=== PATIENT | male | born 1950 | race African-American/Black ===

== ENCOUNTER 2016-05-18 09:30 | Emergency (ER) | payer MEDICARE, OTHER ==
[~2016-05-18] VITALS: Ht 170.2 cm; Wt 80.7 kg
[~2016-05-18 09:30] MED LIST: ALLO100T PO; ASPI-482 PO; ATOR40TA59 PO; CARV12.52 PO; CLON0.2T PO; CLOP75TA PO; GLIM4TAB2 PO; HYDR-2869 PO; NIFE20CA PO; PRAS10TA4 PO; RIVA10TA PO; SITA100T PO; SPIR100T2 PO
[2016-05-18 10:10] VITALS: BP 104/60
[2016-05-18] MEDS ORDERED: ORPHENADRINE CITRATE 60 MG/2 ML VIAL. IM ONE (10:30)
--- NOTE | 2016-05-18 10:51 | RAD ---
Indication neck pain. AP lateral and odontoid views of the cervical spine were obtained. C1-T1 are identified. There are degenerative changes. Osteophytes are seen at several levels. There is disc space narrowing predominantly at C5-6. An acute finding is not seen. The prevertebral soft tissues appear normal. IMPRESSION: Moderately severe degenerative changes in the cervical spine
[2016-05-18] MEDS ORDERED: CYCL10TA2 PO (11:46)
[2016-05-18] MEDS ORDERED: HYDR-79 PO (11:46)
--- NOTE | 2016-05-18 11:47 | PHYS DOC ---
Past Medical History Past Medical History: Diabetes-Type II, High Cholesterol, Hypertension Past Surgical History: No Surgical History Alcohol Use: None Drug Use: None Adult General Chief Complaint Chief Complaint: Neck Pain HPI HPI 65-year-old male presents with several day history of neck pain. He states he injured his neck while he was moving around in bed. States the right side of his neck feels tight and is unable to rotate his head secondary to the discomfort. He states is now been going on for a few days. States the pain is moderate now. He has tried some ibuprofen without relief. [] Review of Systems Review of Systems Constitutional: Denies fever or chills [] Eyes: Denies change in visual acuity, redness, or eye pain [] HENT: Denies nasal congestion or sore throat [] Respiratory: Denies cough or shortness of breath [] Cardiovascular: No additional information not addressed in HPI [] GI: Denies abdominal pain, nausea, vomiting, bloody stools or diarrhea [] : Denies dysuria or hematuria [] Musculoskeletal: Per history of present illness [] Integument: Denies rash or skin lesions [] Neurologic: Denies headache, focal weakness or sensory changes [] Endocrine: Denies polyuria or polydipsia [] Current Medications Current Medications Current Medications Medications (Trade) Dose Ordered Sig/[facility] Start Time Stop Time Status Last Admin Dose Admin Orphenadrine Citrate (Norflex) 60 mg 1X ONCE 05/18/16 10:30 05/18/16 10:31 DC 05/18/16 10:44 60 MG Allergies Allergies Allergies Coded Allergies Type Severity Reaction Last Updated Verified No Known Drug Allergies 12/18/15 No Physical Exam Physical Exam Constitutional: Well developed, well nourished, no acute distress, non-toxic appearance. [] HENT: Normocephalic, atraumatic, bilateral external ears normal, oropharynx moist, no oral exudates, nose normal. [] Eyes: PERRLA, EOMI, conjunctiva normal, no discharge. [] Neck: Normal range of motion, no tenderness, supple, no stridor. [] Cardiovascular:Heart rate regular rhythm, no murmur [] Lungs & Thorax: Bilateral breath sounds clear to auscultation [] Abdomen: Bowel sounds normal, soft, no tenderness, no masses, no pulsatile masses. [] Skin: Warm, dry, no erythema, no rash. [] Back: Right paraspinal spinal cervical tenderness no midline tenderness decreased range of motion secondary to pain. Rotation to the left is more restricted then rotation to the right. Side bending to the left causes pain. Side bending neck to the right is much easier.. [] Extremities: No tenderness, no cyanosis, no clubbing, ROM intact, no edema. [] Neurologic: Alert and oriented X 3, normal motor function, normal sensory function, no focal deficits noted. [] Psychologic: Affect normal, judgement normal, mood normal. [] Current Patient Data Vital Signs Vital Signs Date Time Temp Pulse Resp B/P Pulse Ox O2 Delivery O2 Flow Rate FiO2 05/18/16 10:10 97.9 81 18 104/60 99 Room Air 97.9 EKG EKG [] Radiology/Procedures Radiology/Procedures [] Impressions: PROCEDURE: CERVICAL SPINE 2-3V Indication neck pain. AP lateral and odontoid views of the cervical spine were obtained. C1-T1 are identified. There are degenerative changes. Osteophytes are seen at several levels. There is disc space narrowing predominantly at C5-6. An acute finding is not seen. The prevertebral soft tissues appear normal. IMPRESSION: Moderately severe degenerative changes in the cervical spine Course & Med Decision Making Course & Med Decision Making Pertinent Labs and Imaging studies reviewed. (See chart for details) [ED course: Evaluation reveals a 65-year-old male with an obvious cervical sprain. His x-ray shows moderately severe degenerative changes. He was given an IM shot of Norflex which did help alleviate his symptoms. I will start the patient on an anti-inflammatory as well as muscle relaxer.] Dragon Disclaimer Dragon Disclaimer This electronic medical record was generated, in whole or in part, using a voice recognition dictation system. Departure Departure Impression: Primary Impression: Cervical sprain Disposition: 01 HOME, SELF-CARE Condition: IMPROVED Referrals: THEA DELACRUZ PA-C (PCP) Patient Instructions: Cervical Sprain, Cervical Strain and Sprain with Rehab- [facility] Additional Instructions: Thank you for allowing us to participate in your care today. Followup with your primary care physician in 3 days if your symptoms do not improve. Return to the emergency department you have any new or concerning findings. This should be evaluated by the primary care physician and any necessary consulting services for continued management within a few days after discharge. Return to emergency room if you have any new or concerning symptoms including but not limited to fever, chills, nausea, vomiting, intractable pain, any new rashes, chest pain, shortness of air, uncontrolled bleeding, difficulty breathing, and/or vision loss. You may have been prescribed medication that can change in your level of thinking and ability to operate machinery. These medications include hydrocodone and Ativan. Also, Benadryl has been known to do this as well. Be sure to check with your pharmacist and ask if the medications you've prescribed can affect your level of consciousness. I recommend not operating heavy machinery or driving while on medication such as these. Scripts Cyclobenzaprine Hcl 10 Mg Tablet1 Tab PO TID PRN MUSCLE PAIN #30 TAB Prov:DEAN PARADA DO 05/18/16 Hydrocodone/Ibuprofen (Hydrocodone-Ibuprofen 7.5-200 )1 Each Tablet1 Tab PO PRN Q6HRS PRN PAIN #20 TAB Ref 0 Prov:DEAN PARADA DO 05/18/16 Problem Qualifiers Primary Impression: Cervical sprain Encounter type: initial encounter Qualified Code: S13.9XXA - Sprain of joints and ligaments of unspecified parts of neck, initial encounter DEAN PARADA DO May 18, 2016 11:47
== END 2016-05-18 11:55 | disposition home or self-care (01) ==
LOC: ER 09:34
DX: S13.4XXA Sprain of ligaments of cervical spine, initial encounter (principal); E11.9 Type 2 diabetes mellitus without complications; I10 Essential (primary) hypertension; E78.00 Pure hypercholesterolemia, unspecified; X58.XXXA Exposure to other specified factors, initial encounter; Y93.89 Activity, other specified; Y92.092 Bedroom in other non-institutional residence as the place of occurrence of the external cause; Y99.8 Other external cause status
CPT/HCPCS: 72040; 96372; 99284; J2360

== ENCOUNTER 2016-08-05 09:57 | Inpatient (IN) | payer OTHER ==
[2016-08-05] VITALS (10 sets, daily range): BP systolic 110–167; BP diastolic 56–87
[~2016-08-05] VITALS: Ht 170.2 cm; Wt 66.7 kg
[~2016-08-05 09:57] MED LIST changes: +CYCL10TA2 PO; +HYDR-79 PO; -PRAS10TA4 PO; +PRAS10TA9 PO
--- NOTE | 2016-08-05 10:27 | ED.ADGEN ---
Past Medical History Past Medical History: CAD, Diabetes-Type II, High Cholesterol, Hypertension Past Surgical History: No Surgical History Alcohol Use: None Drug Use: None Adult General Chief Complaint Chief Complaint: CHEST PAIN HPI HPI Patient is a 65 year old male who presents with chest pain. Patient has known coronary artery disease, states he's been having intermittent achy chest pain since chest today, nonradiating, no associated shortness of breath or diaphoresis but reports profound weakness when it occurs. He is unsure of how long it last, he is not actively having it at this time, his last episode was just prior to arrival when he was nauseous and vomited in his 's car. Pt's last cath was in January of last year, he states he subsequently had stents placed when they recommended a bypass surgery. Denies other illness, no cough or fevers, no history DVT or PE. PCP is Dr. Angelina Ewing, her knuckle strap sewer is Dr. Slater Review of Systems Review of Systems Constitutional: Denies fever or chills. [] Eyes: Denies change in visual acuity. [] HENT: Denies nasal congestion or sore throat. [] Respiratory: Denies cough or shortness of breath. [] Cardiovascular: per hpi GI: Denies abdominal pain, bloody stools or diarrhea. [] : Denies dysuria. [] Musculoskeletal: Denies back pain or joint pain. [] Integument: Denies rash. [] Neurologic: Denies headache, focal weakness or sensory changes. [] Current Medications Current Medications Current Medications Medications (Trade) Dose Ordered Sig/[facility] Start Time Stop Time Status Last Admin Dose Admin Alteplase, Recombinant 62 ml @ 62 mls/hr Q1H 08/05/16 12:30 08/05/16 13:29 DC 08/05/16 12:51 62 MLS/HR Aspirin 325 mg 325 mg 1X ONCE 08/05/16 11:00 08/05/16 11:01 DC 08/05/16 10:48 325 MG Sodium Bicarbonate 100 meq/Sodium Chloride 600 ml @ 500 mls/hr 1X ONCE 08/05/16 13:15 08/05/16 14:26 Cancel Sodium Bicarbonate/ Dextrose 600 ml @ 500 mls/hr 1X ONCE 08/05/16 13:15 08/05/16 14:26 DC 08/05/16 13:40 500 MLS/HR Allergies Allergies Allergies Coded Allergies Type Severity Reaction Last Updated Verified No Known Drug Allergies 12/18/15 No Physical Exam Physical Exam Constitutional: Well developed, well nourished, no acute distress, non-toxic appearance. [] HENT: Normocephalic, atraumatic, bilateral external ears normal, oropharynx moist, no oral exudates, nose normal. [] Eyes: PERRLA, EOMI, conjunctiva normal, no discharge. [] Neck: Normal range of motion, no tenderness, supple, no stridor. [] Cardiovascular:Heart rate regular with regular rhythm, no murmur [] Lungs & Thorax: Bilateral breath sounds clear to auscultation , no wheeze or crackles Abdomen: Bowel sounds normal, soft, no tenderness, no masses, no pulsatile masses. [] Skin: Warm, dry, no erythema, no rash. [] Back: No tenderness, no CVA tenderness. [] Extremities: No tenderness, no cyanosis, no clubbing, ROM intact, no edema, neg homen's Neurologic: Alert and oriented X 3, normal motor function, normal sensory function, no focal deficits noted. [] Psychologic: Affect normal, judgement normal, mood normal. [] Current Patient Data Vital Signs Vital Signs Date Time Temp Pulse Resp B/P Pulse Ox O2 Delivery O2 Flow Rate FiO2 08/05/16 12:05 55 32 101/63 96 08/05/16 10:22 97.4 Room Air 97.4 Lab Values Laboratory Tests Test 08/05/16 11:20 08/05/16 11:30 08/05/16 12:06 08/05/16 13:11 Prothrombin Time 14.2SEC (11.7-14.0) H Prothrombin Time INR 1.2 (0.8-1.1) H White Blood Count 9.9x10^3/uL (4.0-11.0) Red Blood Count 4.17x10^6/uL (4.30-5.70) L Hemoglobin 13.2g/dL (13.0-17.5) Hematocrit 40.9% (39.0-53.0) Mean Corpuscular Volume 98fL (79-100) Mean Corpuscular Hemoglobin 32pg (25-35) Mean Corpuscular Hemoglobin Concent 32g/dL (31-37) Red Cell Distribution Width 16.2% (11.5-14.5) H Platelet Count 243x10^3/uL (140-400) Neutrophils (%) (Auto) 82% (31-73) H Lymphocytes (%) (Auto) 12% (24-48) L Monocytes (%) (Auto) 5% (0-9) Eosinophils (%) (Auto) 0% (0-3) Basophils (%) (Auto) 1% (0-3) Neutrophils # (Auto) 8.1x10^3uL (1.8-7.7) H Lymphocytes # (Auto) 1.2x10^3/uL (1.0-4.8) Monocytes # (Auto) 0.5x10^3/uL (0.0-1.1) Eosinophils # (Auto) 0.0x10^3/uL (0.0-0.7) Basophils # (Auto) 0.0x10^3/uL (0.0-0.2) Sodium Level 133mmol/L (136-145) L Potassium Level 6.6mmol/L (3.5-5.1) *H Chloride Level 101mmol/L (98-107) Carbon Dioxide Level 18mmol/L (21-32) L Anion Gap 14 (6-14) 18mmol/L (6-14) H Blood Urea Nitrogen 38mg/dL (8-26) H Creatinine 2.9mg/dL (0.7-1.3) H Estimated GFR (Cockcroft-Gault) 26.7 BUN/Creatinine Ratio 13 (6-20) Glucose Level 303mg/dL (70-99) H 285mg/dL (70-99) H Uric Acid 8.5mg/dL (3.5-7.2) H Calcium Level 8.7mg/dL (8.5-10.1) Magnesium Level 1.9mg/dL (1.8-2.4) Total Bilirubin 2.0mg/dL (0.2-1.0) H Aspartate Amino Transferase (AST) 139U/L (15-37) H Alanine Aminotransferase (ALT) 148U/L (16-63) H Alkaline Phosphatase 103U/L (46-116) Creatine Kinase 257U/L (39-308) Troponin I Quantitative 6.997ng/mL (0.000-0.055) YZ-[id number]-R-Type Natriuretic Peptide 50078qw/mL (0-124) H Total Protein 7.1g/dL (6.4-8.2) Albumin 3.4g/dL (3.4-5.0) Albumin/Globulin Ratio 0.9 (1.0-1.7) L Triglycerides Level 61mg/dL (0-150) Cholesterol Level 123mg/dL (0-200) LDL Cholesterol, Calculated 79mg/dL (0-100) VLDL Cholesterol, Calculated 12mg/dL (0-40) Non-HDL Cholesterol Calculated 91mg/dL (0-129) HDL Cholesterol 32mg/dL (40-60) L Cholesterol/HDL Ratio 3.8 Glucose (Fingerstick) 292mg/dL (70-99) H POC Hemoglobin 14.3g/dL (14-18) POC Hematocrit 42% (37-52) POC Sodium 132mmol/L (135-145) L POC Potassium 6.6mmol/L (3.5-5.0) H POC Chloride 109mmol/L (98-110) POC Total CO2 13mmol/L (23-32) L POC Blood Urea Nitrogen 45mg/dL (8-26) H POC Creatinine 2.6mg/dL (0.5-1.4) H POC Ionized Calcium (Merly) 0.94mmol/L (1.13-1.32) L Laboratory Tests 08/05/16 11:30 Laboratory Tests 08/05/16 11:30 08/05/16 13:11 EKG EKG 60 bpm, difficult to appreciate P waves, believe it is sinus versus A. fib, deep T-wave inversions in leads V3 through V6 with ST depression. Previous EKG did not show the ST depression, or severe T-wave inversions, but previous to that EKGs did show similar findings. Biphasic T-wave in 3, T-wave inversion in 1 , 2 and aVF, interpreted by me Radiology/Procedures Radiology/Procedures CT Head: Impression: 1. No acute intracranial process. Please note that CT can be relatively insensitive to acute ischemic infarction for up to 24 hours after symptom onset. 2. Patchy, nonspecific white matter changes. Old left thalamic lacunar infarction. Findings are likely customer success representative of chronic microvascular ischemic disease. 3. Results discussed with emergency department staff, Dr. Gunderson, at 1219 hours. [] CXR: Exam: AP portable chest. History: Chest pain for one week. Comparison: 12/28/2015. Findings: The heart and mediastinal structures are within normal limits for size. Lungs are without infiltrate. No pneumothorax or pleural effusion is appreciated. Impression: 1. No acute cardiopulmonary process. Course & Med Decision Making Course & Med Decision Making Pertinent Labs and Imaging studies reviewed. (See chart for details) pt not actively having chest pain. Aspirin given. Labs/CXR/EKG given. compared EKG with previous EKG and he has had extreme ST depression in T waves in same leads in the past, patient is not actively having any chest pain, therefore waited for labs to return. Approximately 11 to 11:30, the patient started to have slurred speech and right sided facial droop. This was an acute change for him upon arrival. Concerned the patient was actively having a stroke , CT head was ordered emergently. It was negative for acute finding. TPA was ordered after we ruled out any exclusions were present. I explained the risks to the patient and his family member at bedside and they were agreeable to proceed with the TPA knowing the risk of bleeding. I contacted Dr. Varela prior to administering the TPA who agreed. I also consulted cardiology to inform them of the elevated troponin and the abnormal EKG. They came to the ER to evaluate the patient. Patient regarding received aspirin prior to his acute stroke. I spoke with Dr. Mittal of nephrology who recommended to have his bicarbonate and 500 mL normal saline with 40 mg IV Lasix push. This was placed. Patient could not have a French catheter due to the TPA. I spoke with Dr. Ayala accepted this patient to the ICU. Total critical care time: 78 minutes Dx: Acute ischemic CVA NSTEMI ARF Hyperkalemia Dragon Disclaimer Dragon Disclaimer This electronic medical record was generated, in whole or in part, using a voice recognition dictation system. PING GUNDERSON MD Aug 05, 2016 10:27
--- NOTE | 2016-08-05 10:37 | RAD ---
Exam: AP portable chest. History: Chest pain for one week. Comparison: 12/28/2015. Findings: The heart and mediastinal structures are within normal limits for size. Lungs are without infiltrate. No pneumothorax or pleural effusion is appreciated. Impression: 1. No acute cardiopulmonary process.
--- NOTE | 2016-08-05 10:54 | EKG ---
[facility] [address] [place] [address] Test Date: 2016-08-05 Test Time: 10:09:34 Pat Name: ERASTO HERNANDEZ Department: Room: Gender: [facility] Information Specialist: : 1950 Requested By: PING GUNDERSON Order Number: [id number] Reading MD: Rafael Slater Measurements Intervals [place] Rate: 60 P: ID: QRS: 27 QRSD: 102 T: -124 QT: 528 QTc: 533 Interpretive Statements ATRIAL FIBRILLATION VENTRICULAR PREMATURE COMPLEX(ES) CONSIDER LEFT VENTRICULAR HYPERTROPHY ST & T ABNORMALITY, CONSIDER ANTERIOR ISCHEMIA OR LEFT VENTRICULAR STRAIN INFERIOR ISCHEMIA OR LEFT VENTRICULAR STRAIN Electronically Signed On 08-05-2016 18:01:00 CDT by Rafael Slater
[2016-08-05] MEDS ORDERED: ASPIRIN 325 MG TABLET PO ONE (11:00)
[2016-08-05 11:52] LABS: BASO % 1 % (0-3); EOS % 0 % (0-3); HEMATOCRIT 40.9 % (39.0-53.0); HEMOGLOBIN 13.2 g/dL (13.0-17.5); LYMPH # 1.2 x10^3/uL (1.0-4.8); LYMPH % 12 % (24-48); MEAN CORPUSCULAR HEMOGLOBIN 32 pg (25-35); MEAN CORPUSCULAR HGB CONC 32 g/dL (31-37); MEAN CORPUSCULAR VOLUME 98 fL (79-100); MONO % 5 % (0-9); NEUT % 82 % (31-73); PLATELET COUNT 243 x10^3/uL (140-400); RED BLOOD COUNT 4.17 x10^6/uL (4.30-5.70); RED CELL DISTRIBUTION WIDTH 16.2 % (11.5-14.5); WHITE BLOOD COUNT 9.9 x10^3/uL (4.0-11.0)
[2016-08-05 12:05] LABS: INR 1.2 (0.8-1.1); PROTHROMBIN TIME PATIENT 14.2 SEC (11.7-14.0)
--- NOTE | 2016-08-05 12:21 | RAD ---
CT head without contrast History: Right-sided weakness, slurred speech, facial droop. Stroke protocol. Comparison: None. Procedure: Axial images are obtained of the head from the skull base through the vertex without IV contrast. One or more of the following individualized dose reduction techniques were utilized for the study: Automated exposure control Adjustment of mA and/or kV according to patient's size Use of iterative reconstruction technique. Findings: The ventricles and sulci are normal for the patient's age. No mass-effect, intracranial mass, midline shift, hemorrhage or obvious acute infarction is identified. Basilar cisterns are patent. Patchy, nonspecific white matter low attenuation is seen, especially involving the right periventricular white matter. There is also small old left thalamic lacunar infarction. Bone windows demonstrate no significant calvarial abnormality. The visualized paranasal sinuses appear clear. Impression: 1. No acute intracranial process. Please note that CT can be relatively insensitive to acute ischemic infarction for up to 24 hours after symptom onset. 2. Patchy, nonspecific white matter changes. Old left thalamic lacunar infarction. Findings are likely community health program representative of chronic microvascular ischemic disease. 3. Results discussed with emergency department staff, Dr. Bryant, at 1219 hours.
[2016-08-05 12:23] LABS: CALCIUM 8.7 mg/dL (8.5-10.1); CREATININE 2.9 mg/dL (0.7-1.3); GFR 26.7
[2016-08-05 12:25] LABS: POTASSIUM 6.6 mmol/L (3.5-5.1)
[2016-08-05 12:27] LABS: ALBUMIN 3.4 g/dL (3.4-5.0); ALBUMIN/GLOBULIN RATIO 0.9 (1.0-1.7); TOTAL PROTEIN 7.1 g/dL (6.4-8.2)
[2016-08-05] MEDS ORDERED: ALTEPLASE 62 MG IV SCH ×2 (12:30→12:40)
[2016-08-05] MEDS ORDERED: ALTEPLASE 7 MG IV ONE ×2 (12:30)
[2016-08-05 12:37] LABS: MAGNESIUM 1.9 mg/dL (1.8-2.4)
--- NOTE | 2016-08-05 12:49 | PDOC2 ---
SAAD CHUNG TOLL BRIDGE OPERATOR 08/05/16 1249: CARDIAC CONSULT DATE OF CONSULT Date of Consult DATE: 08/05/16 TIME: 12:43 REASON FOR CONSULT Reason for Consult: Chest pain REFERRING PHYSICIAN Referring Physician: Crispin SOURCE Source: Caregiver (partner), Chart review, Patient HISTORY OF PRESENT ILLNESS HISTORY OF PRESENT ILLNESS This is a 65 yo male admitted for complains of chest pain. His partner for 25 yrs told me that he keeps things to himself and does not complain as much. She said that in the last 2 weeks he has been having intermittent chest pain but he did not say or did not want to elaborate further. Last night he told her that he was having severe mid chest pain and was noted to be SOA. He did not want to go to the hospital due to lack of insurance. She has noticed him with CHING in the last several days. This morning he remains to have SOA, chest pain and agreed to come to ED and his partner took him to the car where he vomited. While in ED being evaluated he started to display stroke symptoms namely expressive aphasia, right facial droop and right ptosis as well as slurred speech. Presently he denies CP but SOA and is Ox3. It is unclear if he still has all of his medications or what he has been taking. He had a complex PCI/ stent placement 02/2016, followed up on 03/2016 but failed to follow up since then. He is supposed to have his lifevest but could not confirm if he still has this at home or not. PAST MEDICAL HISTORY Cardiovascular: AFIB, CAD, CHF (cardiomyopathy), HTN, Hyperlipidemia Pulmonary: COPD (?) CENTRAL NERVOUS SYSTEM: CVA (2006) Heme/Onc: Other (was on chronic anticoagulation) Psych: No pertinent hx Musculoskeletal: Osteoarthritis Rheumatologic: Gout Infectious disease: No pertinent hx Renal/: Chronic renal insuff (CKD3) Endocrine: Diabetes (2) Dermatology: No pertinent hx PAST SURGICAL HISTORY Past Surgical History: Other (02/2016 PCI/YINKA) FAMILY HISTORY Family History: Family History Unknown SOCIAL HISTORY Smoke: No ALCOHOL: none Drugs: None Lives: Alone CURRENT MEDICATIONS CURRENT MEDICATIONS Current Medications Medications (Trade) Dose Ordered Sig/Tom Route PRN Reason Start Time Stop Time Status Last Admin Dose Admin Aspirin (Ayad Aspirin) 325 mg 1X ONCE PO 08/05/16 11:00 08/05/16 11:01 DC 08/05/16 10:48 ALLERGIES ALLERGIES: Coded Allergies: No Known Drug Allergies (Unverified , 12/18/15) ROS Review of System drowsy, limited due to mentation PHYSICAL EXAM General: Oriented X3, Cooperative HEENT: Atraumatic, Mucous membr. moist/pink, Other (right facial droop; ptosis) Lungs: Other (diminished bases) Heart: Regular rate (SR), Other (S3; 2/6 systolic murmur to LLS border) Abdomen: Soft, No tenderness Extremities: No cyanosis, Other (trace LE) Skin: No breakdown, No significant lesion Neuro: Other (dysarthria) Psych/Mental Status: Other MUSCULOSKELETAL: Osteoarthritic changes both hands, Other (no unilateral weakness) VITALS VITALS Vital Signs Date Time Temp Pulse Resp B/P Pulse Ox O2 Delivery O2 Flow Rate FiO2 08/05/16 12:05 55 32 101/63 96 08/05/16 10:22 97.4 Room Air 97.4 LABS Lab: Laboratory Tests Test 08/05/16 11:20 08/05/16 11:30 08/05/16 12:06 Prothrombin Time 14.2SEC (11.7-14.0) Prothromb Time International Ratio 1.2 (0.8-1.1) White Blood Count 9.9x10^3/uL (4.0-11.0) Red Blood Count 4.17x10^6/uL (4.30-5.70) Hemoglobin 13.2g/dL (13.0-17.5) Hematocrit 40.9% (39.0-53.0) Mean Corpuscular Volume 98fL (79-100) Mean Corpuscular Hemoglobin 32pg (25-35) Mean Corpuscular Hemoglobin Concent 32g/dL (31-37) Red Cell Distribution Width 16.2% (11.5-14.5) Platelet Count 243x10^3/uL (140-400) Neutrophils (%) (Auto) 82% (31-73) Lymphocytes (%) (Auto) 12% (24-48) Monocytes (%) (Auto) 5% (0-9) Eosinophils (%) (Auto) 0% (0-3) Basophils (%) (Auto) 1% (0-3) Neutrophils # (Auto) 8.1x10^3uL (1.8-7.7) Lymphocytes # (Auto) 1.2x10^3/uL (1.0-4.8) Monocytes # (Auto) 0.5x10^3/uL (0.0-1.1) Eosinophils # (Auto) 0.0x10^3/uL (0.0-0.7) Basophils # (Auto) 0.0x10^3/uL (0.0-0.2) Sodium Level 133mmol/L (136-145) Potassium Level 6.6mmol/L (3.5-5.1) Chloride Level 101mmol/L (98-107) Carbon Dioxide Level 18mmol/L (21-32) Anion Gap 14 (6-14) Blood Urea Nitrogen 38mg/dL (8-26) Creatinine 2.9mg/dL (0.7-1.3) Estimated GFR (Cockcroft-Gault) 26.7 BUN/Creatinine Ratio 13 (6-20) Glucose Level 303mg/dL (70-99) Calcium Level 8.7mg/dL (8.5-10.1) Magnesium Level 1.9mg/dL (1.8-2.4) Total Bilirubin 2.0mg/dL (0.2-1.0) Aspartate Amino Transf (AST/SGOT) 139U/L (15-37) Alanine Aminotransferase (ALT/SGPT) 148U/L (16-63) Alkaline Phosphatase 103U/L (46-116) Troponin I Quantitative 6.997ng/mL (0.000-0.055) UB-Vys-J-Type Natriuretic Peptide 61038rc/mL (0-124) Total Protein 7.1g/dL (6.4-8.2) Albumin 3.4g/dL (3.4-5.0) Albumin/Globulin Ratio 0.9 (1.0-1.7) Glucose (Fingerstick) 292mg/dL (70-99) ECHOCARDIOGRAM ECHOCARDIOGRAM <Conclusion> Left ventricle systolic function is moderately impaired. The Ejection Fraction is estimated at 30-35%. The left atrium is moderately dilated. Trace mitral regurgitation. Trace tricuspid valve regurgitation. There is no evidence of significant pericardial effusion. DATE: 12/30/15 1051 HEART CATH HEART CATH Conclusion 1. Severe ischemic CMP. EF 25%. 2. Mildly elevated left sided filling pressures. 3. Severe LM disease with LAD/LCx involvement. 4. Successful bifurcation stenting of the left main with a T-stent technique. ( Xience 2.5/28 - LM into LCx), Xience 2.25/8 in the ostial/proximal LAD. Both stents post-dilated as noted above. 5. Successful insertion/removal of a percutaneous left ventricular assiss device (Impella), continuous for procedural support. 6. Successful IVUS of the LM and LCx. 7. Successful closure of the left common femoral artery with a Perclose device, successful closure of the RCFA with an Angioseal device. Recommendations Cardiac Rehabilitation Referral -ASA 81mg daily + Prasugrel 10mg daily for 30 days. Then transition to Xarelto + Plavix indefinitely. -PPI daily -High dose statin therapy. DATE: 03/07/16 1630 ASSESSMENT/PLAN ASSESSMENT/PLAN 1. Acute CVA: expressive aphasia and facial droop 2. NSTEMI: Troponin 6.9. EKG with diffuse asymmetrical T wave inversions 3. EMILY/hyperkalemia: K 6.6, Cr 2.9 4. Acute on chronic systolic CHF: SOA/tachypnea. No vascular congestion, nor obvious peripheral edema. 5. CAD: s/p PCI/YINKA to LM and ostial/proximal LAD; Impella assisted. 02/2016 6. Ischemic CMP: EF 25%. 7. Peripheral Vascular Disease 8. PAFIB: regular junctional. 9. Hypertension: controlled 10. QD3Vvwxempdnwvwhe: uncontrolled 11. Noncompliance: has not attended multiple cardiology follow ups. Could not confirm what medications he has been taking at home 12. Shock liver Recommendations 1. Stroke protocol triggered. tPA initiated by ED. 2. Consult neurology and nephrology 3. Lipid panel, further recommendation post TTE 4. Lasix, defer further to renal. 5. If ok with neurology, would recommend to start heparin >24 hours post tPA and if no further changes 6. ASA received prior to tPA 7. Will review secondary prevention measures in the next 24 hours 8. Will consider for LHC once other acute issues are better. Problems: ANGEL ROBLES MD 08/05/16 1833: CARDIAC CONSULT ALLERGIES ALLERGIES: Coded Allergies: No Known Drug Allergies (Unverified , 12/18/15) ASSESSMENT/PLAN ASSESSMENT/PLAN Patient seen and examined. Agree with above nurse practitioner noted. 65-year-old male well known to us with history of cardiac myopathy status post left main and circumflex stents. He was last seen in the clinic approximately 3 months ago. It appears that since then he is not been taking his medications. He presented with acute dyspnea and acute/subacute stroke like symptoms. On examination he is confused and lethargic. He has nausea. He is tachypneic. Decreased breath sounds at the lung bases. His EKG suggestive of lateral wall ischemia. Echocardiogram demonstrates significant LV systolic dysfunction worsened compared to prior. He has significant multiorgan failure including cardiac and renal dysfunction. It appears that he has not been taking his medications for the last 3 months has had progressive decline. At this time his ABG appears to reveal stable oxygenation. Symptomatically treatment for his nausea. Aggressive diuresis. Initiated on milrinone therapy. We will follow along closely. I discussed the grave prognosis with the family and the patient. Given his recent TPA administration it would be a contraindication to taken to the catheter lab for his elevated troponin. When able to do so after 24 hours we will initiate him on a heparin drip. Problems: SAAD CHUNG APRN Aug 05, 2016 12:49 ANGEL ROBLES MD Aug 05, 2016 18:33
--- NOTE | 2016-08-05 13:01 | ACF ---
Admission Forms Criteria MYOCARDIAL INFARCTION Clinical Indications for Admission to Inpatient Care (Place 'X' for any and all applicable criteria): Admission is indicated for 1 or more of the following (1)(2)(3)(4): [x]I. Acute WA [ ]II. Contraindications and/or Inappropriate clinical situations for Observational Care in patients with Myocardial Infarction, when ANY ONE of the following is required: [ ]a) Patient with High risk of cardiac embolism (e.g, patients with previous cardiac embolism, LVEF < 40%, age >75 and patients with prosthetic valve) 18 [ ]b) Patient with Moderate risk including DM patient, CAD and patient aged 65-75 18 [ ]c) Patient with any change in cardiac biomarker especially troponin should be managed as high risk in an inpatient setting 19 [ ]d) Physician judgement irrespective of ECG and other diagnostic findings 20 [ ]III.General contraindications and/or Inappropriate clinical situations for Observational Care in patients with Myocardial Infarction, when ANY ONE of the following is required: [ ]a) Prediction of prolongation of LOS based on ANY ONE of the following may be considered as a contraindication for observational care 2, 3, 4, 5, 6, 7, 8, 9, 10, 11 [ ]i) Age > 65 yrs. [ ]ii) Patient arriving by ambulance [ ]iii) Patient with high acuity [ ]iv) Patient requiring vital sign monitoring [ ]v) Patient on IV medication [ ]b) Systolic blood pressures greater than or equal to 180mmHg 3,12 [ ]c) Patient with altered mental status including delirium and other alteration of consciousness, (3) [ ]d) Patient whose discharge disposition will be to a residential home or rehabilitation home should not be managed in Emergency Department Observation Unit. CMS rule requires 3 days hospital stay before such placement. 3,13 [ ]e) Patient with failure to thrive due to broad array of etiologies 3 ,16,17 [ ]f) Inability to ambulate 3,14 Extended stay beyond goal length of stay may be needed for (1)(18)(20)(24)(25): [ ]a) Hemodynamic instability, persisting symptoms after intensive medical management, or recurring severe, prolonged symptoms [ ]b) Intravascular procedural complications such as acute vessel closure, stent thrombosis, stent malposition, or vessel dissection (26)(27)(28) [ ]c) Extravascular procedural complications such as retroperitoneal hematoma , pericardial effusion, or cardiac tamponade [ ]d) Entry site complications causing bleeding, hematoma or distal ischemia and requiring ongoing monitoring, surgical repair or surgical thrombectomy. Dangerous arrhythmia [ ]e) Complicated percutaneous coronary intervention (e.g., unsuccessful percutaneous coronary intervention or percutaneous coronary intervention of non- cahto vessel) [ ]f) Urgent or emergent surgery for complications of WA (e.g., ventricular rupture, valvular insufficiency) [ ]g) Surgical revascularization via coronary artery bypass graft [ ]h) Heart failure (e.g., pulmonary edema) [ ]i) Unstable pulmonary comorbidities, including COPD or pneumonia (31) [ ]j) Acute renal failure The original [email or web address] content created by [email or web address] has been revised. The portions of the content which have been revised are identified through the use of italic text or in bold, and [facility] [employer] has neither reviewed nor approved the modified material. All other unmodified content is copyright [facility] [employer] Please see references footnoted in the original [employer] [employer] edition 2016 Admission Criteria Met?: Yes OSBALDO SUAREZ Aug 05, 2016 13:01
[2016-08-05] MEDS ORDERED: SODIUM BICARBONATE IV ONE ×2 (13:15)
[2016-08-05] MEDS ORDERED: NORMAL SALINE IV ONE (13:15)
[2016-08-05] MEDS ORDERED: DEXTROSE 5% IV ONE (13:15)
[2016-08-05] MEDS ORDERED: FUROSEMIDE 40 MG/4 ML VIAL. IVP ONE (13:30)
--- NOTE | 2016-08-05 13:46 | CARD ---
APPROVED REPORT EXAM: Two-dimensional and M-mode echocardiogram with Doppler and color Doppler. Other Information Quality : GoodHR: 50bpm Rhythm : Bradycardia INDICATION Non STEMI Acute CVA LEFT VENTRICLE The Left Ventricle is mildly dilated. There is normal left ventricular wall thickness. Left ventricle systolic function is severely impaired. The Ejection Fraction is <20%. There is severe global hypoki nesis of the left ventricle. Tissue Doppler imaging reveals severe left ventricular diastolic dysfunc tion. No left ventricle thrombus noted on this study. RIGHT VENTRICLE The right ventricle is normal size. There is normal right ventricular wall thickness. Systolic functi on is moderately reduced. ATRIA The left atrium is severely dilated. The right atrium size is normal. The interatrial septum is intac t with no evidence for an atrial septal defect or patent foramen ovale as noted on 2-D or Doppler lydia ging. AORTIC VALVE The aortic valve is mildly thickened. The aortic valve is trileaflet. Doppler and Color Flow revealed mild aortic regurgitation. There is no significant aortic valvular stenosis. MITRAL VALVE Mitral annular calcification is mild. The mitral valve leaflets are thickened. There is no evidence o f mitral valve prolapse. There is no mitral valve stenosis. Doppler and Color Flow revealed trace abad ral regurgitation. TRICUSPID VALVE Doppler and Color Flow revealed mild tricuspid regurgitation. The pulmonary artery systolic pressure is estimated at 52 mmHg. There is moderate pulmonary hypertension. PULMONIC VALVE Doppler and Color Flow revealed no pulmonic valvular regurgitation. There is no pulmonic valvular atlon nosis. GREAT VESSELS The aortic root is normal in size. The ascending aorta is normal in size. The pulmonary artery is nor mal. The IVC is normal in size and collapses >50% with inspiration. PERICARDIAL EFFUSION There is no evidence of significant pericardial effusion. Critical Notification Date: 08/05/2016 Time: 13:41 Physician Name:Ashleemisha KaufmanGia Critical Value: Yes <Conclusion> Left ventricle systolic function is severely impaired. The Ejection Fraction is <20%. There is severe global hypokinesis of the left ventricle. Doppler and Color Flow revealed mild tricuspid regurgitation. The pulmonary artery systolic pressure is estimated at 52 mmHg. There is moderate pulmonary hypertension.
--- NOTE | 2016-08-05 14:06 | EKG ---
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
[2016-08-05 14:33] LABS: POTASSIUM ISTAT 6.6 mmol/L (3.5-5.0)
--- NOTE | 2016-08-05 14:37 | EKG ---
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
[2016-08-05] MEDS ORDERED: IV NORMAL SALINE 500ML BAG 500 ML IV PRN (14:45)
--- NOTE | 2016-08-05 14:56 | PDOC2 ---
CONSULT Date of Consult Date of Consult DATE: 08/05/16 TIME: 14:34 Reason for Consult Reason for Consult: EMILY/ CKD III and ^K Referring Physician Referring Physician: dr Nasra JUAREZ Identification/Chief Complaint Chief Complaint CP Problems: Source Source: Chart review, Patient History of Present Illness Reason for Visit: as dictated Past Medical History Cardiovascular: AFIB, CAD, CHF (cardiomyopathy), HTN, Hyperlipidemia Pulmonary: COPD (?) CENTRAL NERVOUS SYSTEM: CVA (2006) Heme/Onc: Other (was on chronic anticoagulation) Psych: No pertinent hx Musculoskeletal: Osteoarthritis Rheumatologic: Gout Infectious disease: No pertinent hx Renal/: Chronic renal insuff (CKD3) Endocrine: Diabetes (2) Dermatology: No pertinent hx Past Surgical History Past Surgical History: Other (02/2016 PCI/YINKA) Family History Family History: Family History Unknown Social History No ALCOHOL: none Drugs: None Lives: Alone Current Medications Current Medications Current Medications Aspirin 325 mg 325 mg 1X ONCE PO Last administered on 08/05/16 10:48; Start 08/05/16 at 11:00; Stop 08/05/16 at 11:01; Status DC Alteplase, Recombinant 0 ml @ 0 mls/hr 1X ONCE IV ; Start 08/05/16 at 12:30; Stop 08/05/16 at 12:31; Status Cancel Alteplase, Recombinant 0 ml @ 0 mls/hr Q1H IV ; Start 08/05/16 at 12:40; Stop at 12:41; Status Cancel Alteplase, Recombinant 7 ml @ 420 mls/hr 1X ONCE IV Last administered on 12:50; Start 08/05/16 at 12:30; Stop 08/05/16 at 12:31; Status DC Alteplase, Recombinant (Activase) 62 ml @ 62 mls/hr Q1H IV Last administered on 08/05/16 12:51; Start 08/05/16 at 12:30; Stop 08/05/16 at 13:29; Status DC Furosemide 40 mg 40 mg 1X ONCE IVP Last administered on 08/05/16 13:30; Start 08/05/16 at 13:30; Stop 08/05/16 at 13:31; Status DC Sodium Bicarbonate 100 meq/Sodium Chloride 600 ml @ 500 mls/hr 1X ONCE IV ; Start 08/05/16 at 13:15; Stop 08/05/16 at 14:26; Status Cancel Sodium Bicarbonate/ Dextrose 600 ml @ 500 mls/hr 1X ONCE IV Last administered on 08/05/16t 13:40; Start 08/05/16 at 13:15; Stop 08/05/16 at 14:26 Active Scripts Active Cyclobenzaprine Hcl 10 Mg Tablet 1 Tab PO TID PRN Hydrocodone-Ibuprofen 7.5-200 (Hydrocodone/Ibuprofen) 1 Each Tablet 1 Tab PO PRN Q6HRS PRN Effient (Prasugrel Hcl) 10 Mg Tablet 10 Mg PO DAILYWBKFT SIG: ONE PO DAILY Hydralazine Hcl 50 Mg Tablet 50 Mg PO TID SIG: ONE BY MOUTH EVERY 8 HOURS; REPLACES NIFEDIPINE Carvedilol 12.5 Mg Tablet 12.5 Mg PO BIDWMEALS SIG: ONE P.O. BID; REPLACES CLONIDINE Reported Glimepiride 4 Mg Tablet 1 Tab PO DAILY Januvia (Sitagliptin Phosphate) 100 Mg Tablet 1 Tab PO DAILY Spironolactone 100 Mg Tablet 1 Tab PO DAILY Allopurinol 100 Mg Tablet 1 Tab PO DAILY Atorvastatin Calcium 40 Mg Tablet 1 Tab PO DAILY Aspir 81 (Aspirin) 81 Mg Tablet. 81 Tab PO DAILY Allergies Allergies: Coded Allergies: No Known Drug Allergies (Unverified , 12/18/15) ROS Review of System unable to get from pt currently due to AMS Physical Exam Physical Exam General Appearance: barely arousable, cant stay Awake, drowsy, In no apparent Distress Eyes: sclera anicteric; Conjunctiva Normal EN: No EN Drainage Mucous Memb. dry Neck: no JVD min JVP Supple no Thyromegaly CVS: S1 S2 + Murmur No Gallop No Rub no Edema Resp: no Rales no Rhonchi no Acc. Muscle use GI: BS hypoactive NO Bruit Non Tender Non Distended : no CVA tenderness; no Suprapubic Tenderness SKIN: no Rashes Breast Exam deferred Mu.Sk: Adequate passive ROM no significant Muscle Atrophy Heme: Unable to palpate Obvious LAD no palp Splenomegaly NEURO: Unable to assess since he does not follow commands Psych: Unable to assess Vital Signs Vital Signs Date Time Temp Pulse Resp B/P Pulse Ox O2 Delivery O2 Flow Rate FiO2 08/05/16 12:05 55 32 101/63 96 08/05/16 10:22 97.4 Room Air 97.4 Assessment & Plan EMILY - suspect Voldepletion/ Cardiogenic Shock. Reval with IVF . unable to place corona due to t-PA admin. hypoThermia - cehck TSH, FSBS wnl - suspect due to Dec CO and Vol dpeletion; doubt sepsis per se. Met Acidosis (NAG) - IV Bicarb as ordered - unable to obtain h/o diarrhea per se ^K - IV Bicarb then IVF with lasix vol dpeltion - IVF as ordered, Will need to run at a gentle rate due to worsening of CMYopathy. May need Ionotropes. ^LFTs - check CK (anticipate some elevation due to AMI cannot be ruled out) Labs Labs Laboratory Tests Test 08/05/16 11:20 08/05/16 11:30 08/05/16 12:06 08/05/16 13:11 Prothrombin Time 14.2SEC (11.7-14.0) Prothromb Time International Ratio 1.2 (0.8-1.1) White Blood Count 9.9x10^3/uL (4.0-11.0) Red Blood Count 4.17x10^6/uL (4.30-5.70) Hemoglobin 13.2g/dL (13.0-17.5) Hematocrit 40.9% (39.0-53.0) Mean Corpuscular Volume 98fL (79-100) Mean Corpuscular Hemoglobin 32pg (25-35) Mean Corpuscular Hemoglobin Concent 32g/dL (31-37) Red Cell Distribution Width 16.2% (11.5-14.5) Platelet Count 243x10^3/uL (140-400) Neutrophils (%) (Auto) 82% (31-73) Lymphocytes (%) (Auto) 12% (24-48) Monocytes (%) (Auto) 5% (0-9) Eosinophils (%) (Auto) 0% (0-3) Basophils (%) (Auto) 1% (0-3) Neutrophils # (Auto) 8.1x10^3uL (1.8-7.7) Lymphocytes # (Auto) 1.2x10^3/uL (1.0-4.8) Monocytes # (Auto) 0.5x10^3/uL (0.0-1.1) Eosinophils # (Auto) 0.0x10^3/uL (0.0-0.7) Basophils # (Auto) 0.0x10^3/uL (0.0-0.2) Sodium Level 133mmol/L (136-145) Potassium Level 6.6mmol/L (3.5-5.1) Chloride Level 101mmol/L (98-107) Carbon Dioxide Level 18mmol/L (21-32) Anion Gap 14 (6-14) 18mmol/L (6-14) Blood Urea Nitrogen 38mg/dL (8-26) Creatinine 2.9mg/dL (0.7-1.3) Estimated GFR (Cockcroft-Gault) 26.7 BUN/Creatinine Ratio 13 (6-20) Glucose Level 303mg/dL (70-99) 285mg/dL (70-99) Calcium Level 8.7mg/dL (8.5-10.1) Magnesium Level 1.9mg/dL (1.8-2.4) Total Bilirubin 2.0mg/dL (0.2-1.0) Aspartate Amino Transf (AST/SGOT) 139U/L (15-37) Alanine Aminotransferase (ALT/SGPT) 148U/L (16-63) Alkaline Phosphatase 103U/L (46-116) Troponin I Quantitative 6.997ng/mL (0.000-0.055) ME-Wxo-G-Type Natriuretic Peptide 45299yf/mL (0-124) Total Protein 7.1g/dL (6.4-8.2) Albumin 3.4g/dL (3.4-5.0) Albumin/Globulin Ratio 0.9 (1.0-1.7) Glucose (Fingerstick) 292mg/dL (70-99) Bedside Hemoglobin 14.3g/dL (14-18) Bedside Hematocrit 42% (37-52) Bedside Sodium 132mmol/L (135-145) Bedside Potassium 6.6mmol/L (3.5-5.0) Bedside Chloride 109mmol/L (98-110) Bedside Total CO2 13mmol/L (23-32) Bedside Blood Urea Nitrogen 45mg/dL (8-26) Bedside Creatinine 2.6mg/dL (0.5-1.4) Bedside Ionized Calcium (Merly) 0.94mmol/L (1.13-1.32) Laboratory Tests Test 08/05/16 11:20 08/05/16 11:30 08/05/16 12:06 08/05/16 13:11 Prothrombin Time 14.2SEC (11.7-14.0) Prothromb Time International Ratio 1.2 (0.8-1.1) White Blood Count 9.9x10^3/uL (4.0-11.0) Red Blood Count 4.17x10^6/uL (4.30-5.70) Hemoglobin 13.2g/dL (13.0-17.5) Hematocrit 40.9% (39.0-53.0) Mean Corpuscular Volume 98fL (79-100) Mean Corpuscular Hemoglobin 32pg (25-35) Mean Corpuscular Hemoglobin Concent 32g/dL (31-37) Red Cell Distribution Width 16.2% (11.5-14.5) Platelet Count 243x10^3/uL (140-400) Neutrophils (%) (Auto) 82% (31-73) Lymphocytes (%) (Auto) 12% (24-48) Monocytes (%) (Auto) 5% (0-9) Eosinophils (%) (Auto) 0% (0-3) Basophils (%) (Auto) 1% (0-3) Neutrophils # (Auto) 8.1x10^3uL (1.8-7.7) Lymphocytes # (Auto) 1.2x10^3/uL (1.0-4.8) Monocytes # (Auto) 0.5x10^3/uL (0.0-1.1) Eosinophils # (Auto) 0.0x10^3/uL (0.0-0.7) Basophils # (Auto) 0.0x10^3/uL (0.0-0.2) Sodium Level 133mmol/L (136-145) Potassium Level 6.6mmol/L (3.5-5.1) Chloride Level 101mmol/L (98-107) Carbon Dioxide Level 18mmol/L (21-32) Anion Gap 14 (6-14) 18mmol/L (6-14) Blood Urea Nitrogen 38mg/dL (8-26) Creatinine 2.9mg/dL (0.7-1.3) Estimated GFR (Cockcroft-Gault) 26.7 BUN/Creatinine Ratio 13 (6-20) Glucose Level 303mg/dL (70-99) 285mg/dL (70-99) Calcium Level 8.7mg/dL (8.5-10.1) Magnesium Level 1.9mg/dL (1.8-2.4) Total Bilirubin 2.0mg/dL (0.2-1.0) Aspartate Amino Transf (AST/SGOT) 139U/L (15-37) Alanine Aminotransferase (ALT/SGPT) 148U/L (16-63) Alkaline Phosphatase 103U/L (46-116) Troponin I Quantitative 6.997ng/mL (0.000-0.055) HF-Lid-Y-Type Natriuretic Peptide 40870gu/mL (0-124) Total Protein 7.1g/dL (6.4-8.2) Albumin 3.4g/dL (3.4-5.0) Albumin/Globulin Ratio 0.9 (1.0-1.7) Glucose (Fingerstick) 292mg/dL (70-99) Bedside Hemoglobin 14.3g/dL (14-18) Bedside Hematocrit 42% (37-52) Bedside Sodium 132mmol/L (135-145) Bedside Potassium 6.6mmol/L (3.5-5.0) Bedside Chloride 109mmol/L (98-110) Bedside Total CO2 13mmol/L (23-32) Bedside Blood Urea Nitrogen 45mg/dL (8-26) Bedside Creatinine 2.6mg/dL (0.5-1.4) Bedside Ionized Calcium (Merly) 0.94mmol/L (1.13-1.32) JONI CRISOSTOMO MD Aug 05, 2016 14:56
[2016-08-05 14:57] LABS: URIC ACID 8.5 mg/dL (3.5-7.2)
[2016-08-05 15:00] LABS: CHOLESTEROL/HDL RATIO 3.8
--- NOTE | 2016-08-05 15:34 | PDOC1 ---
History and Physical Past Medical History Cardiovascular: AFIB, CAD, CHF (cardiomyopathy), HTN, Hyperlipidemia Pulmonary: COPD (?) CENTRAL NERVOUS SYSTEM: CVA (2006) Heme/Onc: Other (was on chronic anticoagulation) Psych: No pertinent hx Rheumatologic: Gout Infectious disease: No pertinent hx Renal/: Chronic renal insuff (CKD3) Endocrine: Diabetes (2) Dermatology: No pertinent hx Past Surgical History Past Surgical History: Other (02/2016 PCI/YINKA) Family History Family History: Family History Unknown Social History Smoke: No ALCOHOL: none Drugs: None Current Medications Current Medications Current Medications Medications (Trade) Dose Ordered Sig/Tom Start Time Stop Time Status Last Admin Dose Admin Alteplase, Recombinant (Activase) 62 ml @ 62 mls/hr Q1H 08/05/16 12:30 08/05/16 13:29 DC 08/05/16 12:51 62 MLS/HR Aspirin 325 mg 325 mg 1X ONCE 08/05/16 11:00 08/05/16 11:01 DC 08/05/16 10:48 325 MG Furosemide 40 mg 40 mg 1X ONCE 08/05/16 13:30 08/05/16 13:31 DC 08/05/16 13:30 40 MG Magnesium Sulfate/ Dextrose 50 ml @ 25 mls/hr PRN DAILY PRN 08/05/16 14:30 Sodium Bicarbonate 100 meq/Dextrose 600 ml @ 500 mls/hr 1X ONCE 08/05/16 13:15 08/05/16 14:26 DC 08/05/16 13:40 500 MLS/HR Sodium Bicarbonate 100 meq/Sodium Chloride 600 ml @ 500 mls/hr 1X ONCE 08/05/16 13:15 08/05/16 14:26 Cancel Sodium Chloride (Iv Sodium Chloride 0.9% 500ml Bag) 500 ml @ 0 mls/hr QID PRN 08/05/16 14:45 Allergies Allergies Allergies Coded Allergies Type Severity Reaction Last Updated Verified No Known Drug Allergies 12/18/15 No ROS Review of System as per HPI not able get full ROS form pt, no family is available. Physical Exam Physical Exam GEN.: No apparent distress. Alert and oriented, times 3, slow to respond to questins, HEENT: Head is normocephalic, atraumatic NECK: Supple. LUNGS: Clear to auscultation. normal airflow HEART: RRR, S1, S2 present. Peripheral pulses intact ABDOMEN: Soft, nontender. Positive bowel sounds. EXTREMITIES: Without any cyanosis. NEUROLOGIC: slurring of speech. PSYCHIATRIC: SKIN: dry, Vitals Vitals Vital Signs Date Time Temp Pulse Resp B/P Pulse Ox O2 Delivery O2 Flow Rate FiO2 08/05/16 12:05 55 32 101/63 96 08/05/16 10:22 97.4 Room Air 97.4 Labs Labs Laboratory Tests Test 08/05/16 11:20 08/05/16 11:30 08/05/16 12:06 08/05/16 13:11 Prothrombin Time 14.2SEC (11.7-14.0) Prothromb Time International Ratio 1.2 (0.8-1.1) White Blood Count 9.9x10^3/uL (4.0-11.0) Red Blood Count 4.17x10^6/uL (4.30-5.70) Hemoglobin 13.2g/dL (13.0-17.5) Hematocrit 40.9% (39.0-53.0) Mean Corpuscular Volume 98fL (79-100) Mean Corpuscular Hemoglobin 32pg (25-35) Mean Corpuscular Hemoglobin Concent 32g/dL (31-37) Red Cell Distribution Width 16.2% (11.5-14.5) Platelet Count 243x10^3/uL (140-400) Neutrophils (%) (Auto) 82% (31-73) Lymphocytes (%) (Auto) 12% (24-48) Monocytes (%) (Auto) 5% (0-9) Eosinophils (%) (Auto) 0% (0-3) Basophils (%) (Auto) 1% (0-3) Neutrophils # (Auto) 8.1x10^3uL (1.8-7.7) Lymphocytes # (Auto) 1.2x10^3/uL (1.0-4.8) Monocytes # (Auto) 0.5x10^3/uL (0.0-1.1) Eosinophils # (Auto) 0.0x10^3/uL (0.0-0.7) Basophils # (Auto) 0.0x10^3/uL (0.0-0.2) Sodium Level 133mmol/L (136-145) Potassium Level 6.6mmol/L (3.5-5.1) Chloride Level 101mmol/L (98-107) Carbon Dioxide Level 18mmol/L (21-32) Anion Gap 14 (6-14) 18mmol/L (6-14) Blood Urea Nitrogen 38mg/dL (8-26) Creatinine 2.9mg/dL (0.7-1.3) Estimated GFR (Cockcroft-Gault) 26.7 BUN/Creatinine Ratio 13 (6-20) Glucose Level 303mg/dL (70-99) 285mg/dL (70-99) Uric Acid 8.5mg/dL (3.5-7.2) Calcium Level 8.7mg/dL (8.5-10.1) Magnesium Level 1.9mg/dL (1.8-2.4) Total Bilirubin 2.0mg/dL (0.2-1.0) Aspartate Amino Transf (AST/SGOT) 139U/L (15-37) Alanine Aminotransferase (ALT/SGPT) 148U/L (16-63) Alkaline Phosphatase 103U/L (46-116) Creatine Kinase 257U/L (39-308) Troponin I Quantitative 6.997ng/mL (0.000-0.055) UF-Fcn-I-Type Natriuretic Peptide 66762zj/mL (0-124) Total Protein 7.1g/dL (6.4-8.2) Albumin 3.4g/dL (3.4-5.0) Albumin/Globulin Ratio 0.9 (1.0-1.7) Triglycerides Level 61mg/dL (0-150) Cholesterol Level 123mg/dL (0-200) LDL Cholesterol, Calculated 79mg/dL (0-100) VLDL Cholesterol, Calculated 12mg/dL (0-40) Non-HDL Cholesterol Calculated 91mg/dL (0-129) HDL Cholesterol 32mg/dL (40-60) Cholesterol/HDL Ratio 3.8 Glucose (Fingerstick) 292mg/dL (70-99) Bedside Hemoglobin 14.3g/dL (14-18) Bedside Hematocrit 42% (37-52) Bedside Sodium 132mmol/L (135-145) Bedside Potassium 6.6mmol/L (3.5-5.0) Bedside Chloride 109mmol/L (98-110) Bedside Total CO2 13mmol/L (23-32) Bedside Blood Urea Nitrogen 45mg/dL (8-26) Bedside Creatinine 2.6mg/dL (0.5-1.4) Bedside Ionized Calcium (Merly) 0.94mmol/L (1.13-1.32) Laboratory Tests Test 08/05/16 11:20 08/05/16 11:30 08/05/16 12:06 08/05/16 13:11 Prothrombin Time 14.2SEC (11.7-14.0) Prothromb Time International Ratio 1.2 (0.8-1.1) White Blood Count 9.9x10^3/uL (4.0-11.0) Red Blood Count 4.17x10^6/uL (4.30-5.70) Hemoglobin 13.2g/dL (13.0-17.5) Hematocrit 40.9% (39.0-53.0) Mean Corpuscular Volume 98fL (79-100) Mean Corpuscular Hemoglobin 32pg (25-35) Mean Corpuscular Hemoglobin Concent 32g/dL (31-37) Red Cell Distribution Width 16.2% (11.5-14.5) Platelet Count 243x10^3/uL (140-400) Neutrophils (%) (Auto) 82% (31-73) Lymphocytes (%) (Auto) 12% (24-48) Monocytes (%) (Auto) 5% (0-9) Eosinophils (%) (Auto) 0% (0-3) Basophils (%) (Auto) 1% (0-3) Neutrophils # (Auto) 8.1x10^3uL (1.8-7.7) Lymphocytes # (Auto) 1.2x10^3/uL (1.0-4.8) Monocytes # (Auto) 0.5x10^3/uL (0.0-1.1) Eosinophils # (Auto) 0.0x10^3/uL (0.0-0.7) Basophils # (Auto) 0.0x10^3/uL (0.0-0.2) Sodium Level 133mmol/L (136-145) Potassium Level 6.6mmol/L (3.5-5.1) Chloride Level 101mmol/L (98-107) Carbon Dioxide Level 18mmol/L (21-32) Anion Gap 14 (6-14) 18mmol/L (6-14) Blood Urea Nitrogen 38mg/dL (8-26) Creatinine 2.9mg/dL (0.7-1.3) Estimated GFR (Cockcroft-Gault) 26.7 BUN/Creatinine Ratio 13 (6-20) Glucose Level 303mg/dL (70-99) 285mg/dL (70-99) Uric Acid 8.5mg/dL (3.5-7.2) Calcium Level 8.7mg/dL (8.5-10.1) Magnesium Level 1.9mg/dL (1.8-2.4) Total Bilirubin 2.0mg/dL (0.2-1.0) Aspartate Amino Transf (AST/SGOT) 139U/L (15-37) Alanine Aminotransferase (ALT/SGPT) 148U/L (16-63) Alkaline Phosphatase 103U/L (46-116) Creatine Kinase 257U/L (39-308) Troponin I Quantitative 6.997ng/mL (0.000-0.055) BK-Weg-P-Type Natriuretic Peptide 75913xs/mL (0-124) Total Protein 7.1g/dL (6.4-8.2) Albumin 3.4g/dL (3.4-5.0) Albumin/Globulin Ratio 0.9 (1.0-1.7) Triglycerides Level 61mg/dL (0-150) Cholesterol Level 123mg/dL (0-200) LDL Cholesterol, Calculated 79mg/dL (0-100) VLDL Cholesterol, Calculated 12mg/dL (0-40) Non-HDL Cholesterol Calculated 91mg/dL (0-129) HDL Cholesterol 32mg/dL (40-60) Cholesterol/HDL Ratio 3.8 Glucose (Fingerstick) 292mg/dL (70-99) Bedside Hemoglobin 14.3g/dL (14-18) Bedside Hematocrit 42% (37-52) Bedside Sodium 132mmol/L (135-145) Bedside Potassium 6.6mmol/L (3.5-5.0) Bedside Chloride 109mmol/L (98-110) Bedside Total CO2 13mmol/L (23-32) Bedside Blood Urea Nitrogen 45mg/dL (8-26) Bedside Creatinine 2.6mg/dL (0.5-1.4) Bedside Ionized Calcium (Merly) 0.94mmol/L (1.13-1.32) VTE Prophylaxis Ordered VTE Prophylaxis Devices: Contraindicated VTE Pharmacological Prophylaxi: Contraindicated Assessment/Plan Assessment/Plan CVA NSTEMI PLAN S/P TPA CC TIME 32 MIN. IDALIA BOWMAN MD Aug 05, 2016 15:34
[2016-08-05] MEDS ORDERED: DEXTROSE 50% 25 GM / 50ML DISP.SYRIN. IV PRN (16:00)
[2016-08-05] MEDS ORDERED: CALCIUM GLUCONATE 1,000 MG/10 ML VIAL. IVP ONE (16:15)
[2016-08-05] MEDS ORDERED: INSULIN REGULAR 100 UNIT/ML 10ML VIAL. IV ONE (16:15)
[2016-08-05] MEDS ORDERED: DEXTROSE 50% 25 GM / 50ML DISP.SYRIN. IV ONE (16:15)
--- NOTE | 2016-08-05 16:23 | RAD ---
PROCEDURE Brain MRI without contrast. HISTORY Confusion. Slurred speech. Weakness. TECHNIQUE Multiplanar and multi sequence magnetic resonance imaging of the brain was performed without contrast. COMPARISON Head CT obtained on the same date. FINDINGS There is slight restricted diffusion within the left frontal lobe cortex and subcortical white matter likely due acute or subacute infarction. There is also a tiny focus of slight increased signal on diffusion weighted images within the left occipital lobe, possibly due to additional subacute infarction. There is a focus of susceptibility effect within the right parietal lobe likely due to chronic microhemorrhage. There are extensive scattered areas of T2/FLAIR hyperintensity throughout the cerebral white matter, likely due to chronic small vessel disease. There is cerebral volume loss. There are foci of encephalomalacia within the cerebellar hemispheres, likely due to chronic infarction. There are chronic infarct within the bilateral basal ganglia, right external capsule and left thalamus. The orbits and paranasal sinuses are unremarkable. There is a tiny amount of fluid within the right greater than left mastoid air cells. The basilar artery is slightly diminutive, likely due to anterior dominant circulation. IMPRESSION 1. Suspected acute to subacute infarction within the left frontal lobe cortex and subcortical white matter and possibly the left occipital lobe white matter. 2. Scattered foci of signal change throughout the cerebral white matter, likely due to chronic small vessel disease. 3. Focus of suspected chronic microhemorrhage within the right parietal lobe. 4. Cerebral volume loss. 5. Chronic infarcts within the bilateral basal ganglia, right external capsule, left thalamus and cerebellar hemispheres. Findings were discussed with Mary, the nurse caring for the patient in the ICU, at 1620 hours on 08/05/2016. Electronically signed by: Juanita Espinosa (Aug 05, 2016 16:21:36)
--- NOTE | 2016-08-05 17:16 | PDOC2 ---
NEUROLOGY CONSULT Date of Admission Date of Admission DATE: 08/05/16 TIME: 16:45 Reason for Consult Reason for Consult: IMPRESSION: Acute (subacute also possible on MRI) left frontal cortex infarct, left occipital infarct possible, cerebral ischemia from cardiogenic etiology, s/p TPA in ER. SOB Chest pain. Hypoxia. CAD, s/p stents placement. CHF, EF < 20%. Pulmonary A hypertension DM Hyperglycemia, glucose level 303 Renal failure CKD Hyperkalemia, K+ 6.6 HTN HLD AFib? Elevated troponin. 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 Old right parietal microhemorrhage. RECOMMENDATIONS/PLAN: TPA protocol. Stroke protocol. NIH score per protocol. Brain MRI w/o contrast performed reports as above. Carotid A US + Doppler. Echo performed. Fasting lipid panel in a.m. ASA daily first dose 24-hour after TPA if no anticoagulant from Cardiology. Treat medical and cardiac diseases. Discussed with him and his cousin in ICU. HISTORY OF THE PRESENT ILLNESS: 65-y-old AA male patient with above medical and cardiac diseases has been having symptoms of SOB and generalized weakness for at least 1 week and he said he has not been feeling well recently. He was noted mental status changes and aphasia on 08/05 to be brought to the ER of [facility]. He might have some brief motor deficits as well but not consistent. TPA was administrated after all criteria were met and he and his family agreed. From his stroke type, he was thought to have partial global ischemia due to severe CHF. PAST MEDICAL HISTORY: Please see above. PAST SURGERY HISTORY: Cardiac stents placement. ALLERGY: Reviewed. MEDICATIONS: Refer to [facility] FAMILY HISTORY: Non contributory. SOCIAL HISTORY: Lives alone. He . Denies current smoking, drinking, and illicit drug use. He smoked in the past but quit years ago. He drank in the past then quit. He used drugs in the past, but denied current use. REVIEW OF SYSTEMS: Constitutional: No cachexia. Head: No traumatic brain or head injury. Skin: No edema, or rash. Ear: No infection, tinnitus. Eyes: No vision loss or color blindness. Nose: No bleeding or purulent discharges. Hearing: Mild hearing decrease. Neck: No acute injury. Cardiac: CAD, s/p stents placement, AFib, CHF, HTN, HLD, SOB, PAD, PVD Pulmonary: SOB GI: No GI ulcer, GI bleeding. Urinary/genital: UTI. Endocrinologic: Diabetes Mellitus. Skeletomuscular: Generalized weakness. Neurological: see HP. Psychiatric: Denies drug use/abuse. Otherwise, not [id number] review of systems. PHYSICAL EXAMINATION: General appearance is in acute distress. HEENT: Normocephalic and nontraumatic. Eyes, nose, ears, and throat are unremarkable. Neck is supple. No lymphadenopathy. No crepitus. Cardiovascular: S1, S2, regular rate and rhythm. Pulmonary: Clear to auscultation bilaterally. Abdomen: Bowel sounds are positive. Extremities: No rash, lesions, or edema. No restriction of range of motion NEUROLOGICAL EXAMINATION: Awake. Not oriented to time, but knows lace and person. PERRL. EOMI. CN: no acute focal findings. Muscle tone: within normal. Muscle strength: 4 DTR: 2 UE, brisk at knee. Plantar reflex: Flexor response bilaterally Gait: not examined in bed. Sensory exam: no acute abnormal findings. No obvious cerebellar signs elicited. F-T-N test not performed. Current Medications Current Medications Current Medications Aspirin 325 mg 325 mg 1X ONCE PO Last administered on 08/05/16 10:48; Start 08/05/16 at 11:00; Stop 08/05/16 at 11:01; Status DC Alteplase, Recombinant 0 ml @ 0 mls/hr 1X ONCE IV ; Start 08/05/16 at 12:30; Stop 08/05/16 at 12:31; Status Cancel Alteplase, Recombinant 0 ml @ 0 mls/hr Q1H IV ; Start 08/05/16 at 12:40; Stop at 12:41; Status Cancel Alteplase, Recombinant 7 ml @ 420 mls/hr 1X ONCE IV Last administered on 12:50; Start 08/05/16 at 12:30; Stop 08/05/16 at 12:31; Status DC Alteplase, Recombinant (Activase) 62 ml @ 62 mls/hr Q1H IV Last administered on 08/05/16 12:51; Start 08/05/16 at 12:30; Stop 08/05/16 at 13:29; Status DC Furosemide 40 mg 40 mg 1X ONCE IVP Last administered on 08/05/16t 13:30; Start 08/05/16 at 13:30; Stop 08/05/16 at 13:31; Status DC Sodium Bicarbonate 100 meq/Sodium Chloride 600 ml @ 500 mls/hr 1X ONCE IV ; Start 08/05/16 at 13:15; Stop 08/05/16 at 14:26; Status Cancel Sodium Bicarbonate 100 meq/Dextrose 600 ml @ 500 mls/hr 1X ONCE IV Last administered on 08/05/16t 13:40; Start 08/05/16 at 13:15; Stop 08/05/16 at 14:26 ; Status DC Magnesium Sulfate/ Dextrose 50 ml @ 25 mls/hr PRN DAILY PRN IV for Mag < 1.7 on am labs; Start 08/05/16 at 14:30 Sodium Chloride (Iv Sodium Chloride 0.9% 500ml Bag) 500 ml @ 0 mls/hr QID PRN IV UO< 30cc/hr over previous 6hrs; Start 08/05/16 at 14:45 Insulin Detemir (Levemir) 10 units QHS SQ ; Start 08/05/16 at 21:00 Insulin Aspart (Novolog) 0-7 UNITS TIDWMEALS SQ ; Start 08/05/16 at 17:00 Dextrose (Dextrose 50%-Water Syringe) 12.5 gm PRN Q15MIN PRN IV SEE COMMENTS; Start 08/05/16 at 16:00 Dextrose (Dextrose 50%-Water Syringe) 25 gm 1X ONCE IV ; Start 08/05/16 at 16: 15; Stop 08/05/16 at 16:16; Status DC Insulin Human Regular (Novolin R Vial) 10 unit 1X ONCE IV ; Start 08/05/16 at 16:15; Stop 08/05/16 at 16:16; Status DC Calcium Gluconate (Calcium Gluconate) 1,000 mg 1X ONCE IVP ; Start 08/05/16 at 16:15; Stop 08/05/16 at 16:16; Status DC Active Scripts Active Cyclobenzaprine Hcl 10 Mg Tablet 1 Tab PO TID PRN Hydrocodone-Ibuprofen 7.5-200 (Hydrocodone/Ibuprofen) 1 Each Tablet 1 Tab PO PRN Q6HRS PRN Effient (Prasugrel Hcl) 10 Mg Tablet 10 Mg PO DAILYWBKFT SIG: ONE PO DAILY Hydralazine Hcl 50 Mg Tablet 50 Mg PO TID SIG: ONE BY MOUTH EVERY 8 HOURS; REPLACES NIFEDIPINE Carvedilol 12.5 Mg Tablet 12.5 Mg PO BIDWMEALS SIG: ONE P.O. BID; REPLACES CLONIDINE Reported Glimepiride 4 Mg Tablet 1 Tab PO DAILY Januvia (Sitagliptin Phosphate) 100 Mg Tablet 1 Tab PO DAILY Spironolactone 100 Mg Tablet 1 Tab PO DAILY Allopurinol 100 Mg Tablet 1 Tab PO DAILY Atorvastatin Calcium 40 Mg Tablet 1 Tab PO DAILY Aspir 81 (Aspirin) 81 Mg Tablet.dr 81 Tab PO DAILY Allergies Allergies: Coded Allergies: No Known Drug Allergies (Unverified , 12/18/15) Vitals VITALS Vital Signs Date Time Temp Pulse Resp B/P Pulse Ox O2 Delivery O2 Flow Rate FiO2 08/05/16 12:05 55 32 101/63 96 08/05/16 10:22 97.4 Room Air 97.4 Labs Labs Laboratory Tests Test 08/05/16 11:20 08/05/16 11:30 08/05/16 12:06 08/05/16 13:11 Prothrombin Time 14.2SEC (11.7-14.0) Prothromb Time International Ratio 1.2 (0.8-1.1) White Blood Count 9.9x10^3/uL (4.0-11.0) Red Blood Count 4.17x10^6/uL (4.30-5.70) Hemoglobin 13.2g/dL (13.0-17.5) Hematocrit 40.9% (39.0-53.0) Mean Corpuscular Volume 98fL (79-100) Mean Corpuscular Hemoglobin 32pg (25-35) Mean Corpuscular Hemoglobin Concent 32g/dL (31-37) Red Cell Distribution Width 16.2% (11.5-14.5) Platelet Count 243x10^3/uL (140-400) Neutrophils (%) (Auto) 82% (31-73) Lymphocytes (%) (Auto) 12% (24-48) Monocytes (%) (Auto) 5% (0-9) Eosinophils (%) (Auto) 0% (0-3) Basophils (%) (Auto) 1% (0-3) Neutrophils # (Auto) 8.1x10^3uL (1.8-7.7) Lymphocytes # (Auto) 1.2x10^3/uL (1.0-4.8) Monocytes # (Auto) 0.5x10^3/uL (0.0-1.1) Eosinophils # (Auto) 0.0x10^3/uL (0.0-0.7) Basophils # (Auto) 0.0x10^3/uL (0.0-0.2) Sodium Level 133mmol/L (136-145) Potassium Level 6.6mmol/L (3.5-5.1) Chloride Level 101mmol/L (98-107) Carbon Dioxide Level 18mmol/L (21-32) Anion Gap 14 (6-14) 18mmol/L (6-14) Blood Urea Nitrogen 38mg/dL (8-26) Creatinine 2.9mg/dL (0.7-1.3) Estimated GFR (Cockcroft-Gault) 26.7 BUN/Creatinine Ratio 13 (6-20) Glucose Level 303mg/dL (70-99) 285mg/dL (70-99) Uric Acid 8.5mg/dL (3.5-7.2) Calcium Level 8.7mg/dL (8.5-10.1) Magnesium Level 1.9mg/dL (1.8-2.4) Total Bilirubin 2.0mg/dL (0.2-1.0) Aspartate Amino Transf (AST/SGOT) 139U/L (15-37) Alanine Aminotransferase (ALT/SGPT) 148U/L (16-63) Alkaline Phosphatase 103U/L (46-116) Creatine Kinase 257U/L (39-308) Troponin I Quantitative 6.997ng/mL (0.000-0.055) LU-Hjz-R-Type Natriuretic Peptide 28269yh/mL (0-124) Total Protein 7.1g/dL (6.4-8.2) Albumin 3.4g/dL (3.4-5.0) Albumin/Globulin Ratio 0.9 (1.0-1.7) Triglycerides Level 61mg/dL (0-150) Cholesterol Level 123mg/dL (0-200) LDL Cholesterol, Calculated 79mg/dL (0-100) VLDL Cholesterol, Calculated 12mg/dL (0-40) Non-HDL Cholesterol Calculated 91mg/dL (0-129) HDL Cholesterol 32mg/dL (40-60) Cholesterol/HDL Ratio 3.8 Vitamin B12 Level 415pg/mL (247-911) Thyroid Stimulating Hormone (TSH) 4.093uIU/mL (0.358-3.74) Glucose (Fingerstick) 292mg/dL (70-99) Bedside Hemoglobin 14.3g/dL (14-18) Bedside Hematocrit 42% (37-52) Bedside Sodium 132mmol/L (135-145) Bedside Potassium 6.6mmol/L (3.5-5.0) Bedside Chloride 109mmol/L (98-110) Bedside Total CO2 13mmol/L (23-32) Bedside Blood Urea Nitrogen 45mg/dL (8-26) Bedside Creatinine 2.6mg/dL (0.5-1.4) Bedside Ionized Calcium (Merly) 0.94mmol/L (1.13-1.32) Laboratory Tests Test 08/05/16 11:20 08/05/16 11:30 08/05/16 12:06 08/05/16 13:11 Prothrombin Time 14.2SEC (11.7-14.0) Prothromb Time International Ratio 1.2 (0.8-1.1) White Blood Count 9.9x10^3/uL (4.0-11.0) Red Blood Count 4.17x10^6/uL (4.30-5.70) Hemoglobin 13.2g/dL (13.0-17.5) Hematocrit 40.9% (39.0-53.0) Mean Corpuscular Volume 98fL (79-100) Mean Corpuscular Hemoglobin 32pg (25-35) Mean Corpuscular Hemoglobin Concent 32g/dL (31-37) Red Cell Distribution Width 16.2% (11.5-14.5) Platelet Count 243x10^3/uL (140-400) Neutrophils (%) (Auto) 82% (31-73) Lymphocytes (%) (Auto) 12% (24-48) Monocytes (%) (Auto) 5% (0-9) Eosinophils (%) (Auto) 0% (0-3) Basophils (%) (Auto) 1% (0-3) Neutrophils # (Auto) 8.1x10^3uL (1.8-7.7) Lymphocytes # (Auto) 1.2x10^3/uL (1.0-4.8) Monocytes # (Auto) 0.5x10^3/uL (0.0-1.1) Eosinophils # (Auto) 0.0x10^3/uL (0.0-0.7) Basophils # (Auto) 0.0x10^3/uL (0.0-0.2) Sodium Level 133mmol/L (136-145) Potassium Level 6.6mmol/L (3.5-5.1) Chloride Level 101mmol/L (98-107) Carbon Dioxide Level 18mmol/L (21-32) Anion Gap 14 (6-14) 18mmol/L (6-14) Blood Urea Nitrogen 38mg/dL (8-26) Creatinine 2.9mg/dL (0.7-1.3) Estimated GFR (Cockcroft-Gault) 26.7 BUN/Creatinine Ratio 13 (6-20) Glucose Level 303mg/dL (70-99) 285mg/dL (70-99) Uric Acid 8.5mg/dL (3.5-7.2) Calcium Level 8.7mg/dL (8.5-10.1) Magnesium Level 1.9mg/dL (1.8-2.4) Total Bilirubin 2.0mg/dL (0.2-1.0) Aspartate Amino Transf (AST/SGOT) 139U/L (15-37) Alanine Aminotransferase (ALT/SGPT) 148U/L (16-63) Alkaline Phosphatase 103U/L (46-116) Creatine Kinase 257U/L (39-308) Troponin I Quantitative 6.997ng/mL (0.000-0.055) WJ-Jcg-V-Type Natriuretic Peptide 65825ow/mL (0-124) Total Protein 7.1g/dL (6.4-8.2) Albumin 3.4g/dL (3.4-5.0) Albumin/Globulin Ratio 0.9 (1.0-1.7) Triglycerides Level 61mg/dL (0-150) Cholesterol Level 123mg/dL (0-200) LDL Cholesterol, Calculated 79mg/dL (0-100) VLDL Cholesterol, Calculated 12mg/dL (0-40) Non-HDL Cholesterol Calculated 91mg/dL (0-129) HDL Cholesterol 32mg/dL (40-60) Cholesterol/HDL Ratio 3.8 Vitamin B12 Level 415pg/mL (247-911) Thyroid Stimulating Hormone (TSH) 4.093uIU/mL (0.358-3.74) Glucose (Fingerstick) 292mg/dL (70-99) Bedside Hemoglobin 14.3g/dL (14-18) Bedside Hematocrit 42% (37-52) Bedside Sodium 132mmol/L (135-145) Bedside Potassium 6.6mmol/L (3.5-5.0) Bedside Chloride 109mmol/L (98-110) Bedside Total CO2 13mmol/L (23-32) Bedside Blood Urea Nitrogen 45mg/dL (8-26) Bedside Creatinine 2.6mg/dL (0.5-1.4) Bedside Ionized Calcium (Merly) 0.94mmol/L (1.13-1.32) OLIVIA MALIK MD Aug 05, 2016 17:15
--- NOTE | 2016-08-05 17:29 | EKG ---
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
--- NOTE | 2016-08-05 17:35 | HP ---
ADMIT DATE: 08/05/2016 CHIEF COMPLAINT: Chest pain. HISTORY OF PRESENT ILLNESS: This is a 65-year-old -[place] male patient with a prior history of cardiomyopathy, severe and AFib and coronary artery disease who presented to the ER with chest pain. Reportedly, the patient is having symptoms, such as chest pain for more than 2 weeks; however, due to insurance issues, he did not seek any medical advice; however, finally, his partner convinced him to bring him to the ER; however, upon arrival to the ER, he had vomiting and also while he was evaluated in the ER, he had CVA-like symptoms. The patient noted to have slurring of speech and expressive aphasia and facial droop and he received tPA. I did examine the patient in the critical care unit. At the time of examination, he is alert, oriented x 3. He is able to go to MRI. He is following my commands; however, still I can see the droopiness of his eyes and some slurring of speech. PAST MEDICAL HISTORY: AFib, coronary artery disease, cardiomyopathy, hypertension, hyperlipidemia, COPD, CVA in 2006, chronic renal insufficiency, and diabetes. PAST SURGICAL HISTORY: Drug-eluting stents placement in 02/2016. FAMILY HISTORY: Unknown. SOCIAL HISTORY: No smoking, no alcohol, no drug abuse. HOME MEDICATIONS: Need to be verified. Currently, the patient is not able to provide. He received aspirin. ALLERGIES: NKDA. REVIEW OF SYSTEMS: Limited. Chest pain and nausea and vomiting. PHYSICAL EXAMINATION: Please see my electronic H and P. VITAL SIGNS: Temperature 97.4, pulse 55, respirations 32, blood pressure 101/63, pulse ox 96%. LABORATORY FINDINGS: WBC is 9.9, hemoglobin 13.2, MCV 98, platelets 243. Chemistries: Sodium is 133, potassium is 6.6, carbon dioxide is 18, and creatinine of 2.9, BUN is 38, glucose is 303. Total bilirubin 2.2. ProBNP 47515. INR is 1.2, PT is 14.2. Repeat BMP showed troponin is 6.99 and lipid panel within normal limits. IMAGING STUDIES: CT of the head: No acute intracranial process seen with old left thalamic lacunar stroke. Chest x-ray: No acute cardiopulmonary process seen. EKG: Not able to review. As per the ER report, no STEMI noted. T-wave inversions seen in lead IV. ASSESSMENT: 1. Acute cerebrovascular accident: Present on admission. 2. Non-ST elevation myocardial infarction. 3. Hyperkalemia with acute kidney injury. 4. [id number] congestive heart failure, systolic. 5. Prior history of coronary artery disease with drug-eluting stents placement in 02/2016. 6. Ischemic cardiomyopathy with ejection fraction of 25%. 7. Peripheral vascular disease. 8. Atrial fibrillation. 9. Hypertension. 10. Type 2 diabetes mellitus with hyperglycemia. 11. Noncompliance. 12. Mild elevation of LFTs. PLAN: 1. The patient received tPA in the ER and he will be monitored in the ICU. 2. Neurology has been consulted. 3. We will continue mild IV diuresis. 4. We will resume heparin as per Neurology recommendation, most likely after 24 hours of tPA. 5. Monitor renal functions. If renal function worsens, we will start him on inotropic agents. 6. Monitor intake and output. 7. No family members are available. Case discussed with RN. 8. Prognosis: Guarded and critical. 9. Echocardiogram has already been done. 10. Monitor potassium closely. 11. He received bicarbonate in the ER and also furosemide. IDALIA BOWMAN MD DR: MERLE/tomer JOB#: [id number] / [id number] NAVEEN
[2016-08-05 17:52] LABS: HCO3 ABG 16 mmol/L (21-28); PCO2 ABG 25 mmHg (35-46); PH ABG 7.43 (7.35-7.45); PO2 ABG 75 mmHg (65-108); SAT O2 ABG 94 % (92-99)
[2016-08-05 18:11] LABS: BILIRUBIN,URINE NEGATIVE (NEG); GLUCOSE,URINE 250 mg/dL (NEG); NITRITE,URINE NEGATIVE (NEG); PROTEIN,URINE 100 mg/dL (NEG-TRACE)
[2016-08-05] MEDS: INSULIN ASPART 300 UNITS/3 ML INSULN.PEN SQ SCH (18:24)
[2016-08-05 18:31] LABS: BACTERIA,URINE FEW /HPF (0-FEW); SQUAMOUS EPITHELIAL CELL,UR OCC /LPF
[2016-08-05 18:35] LABS: BARBITURATES NEG (NEG); BENZODIAZEPINES NEG (NEG); CANNABINOIDS NEG (NEG); COCAINE NEG (NEG); METHADONE NEG (NEG); OPIATES NEG (NEG); PHENCYCLIDINE NEG (NEG)
[2016-08-05] MEDS: MILRINONE 20MG/100ML PREMIX 100 ML IV PRN (18:36)
[2016-08-05] MEDS: INSULIN DETEMIR 300 UNITS/3 ML INSULN.PEN. SQ SCH (21:29)
[2016-08-06] VITALS (24 sets, daily range): BP systolic 98–132; BP diastolic 53–78
--- NOTE | 2016-08-06 02:50 | CONS ---
DATE OF CONSULTATION: PRIMARY PHYSICIAN: Dr. Nichols in the ER. REASON FOR CONSULTATION: Hyperkalemia as well as renal insufficiency. HISTORY OF PRESENT ILLNESS: The patient is a 65-year-old -Citizen Of [place] gentleman with past medical history of cardiomyopathy in the past. He apparently has been having chest pain for the last few days, but did not report to the ER for the longest period of time. On presentation, he was found to have altered mental status. He was diagnosed with a stroke and has been given TPA through the ER. I was called by Dr. Nichols about his elevated potassium. He was noted to have non-anion gap metabolic acidosis and hence IV fluids with bicarbonate and dextrose were ordered. Kayexalate is unable to be administered since patient does not for the same. Also he is noted to have a troponin of 6.997 and he is felt to have had a stroke. He is noted to be significantly hypothermic. TSH is pending. Sugars are adequate at this time. REVIEW OF SYSTEMS: Unable to be obtained from the patient due to altered mental status. HOME MEDICATIONS: Do include sitagliptin, Aldactone. For rest of the details, see electronic records. JONI CRISOSTOMO MD DR: DALLAS/tomer JOB#: [id number] / [id number]
[2016-08-06 07:37] LABS: ALBUMIN 3.3 g/dL (3.4-5.0); CALCIUM 8.9 mg/dL (8.5-10.1)
[2016-08-06 07:38] LABS: CREATININE 2.9 mg/dL (0.7-1.3); GFR 26.7; PHOSPHORUS 4.2 mg/dL (2.6-4.7); POTASSIUM 4.3 mmol/L (3.5-5.1)
[2016-08-06] MEDS: INSULIN ASPART 300 UNITS/3 ML INSULN.PEN SQ SCH ×3 (08:00→17:00)
[2016-08-06] MEDS: MAGNESIUM SULFATE 2GM 50 ML IV PRN (09:42)
--- NOTE | 2016-08-06 11:42 | RAD ---
Clinical indications: No pedal pulses. Findings: Duplex sonography of the peripheral arterial system of both lower extremities including mustafa scale evaluation and color flow and spectral waveform analysis was performed. There is elevation in the peak systolic flow velocity measurement within the proximal right profunda femoral artery. This may be due to increased collateral flow due to significant stenosis of the right superficial femoral artery. Decreased peak systolic flow velocity measurements are seen within this artery starting at the level of proximal superficial femoral artery in comparison to the left side. Abnormal monophasic waveforms are seen starting within the proximal right superficial femoral artery on down. Biphasic waveforms are seen within the femoral popliteal segment of the left leg and monophasic waveform is seen within the left distal posterior tibial artery and the left dorsalis pedis artery indicative of significant disease within the distal posterior tibial artery and the distal anterior tibial artery. Peak systolic flow velocities are as follows: Right leg: common femoral artery- 93 cm/sec, profunda femoral artery -417 cm/sec, proximal superficial femoral artery -36cm/sec, mid superficial femoral artery -46 cm/sec, distal superficial femoral artery- 18 cm/sec, popliteal artery -17 cm/sec, proximal posterior tibial artery- 15 cm/sec, distal posterior tibial artery- 14 cm/sec, peroneal artery- 15 cm/sec, anterior tibial artery- 25 cm/sec, dorsalis pedis artery -13 cm/sec. Left leg: common femoral artery- 111 cm/sec, profunda femoral artery -109 cm/sec, proximal superficial femoral artery- 98cm/sec, mid superficial femoral artery- 135 cm/sec, distal superficial femoral artery- 73 cm/sec, popliteal artery -74 cm/sec, proximal posterior tibial artery -134 cm/sec, distal posterior tibial artery- 39 cm/sec, peroneal artery -34 cm/sec, anterior tibial artery -58 cm/sec, dorsalis pedis artery- 17 cm/sec. Impression: Significant diffuse atherosclerotic disease of the right superficial femoral artery is seen. Significant disease within the distal left posterior tibial artery and the distal left anterior tibial artery.
--- NOTE | 2016-08-06 11:45 | RAD ---
Renal sonography Clinical indications: Acute renal failure. History of chronic kidney disease. Findings: The longitudinal and AP and transverse dimensions of the right kidney are 9.6 cm and 4.7 cm and 4.7 cm respectively. The longitudinal and AP and transverse dimensions of the left kidney are 9.2 cm and 3.8 cm and 3.9 cm respectively. There is a small parapelvic cyst of the left kidney measuring 10 mm. No hydronephrosis or perinephric fluid collection is seen on either side. The urinary bladder is mildly distended. No intraluminal echodensities or masses are seen. Bilateral ureteral jets are seen. IMPRESSION: No hydronephrosis.
--- NOTE | 2016-08-06 12:44 | RAD ---
Clinical indications: speech difficulty. Slurred speech. Confusion. Weakness. Acute to subacute infarct of left frontal lobe and left occipital lobe seen on brain MRI study on August 05, 2016. Duplex sonography of the cervical portion of both carotid arteries was performed including color flow imaging and spectral waveform analysis with flow velocity measurement and mustafa scale evaluation. Right side: Peak systolic flow velocity of the CCA is 80 cm/sec. Peak systolic flow velocity of the ICA is 63 cm/sec. Thus, the ICA/CCA ratio is less than 1.0. Peak end diastolic flow velocity of the ICA is 18 cm/sec. The peak systolic velocity of the ECA is 123 cm/sec. Left side: Peak systolic flow velocity of the CCA is 87 cm/sec. Peak systolic flow velocity of the ICA is 76 cm/sec. Thus, the ICA/CCA ratio is less than 1.0. Peak end diastolic flow velocity of the ICA is 42 cm/sec. Peak systolic flow velocity of the ECA is 124 cm/sec. Mild plaque formation is seen within the carotid bifurcations and ICA on both sides more prominent on the left side but is not hemodynamically significant measuring less than 50%. Antegrade vertebral flow is seen bilaterally. The measurements were made using the NASCET criteria. Impression:Mild plaque formation is seen within the carotid bifurcations bilaterally..
--- NOTE | 2016-08-06 13:51 | PDOC ---
PROGRESS NOTES Chief Complaint Chief Complaint cc: angina -CVA -NSTEMI -acute renal failure -Systolic heart failure -chronic kidney disease -DM -atrial fibrillation -hypertension -hyperlipidemia -COPD -coronary stent History of Present Illness History of Present Illness Mr. Fernandez was present with family when we saw him. We discussed his case with his family, nursing, and cardiology. He reported that he was feeling hungry and wanted to eat. The patient was able to talk and interact. He had milrinone and magnesium hanging from the IV rack. His telemetry showed ST depression. Vitals Vitals Vital Signs Date Time Temp Pulse Resp B/P Pulse Ox O2 Delivery O2 Flow Rate FiO2 08/06/16 12:00 Nasal Cannula 1.0 08/06/16 12:00 97.4 74 30 114/62 97 97.4 Physical Exam General: Cooperative, No acute distress Heart: Regular rate (SR), No murmurs Lungs: Clear, Other (No chest retractions or other signs of acute distress were present.) Abdomen: Soft, No tenderness Extremities: No clubbing, No cyanosis Skin: No rashes, No breakdown, No significant lesion Labs LABS Laboratory Tests Test 08/05/16 14:00 08/05/16 17:00 08/05/16 17:40 08/05/16 17:47 Nasal Screen MRSA (PCR) Negative (Negative) Urine Color Yellow Urine Clarity Clear Urine pH 5.0 Urine Specific [place] 1.010 Urine Protein 100mg/dL (NEG-TRACE) Urine Glucose (UA) 250mg/dL (NEG) Urine Ketones (Stick) Negativemg/dL (NEG) Urine Blood Small (NEG) Urine Nitrite Negative (NEG) Urine Bilirubin Negative (NEG) Urine Urobilinogen Dipstick 1.0mg/dL (0.2 mg/dL) Urine Leukocyte Esterase Negative (NEG) Urine RBC 1-2/HPF (0-2) Urine WBC 1-4/HPF (0-4) Urine Squamous Epithelial Cells Occ/LPF Urine Amorphous Sediment Present/HPF Urine Bacteria Few/HPF (0-FEW) Urine Mucus Mod/LPF Urine Opiates Screen Neg (NEG) Urine Methadone Screen Neg (NEG) Urine Barbiturates Neg (NEG) Urine Phencyclidine Screen Neg (NEG) Urine Amphetamine/Methamphetamine Neg (NEG) Urine Benzodiazepines Screen Neg (NEG) Urine Cocaine Screen Neg (NEG) Urine Cannabinoids Screen Neg (NEG) Urine Ethyl Alcohol Neg (NEG) O2 Saturation 94% (92-99) Arterial Blood pH 7.43 (7.35-7.45) Arterial Blood pCO2 at Patient Temp 25mmHg (35-46) Arterial Blood pO2 at Patient Temp 75mmHg (65-108) Arterial Blood HCO3 16mmol/L (21-28) Arterial Blood Base Excess -6mmol/L (-3-3) FiO2 2 lpm nc Glucose (Fingerstick) 310mg/dL (70-99) Test 08/05/16 18:10 08/05/16 19:25 08/05/16 21:19 08/06/16 01:10 Potassium Level 3.8mmol/L (3.5-5.1) 4.2mmol/L (3.5-5.1) Lactic Acid Level 3.1mmol/L (0.4-2.0) Troponin I Quantitative 14.108ng/mL (0.000-0.055) 39.343ng/mL (0.000-0.055) Glucose (Fingerstick) 120mg/dL (70-99) Test 08/06/16 05:00 08/06/16 08:28 08/06/16 11:52 08/06/16 12:30 Hemoglobin 12.4g/dL (13.0-17.5) Sodium Level 139mmol/L (136-145) Potassium Level 4.3mmol/L (3.5-5.1) 4.3mmol/L (3.5-5.1) Chloride Level 103mmol/L (98-107) Carbon Dioxide Level 20mmol/L (21-32) Anion Gap 16 (6-14) Blood Urea Nitrogen 44mg/dL (8-26) Creatinine 2.9mg/dL (0.7-1.3) Estimated GFR (Cockcroft-Gault) 26.7 Glucose Level 81mg/dL (70-99) Calcium Level 8.9mg/dL (8.5-10.1) Phosphorus Level 4.2mg/dL (2.6-4.7) Magnesium Level 1.6mg/dL (1.8-2.4) Albumin 3.3g/dL (3.4-5.0) Glucose (Fingerstick) 117mg/dL (70-99) 118mg/dL (70-99) Review of Systems Review of Systems Mr. Fernandez reports he was not experiencing any signficant pain anywhere on his body. He was not having any nausea and hadn't had any over night. Assessment and Plan Assessmemt and Plan Problems Medical Problems: (1) CVA (cerebral vascular accident) Status: Acute Mr. Fernandez is a 65 year old male who initially presented with angina. -CVA -NSTEMI -acute renal failure -Systolic heart failure -chronic kidney disease -DM -atrial fibrillation -hypertension -hyperlipidemia -COPD -coronary stent Plan: 1. Address kidney injury with IVF, maintain awareness of BNP 2. Recheck labs 3. PT/OT 4. Monitor sodium level, especially with IVF 5. Recheck troponins 6. Monitor magnesium level 7. Watch for focal neural deficits with infarction on MRI 8. Continue milrinone for systolic heart failure 9. Appreciate input from subspecialists Problems: Comment Review of Relevant I have reviewed the following items abdulaziz (where applicable) has been applied. Labs Laboratory Tests Test 08/05/16 11:20 08/05/16 11:30 08/05/16 12:06 08/05/16 13:08 Prothrombin Time 14.2SEC (11.7-14.0) Prothromb Time International Ratio 1.2 (0.8-1.1) White Blood Count 9.9x10^3/uL (4.0-11.0) Red Blood Count 4.17x10^6/uL (4.30-5.70) Hemoglobin 13.2g/dL (13.0-17.5) Hematocrit 40.9% (39.0-53.0) Mean Corpuscular Volume 98fL (79-100) Mean Corpuscular Hemoglobin 32pg (25-35) Mean Corpuscular Hemoglobin Concent 32g/dL (31-37) Red Cell Distribution Width 16.2% (11.5-14.5) Platelet Count 243x10^3/uL (140-400) Neutrophils (%) (Auto) 82% (31-73) Lymphocytes (%) (Auto) 12% (24-48) Monocytes (%) (Auto) 5% (0-9) Eosinophils (%) (Auto) 0% (0-3) Basophils (%) (Auto) 1% (0-3) Neutrophils # (Auto) 8.1x10^3uL (1.8-7.7) Lymphocytes # (Auto) 1.2x10^3/uL (1.0-4.8) Monocytes # (Auto) 0.5x10^3/uL (0.0-1.1) Eosinophils # (Auto) 0.0x10^3/uL (0.0-0.7) Basophils # (Auto) 0.0x10^3/uL (0.0-0.2) Sodium Level 133mmol/L (136-145) Potassium Level 6.6mmol/L (3.5-5.1) Chloride Level 101mmol/L (98-107) Carbon Dioxide Level 18mmol/L (21-32) Anion Gap 14 (6-14) Blood Urea Nitrogen 38mg/dL (8-26) Creatinine 2.9mg/dL (0.7-1.3) Estimated GFR (Cockcroft-Gault) 26.7 BUN/Creatinine Ratio 13 (6-20) Glucose Level 303mg/dL (70-99) Hemoglobin A1c 6.8% (4.8-5.6) Uric Acid 8.5mg/dL (3.5-7.2) Calcium Level 8.7mg/dL (8.5-10.1) Magnesium Level 1.9mg/dL (1.8-2.4) Total Bilirubin 2.0mg/dL (0.2-1.0) Aspartate Amino Transf (AST/SGOT) 139U/L (15-37) Alanine Aminotransferase (ALT/SGPT) 148U/L (16-63) Alkaline Phosphatase 103U/L (46-116) Creatine Kinase 257U/L (39-308) Troponin I Quantitative 6.997ng/mL (0.000-0.055) SX-Yxx-G-Type Natriuretic Peptide 99571zb/mL (0-124) Total Protein 7.1g/dL (6.4-8.2) Albumin 3.4g/dL (3.4-5.0) Albumin/Globulin Ratio 0.9 (1.0-1.7) Triglycerides Level 61mg/dL (0-150) Cholesterol Level 123mg/dL (0-200) LDL Cholesterol, Calculated 79mg/dL (0-100) VLDL Cholesterol, Calculated 12mg/dL (0-40) Non-HDL Cholesterol Calculated 91mg/dL (0-129) HDL Cholesterol 32mg/dL (40-60) Cholesterol/HDL Ratio 3.8 Vitamin B12 Level 415pg/mL (247-911) Thyroid Stimulating Hormone (TSH) 4.093uIU/mL (0.358-3.74) Glucose (Fingerstick) 292mg/dL (70-99) Bedside Troponin I 5.63ng/ml (<0.08) Test 08/05/16 13:11 08/05/16 14:00 08/05/16 17:00 08/05/16 17:40 Bedside Hemoglobin 14.3g/dL (14-18) Bedside Hematocrit 42% (37-52) Bedside Sodium 132mmol/L (135-145) Bedside Potassium 6.6mmol/L (3.5-5.0) Bedside Chloride 109mmol/L (98-110) Bedside Total CO2 13mmol/L (23-32) Anion Gap 18mmol/L (6-14) Bedside Blood Urea Nitrogen 45mg/dL (8-26) Bedside Creatinine 2.6mg/dL (0.5-1.4) Glucose Level 285mg/dL (70-99) Bedside Ionized Calcium ([place]) 0.94mmol/L (1.13-1.32) Nasal Screen MRSA (PCR) Negative (Negative) Urine Color Yellow Urine Clarity Clear Urine pH 5.0 Urine Specific [place] 1.010 Urine Protein 100mg/dL (NEG-TRACE) Urine Glucose (UA) 250mg/dL (NEG) Urine Ketones (Stick) Negativemg/dL (NEG) Urine Blood Small (NEG) Urine Nitrite Negative (NEG) Urine Bilirubin Negative (NEG) Urine Urobilinogen Dipstick 1.0mg/dL (0.2 mg/dL) Urine Leukocyte Esterase Negative (NEG) Urine RBC 1-2/HPF (0-2) Urine WBC 1-4/HPF (0-4) Urine Squamous Epithelial Cells Occ/LPF Urine Amorphous Sediment Present/HPF Urine Bacteria Few/HPF (0-FEW) Urine Mucus Mod/LPF Urine Opiates Screen Neg (NEG) Urine Methadone Screen Neg (NEG) Urine Barbiturates Neg (NEG) Urine Phencyclidine Screen Neg (NEG) Urine Amphetamine/Methamphetamine Neg (NEG) Urine Benzodiazepines Screen Neg (NEG) Urine Cocaine Screen Neg (NEG) Urine Cannabinoids Screen Neg (NEG) Urine Ethyl Alcohol Neg (NEG) O2 Saturation 94% (92-99) Arterial Blood pH 7.43 (7.35-7.45) Arterial Blood pCO2 at Patient Temp 25mmHg (35-46) Arterial Blood pO2 at Patient Temp 75mmHg (65-108) Arterial Blood HCO3 16mmol/L (21-28) Arterial Blood Base Excess -6mmol/L (-3-3) FiO2 2 lpm nc Test 08/05/16 17:47 08/05/16 18:10 08/05/16 19:25 08/05/16 21:19 Glucose (Fingerstick) 310mg/dL (70-99) 120mg/dL (70-99) Potassium Level 3.8mmol/L (3.5-5.1) Lactic Acid Level 3.1mmol/L (0.4-2.0) Troponin I Quantitative 14.108ng/mL (0.000-0.055) Test 08/06/16 01:10 08/06/16 05:00 08/06/16 08:28 08/06/16 11:52 Potassium Level 4.2mmol/L (3.5-5.1) 4.3mmol/L (3.5-5.1) Troponin I Quantitative 39.343ng/mL (0.000-0.055) Hemoglobin 12.4g/dL (13.0-17.5) Sodium Level 139mmol/L (136-145) Chloride Level 103mmol/L (98-107) Carbon Dioxide Level 20mmol/L (21-32) Anion Gap 16 (6-14) Blood Urea Nitrogen 44mg/dL (8-26) Creatinine 2.9mg/dL (0.7-1.3) Estimated GFR (Cockcroft-Gault) 26.7 Glucose Level 81mg/dL (70-99) Calcium Level 8.9mg/dL (8.5-10.1) Phosphorus Level 4.2mg/dL (2.6-4.7) Magnesium Level 1.6mg/dL (1.8-2.4) Albumin 3.3g/dL (3.4-5.0) Glucose (Fingerstick) 117mg/dL (70-99) 118mg/dL (70-99) Test 08/06/16 12:30 Potassium Level 4.3mmol/L (3.5-5.1) Laboratory Tests Test 08/05/16 14:00 08/05/16 17:00 08/05/16 17:40 08/05/16 17:47 Nasal Screen MRSA (PCR) Negative (Negative) Urine Color Yellow Urine Clarity Clear Urine pH 5.0 Urine Specific [place] 1.010 Urine Protein 100mg/dL (NEG-TRACE) Urine Glucose (UA) 250mg/dL (NEG) Urine Ketones (Stick) Negativemg/dL (NEG) Urine Blood Small (NEG) Urine Nitrite Negative (NEG) Urine Bilirubin Negative (NEG) Urine Urobilinogen Dipstick 1.0mg/dL (0.2 mg/dL) Urine Leukocyte Esterase Negative (NEG) Urine RBC 1-2/HPF (0-2) Urine WBC 1-4/HPF (0-4) Urine Squamous Epithelial Cells Occ/LPF Urine Amorphous Sediment Present/HPF Urine Bacteria Few/HPF (0-FEW) Urine Mucus Mod/LPF Urine Opiates Screen Neg (NEG) Urine Methadone Screen Neg (NEG) Urine Barbiturates Neg (NEG) Urine Phencyclidine Screen Neg (NEG) Urine Amphetamine/Methamphetamine Neg (NEG) Urine Benzodiazepines Screen Neg (NEG) Urine Cocaine Screen Neg (NEG) Urine Cannabinoids Screen Neg (NEG) Urine Ethyl Alcohol Neg (NEG) O2 Saturation 94% (92-99) Arterial Blood pH 7.43 (7.35-7.45) Arterial Blood pCO2 at Patient Temp 25mmHg (35-46) Arterial Blood pO2 at Patient Temp 75mmHg (65-108) Arterial Blood HCO3 16mmol/L (21-28) Arterial Blood Base Excess -6mmol/L (-3-3) FiO2 2 lpm nc Glucose (Fingerstick) 310mg/dL (70-99) Test 08/05/16 18:10 08/05/16 19:25 08/05/16 21:19 08/06/16 01:10 Potassium Level 3.8mmol/L (3.5-5.1) 4.2mmol/L (3.5-5.1) Lactic Acid Level 3.1mmol/L (0.4-2.0) Troponin I Quantitative 14.108ng/mL (0.000-0.055) 39.343ng/mL (0.000-0.055) Glucose (Fingerstick) 120mg/dL (70-99) Test 08/06/16 05:00 08/06/16 08:28 08/06/16 11:52 08/06/16 12:30 Hemoglobin 12.4g/dL (13.0-17.5) Sodium Level 139mmol/L (136-145) Potassium Level 4.3mmol/L (3.5-5.1) 4.3mmol/L (3.5-5.1) Chloride Level 103mmol/L (98-107) Carbon Dioxide Level 20mmol/L (21-32) Anion Gap 16 (6-14) Blood Urea Nitrogen 44mg/dL (8-26) Creatinine 2.9mg/dL (0.7-1.3) Estimated GFR (Cockcroft-Gault) 26.7 Glucose Level 81mg/dL (70-99) Calcium Level 8.9mg/dL (8.5-10.1) Phosphorus Level 4.2mg/dL (2.6-4.7) Magnesium Level 1.6mg/dL (1.8-2.4) Albumin 3.3g/dL (3.4-5.0) Glucose (Fingerstick) 117mg/dL (70-99) 118mg/dL (70-99) Medications Current Medications Aspirin 325 mg 325 mg 1X ONCE PO Last administered on 08/05/16 10:48; Start 08/05/16 at 11:00; Stop 08/05/16 at 11:01; Status DC Alteplase, Recombinant 0 ml @ 0 mls/hr 1X ONCE IV ; Start 08/05/16 at 12:30; Stop 08/05/16 at 12:31; Status Cancel Alteplase, Recombinant 0 ml @ 0 mls/hr Q1H IV ; Start 08/05/16 at 12:40; Stop at 12:41; Status Cancel Alteplase, Recombinant 7 ml @ 420 mls/hr 1X ONCE IV Last administered on 12:50; Start 08/05/16 at 12:30; Stop 08/05/16 at 12:31; Status DC Alteplase, Recombinant (Activase) 62 ml @ 62 mls/hr Q1H IV Last administered on 08/05/16 12:51; Start 08/05/16 at 12:30; Stop 08/05/16 at 13:29; Status DC Furosemide 40 mg 40 mg 1X ONCE IVP Last administered on 08/05/16 13:30; Start 08/05/16 at 13:30; Stop 08/05/16 at 13:31; Status DC Sodium Bicarbonate 100 meq/Sodium Chloride 600 ml @ 500 mls/hr 1X ONCE IV ; Start 08/05/16 at 13:15; Stop 08/05/16 at 14:26; Status Cancel Sodium Bicarbonate 100 meq/Dextrose 600 ml @ 500 mls/hr 1X ONCE IV Last administered on 08/05/16 13:40; Start 08/05/16 at 13:15; Stop 08/05/16 at 14:26 ; Status DC Magnesium Sulfate/ Dextrose 50 ml @ 25 mls/hr PRN DAILY PRN IV for Mag < 1.7 on am labs Last administered on 08/06/16 09:42; Start 08/05/16 at 14:30 Sodium Chloride (Iv Sodium Chloride 0.9% 500ml Bag) 500 ml @ 0 mls/hr QID PRN IV UO< 30cc/hr over previous 6hrs; Start 08/05/16 at 14:45 Insulin Detemir (Levemir) 10 units QHS SQ Last administered on 08/05/16 21:29 ; Start 08/05/16 at 21:00 Insulin Aspart (Novolog) 0-7 UNITS TIDWMEALS SQ Last administered on 08/05/16 18:24; Start 08/05/16 at 17:00 Dextrose (Dextrose 50%-Water Syringe) 12.5 gm PRN Q15MIN PRN IV SEE COMMENTS; Start 08/05/16 at 16:00 Dextrose (Dextrose 50%-Water Syringe) 25 gm 1X ONCE IV Last administered on 16:42; Start 08/05/16 at 16:15; Stop 08/05/16 at 16:16; Status DC Insulin Human Regular (Novolin R Vial) 10 unit 1X ONCE IV Last administered on 08/05/16 16:43; Start 08/05/16 at 16:15; Stop 08/05/16 at 16:16; Status DC Calcium Gluconate (Calcium Gluconate) 1,000 mg 1X ONCE IVP Last administered on 08/05/16 16:47; Start 08/05/16 at 16:15; Stop 08/05/16 at 16:16; Status DC Ondansetron HCl 4 mg 4 mg PRN Q6HRS PRN IV NAUSEA/VOMITING; Start 08/05/16 at 17:15 Milrinone Lactate/ Dextrose (Primacor Premix) 100 ml @ 0 mls/hr CONT PRN IV SEE I/O RECORD Last administered on 08/05/16 18:36; Start 08/05/16 at 18:15 Active Scripts Active Cyclobenzaprine Hcl 10 Mg Tablet 1 Tab PO TID PRN Hydrocodone-Ibuprofen 7.5-200 (Hydrocodone/Ibuprofen) 1 Each Tablet 1 Tab PO PRN Q6HRS PRN Effient (Prasugrel Hcl) 10 Mg Tablet 10 Mg PO DAILYWBKFT SIG: ONE PO DAILY Hydralazine Hcl 50 Mg Tablet 50 Mg PO TID SIG: ONE BY MOUTH EVERY 8 HOURS; REPLACES NIFEDIPINE Carvedilol 12.5 Mg Tablet 12.5 Mg PO BIDWMEALS SIG: ONE P.O. BID; REPLACES CLONIDINE Reported Glimepiride 4 Mg Tablet 1 Tab PO DAILY Januvia (Sitagliptin Phosphate) 100 Mg Tablet 1 Tab PO DAILY Spironolactone 100 Mg Tablet 1 Tab PO DAILY Allopurinol 100 Mg Tablet 1 Tab PO DAILY Atorvastatin Calcium 40 Mg Tablet 1 Tab PO DAILY Aspir 81 (Aspirin) 81 Mg Tablet.dr 81 Tab PO DAILY Vitals/I & O Vital Sign - Last 24 Hours 08/05/16 08/05/16 08/05/16 08/05/16 14:15 14:30 15:00 16:00 Temp 97.5 97.5 97.5 97.5 Pulse 48 54 70 Resp 38 39 36 B/P 119/67 124/56 110/70 Pulse Ox 91 98 100 O2 Delivery Nasal Cannula Nasal Cannula Nasal Cannula Nasal Cannula O2 Flow Rate 2.0 2.0 2.0 2.0 4/28/17 4/28/17 4/28/17 4/28/17 17:00 18:00 19:00 20:00 Temp 98.1 98.1 Pulse 78 80 76 Resp 36 38 31 B/P 132/73 144/68 148/76 Pulse Ox 99 99 96 O2 Delivery Nasal Cannula Nasal Cannula Nasal Cannula Nasal Cannula O2 Flow Rate 2.0 2.0 2.0 2.0 08/05/16 08/05/16 08/05/16 08/05/16 20:00 21:00 22:00 23:00 Temp 98.1 98.1 98.1 98.1 Pulse 86 79 87 81 Resp 30 36 26 25 B/P 149/85 154/87 167/74 128/69 Pulse Ox 100 100 100 100 O2 Delivery Nasal Cannula Nasal Cannula Nasal Cannula Nasal Cannula O2 Flow Rate 2.0 2.0 2.0 2.0 08/05/16 08/06/16 08/06/16 08/06/16 23:59 00:00 01:00 02:00 Pulse 82 82 71 Resp 17 B/P 127/78 128/73 123/72 Pulse Ox 100 99 100 O2 Delivery Nasal Cannula Nasal Cannula Nasal Cannula Nasal Cannula O2 Flow Rate 2.0 2.0 2.0 2.0 08/06/16 08/06/16 08/06/16 08/06/16 03:00 04:00 04:00 05:00 Temp 98.0 98.0 Pulse 80 70 69 Resp 22 24 B/P 127/72 109/57 98/53 Pulse Ox 100 100 98 O2 Delivery Nasal Cannula Nasal Cannula Nasal Cannula Nasal Cannula O2 Flow Rate 2.0 2.0 2.0 2.0 08/06/16 08/06/16 08/06/16 08/06/16 06:00 07:00 08:00 08:00 Temp 97.8 97.8 Pulse 84 72 78 Resp 28 21 20 B/P 101/58 105/62 113/64 Pulse Ox 95 100 99 O2 Delivery Nasal Cannula Nasal Cannula Nasal Cannula Nasal Cannula O2 Flow Rate 2.0 2.0 2.0 1.0 08/06/16 08/06/16 08/06/16 08/06/16 09:00 10:00 11:00 12:00 Temp 97.4 97.4 Pulse 74 72 74 74 Resp 15 30 B/P 123/69 102/63 111/61 114/62 Pulse Ox 100 96 98 97 O2 Delivery Nasal Cannula Nasal Cannula Nasal Cannula Nasal Cannula O2 Flow Rate 2.0 1.0 1.0 1.0 08/06/16 12:00 O2 Delivery Nasal Cannula O2 Flow Rate 1.0 Intake and Output 08/05/16 08/05/16 08/06/16 15:00 23:00 07:00 Intake Total 0 ml 32.4 ml Output Total 40 ml 1250 ml 500 ml Balance -40 ml -1250 ml -467.6 ml RAMONA RAYGOZA III DO Aug 06, 2016 13:51
--- NOTE | 2016-08-06 13:59 | PDOC ---
CARDIOLOGY PROGRESS NOTE SUBJECTIVE: No acute events overnight. Tolerated Milrinone therapy. Doing better this a.m. Denies chest pain, dyspnea. More alert this a.m OBJECTIVE: Vital SIgns: Vital Signs Date Time Temp Pulse Resp B/P Pulse Ox O2 Delivery O2 Flow Rate FiO2 08/06/16 12:00 Nasal Cannula 1.0 08/06/16 12:00 97.4 74 30 114/62 97 97.4 I & O Intake and Output 08/06/16 07:00 Intake Total 32.4 ml Output Total 1790 ml Balance -1757.6 ml Intake Oral 0 ml IV Total 32.4 ml Output Urine Total 1790 ml # Voids 3 Objective: Gen: a/o x 3. CVS: RRR, occ PVC's. PULM: Decreased breath sounds at the bases. ABD: Soft, NT/ND No edema. Neuro - non focal. CURRENT MEDICATIONS: Current Medications Medications (Trade) Dose Ordered Sig/Tom Start Time Stop Time Status Last Admin Dose Admin Alteplase, Recombinant (Activase) 62 ml @ 62 mls/hr Q1H 08/05/16 12:30 08/05/16 13:29 DC 08/05/16 12:51 62 MLS/HR Aspirin 325 mg 325 mg 1X ONCE 08/05/16 11:00 08/05/16 11:01 DC 08/05/16 10:48 325 MG Calcium Gluconate (Calcium Gluconate) 1,000 mg 1X ONCE 08/05/16 16:15 08/05/16 16:16 DC 08/05/16 16:47 1,000 MG Dextrose (Dextrose 50%-Water Syringe) 25 gm 1X ONCE 08/05/16 16:15 08/05/16 16:16 DC 08/05/16 16:42 25 GM Furosemide 40 mg 40 mg 1X ONCE 08/05/16 13:30 08/05/16 13:31 DC 08/05/16 13:30 40 MG Insulin Aspart (Novolog) 0-7 UNITS TIDWMEALS 08/05/16 17:00 08/05/16 18:24 4 UNITS Insulin Detemir (Levemir) 10 units QHS 08/05/16 21:00 08/05/16 21:29 10 UNITS Insulin Human Regular (Novolin R Vial) 10 unit 1X ONCE 08/05/16 16:15 08/05/16 16:16 DC 08/05/16 16:43 10 UNIT Magnesium Sulfate/ Dextrose 50 ml @ 25 mls/hr PRN DAILY PRN 08/05/16 14:30 08/06/16 09:42 25 MLS/HR Milrinone Lactate/ Dextrose (Primacor Premix) 100 ml @ 0 mls/hr CONT PRN 08/05/16 18:15 08/05/16 18:36 2.7 MLS/HR Ondansetron HCl 4 mg 4 mg PRN Q6HRS PRN 08/05/16 17:15 Sodium Bicarbonate 100 meq/Dextrose 600 ml @ 500 mls/hr 1X ONCE 08/05/16 13:15 08/05/16 14:26 DC 08/05/16 13:40 500 MLS/HR Sodium Bicarbonate 100 meq/Sodium Chloride 600 ml @ 500 mls/hr 1X ONCE 08/05/16 13:15 08/05/16 14:26 Cancel Sodium Chloride (Iv Sodium Chloride 0.9% 500ml Bag) 500 ml @ 0 mls/hr QID PRN 08/05/16 14:45 DIAGNOSTIC TESTING: 31 ASSESSMENT: 1. Ischemic CMP with NSTEMI 2. Cardiogenic shock 3. EMILY Problems: PLAN: 1. Continue milrinone 2. Start ASA 81mg daily and Hep gtt at low dose without bolus. 3. Start statin. After adequate diuresis, will then plan for possible heart cath. Thanks ANGEL ROBLES MD Aug 06, 2016 13:59
[2016-08-06] MEDS ORDERED: HEPARIN 25,000UTS/500ML PREMIX 500 ML IV PRN (14:30)
[2016-08-06] MEDS ORDERED: HEPARIN for IV BOLUS 10,000 UNIT/10 ML VIAL. IV PRN (14:30)
--- NOTE | 2016-08-06 14:52 | PDOC ---
PROGRESS NOTES Assessment Assessment Acute (subacute also possible on MRI) left frontal cortex infarct, left occipital infarct possible, cerebral ischemia from cardiogenic etiology, s/p TPA in ER. SOB Chest pain. Hypoxia. CAD, s/p stents placement. CHF, EF < 20%. KS likely Pulmonary A hypertension DM Hyperglycemia, glucose level 303 Renal failure CKD Hyperkalemia, K+ 6.6 HTN HLD AFib? Elevated troponin. 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 Old right parietal microhemorrhage. RECOMMENDATIONS/PLAN: Stroke protocol. NIH score per protocol. ASA daily first dose 24-hour after TPA if no anticoagulant from Cardiology. Anticoagulant per cardiology 24 hours after TPA. Treat medical and cardiac diseases. Discussed with him and his cousin in ICU again on 08/06. Brain MRI w/o contrast performed reports as above. Carotid A US + Doppler: No high grade stensosi. Echo: EF ,20%. Fasting lipid panel: WNL HISTORY OF THE PRESENT ILLNESS: 65-y-old AA male patient with above medical and cardiac diseases has been having symptoms of SOB and generalized weakness for at least 1 week and he said he has not been feeling well recently. He was noted mental status changes and aphasia on 08/05 to be brought to the ER of [facility]. He might have some brief motor deficits as well but not consistent. TPA was administrated after all criteria were met and he and his family agreed. From his stroke type, he was thought to have partial global ischemia due to severe CHF. PAST MEDICAL HISTORY: Please see above. PAST SURGERY HISTORY: Cardiac stents placement. ALLERGY: Reviewed. MEDICATIONS: Refer to [facility] FAMILY HISTORY: Non contributory. SOCIAL HISTORY: Lives alone. He . Denies current smoking, drinking, and illicit drug use. He smoked in the past but quit years ago. He drank in the past then quit. He used drugs in the past, but denied current use. REVIEW OF SYSTEMS: Constitutional: No cachexia. Head: No traumatic brain or head injury. Skin: No edema, or rash. Ear: No infection, tinnitus. Eyes: No vision loss or color blindness. Nose: No bleeding or purulent discharges. Hearing: Mild hearing decrease. Neck: No acute injury. Cardiac: CAD, s/p stents placement, AFib, CHF, HTN, HLD, SOB, PAD, PVD Pulmonary: SOB GI: No GI ulcer, GI bleeding. Urinary/genital: UTI. Endocrinologic: Diabetes Mellitus. Skeletomuscular: Generalized weakness. Neurological: see HP. Psychiatric: Denies drug use/abuse. Otherwise, not [id number] review of systems. PHYSICAL EXAMINATION: General appearance is in subacute distress. HEENT: Normocephalic and nontraumatic. Eyes, nose, ears, and throat are unremarkable. Neck is supple. No lymphadenopathy. No crepitus. Cardiovascular: S1, S2, regular rate and rhythm. Pulmonary: Clear to auscultation bilaterally. Abdomen: Bowel sounds are positive. Extremities: No rash, lesions, or edema. No restriction of range of motion NEUROLOGICAL EXAMINATION: Awake. Not oriented to time, but knows lace and person. PERRL. EOMI. CN: no acute focal findings. Muscle tone: within normal. Muscle strength: 4 to 4+ DTR: 2 UE, brisk at knee. Plantar reflex: Flexor response bilaterally Gait: not examined in bed. Sensory exam: no acute abnormal findings. No obvious cerebellar signs elicited. F-T-N test not performed. Objective Objective Vital Signs Date Time Temp Pulse Resp B/P Pulse Ox O2 Delivery O2 Flow Rate FiO2 08/06/16 12:00 Nasal Cannula 1.0 08/06/16 12:00 97.4 74 30 114/62 97 97.4 Intake and Output 08/06/16 07:00 Intake Total 32.4 ml Output Total 1790 ml Balance -1757.6 ml Intake Oral 0 ml IV Total 32.4 ml Output Urine Total 1790 ml # Voids 3 Vitals Signs Vitals VS - Last 72 Hours, by Label Date Time Temp Pulse Resp B/P Pulse Ox O2 Delivery O2 Flow Rate FiO2 08/06/16 12:00 Nasal Cannula 1.0 08/06/16 12:00 97.4 74 30 114/62 97 Nasal Cannula 1.0 97.4 08/06/16 11:00 74 15 111/61 98 Nasal Cannula 1.0 08/06/16 10:00 72 26 102/63 96 Nasal Cannula 1.0 08/06/16 09:00 74 25 123/69 100 Nasal Cannula 2.0 08/06/16 08:00 Nasal Cannula 1.0 08/06/16 08:00 97.8 78 20 113/64 99 Nasal Cannula 2.0 97.8 08/06/16 07:00 72 21 105/62 100 Nasal Cannula 2.0 08/06/16 06:00 84 28 101/58 95 Nasal Cannula 2.0 08/06/16 05:00 69 24 98/53 98 Nasal Cannula 2.0 08/06/16 04:00 Nasal Cannula 2.0 08/06/16 04:00 70 22 109/57 100 Nasal Cannula 2.0 08/06/16 03:00 98.0 80 24 127/72 100 Nasal Cannula 2.0 98.0 08/06/16 02:00 71 17 123/72 100 Nasal Cannula 2.0 08/06/16 01:00 82 30 128/73 99 Nasal Cannula 2.0 08/06/16 00:00 82 30 127/78 100 Nasal Cannula 2.0 08/05/16 23:59 Nasal Cannula 2.0 08/05/16 23:00 98.1 81 25 128/69 100 Nasal Cannula 2.0 98.1 08/05/16 22:00 87 26 167/74 100 Nasal Cannula 2.0 08/05/16 21:00 98.1 79 36 154/87 100 Nasal Cannula 2.0 98.1 08/05/16 20:00 86 30 149/85 100 Nasal Cannula 2.0 08/05/16 20:00 Nasal Cannula 2.0 08/05/16 19:00 98.1 76 31 148/76 96 Nasal Cannula 2.0 98.1 08/05/16 18:00 80 38 144/68 99 Nasal Cannula 2.0 08/05/16 17:00 78 36 132/73 99 Nasal Cannula 2.0 08/05/16 16:00 70 36 110/70 100 Nasal Cannula 2.0 08/05/16 15:00 97.5 54 39 124/56 98 Nasal Cannula 2.0 97.5 08/05/16 14:30 Nasal Cannula 2.0 08/05/16 14:15 97.5 48 38 119/67 91 Nasal Cannula 2.0 97.5 08/05/16 12:05 55 32 101/63 96 08/05/16 10:49 55 20 103/59 96 08/05/16 10:22 97.4 57 22 107/57 92 Room Air 97.4 Laboratory Laboratory Laboratory Tests Test 08/05/16 17:00 08/05/16 17:40 08/05/16 17:47 08/05/16 18:10 Urine Color Yellow Urine Clarity Clear Urine pH 5.0 Urine Specific Alanson 1.010 Urine Protein 100mg/dL (NEG-TRACE) Urine Glucose (UA) 250mg/dL (NEG) Urine Ketones (Stick) Negativemg/dL (NEG) Urine Blood Small (NEG) Urine Nitrite Negative (NEG) Urine Bilirubin Negative (NEG) Urine Urobilinogen Dipstick 1.0mg/dL (0.2 mg/dL) Urine Leukocyte Esterase Negative (NEG) Urine RBC 1-2/HPF (0-2) Urine WBC 1-4/HPF (0-4) Urine Squamous Epithelial Cells Occ/LPF Urine Amorphous Sediment Present/HPF Urine Bacteria Few/HPF (0-FEW) Urine Mucus Mod/LPF Urine Opiates Screen Neg (NEG) Urine Methadone Screen Neg (NEG) Urine Barbiturates Neg (NEG) Urine Phencyclidine Screen Neg (NEG) Urine Amphetamine/Methamphetamine Neg (NEG) Urine Benzodiazepines Screen Neg (NEG) Urine Cocaine Screen Neg (NEG) Urine Cannabinoids Screen Neg (NEG) Urine Ethyl Alcohol Neg (NEG) O2 Saturation 94% (92-99) Arterial Blood pH 7.43 (7.35-7.45) Arterial Blood pCO2 at Patient Temp 25mmHg (35-46) Arterial Blood pO2 at Patient Temp 75mmHg (65-108) Arterial Blood HCO3 16mmol/L (21-28) Arterial Blood Base Excess -6mmol/L (-3-3) FiO2 2 lpm nc Glucose (Fingerstick) 310mg/dL (70-99) Potassium Level 3.8mmol/L (3.5-5.1) Lactic Acid Level 3.1mmol/L (0.4-2.0) Test 08/05/16 19:25 08/05/16 21:19 08/06/16 01:10 08/06/16 05:00 Troponin I Quantitative 14.108ng/mL (0.000-0.055) 39.343ng/mL (0.000-0.055) Glucose (Fingerstick) 120mg/dL (70-99) Potassium Level 4.2mmol/L (3.5-5.1) 4.3mmol/L (3.5-5.1) Hemoglobin 12.4g/dL (13.0-17.5) Sodium Level 139mmol/L (136-145) Chloride Level 103mmol/L (98-107) Carbon Dioxide Level 20mmol/L (21-32) Anion Gap 16 (6-14) Blood Urea Nitrogen 44mg/dL (8-26) Creatinine 2.9mg/dL (0.7-1.3) Estimated GFR (Cockcroft-Gault) 26.7 Glucose Level 81mg/dL (70-99) Calcium Level 8.9mg/dL (8.5-10.1) Phosphorus Level 4.2mg/dL (2.6-4.7) Magnesium Level 1.6mg/dL (1.8-2.4) Albumin 3.3g/dL (3.4-5.0) Test 08/06/16 08:28 08/06/16 11:52 08/06/16 12:30 Glucose (Fingerstick) 117mg/dL (70-99) 118mg/dL (70-99) Potassium Level 4.3mmol/L (3.5-5.1) Medication Medications Current Medications Aspirin (Children'S Aspirin) 81 mg DAILYWBKFT PO ; Start 08/06/16 at 15:00 Atorvastatin Calcium 40 mg 40 mg QHS PO ; Start 08/06/16 at 21:00 Calcium Gluconate (Calcium Gluconate) 1,000 mg 1X ONCE IVP Last administered on 08/05/16 16:47; Start 08/05/16 at 16:15; Stop 08/05/16 at 16:16; Status DC Dextrose (Dextrose 50%-Water Syringe) 12.5 gm PRN Q15MIN PRN IV SEE COMMENTS; Start 08/05/16 at 16:00 Dextrose (Dextrose 50%-Water Syringe) 25 gm 1X ONCE IV Last administered on 16:42; Start 08/05/16 at 16:15; Stop 08/05/16 at 16:16; Status DC Heparin Sodium (Porcine) (Heparin Sodium) 1,650 unit PRN Q6HRS PRN IV FOR UFH LEVEL LESS THAN 0.2; Start 08/06/16 at 14:30; Status UNV Heparin Sodium/ Dextrose 500 ml @ 0 mls/hr CONT PRN IV SEE I/O RECORD; Start at 14:30; Status UNV Insulin Aspart (Novolog) 0-7 UNITS TIDWMEALS SQ Last administered on 08/05/16 18:24; Start 08/05/16 at 17:00 Insulin Detemir (Levemir) 10 units QHS SQ Last administered on 08/05/16 21:29 ; Start 08/05/16 at 21:00 Insulin Human Regular (Novolin R Vial) 10 unit 1X ONCE IV Last administered on 08/05/16 16:43; Start 08/05/16 at 16:15; Stop 08/05/16 at 16:16; Status DC Milrinone Lactate/ Dextrose (Primacor Premix) 100 ml @ 0 mls/hr CONT PRN IV SEE I/O RECORD Last administered on 08/05/16 18:36; Start 08/05/16 at 18:15 Ondansetron HCl 4 mg 4 mg PRN Q6HRS PRN IV NAUSEA/VOMITING; Start 08/05/16 at 17:15 Comment Review of Relevant I have reviewed the following items abdulaziz (where applicable) has been applied. OLIVIA MALIK MD Aug 06, 2016 14:52
[2016-08-06] MEDS: ASPIRIN CHEWABLE 81 MG TABLET. PO SCH (15:36)
[2016-08-06 16:11] LABS: UR PROTEIN RD 71.9 mg/dL (Not Estab.)
[2016-08-06] MEDS: FUROSEMIDE 20 MG/2 ML VIAL. IVP SCH (17:07)
--- NOTE | 2016-08-06 17:30 | PDOC ---
Provider Note Provider Note RENAL F/U : GIORGIO S : Doing OK. No new issues reported. O : VSS Afebrile. Neck : Supple Lungs : Non labored. Few rhonchi. CVS : RRR Abd : Benign appearing. No major distention. Ext: No edema. Neuro : Intact Labs and meds reviewed. A/P : ARF : Cr stable at 2.9. Renal hypoperfusion. HTN w CKD. CKD : Stage III/IV. CHF : Diurese gently. Per cardiology. EF 20% CPM. Supportive care. Mary Alvares M.D. MARY ALVARES MD Aug 06, 2016 17:30
[2016-08-06] MEDS ORDERED: FUROSEMIDE 20 MG/2 ML VIAL. IVP SCH (18:00)
[2016-08-06] MEDS: ATORVASTATIN CALCIUM 40 MG TABLET. PO SCH (21:00)
[2016-08-06] MEDS: INSULIN DETEMIR 300 UNITS/3 ML INSULN.PEN. SQ SCH (21:05)
[2016-08-07] VITALS (17 sets, daily range): BP systolic 109–133; BP diastolic 52–83
[2016-08-07] MEDS ORDERED: HEPARIN for IV BOLUS 10,000 UNIT/10 ML VIAL. IV PRN
[2016-08-07 05:20] LABS: BASO # 0.1 x10^3/uL (0.0-0.2); BASO % 1 % (0-3); EOS % 1 % (0-3); HEMATOCRIT 38.8 % (39.0-53.0); HEMOGLOBIN 12.5 g/dL (13.0-17.5); LYMPH # 1.9 x10^3/uL (1.0-4.8); LYMPH % 21 % (24-48); MEAN CORPUSCULAR HEMOGLOBIN 31 pg (25-35); MEAN CORPUSCULAR HGB CONC 32 g/dL (31-37); MEAN CORPUSCULAR VOLUME 95 fL (79-100); MONO % 8 % (0-9); NEUT % 69 % (31-73); PLATELET COUNT 233 x10^3/uL (140-400); RED BLOOD COUNT 4.07 x10^6/uL (4.30-5.70); RED CELL DISTRIBUTION WIDTH 15.7 % (11.5-14.5); WHITE BLOOD COUNT 9.1 x10^3/uL (4.0-11.0)
[2016-08-07 05:46] LABS: ALBUMIN 3.1 g/dL (3.4-5.0); CALCIUM 8.7 mg/dL (8.5-10.1); CREATININE 2.4 mg/dL (0.7-1.3); GFR 33.2; POTASSIUM 3.7 mmol/L (3.5-5.1)
--- NOTE | 2016-08-07 07:16 | PDOC ---
SUBJECTIVE ROS EMILY/ CKD III Looking and feeling much better today CVS: no Orthopnea, no CP RESP: no SOB, no CHING GI: no Nausea, no Vomiting : no Dysuria, no Urgency OBJECTIVE Vital Signs Vital Signs Date Time Temp Pulse Resp B/P Pulse Ox O2 Delivery O2 Flow Rate FiO2 08/07/16 07:00 67 19 129/66 98 Nasal Cannula 2.0 08/07/16 04:00 98.1 98.1 I & 0 Intake and Output 08/07/16 07:00 Intake Total 323.75 ml Output Total 2075 ml Balance -1751.25 ml Intake Oral 120 ml IV Total 203.75 ml Output Urine Total 2075 ml # Voids 1 PHYSICAL EXAM Physical Exam General Appearance: AAO x 3 today, In no apparent Distress Eyes: sclera anicteric; Conjunctiva Normal EN: No EN Drainage Mucous Memb. mosit Neck: no JVD min JVP Supple no Thyromegaly CVS: S1 S2 + Murmur No Gallop No Rub no Edema Resp: no Rales no Rhonchi no Acc. Muscle use GI: BS hypoactive NO Bruit Non Tender Non Distended : no CVA tenderness; no Suprapubic Tenderness Assessment & Plan EMILY - suspect due to Cardiac decompensationa nd sev intravascular vol depeltion. gradually improving. ? Elemnt of ATN cannotbe ruled out. hypoThermia - resolved, TSH min ^ed but not enough to explain hypothermia. he has responded to IVF +/- ionotorpes more then anythings Proteinruia - 1.1 gms - susepct DM/HTNsive /NS. Restart RAAS Blockade once Creat < 2.0 ^K - resolved vol dpeltion - currently resolved, reval now that he is dora on lasix. ^LFTs - defer to primary team. ? due to sev dehydration NSTEMI with sev CMyopathy - defer to cardiology COMMENT/RELEVANT DATA Meds Current Medications Medications (Trade) Dose Ordered Sig/Tom Start Time Stop Time Status Last Admin Dose Admin Alteplase, Recombinant (Activase) 62 ml @ 62 mls/hr Q1H 08/05/16 12:30 08/05/16 13:29 DC 08/05/16 12:51 62 MLS/HR Aspirin (Children'S Aspirin) 81 mg DAILYWBKFT 08/06/16 15:00 08/06/16 15:36 81 MG Aspirin 325 mg 325 mg 1X ONCE 08/05/16 11:00 08/05/16 11:01 DC 08/05/16 10:48 325 MG Atorvastatin Calcium 40 mg 40 mg QHS 08/06/16 21:00 08/06/16 21:00 40 MG Calcium Gluconate (Calcium Gluconate) 1,000 mg 1X ONCE 08/05/16 16:15 08/05/16 16:16 DC 08/05/16 16:47 1,000 MG Dextrose (Dextrose 50%-Water Syringe) 25 gm 1X ONCE 08/05/16 16:15 08/05/16 16:16 DC 08/05/16 16:42 25 GM Furosemide (Lasix) 20 mg DAILY 08/06/16 18:00 08/06/16 18:00 DC Furosemide 40 mg 40 mg 1X ONCE 08/05/16 13:30 08/05/16 13:31 DC 08/05/16 13:30 40 MG Heparin Sodium (Porcine) (Heparin Sodium) 1,650 unit PRN Q6HRS PRN 08/07/16 00:00 UNV Heparin Sodium/ Dextrose 500 ml @ 0 mls/hr CONT PRN 08/06/16 14:30 08/06/16 15:43 7.8 MLS/HR Insulin Aspart (Novolog) 0-7 UNITS TIDWMEALS 08/05/16 17:00 08/05/16 18:24 4 UNITS Insulin Detemir (Levemir) 10 units QHS 08/05/16 21:00 08/06/16 21:05 10 UNITS Insulin Human Regular (Novolin R Vial) 10 unit 1X ONCE 08/05/16 16:15 08/05/16 16:16 DC 08/05/16 16:43 10 UNIT Magnesium Sulfate/ Dextrose 50 ml @ 25 mls/hr PRN DAILY PRN 08/05/16 14:30 08/06/16 09:42 25 MLS/HR Milrinone Lactate/ Dextrose (Primacor Premix) 100 ml @ 0 mls/hr CONT PRN 08/05/16 18:15 08/05/16 18:36 2.7 MLS/HR Ondansetron HCl 4 mg 4 mg PRN Q6HRS PRN 08/05/16 17:15 Sodium Bicarbonate 100 meq/Dextrose 600 ml @ 500 mls/hr 1X ONCE 08/05/16 13:15 08/05/16 14:26 DC 08/05/16 13:40 500 MLS/HR Sodium Bicarbonate 100 meq/Sodium Chloride 600 ml @ 500 mls/hr 1X ONCE 08/05/16 13:15 08/05/16 14:26 Cancel Sodium Chloride (Iv Sodium Chloride 0.9% 500ml Bag) 500 ml @ 0 mls/hr QID PRN 08/05/16 14:45 Lab Laboratory Tests Test 08/06/16 08:28 08/06/16 11:52 08/06/16 12:30 08/06/16 17:08 Glucose (Fingerstick) 117mg/dL (70-99) 118mg/dL (70-99) 119mg/dL (70-99) Potassium Level 4.3mmol/L (3.5-5.1) Test 08/06/16 18:00 08/06/16 21:02 08/06/16 22:10 08/07/16 00:01 Potassium Level 4.2mmol/L (3.5-5.1) 4.0mmol/L (3.5-5.1) Glucose (Fingerstick) 135mg/dL (70-99) Heparin Anti-Xa Act, Unfractionated < 0.10IU/mL (0.30-0.70) Test 08/07/16 04:10 White Blood Count 9.1x10^3/uL (4.0-11.0) Red Blood Count 4.07x10^6/uL (4.30-5.70) Hemoglobin 12.5g/dL (13.0-17.5) Hematocrit 38.8% (39.0-53.0) Mean Corpuscular Volume 95fL (79-100) Mean Corpuscular Hemoglobin 31pg (25-35) Mean Corpuscular Hemoglobin Concent 32g/dL (31-37) Red Cell Distribution Width 15.7% (11.5-14.5) Platelet Count 233x10^3/uL (140-400) Neutrophils (%) (Auto) 69% (31-73) Lymphocytes (%) (Auto) 21% (24-48) Monocytes (%) (Auto) 8% (0-9) Eosinophils (%) (Auto) 1% (0-3) Basophils (%) (Auto) 1% (0-3) Neutrophils # (Auto) 6.3x10^3uL (1.8-7.7) Lymphocytes # (Auto) 1.9x10^3/uL (1.0-4.8) Monocytes # (Auto) 0.7x10^3/uL (0.0-1.1) Eosinophils # (Auto) 0.1x10^3/uL (0.0-0.7) Basophils # (Auto) 0.1x10^3/uL (0.0-0.2) Sodium Level 138mmol/L (136-145) Potassium Level 3.7mmol/L (3.5-5.1) Chloride Level 103mmol/L (98-107) Carbon Dioxide Level 25mmol/L (21-32) Anion Gap 10 (6-14) Blood Urea Nitrogen 41mg/dL (8-26) Creatinine 2.4mg/dL (0.7-1.3) Estimated GFR (Cockcroft-Gault) 33.2 Glucose Level 112mg/dL (70-99) Calcium Level 8.7mg/dL (8.5-10.1) Phosphorus Level 5.0mg/dL (2.6-4.7) Magnesium Level 2.1mg/dL (1.8-2.4) Troponin I Quantitative 7.419ng/mL (0.000-0.055) Albumin 3.1g/dL (3.4-5.0) JONI CRISOSTOMO MD Aug 07, 2016 07:16
[2016-08-07] MEDS: INSULIN ASPART 300 UNITS/3 ML INSULN.PEN SQ SCH ×3 (08:00→17:10)
--- NOTE | 2016-08-07 09:10 | PDOC ---
CARDIOLOGY PROGRESS NOTE SUBJECTIVE: No acute events overnight. Denies any chest pain or dyspnea this morning. OBJECTIVE: Vital SIgns: Vital Signs Date Time Temp Pulse Resp B/P Pulse Ox O2 Delivery O2 Flow Rate FiO2 08/07/16 07:00 67 19 129/66 98 Nasal Cannula 2.0 08/07/16 04:00 98.1 98.1 I & O Negative 3.4 L since admission Objective: Gen: A/O x 3. NAD CVS: RRR, no m/r/g PULM: CTAB ABD: Soft, NT/ND +BS NC/AT NEURO: No gross focal deficits. PSYCH: Normal affect and mood. EXT: No edema. CURRENT MEDICATIONS: ASA, Atorvastatin, Milrinone, Hep gtt DIAGNOSTIC TESTING: Tele - SR with PVC's ASSESSMENT: 1. NSTEMI 2. 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 Possible acute CVA 4. Prior CAD s/p LM/LCx/LAD stents. Problems: PLAN: 1. Continue diuresis with Lasix 20mg IVP daily and monitor Cr (Resp status much improved) 2. Consider cardiac cath, will readdress tomorrow depending on his Cr. Risk for ANI/worsening EMILY is high but his cardiac status is also quite poor. 3. Continue milrinone. 4. Continue Hep gtt, will increase dose to normal protocol. 5. Continue statin, ASA Will follow. Poor prognosis. ANGEL ROBLES MD Aug 07, 2016 09:10
[2016-08-07] MEDS: FUROSEMIDE 20 MG/2 ML VIAL. IVP SCH (10:01)
--- NOTE | 2016-08-07 14:19 | PDOC ---
PROGRESS NOTES Assessment Assessment Acute (subacute also possible on MRI) left frontal cortex infarct, left occipital infarct possible, cerebral ischemia from cardiogenic etiology, s/p TPA in ER. Metabolic encephalopathy. SOB Chest pain. Hypoxia. CAD, s/p stents placement. CHF, EF < 20%. MN likely Pulmonary A hypertension DM Hyperglycemia, glucose level 303 Renal failure CKD Hyperkalemia, K+ 6.6 HTN HLD AFib? Elevated troponin. 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 Old right parietal microhemorrhage. RECOMMENDATIONS/PLAN: ASA 81 mg daily. Lipitor HS. IV Heparin per Cardiology. Stroke protocol. Treat medical and cardiac diseases. OT/PT Discussed with him and his cousin in ICU again on 08/06. Brain MRI w/o contrast performed reports as above. Carotid A US + Doppler: No high grade stensosi. Echo: EF ,20%. Fasting lipid panel: WNL HISTORY OF THE PRESENT ILLNESS: 65-y-old AA male patient with above medical and cardiac diseases has been having symptoms of SOB and generalized weakness for at least 1 week and he said he has not been feeling well recently. He was noted mental status changes and aphasia on 08/05 to be brought to the ER of [facility]. He might have some brief motor deficits as well but not consistent. TPA was administrated after all criteria were met and he and his family agreed. From his stroke type, he was thought to have partial global ischemia due to severe CHF. PAST MEDICAL HISTORY: Please see above. PAST SURGERY HISTORY: Cardiac stents placement. ALLERGY: Reviewed. MEDICATIONS: Refer to [facility] FAMILY HISTORY: Non contributory. SOCIAL HISTORY: Lives alone. He . Denies current smoking, drinking, and illicit drug use. He smoked in the past but quit years ago. He drank in the past then quit. He used drugs in the past, but denied current use. REVIEW OF SYSTEMS: Constitutional: No cachexia. Head: No traumatic brain or head injury. Skin: No edema, or rash. Ear: No infection, tinnitus. Eyes: No vision loss or color blindness. Nose: No bleeding or purulent discharges. Hearing: Mild hearing decrease. Neck: No acute injury. Cardiac: CAD, s/p stents placement, AFib, CHF, HTN, HLD, SOB, PAD, PVD Pulmonary: SOB GI: No GI ulcer, GI bleeding. Urinary/genital: UTI. Endocrinologic: Diabetes Mellitus. Skeletomuscular: Generalized weakness. Neurological: see HP. Psychiatric: Denies drug use/abuse. Otherwise, not [id number] review of systems. PHYSICAL EXAMINATION: General appearance is in subacute distress. HEENT: Normocephalic and nontraumatic. Eyes, nose, ears, and throat are unremarkable. Neck is supple. No lymphadenopathy. No crepitus. Cardiovascular: S1, S2, regular rate and rhythm. Pulmonary: Clear to auscultation bilaterally. Abdomen: Bowel sounds are positive. Extremities: No rash, lesions, or edema. No restriction of range of motion NEUROLOGICAL EXAMINATION: Awake. Sitting in don. Not oriented to time, but knows lace and person. PERRL. EOMI. CN: no acute focal findings. Muscle tone: within normal. Muscle strength: 4+ DTR: 2 UE, brisk at knee. Plantar reflex: Flexor response bilaterally Gait: not examined in chair. Sensory exam: no acute abnormal findings. No obvious cerebellar signs elicited. F-T-N test fine. Objective Objective Vital Signs Date Time Temp Pulse Resp B/P Pulse Ox O2 Delivery O2 Flow Rate FiO2 08/07/16 12:00 97.8 80 24 114/52 98 Room Air 97.8 08/07/16 10:00 1.0 Intake and Output 08/07/16 07:00 Intake Total 323.75 ml Output Total 2075 ml Balance -1751.25 ml Intake Oral 120 ml IV Total 203.75 ml Output Urine Total 2075 ml # Voids 1 Vitals Signs Vitals VS - Last 72 Hours, by Label Date Time Temp Pulse Resp B/P Pulse Ox O2 Delivery O2 Flow Rate FiO2 08/07/16 12:00 97.8 80 24 114/52 98 Room Air 97.8 08/07/16 10:00 74 19 132/65 100 Nasal Cannula 1.0 08/07/16 09:00 76 22 133/76 100 Nasal Cannula 1.0 08/07/16 08:00 97.4 78 22 112/69 100 Nasal Cannula 1.0 97.4 08/07/16 07:00 67 19 129/66 98 Nasal Cannula 2.0 08/07/16 06:00 81 20 121/68 99 Nasal Cannula 2.0 08/07/16 05:00 84 18 110/83 98 Nasal Cannula 2.0 08/07/16 04:00 98.1 81 20 115/68 99 Nasal Cannula 2.0 98.1 08/07/16 04:00 Nasal Cannula 2.0 08/07/16 03:00 84 18 120/60 98 Nasal Cannula 3.0 08/07/16 02:00 86 15 127/59 100 Nasal Cannula 2.0 08/07/16 01:00 84 18 120/60 98 Nasal Cannula 3.0 08/07/16 00:00 98.1 80 20 115/65 98 98.1 08/07/16 00:00 Nasal Cannula 2.0 08/06/16 23:00 82 16 117/72 93 Nasal Cannula 08/06/16 23:00 82 16 117/72 93 Nasal Cannula 2.0 08/06/16 22:00 78 19 110/54 94 Room Air 08/06/16 21:00 84 18 120/60 94 Room Air 08/06/16 20:00 131/60 08/06/16 20:00 Nasal Cannula 1.0 08/06/16 20:00 80 20 95 Nasal Cannula 2.0 08/06/16 19:00 98.3 76 21 124/63 97 Nasal Cannula 2.0 98.3 08/06/16 18:00 74 25 118/60 98 Nasal Cannula 1.0 08/06/16 17:00 97.5 75 24 127/68 98 Nasal Cannula 1.0 97.5 08/06/16 16:00 Nasal Cannula 1.0 08/06/16 16:00 74 23 115/66 98 Nasal Cannula 1.0 08/06/16 15:00 76 34 113/60 97 Nasal Cannula 1.0 08/06/16 14:00 78 36 132/73 99 Nasal Cannula 1.0 08/06/16 13:00 74 34 130/63 99 Nasal Cannula 1.0 08/06/16 12:00 Nasal Cannula 1.0 08/06/16 12:00 97.4 74 30 114/62 97 Nasal Cannula 1.0 97.4 08/06/16 11:00 74 15 111/61 98 Nasal Cannula 1.0 08/06/16 10:00 72 26 102/63 96 Nasal Cannula 1.0 08/06/16 09:00 74 25 123/69 100 Nasal Cannula 2.0 08/06/16 08:00 Nasal Cannula 1.0 08/06/16 08:00 97.8 78 20 113/64 99 Nasal Cannula 2.0 97.8 08/06/16 07:00 72 21 105/62 100 Nasal Cannula 2.0 Laboratory Laboratory Laboratory Tests Test 08/06/16 17:08 08/06/16 18:00 08/06/16 21:02 08/06/16 22:10 Glucose (Fingerstick) 119mg/dL (70-99) 135mg/dL (70-99) Potassium Level 4.2mmol/L (3.5-5.1) Heparin Anti-Xa Act, Unfractionated < 0.10IU/mL (0.30-0.70) Test 08/07/16 00:01 08/07/16 04:10 08/07/16 07:28 08/07/16 11:41 Potassium Level 4.0mmol/L (3.5-5.1) 3.7mmol/L (3.5-5.1) 4.1mmol/L (3.5-5.1) White Blood Count 9.1x10^3/uL (4.0-11.0) Red Blood Count 4.07x10^6/uL (4.30-5.70) Hemoglobin 12.5g/dL (13.0-17.5) Hematocrit 38.8% (39.0-53.0) Mean Corpuscular Volume 95fL (79-100) Mean Corpuscular Hemoglobin 31pg (25-35) Mean Corpuscular Hemoglobin Concent 32g/dL (31-37) Red Cell Distribution Width 15.7% (11.5-14.5) Platelet Count 233x10^3/uL (140-400) Neutrophils (%) (Auto) 69% (31-73) Lymphocytes (%) (Auto) 21% (24-48) Monocytes (%) (Auto) 8% (0-9) Eosinophils (%) (Auto) 1% (0-3) Basophils (%) (Auto) 1% (0-3) Neutrophils # (Auto) 6.3x10^3uL (1.8-7.7) Lymphocytes # (Auto) 1.9x10^3/uL (1.0-4.8) Monocytes # (Auto) 0.7x10^3/uL (0.0-1.1) Eosinophils # (Auto) 0.1x10^3/uL (0.0-0.7) Basophils # (Auto) 0.1x10^3/uL (0.0-0.2) Sodium Level 138mmol/L (136-145) Chloride Level 103mmol/L (98-107) Carbon Dioxide Level 25mmol/L (21-32) Anion Gap 10 (6-14) Blood Urea Nitrogen 41mg/dL (8-26) Creatinine 2.4mg/dL (0.7-1.3) Estimated GFR (Cockcroft-Gault) 33.2 Glucose Level 112mg/dL (70-99) Calcium Level 8.7mg/dL (8.5-10.1) Phosphorus Level 5.0mg/dL (2.6-4.7) Magnesium Level 2.1mg/dL (1.8-2.4) Troponin I Quantitative 7.419ng/mL (0.000-0.055) Albumin 3.1g/dL (3.4-5.0) Glucose (Fingerstick) 125mg/dL (70-99) Test 08/07/16 12:08 Glucose (Fingerstick) 152mg/dL (70-99) Medication Medications Current Medications Aspirin (Children'S Aspirin) 81 mg DAILYWBKFT PO Last administered on 15:36; Start 08/06/16 at 15:00 Atorvastatin Calcium 40 mg 40 mg QHS PO Last administered on 08/06/16 21:00; Start 08/06/16 at 21:00 Furosemide (Lasix) 20 mg DAILY IVP Last administered on 08/07/16 10:01; Start 08/06/16 at 17:00 Furosemide (Lasix) 20 mg DAILY IVP ; Start 08/06/16 at 18:00; Stop 08/06/16 at 18:00; Status DC Heparin Sodium (Porcine) (Heparin Sodium) 1,650 unit PRN Q6HRS PRN IV FOR UFH LEVEL LESS THAN 0.2; Start 08/06/16 at 14:30; Stop 08/07/16 at 00:21; Status DC Heparin Sodium (Porcine) (Heparin Sodium) 1,650 unit PRN Q6HRS PRN IV FOR UFH LEVEL LESS THAN 0.2; Start 08/07/16 at 00:00; Status UNV Heparin Sodium/ Dextrose 500 ml @ 0 mls/hr CONT PRN IV SEE I/O RECORD Last administered on 08/06/16t 15:43; Start 08/06/16 at 14:30 Comment Review of Relevant I have reviewed the following items abdulaziz (where applicable) has been applied. OLIVIA MALIK MD Aug 07, 2016 14:19
--- NOTE | 2016-08-07 15:24 | PDOC ---
PROGRESS NOTES Chief Complaint Chief Complaint cc: angina -CVA -NSTEMI -acute renal failure -Systolic heart failure -chronic kidney disease -DM -atrial fibrillation -hypertension -hyperlipidemia -COPD -coronary stent History of Present Illness History of Present Illness Mr. Fernandez was sitting upright and able to speak with us when we visited him. His was present in the room, and she was included in the discussion. He reports he is not experiencing any significant symptoms at this time. He feel better than yesterday, which he described as being more alert. He is also on his first day of being on an advanced diet, which he did not have any concerns with. His telemetry demonstrated tachycardia with ND depression. Vitals Vitals Vital Signs Date Time Temp Pulse Resp B/P Pulse Ox O2 Delivery O2 Flow Rate FiO2 08/07/16 12:00 97.8 80 24 114/52 98 Room Air 97.8 08/07/16 10:00 1.0 Physical Exam General: Cooperative, No acute distress Heart: Regular rate (SR), No murmurs Lungs: Clear, Other (He had decreased inspiratory effort. ) Abdomen: No tenderness, No masses Extremities: No cyanosis, No edema Skin: No rashes, No breakdown Labs LABS Laboratory Tests Test 08/06/16 17:08 08/06/16 18:00 08/06/16 21:02 08/06/16 22:10 Glucose (Fingerstick) 119mg/dL (70-99) 135mg/dL (70-99) Potassium Level 4.2mmol/L (3.5-5.1) Heparin Anti-Xa Act, Unfractionated < 0.10IU/mL (0.30-0.70) Test 08/07/16 00:01 08/07/16 04:10 08/07/16 07:28 08/07/16 11:41 Potassium Level 4.0mmol/L (3.5-5.1) 3.7mmol/L (3.5-5.1) 4.1mmol/L (3.5-5.1) White Blood Count 9.1x10^3/uL (4.0-11.0) Red Blood Count 4.07x10^6/uL (4.30-5.70) Hemoglobin 12.5g/dL (13.0-17.5) Hematocrit 38.8% (39.0-53.0) Mean Corpuscular Volume 95fL (79-100) Mean Corpuscular Hemoglobin 31pg (25-35) Mean Corpuscular Hemoglobin Concent 32g/dL (31-37) Red Cell Distribution Width 15.7% (11.5-14.5) Platelet Count 233x10^3/uL (140-400) Neutrophils (%) (Auto) 69% (31-73) Lymphocytes (%) (Auto) 21% (24-48) Monocytes (%) (Auto) 8% (0-9) Eosinophils (%) (Auto) 1% (0-3) Basophils (%) (Auto) 1% (0-3) Neutrophils # (Auto) 6.3x10^3uL (1.8-7.7) Lymphocytes # (Auto) 1.9x10^3/uL (1.0-4.8) Monocytes # (Auto) 0.7x10^3/uL (0.0-1.1) Eosinophils # (Auto) 0.1x10^3/uL (0.0-0.7) Basophils # (Auto) 0.1x10^3/uL (0.0-0.2) Sodium Level 138mmol/L (136-145) Chloride Level 103mmol/L (98-107) Carbon Dioxide Level 25mmol/L (21-32) Anion Gap 10 (6-14) Blood Urea Nitrogen 41mg/dL (8-26) Creatinine 2.4mg/dL (0.7-1.3) Estimated GFR (Cockcroft-Gault) 33.2 Glucose Level 112mg/dL (70-99) Calcium Level 8.7mg/dL (8.5-10.1) Phosphorus Level 5.0mg/dL (2.6-4.7) Magnesium Level 2.1mg/dL (1.8-2.4) Troponin I Quantitative 7.419ng/mL (0.000-0.055) Albumin 3.1g/dL (3.4-5.0) Glucose (Fingerstick) 125mg/dL (70-99) Test 08/07/16 12:08 Glucose (Fingerstick) 152mg/dL (70-99) Review of Systems Review of Systems Mr. Fernandez reports he has not experienced any nausea or vomiting, nor has he had any symptoms of lightheadedness or dizziness. He has been tolerating the food well and has not had any episodes of diarrhea or nausea associated with eating. Assessment and Plan Assessmemt and Plan Problems Medical Problems: (1) CVA (cerebral vascular accident) Status: Acute Assessment: Mr. Fernandez is a 65 year old male who presented with angina. -CVA -NSTEMI -acute renal failure -Systolic heart failure -chronic kidney disease -DM -atrial fibrillation -hypertension -hyperlipidemia -COPD -coronary stent Plan: 1. Monitor tolerance of diet advancement 2. PT/OT 3. Recheck labs 4. Continue home medications 5. Continue furosemide per cardiology 6. DVT prophylaxis 7. Continue milrinone per cardiology 8. Insulin sliding scale 9. Appreciate subspecialists' input His condition is guarded. Problems: Comment Review of Relevant I have reviewed the following items abdulaziz (where applicable) has been applied. Labs Laboratory Tests Test 08/05/16 17:00 08/05/16 17:40 08/05/16 17:47 08/05/16 18:10 Urine Color Yellow Urine Clarity Clear Urine pH 5.0 Urine Specific Roll 1.010 Urine Protein 71.9mg/dL (Not Estab.) Urine Glucose (UA) 250mg/dL (NEG) Urine Ketones (Stick) Negativemg/dL (NEG) Urine Blood Small (NEG) Urine Nitrite Negative (NEG) Urine Bilirubin Negative (NEG) Urine Urobilinogen Dipstick 1.0mg/dL (0.2 mg/dL) Urine Leukocyte Esterase Negative (NEG) Urine RBC 1-2/HPF (0-2) Urine WBC 1-4/HPF (0-4) Urine Squamous Epithelial Cells Occ/LPF Urine Amorphous Sediment Present/HPF Urine Bacteria Few/HPF (0-FEW) Urine Mucus Mod/LPF Urine Random Creatinine 65.7mg/dL (Not Estab.) Urine Random Sodium 96mmol/L (Not Estab.) Urine Creatinine 63.8mg/dL (Not Estab.) Urine Protein/Creatinine Ratio 1127mg/g creat (0-200) Urine Opiates Screen Neg (NEG) Urine Methadone Screen Neg (NEG) Urine Barbiturates Neg (NEG) Urine Phencyclidine Screen Neg (NEG) Urine Amphetamine/Methamphetamine Neg (NEG) Urine Benzodiazepines Screen Neg (NEG) Urine Cocaine Screen Neg (NEG) Urine Cannabinoids Screen Neg (NEG) Urine Ethyl Alcohol Neg (NEG) O2 Saturation 94% (92-99) Arterial Blood pH 7.43 (7.35-7.45) Arterial Blood pCO2 at Patient Temp 25mmHg (35-46) Arterial Blood pO2 at Patient Temp 75mmHg (65-108) Arterial Blood HCO3 16mmol/L (21-28) Arterial Blood Base Excess -6mmol/L (-3-3) FiO2 2 lpm nc Glucose (Fingerstick) 310mg/dL (70-99) Potassium Level 3.8mmol/L (3.5-5.1) Lactic Acid Level 3.1mmol/L (0.4-2.0) Test 08/05/16 19:25 08/05/16 21:19 08/06/16 01:10 08/06/16 05:00 Troponin I Quantitative 14.108ng/mL (0.000-0.055) 39.343ng/mL (0.000-0.055) Glucose (Fingerstick) 120mg/dL (70-99) Potassium Level 4.2mmol/L (3.5-5.1) 4.3mmol/L (3.5-5.1) Hemoglobin 12.4g/dL (13.0-17.5) Sodium Level 139mmol/L (136-145) Chloride Level 103mmol/L (98-107) Carbon Dioxide Level 20mmol/L (21-32) Anion Gap 16 (6-14) Blood Urea Nitrogen 44mg/dL (8-26) Creatinine 2.9mg/dL (0.7-1.3) Estimated GFR (Cockcroft-Gault) 26.7 Glucose Level 81mg/dL (70-99) Calcium Level 8.9mg/dL (8.5-10.1) Phosphorus Level 4.2mg/dL (2.6-4.7) Magnesium Level 1.6mg/dL (1.8-2.4) Albumin 3.3g/dL (3.4-5.0) Test 08/06/16 08:28 08/06/16 11:52 08/06/16 12:30 08/06/16 17:08 Glucose (Fingerstick) 117mg/dL (70-99) 118mg/dL (70-99) 119mg/dL (70-99) Potassium Level 4.3mmol/L (3.5-5.1) Test 08/06/16 18:00 08/06/16 21:02 08/06/16 22:10 08/07/16 00:01 Potassium Level 4.2mmol/L (3.5-5.1) 4.0mmol/L (3.5-5.1) Glucose (Fingerstick) 135mg/dL (70-99) Heparin Anti-Xa Act, Unfractionated < 0.10IU/mL (0.30-0.70) Test 08/07/16 04:10 08/07/16 07:28 08/07/16 11:41 08/07/16 12:08 White Blood Count 9.1x10^3/uL (4.0-11.0) Red Blood Count 4.07x10^6/uL (4.30-5.70) Hemoglobin 12.5g/dL (13.0-17.5) Hematocrit 38.8% (39.0-53.0) Mean Corpuscular Volume 95fL (79-100) Mean Corpuscular Hemoglobin 31pg (25-35) Mean Corpuscular Hemoglobin Concent 32g/dL (31-37) Red Cell Distribution Width 15.7% (11.5-14.5) Platelet Count 233x10^3/uL (140-400) Neutrophils (%) (Auto) 69% (31-73) Lymphocytes (%) (Auto) 21% (24-48) Monocytes (%) (Auto) 8% (0-9) Eosinophils (%) (Auto) 1% (0-3) Basophils (%) (Auto) 1% (0-3) Neutrophils # (Auto) 6.3x10^3uL (1.8-7.7) Lymphocytes # (Auto) 1.9x10^3/uL (1.0-4.8) Monocytes # (Auto) 0.7x10^3/uL (0.0-1.1) Eosinophils # (Auto) 0.1x10^3/uL (0.0-0.7) Basophils # (Auto) 0.1x10^3/uL (0.0-0.2) Sodium Level 138mmol/L (136-145) Potassium Level 3.7mmol/L (3.5-5.1) 4.1mmol/L (3.5-5.1) Chloride Level 103mmol/L (98-107) Carbon Dioxide Level 25mmol/L (21-32) Anion Gap 10 (6-14) Blood Urea Nitrogen 41mg/dL (8-26) Creatinine 2.4mg/dL (0.7-1.3) Estimated GFR (Cockcroft-Gault) 33.2 Glucose Level 112mg/dL (70-99) Calcium Level 8.7mg/dL (8.5-10.1) Phosphorus Level 5.0mg/dL (2.6-4.7) Magnesium Level 2.1mg/dL (1.8-2.4) Troponin I Quantitative 7.419ng/mL (0.000-0.055) Albumin 3.1g/dL (3.4-5.0) Glucose (Fingerstick) 125mg/dL (70-99) 152mg/dL (70-99) Laboratory Tests Test 08/06/16 17:08 08/06/16 18:00 08/06/16 21:02 08/06/16 22:10 Glucose (Fingerstick) 119mg/dL (70-99) 135mg/dL (70-99) Potassium Level 4.2mmol/L (3.5-5.1) Heparin Anti-Xa Act, Unfractionated < 0.10IU/mL (0.30-0.70) Test 08/07/16 00:01 08/07/16 04:10 08/07/16 07:28 08/07/16 11:41 Potassium Level 4.0mmol/L (3.5-5.1) 3.7mmol/L (3.5-5.1) 4.1mmol/L (3.5-5.1) White Blood Count 9.1x10^3/uL (4.0-11.0) Red Blood Count 4.07x10^6/uL (4.30-5.70) Hemoglobin 12.5g/dL (13.0-17.5) Hematocrit 38.8% (39.0-53.0) Mean Corpuscular Volume 95fL (79-100) Mean Corpuscular Hemoglobin 31pg (25-35) Mean Corpuscular Hemoglobin Concent 32g/dL (31-37) Red Cell Distribution Width 15.7% (11.5-14.5) Platelet Count 233x10^3/uL (140-400) Neutrophils (%) (Auto) 69% (31-73) Lymphocytes (%) (Auto) 21% (24-48) Monocytes (%) (Auto) 8% (0-9) Eosinophils (%) (Auto) 1% (0-3) Basophils (%) (Auto) 1% (0-3) Neutrophils # (Auto) 6.3x10^3uL (1.8-7.7) Lymphocytes # (Auto) 1.9x10^3/uL (1.0-4.8) Monocytes # (Auto) 0.7x10^3/uL (0.0-1.1) Eosinophils # (Auto) 0.1x10^3/uL (0.0-0.7) Basophils # (Auto) 0.1x10^3/uL (0.0-0.2) Sodium Level 138mmol/L (136-145) Chloride Level 103mmol/L (98-107) Carbon Dioxide Level 25mmol/L (21-32) Anion Gap 10 (6-14) Blood Urea Nitrogen 41mg/dL (8-26) Creatinine 2.4mg/dL (0.7-1.3) Estimated GFR (Cockcroft-Gault) 33.2 Glucose Level 112mg/dL (70-99) Calcium Level 8.7mg/dL (8.5-10.1) Phosphorus Level 5.0mg/dL (2.6-4.7) Magnesium Level 2.1mg/dL (1.8-2.4) Troponin I Quantitative 7.419ng/mL (0.000-0.055) Albumin 3.1g/dL (3.4-5.0) Glucose (Fingerstick) 125mg/dL (70-99) Test 08/07/16 12:08 Glucose (Fingerstick) 152mg/dL (70-99) Medications Current Medications Aspirin 325 mg 325 mg 1X ONCE PO Last administered on 08/05/16t 10:48; Start 08/05/16 at 11:00; Stop 08/05/16 at 11:01; Status DC Alteplase, Recombinant 0 ml @ 0 mls/hr 1X ONCE IV ; Start 08/05/16 at 12:30; Stop 08/05/16 at 12:31; Status Cancel Alteplase, Recombinant 0 ml @ 0 mls/hr Q1H IV ; Start 08/05/16 at 12:40; Stop at 12:41; Status Cancel Alteplase, Recombinant 7 ml @ 420 mls/hr 1X ONCE IV Last administered on 12:50; Start 08/05/16 at 12:30; Stop 08/05/16 at 12:31; Status DC Alteplase, Recombinant (Activase) 62 ml @ 62 mls/hr Q1H IV Last administered on 08/05/16 12:51; Start 08/05/16 at 12:30; Stop 08/05/16 at 13:29; Status DC Furosemide 40 mg 40 mg 1X ONCE IVP Last administered on 08/05/16 13:30; Start 08/05/16 at 13:30; Stop 08/05/16 at 13:31; Status DC Sodium Bicarbonate 100 meq/Sodium Chloride 600 ml @ 500 mls/hr 1X ONCE IV ; Start 08/05/16 at 13:15; Stop 08/05/16 at 14:26; Status Cancel Sodium Bicarbonate 100 meq/Dextrose 600 ml @ 500 mls/hr 1X ONCE IV Last administered on 08/05/16 13:40; Start 08/05/16 at 13:15; Stop 08/05/16 at 14:26 ; Status DC Magnesium Sulfate/ Dextrose 50 ml @ 25 mls/hr PRN DAILY PRN IV for Mag < 1.7 on am labs Last administered on 08/06/16 09:42; Start 08/05/16 at 14:30 Sodium Chloride (Iv Sodium Chloride 0.9% 500ml Bag) 500 ml @ 0 mls/hr QID PRN IV UO< 30cc/hr over previous 6hrs; Start 08/05/16 at 14:45; Stop 08/07/16 at 07: 59; Status DC Insulin Detemir (Levemir) 10 units QHS SQ Last administered on 08/06/16 21:05 ; Start 08/05/16 at 21:00 Insulin Aspart (Novolog) 0-7 UNITS TIDWMEALS SQ Last administered on 08/05/16 18:24; Start 08/05/16 at 17:00 Dextrose (Dextrose 50%-Water Syringe) 12.5 gm PRN Q15MIN PRN IV SEE COMMENTS; Start 08/05/16 at 16:00 Dextrose (Dextrose 50%-Water Syringe) 25 gm 1X ONCE IV Last administered on 16:42; Start 08/05/16 at 16:15; Stop 08/05/16 at 16:16; Status DC Insulin Human Regular (Novolin R Vial) 10 unit 1X ONCE IV Last administered on 08/05/16 16:43; Start 08/05/16 at 16:15; Stop 08/05/16 at 16:16; Status DC Calcium Gluconate (Calcium Gluconate) 1,000 mg 1X ONCE IVP Last administered on 08/05/16 16:47; Start 08/05/16 at 16:15; Stop 08/05/16 at 16:16; Status DC Ondansetron HCl 4 mg 4 mg PRN Q6HRS PRN IV NAUSEA/VOMITING; Start 08/05/16 at 17:15 Milrinone Lactate/ Dextrose (Primacor Premix) 100 ml @ 0 mls/hr CONT PRN IV SEE I/O RECORD Last administered on 08/05/16 18:36; Start 08/05/16 at 18:15 Aspirin (Children'S Aspirin) 81 mg DAILYWBKFT PO Last administered on 15:36; Start 08/06/16 at 15:00 Atorvastatin Calcium 40 mg 40 mg QHS PO Last administered on 08/06/16 21:00; Start 08/06/16 at 21:00 Heparin Sodium/ Dextrose 500 ml @ 0 mls/hr CONT PRN IV SEE I/O RECORD Last administered on 08/06/16 15:43; Start 08/06/16 at 14:30 Heparin Sodium (Porcine) (Heparin Sodium) 1,650 unit PRN Q6HRS PRN IV FOR UFH LEVEL LESS THAN 0.2; Start 08/06/16 at 14:30; Stop 08/07/16 at 00:21; Status DC Furosemide (Lasix) 20 mg DAILY IVP Last administered on 08/07/16t 10:01; Start 08/06/16 at 17:00 Furosemide (Lasix) 20 mg DAILY IVP ; Start 08/06/16 at 18:00; Stop 08/06/16 at 18:00; Status DC Heparin Sodium (Porcine) (Heparin Sodium) 1,650 unit PRN Q6HRS PRN IV FOR UFH LEVEL LESS THAN 0.2; Start 08/07/16 at 00:00; Status UNV Active Scripts Active Cyclobenzaprine Hcl 10 Mg Tablet 1 Tab PO TID PRN Hydrocodone-Ibuprofen 7.5-200 (Hydrocodone/Ibuprofen) 1 Each Tablet 1 Tab PO PRN Q6HRS PRN Effient (Prasugrel Hcl) 10 Mg Tablet 10 Mg PO DAILYWBKFT SIG: ONE PO DAILY Hydralazine Hcl 50 Mg Tablet 50 Mg PO TID SIG: ONE BY MOUTH EVERY 8 HOURS; REPLACES NIFEDIPINE Carvedilol 12.5 Mg Tablet 12.5 Mg PO BIDWMEALS SIG: ONE P.O. BID; REPLACES CLONIDINE Reported Glimepiride 4 Mg Tablet 1 Tab PO DAILY Januvia (Sitagliptin Phosphate) 100 Mg Tablet 1 Tab PO DAILY Spironolactone 100 Mg Tablet 1 Tab PO DAILY Allopurinol 100 Mg Tablet 1 Tab PO DAILY Atorvastatin Calcium 40 Mg Tablet 1 Tab PO DAILY Aspir 81 (Aspirin) 81 Mg Tablet.dr 81 Tab PO DAILY Vitals/I & O Vital Sign - Last 24 Hours 08/06/16 08/06/16 08/06/16 08/06/16 16:00 16:00 17:00 18:00 Temp 97.5 97.5 Pulse 74 75 74 Resp 23 24 25 B/P 115/66 127/68 118/60 Pulse Ox 98 98 98 O2 Delivery Nasal Cannula Nasal Cannula Nasal Cannula Nasal Cannula O2 Flow Rate 1.0 1.0 1.0 1.0 08/06/16 08/06/16 08/06/16 08/06/16 19:00 20:00 20:00 20:00 Temp 98.3 98.3 Pulse 76 80 Resp 21 20 B/P 124/63 131/60 Pulse Ox 97 95 O2 Delivery Nasal Cannula Nasal Cannula Nasal Cannula O2 Flow Rate 2.0 2.0 1.0 4/29/08/06/16 08/06/16 08/06/16 21:00 22:00 23:00 23:00 Pulse 84 78 82 82 Resp 16 B/P 120/60 110/54 117/72 117/72 Pulse Ox 94 94 93 93 O2 Delivery Room Air Room Air Nasal Cannula Nasal Cannula O2 Flow Rate 2.0 08/07/16 08/07/16 08/07/16 08/07/16 00:00 00:00 01:00 02:00 Temp 98.1 98.1 Pulse 80 84 86 Resp 15 B/P 115/65 120/60 127/59 Pulse Ox 98 98 100 O2 Delivery Nasal Cannula Nasal Cannula Nasal Cannula O2 Flow Rate 2.0 3.0 2.0 08/07/16 08/07/16 08/07/16 08/07/16 03:00 04:00 04:00 05:00 Temp 98.1 98.1 Pulse 84 81 84 Resp 18 B/P 120/60 115/68 110/83 Pulse Ox 98 99 98 O2 Delivery Nasal Cannula Nasal Cannula Nasal Cannula Nasal Cannula O2 Flow Rate 3.0 2.0 2.0 2.0 08/07/16 08/07/16 08/07/16 08/07/16 06:00 07:00 08:00 09:00 Temp 97.4 97.4 Pulse 81 67 78 76 Resp B/P 121/68 129/66 112/69 133/76 Pulse Ox 99 98 100 100 O2 Delivery Nasal Cannula Nasal Cannula Nasal Cannula Nasal Cannula O2 Flow Rate 2.0 2.0 1.0 1.0 08/07/16 08/07/16 10:00 12:00 Temp 97.8 97.8 Pulse 74 80 Resp B/P 132/65 114/52 Pulse Ox 100 98 O2 Delivery Nasal Cannula Room Air O2 Flow Rate 1.0 Intake and Output 08/06/16 08/06/16 08/07/16 15:00 23:00 07:00 Intake Total 50 ml 103.75 ml 170 ml Output Total 225 ml 1650 ml 200 ml Balance -175 ml -1546.25 ml -30 ml CASTLE,NIAL K III DO Aug 07, 2016 15:24
[2016-08-07] MEDS: ASPIRIN CHEWABLE 81 MG TABLET. PO SCH (15:59)
[2016-08-07] MEDS ORDERED: AMIODARONE 150 MG in IV DEXTROSE 5% 100 ML IV ONE (16:30)
[2016-08-07] MEDS ORDERED: AMIODARONE 900 MG in IV DEXTROSE 5% 500 ML IV PRN (16:30)
[2016-08-07] MEDS: ATORVASTATIN CALCIUM 40 MG TABLET. PO SCH (20:30)
[2016-08-07] MEDS: INSULIN DETEMIR 300 UNITS/3 ML INSULN.PEN. SQ SCH (20:33)
[2016-08-08] VITALS (23 sets, daily range): BP systolic 96–178; BP diastolic 55–118
[2016-08-08 05:58] LABS: BASO # 0.1 x10^3/uL (0.0-0.2); BASO % 1 % (0-3); EOS % 1 % (0-3); HEMATOCRIT 37.6 % (39.0-53.0); HEMOGLOBIN 12.7 g/dL (13.0-17.5); LYMPH # 1.9 x10^3/uL (1.0-4.8); LYMPH % 18 % (24-48); MEAN CORPUSCULAR HEMOGLOBIN 32 pg (25-35); MEAN CORPUSCULAR HGB CONC 34 g/dL (31-37); MEAN CORPUSCULAR VOLUME 94 fL (79-100); MONO % 8 % (0-9); NEUT % 73 % (31-73); PLATELET COUNT 228 x10^3/uL (140-400); RED CELL DISTRIBUTION WIDTH 15.2 % (11.5-14.5); WHITE BLOOD COUNT 10.7 x10^3/uL (4.0-11.0)
[2016-08-08 06:25] LABS: ALBUMIN 2.8 g/dL (3.4-5.0); CALCIUM 8.2 mg/dL (8.5-10.1); CREATININE 2.4 mg/dL (0.7-1.3); GFR 33.2; PHOSPHORUS 4.2 mg/dL (2.6-4.7); POTASSIUM 3.5 mmol/L (3.5-5.1)
[2016-08-08] MEDS ORDERED: IODIXANOL 320 MG/ML 100 ML VIAL. ONE (07:32)
[2016-08-08] MEDS ORDERED: LIDOCAINE 2% 20 ML VIAL. ONE (07:32)
[2016-08-08] MEDS ORDERED: HEPARIN for ARTERIAL LINE 1,500 ML ONE (07:32)
[2016-08-08] MEDS: INSULIN ASPART 300 UNITS/3 ML INSULN.PEN SQ SCH ×3 (08:00→17:31)
[2016-08-08] MEDS ORDERED: MIDAZOLAM HCL/PF 2 MG/2 ML VIAL. ONE (08:02)
[2016-08-08] MEDS ORDERED: fentaNYL PF VIAL 100 MCG/2 ML VIAL ONE (08:02)
--- NOTE | 2016-08-08 08:06 | PDOC ---
MODERATE SEDATION ASSESSMENT RISKS/ALTERNATIVES Risks/Alternatives Risks and alternatives of this type of sedation and procedure discussed with: RISK/ALTERNATIVES: Patient H & P ON CHART H & P H & P on chart and reviewed for co-morbid conditions and appropriate labs. H&P ON CHART: Yes STATUS PREG STATUS ASSESSED: N/A MEDS/ALLERGIES REVIEWED Meds/Allergies Reviewed Medications and Allergies including time and route of recently administered narcotics and sedatives. MEDS/ALLERGIES REVIEWED: Yes ASA RATING ASA RATING: III AIRWAY ASSESSMENT Airway Assessment Airway patency, oral function limitations, presence of caps, crowns, dentures, partials, and ability to extend neck assessed. AIRWAY ASSESSMENT: Yes MALLAMPATI SCORE MALLAMPATI SCORE: II PRE-SEDATION ASSESSMENT PRE-SEDATION ASSESSMENT: Yes ANGEL ROBLES MD August 08, 2016 08:06
[2016-08-08] MEDS ORDERED: IODIXANOL 320 MG/ML 100 ML VIAL. IART ONE (08:15)
[2016-08-08] MEDS ORDERED: MIDAZOLAM HCL/PF 2 MG/2 ML VIAL. IV ONE (08:15)
[2016-08-08] MEDS ORDERED: fentaNYL PF VIAL 100 MCG/2 ML VIAL IV ONE (08:15)
[2016-08-08] MEDS ORDERED: LIDOCAINE 2% 20 ML VIAL. IJ ONE (08:15)
[2016-08-08] MEDS ORDERED: HEPARIN for IV BOLUS 10,000 UNIT/10 ML VIAL. ONE (08:34)
[2016-08-08] MEDS: FUROSEMIDE 20 MG/2 ML VIAL. IVP SCH (09:00)
[2016-08-08] MEDS ORDERED: HEPARIN for IV BOLUS 10,000 UNIT/10 ML VIAL. IV ONE (09:15)
--- NOTE | 2016-08-08 10:20 | CARD ---
APPROVED REPORT Procedure(s) performed: Left Heart Catheterization IABP 57mL VISIPAQUE 8.2 mins Fluoro HISTORY The patient is a 65 year-old male with a history of : previous AK, previous CHF, diabetes mellitus wi th treatment, previous PCI (The PCI date was ), hypertension, dyslipidemia. INDICATION The indication(s) include : non-STEMI , Patient is a 65 y.o who previously underwent a high risk PCI of the LM/LAD/LCx and unfortunately was lost to f/u and did not take his medications. He presents wit h possible CVA, s/p tPA and NSTEMI with trop of 31. , . PROCEDURE NARRATIVE The patient was brought electively to the cardiac catheterization lab. A timeout was performed confi rming the patient's name, date of , procedure, and site of procedure. All necessary personnel w ere wearing the appropriate protective equipment and radiation monitor devices. After explaining the risks and benefits of the procedure and alternatives, informed consent was obtained. (See nursing no fabrice for medications administered). The right groin was sterilely prepped and draped in the usual fas hion. The right groin was infiltrated with 8 mL of 2% lidocaine for subcutaneous anesthesia. A 6 Fr ench sheath was inserted into the right [employer] artery without difficulty. Right and left coronary angio graphy was performed using a JL4 and JR4 catheter. Left ventricular end diastolic pressure was obtai luis with a pigtail catheter and pullback was performed. Finally, given the significant coronary dise ase and severe cardiomyopathy a decision was made to place an IABP. The 6F sheath was exchanged for a n 8Fr sheath. Next, a IABP was placed in the descending aorta with appropriate augmentation (8Fr, 50c c balloon). All catheter exchanges and advancements were performed over a guidewire. At case complet ion the right groin sheath was secured in place. The patient tolerated the procedure well and there w ere no immediate complications. HEMODYNAMICS: LVEDP 27 mm Hg No gradient on LV to aortic pullback. AORTOGRAPHY: No significant disease. LV gram deferred due to CKD. CORONARY ANGIOGRAPHY: LM is a moderate caliber vessel with severe ISR of the previously placed stent extending into the LCx . LAD is a moderate caliber vessel with an ostial 90% stenosis of the previously placed bifurcation talon nts involving the LM. LCx is a moderate caliber non-dominant vessel with 90% ostial stenosis of the previously placed LM bi furcation stents. OM1 is a moderate caliber vessel with normal angiographic appearance. RCA is a large caliber dominant vessel with a proximal 70% stenosis. RPDA and RPL are moderate caliber vessels with mild diffuse irregularities. Conclusion 1. Severely elevated LV filling pressures. 2. Severe sub acute ISR of the LM/LCx/LAD bifurcation stents, likely due to non-compliance with medic al therapy. 3. Three vessel coronary disease. Recommendations CABG versus repeat PCI of the LM/LAD/LCx bifurcation with Impella support.
--- NOTE | 2016-08-08 10:42 | PDOC ---
SUBJECTIVE ROS EMILY/ CKD III Just bakc from [facility] and now has AIBP; on RA in NAD CVS: no Orthopnea, no CP RESP: no SOB, no CHING GI: no Nausea, no Vomiting : no Dysuria, no Urgency OBJECTIVE Vital Signs Vital Signs Date Time Temp Pulse Resp B/P Pulse Ox O2 Delivery O2 Flow Rate FiO2 08/08/16 09:12 58 25 100 Nasal Cannula 3.0 08/08/16 08:31 98.4 133/70 98.4 I & 0 Intake and Output 08/08/16 06:59 Intake Total 341 ml Output Total 1375 ml Balance -1034 ml Intake Oral 0 ml IV Total 341 ml Output Urine Total 1375 ml # Voids 1 # Bowel Movements 1 PHYSICAL EXAM Physical Exam General Appearance: AAO x 3 today, In no apparent Distress Eyes: sclera anicteric; Conjunctiva Normal EN: No EN Drainage Mucous Memb. moist Neck: no JVD min JVP Supple no Thyromegaly CVS: S1 S2 + Murmur No Gallop No Rub no Edema Resp: no Rales no Rhonchi no Acc. Muscle use GI: BS hypoactive NO Bruit Non Tender Non Distended : no CVA tenderness; no Suprapubic Tenderness Assessment & Plan EMILY - suspect due to Cardiac decompensationa nd sev intravascular vol depeltion. gradually improving. ? Elemnt of ATN cannotbe ruled out. Almost resolved Proteinruia - 1.1 gms - susepct DM/HTNsive /NS. Restart RAAS Blockade once Creat < 2.0 or stabilizes NSTEMI with sev CMyopathy/ CAD - on AIBP - watch UO for now. LM Dz noted - pending eval for CABG Lowish Mag - 1gm today COMMENT/RELEVANT DATA Meds Current Medications Medications (Trade) Dose Ordered Sig/Tom Start Time Stop Time Status Last Admin Dose Admin Alteplase, Recombinant (Activase) 62 ml @ 62 mls/hr Q1H 08/05/16 12:30 08/05/16 13:29 DC 08/05/16 12:51 62 MLS/HR Amiodarone HCl 150 mg/Dextrose 103 ml @ 618 mls/hr 1X ONCE 08/07/16 16:30 08/07/16 16:39 DC 08/07/16 17:02 618 MLS/HR Amiodarone HCl/ Dextrose (Cordarone) 518 ml @ 0 mls/hr CONT PRN 08/07/16 16:30 08/07/16 17:11 DC 08/07/16 17:03 33.3 MLS/HR Aspirin (Children'S Aspirin) 81 mg [id number] 08/06/16 15:00 08/07/16 15:59 81 MG Aspirin 325 mg 325 mg 1X ONCE 08/05/16 11:00 08/05/16 11:01 DC 08/05/16 10:48 325 MG Atorvastatin Calcium 40 mg 40 mg QHS 08/06/16 21:00 08/07/16 20:30 40 MG Calcium Gluconate (Calcium Gluconate) 1,000 mg 1X ONCE 08/05/16 16:15 08/05/16 16:16 DC 08/05/16 16:47 1,000 MG Dextrose (Dextrose 50%-Water Syringe) 25 gm 1X ONCE 08/05/16 16:15 08/05/16 16:16 DC 08/05/16 16:42 25 GM Fentanyl Citrate (Fentanyl 2ml Vial) 100 mcg 1X ONCE 08/08/16 08:15 08/08/16 08:17 DC 08/08/16 08:31 25 MCG Furosemide (Lasix) 20 mg DAILY 08/06/16 18:00 08/06/16 18:00 DC Furosemide 40 mg 40 mg 1X ONCE 08/05/16 13:30 08/05/16 13:31 DC 08/05/16 13:30 40 MG Heparin Sodium (Porcine) (Heparin 5,000 Units/1,000ml NS) 5,000 unit 1X ONCE 08/08/16 09:15 08/08/16 09:16 DC 08/08/16 09:15 5,000 UNIT Heparin Sodium (Porcine) (Heparin Sodium) 2,000 unit 1X ONCE 08/08/16 09:15 08/08/16 09:16 DC 08/08/16 09:48 2,000 UNIT Heparin Sodium (Porcine) 1650 unit 1,650 unit PRN Q6HRS PRN 08/07/16 00:00 UNV Heparin Sodium/ Dextrose 500 ml @ 0 mls/hr CONT PRN 08/06/16 14:30 08/08/16 06:59 DC 08/06/16 15:43 7.8 MLS/HR Heparin Sodium/ Sodium Chloride 500 ml @ As Directed STK-MED ONCE 08/08/16 08:30 08/08/16 08:31 DC Insulin Aspart (Novolog) 0-7 UNITS TIDWMEALS 08/05/16 17:00 08/07/16 17:10 4 UNITS Insulin Detemir (Levemir) 10 units QHS 08/05/16 21:00 08/07/16 20:33 10 UNITS Insulin Human Regular (Novolin R Vial) 10 unit 1X ONCE 08/05/16 16:15 08/05/16 16:16 DC 08/05/16 16:43 10 UNIT Iodixanol (Visipaque 320) 100 ml 1X ONCE 08/08/16 08:15 08/08/16 08:17 DC 08/08/16 09:50 57 ML Lidocaine HCl 20 ml STK-MED ONCE 08/08/16 07:32 08/08/16 07:33 DC Lidocaine HCl 20 ml 20 ml 1X ONCE 08/08/16 08:15 08/08/16 08:17 DC 08/08/16 08:29 10 ML Magnesium Sulfate/ Dextrose 50 ml @ 25 mls/hr PRN DAILY PRN 08/05/16 14:30 08/06/16 09:42 25 MLS/HR Midazolam HCl (Versed) 2 mg 1X ONCE 08/08/16 08:15 08/08/16 08:16 DC 08/08/16 08:31 0.5 MG Milrinone Lactate/ Dextrose (Primacor Premix) 100 ml @ 0 mls/hr CONT PRN 08/05/16 18:15 08/05/16 18:36 2.7 MLS/HR Ondansetron HCl 4 mg 4 mg PRN Q6HRS PRN 08/05/16 17:15 Sodium Bicarbonate 100 meq/Dextrose 600 ml @ 500 mls/hr 1X ONCE 08/05/16 13:15 08/05/16 14:26 DC 08/05/16 13:40 500 MLS/HR Sodium Bicarbonate 100 meq/Sodium Chloride 600 ml @ 500 mls/hr 1X ONCE 08/05/16 13:15 08/05/16 14:26 Cancel Sodium Chloride (Iv Sodium Chloride 0.9% 500ml Bag) 500 ml @ 0 mls/hr QID PRN 08/05/16 14:45 08/07/16 07:59 DC Lab Laboratory Tests Test 08/07/16 11:41 08/07/16 12:08 08/07/16 16:54 08/07/16 18:00 Potassium Level 4.1mmol/L (3.5-5.1) 3.8mmol/L (3.5-5.1) Glucose (Fingerstick) 152mg/dL (70-99) 202mg/dL (70-99) Heparin Anti-Xa Act, Unfractionated 0.18IU/mL (0.30-0.70) Test 08/07/16 20:31 08/08/16 00:30 08/08/16 05:40 Glucose (Fingerstick) 168mg/dL (70-99) Heparin Anti-Xa Act, Unfractionated 0.33IU/mL (0.30-0.70) White Blood Count 10.7x10^3/uL (4.0-11.0) Red Blood Count 4.00x10^6/uL (4.30-5.70) Hemoglobin 12.7g/dL (13.0-17.5) Hematocrit 37.6% (39.0-53.0) Mean Corpuscular Volume 94fL (79-100) Mean Corpuscular Hemoglobin 32pg (25-35) Mean Corpuscular Hemoglobin Concent 34g/dL (31-37) Red Cell Distribution Width 15.2% (11.5-14.5) Platelet Count 228x10^3/uL (140-400) Neutrophils (%) (Auto) 73% (31-73) Lymphocytes (%) (Auto) 18% (24-48) Monocytes (%) (Auto) 8% (0-9) Eosinophils (%) (Auto) 1% (0-3) Basophils (%) (Auto) 1% (0-3) Neutrophils # (Auto) 7.7x10^3uL (1.8-7.7) Lymphocytes # (Auto) 1.9x10^3/uL (1.0-4.8) Monocytes # (Auto) 0.9x10^3/uL (0.0-1.1) Eosinophils # (Auto) 0.1x10^3/uL (0.0-0.7) Basophils # (Auto) 0.1x10^3/uL (0.0-0.2) Sodium Level 133mmol/L (136-145) Potassium Level 3.5mmol/L (3.5-5.1) Chloride Level 100mmol/L (98-107) Carbon Dioxide Level 24mmol/L (21-32) Anion Gap 9 (6-14) Blood Urea Nitrogen 38mg/dL (8-26) Creatinine 2.4mg/dL (0.7-1.3) Estimated GFR (Cockcroft-Gault) 33.2 Glucose Level 157mg/dL (70-99) Calcium Level 8.2mg/dL (8.5-10.1) Phosphorus Level 4.2mg/dL (2.6-4.7) Magnesium Level 1.7mg/dL (1.8-2.4) Albumin 2.8g/dL (3.4-5.0) JONI CRISOSTOMO MD August 08, 2016 10:42
[2016-08-08] MEDS ORDERED: HEPARIN 25,000UTS/500ML PREMIX 500 ML IV PRN ×2 (10:45→11:30)
[2016-08-08] MEDS ORDERED: MAGNESIUM SULFATE 1GM 100 ML IV ONE (11:00)
--- NOTE | 2016-08-08 11:55 | PDOC ---
PROGRESS NOTES Chief Complaint Chief Complaint cc: angina -CVA -NSTEMI -acute renal failure -Systolic heart failure -chronic kidney disease -DM -atrial fibrillation -hypertension -hyperlipidemia -COPD -coronary stent History of Present Illness History of Present Illness Mr. Fernandez was being transferred to the ICU after undergoing aortic pump placement. He was in bed and had no acute complaints. Vitals Vitals Vital Signs Date Time Temp Pulse Resp B/P Pulse Ox O2 Delivery O2 Flow Rate FiO2 08/08/16 09:12 58 25 100 Nasal Cannula 3.0 08/08/16 08:31 98.4 133/70 98.4 Physical Exam General: Alert, Cooperative, No acute distress Heart: Regular rate (SR), No murmurs Lungs: Clear, Other (He had decreased inspiratory effort. ) Abdomen: No tenderness, No masses Extremities: No cyanosis, No edema Skin: No rashes, No breakdown Labs LABS Laboratory Tests Test 08/07/16 12:08 08/07/16 16:54 08/07/16 18:00 08/07/16 20:31 Glucose (Fingerstick) 152mg/dL (70-99) 202mg/dL (70-99) 168mg/dL (70-99) Heparin Anti-Xa Act, Unfractionated 0.18IU/mL (0.30-0.70) Potassium Level 3.8mmol/L (3.5-5.1) Test 08/08/16 00:30 08/08/16 05:40 Heparin Anti-Xa Act, Unfractionated 0.33IU/mL (0.30-0.70) White Blood Count 10.7x10^3/uL (4.0-11.0) Red Blood Count 4.00x10^6/uL (4.30-5.70) Hemoglobin 12.7g/dL (13.0-17.5) Hematocrit 37.6% (39.0-53.0) Mean Corpuscular Volume 94fL (79-100) Mean Corpuscular Hemoglobin 32pg (25-35) Mean Corpuscular Hemoglobin Concent 34g/dL (31-37) Red Cell Distribution Width 15.2% (11.5-14.5) Platelet Count 228x10^3/uL (140-400) Neutrophils (%) (Auto) 73% (31-73) Lymphocytes (%) (Auto) 18% (24-48) Monocytes (%) (Auto) 8% (0-9) Eosinophils (%) (Auto) 1% (0-3) Basophils (%) (Auto) 1% (0-3) Neutrophils # (Auto) 7.7x10^3uL (1.8-7.7) Lymphocytes # (Auto) 1.9x10^3/uL (1.0-4.8) Monocytes # (Auto) 0.9x10^3/uL (0.0-1.1) Eosinophils # (Auto) 0.1x10^3/uL (0.0-0.7) Basophils # (Auto) 0.1x10^3/uL (0.0-0.2) Sodium Level 133mmol/L (136-145) Potassium Level 3.5mmol/L (3.5-5.1) Chloride Level 100mmol/L (98-107) Carbon Dioxide Level 24mmol/L (21-32) Anion Gap 9 (6-14) Blood Urea Nitrogen 38mg/dL (8-26) Creatinine 2.4mg/dL (0.7-1.3) Estimated GFR (Cockcroft-Gault) 33.2 Glucose Level 157mg/dL (70-99) Calcium Level 8.2mg/dL (8.5-10.1) Phosphorus Level 4.2mg/dL (2.6-4.7) Magnesium Level 1.7mg/dL (1.8-2.4) Albumin 2.8g/dL (3.4-5.0) Review of Systems Review of Systems Denies chest pain Denies N/V/D Assessment and Plan Assessmemt and Plan Problems Medical Problems: (1) CVA (cerebral vascular accident) Status: Acute -CVA -NSTEMI -acute renal failure -Systolic heart failure -chronic kidney disease -DM -atrial fibrillation -hypertension -hyperlipidemia -COPD -coronary stent Plan: 1. Monitor tolerance of diet advancement 2. PT/OT 3. Recheck labs 4. Continue home medications 5. Continue furosemide per cardiology 6. DVT prophylaxis 7. Continue milrinone per cardiology 8. Insulin sliding scale 9. Appreciate subspecialists' input His condition is guarded. Problems: Comment Review of Relevant I have reviewed the following items abdulaziz (where applicable) has been applied. Labs Laboratory Tests Test 08/06/16 12:30 08/06/16 17:08 08/06/16 18:00 08/06/16 21:02 Potassium Level 4.3mmol/L (3.5-5.1) 4.2mmol/L (3.5-5.1) Glucose (Fingerstick) 119mg/dL (70-99) 135mg/dL (70-99) Test 08/06/16 22:10 08/07/16 00:01 08/07/16 04:10 08/07/16 07:28 Heparin Anti-Xa Act, Unfractionated < 0.10IU/mL (0.30-0.70) Potassium Level 4.0mmol/L (3.5-5.1) 3.7mmol/L (3.5-5.1) White Blood Count 9.1x10^3/uL (4.0-11.0) Red Blood Count 4.07x10^6/uL (4.30-5.70) Hemoglobin 12.5g/dL (13.0-17.5) Hematocrit 38.8% (39.0-53.0) Mean Corpuscular Volume 95fL (79-100) Mean Corpuscular Hemoglobin 31pg (25-35) Mean Corpuscular Hemoglobin Concent 32g/dL (31-37) Red Cell Distribution Width 15.7% (11.5-14.5) Platelet Count 233x10^3/uL (140-400) Neutrophils (%) (Auto) 69% (31-73) Lymphocytes (%) (Auto) 21% (24-48) Monocytes (%) (Auto) 8% (0-9) Eosinophils (%) (Auto) 1% (0-3) Basophils (%) (Auto) 1% (0-3) Neutrophils # (Auto) 6.3x10^3uL (1.8-7.7) Lymphocytes # (Auto) 1.9x10^3/uL (1.0-4.8) Monocytes # (Auto) 0.7x10^3/uL (0.0-1.1) Eosinophils # (Auto) 0.1x10^3/uL (0.0-0.7) Basophils # (Auto) 0.1x10^3/uL (0.0-0.2) Sodium Level 138mmol/L (136-145) Chloride Level 103mmol/L (98-107) Carbon Dioxide Level 25mmol/L (21-32) Anion Gap 10 (6-14) Blood Urea Nitrogen 41mg/dL (8-26) Creatinine 2.4mg/dL (0.7-1.3) Estimated GFR (Cockcroft-Gault) 33.2 Glucose Level 112mg/dL (70-99) Calcium Level 8.7mg/dL (8.5-10.1) Phosphorus Level 5.0mg/dL (2.6-4.7) Magnesium Level 2.1mg/dL (1.8-2.4) Troponin I Quantitative 7.419ng/mL (0.000-0.055) Albumin 3.1g/dL (3.4-5.0) Glucose (Fingerstick) 125mg/dL (70-99) Test 08/07/16 11:41 08/07/16 12:08 08/07/16 16:54 08/07/16 18:00 Potassium Level 4.1mmol/L (3.5-5.1) 3.8mmol/L (3.5-5.1) Glucose (Fingerstick) 152mg/dL (70-99) 202mg/dL (70-99) Heparin Anti-Xa Act, Unfractionated 0.18IU/mL (0.30-0.70) Test 08/07/16 20:31 08/08/16 00:30 08/08/16 05:40 Glucose (Fingerstick) 168mg/dL (70-99) Heparin Anti-Xa Act, Unfractionated 0.33IU/mL (0.30-0.70) White Blood Count 10.7x10^3/uL (4.0-11.0) Red Blood Count 4.00x10^6/uL (4.30-5.70) Hemoglobin 12.7g/dL (13.0-17.5) Hematocrit 37.6% (39.0-53.0) Mean Corpuscular Volume 94fL (79-100) Mean Corpuscular Hemoglobin 32pg (25-35) Mean Corpuscular Hemoglobin Concent 34g/dL (31-37) Red Cell Distribution Width 15.2% (11.5-14.5) Platelet Count 228x10^3/uL (140-400) Neutrophils (%) (Auto) 73% (31-73) Lymphocytes (%) (Auto) 18% (24-48) Monocytes (%) (Auto) 8% (0-9) Eosinophils (%) (Auto) 1% (0-3) Basophils (%) (Auto) 1% (0-3) Neutrophils # (Auto) 7.7x10^3uL (1.8-7.7) Lymphocytes # (Auto) 1.9x10^3/uL (1.0-4.8) Monocytes # (Auto) 0.9x10^3/uL (0.0-1.1) Eosinophils # (Auto) 0.1x10^3/uL (0.0-0.7) Basophils # (Auto) 0.1x10^3/uL (0.0-0.2) Sodium Level 133mmol/L (136-145) Potassium Level 3.5mmol/L (3.5-5.1) Chloride Level 100mmol/L (98-107) Carbon Dioxide Level 24mmol/L (21-32) Anion Gap 9 (6-14) Blood Urea Nitrogen 38mg/dL (8-26) Creatinine 2.4mg/dL (0.7-1.3) Estimated GFR (Cockcroft-Gault) 33.2 Glucose Level 157mg/dL (70-99) Calcium Level 8.2mg/dL (8.5-10.1) Phosphorus Level 4.2mg/dL (2.6-4.7) Magnesium Level 1.7mg/dL (1.8-2.4) Albumin 2.8g/dL (3.4-5.0) Laboratory Tests Test 08/07/16 12:08 08/07/16 16:54 08/07/16 18:00 08/07/16 20:31 Glucose (Fingerstick) 152mg/dL (70-99) 202mg/dL (70-99) 168mg/dL (70-99) Heparin Anti-Xa Act, Unfractionated 0.18IU/mL (0.30-0.70) Potassium Level 3.8mmol/L (3.5-5.1) Test 08/08/16 00:30 08/08/16 05:40 Heparin Anti-Xa Act, Unfractionated 0.33IU/mL (0.30-0.70) White Blood Count 10.7x10^3/uL (4.0-11.0) Red Blood Count 4.00x10^6/uL (4.30-5.70) Hemoglobin 12.7g/dL (13.0-17.5) Hematocrit 37.6% (39.0-53.0) Mean Corpuscular Volume 94fL (79-100) Mean Corpuscular Hemoglobin 32pg (25-35) Mean Corpuscular Hemoglobin Concent 34g/dL (31-37) Red Cell Distribution Width 15.2% (11.5-14.5) Platelet Count 228x10^3/uL (140-400) Neutrophils (%) (Auto) 73% (31-73) Lymphocytes (%) (Auto) 18% (24-48) Monocytes (%) (Auto) 8% (0-9) Eosinophils (%) (Auto) 1% (0-3) Basophils (%) (Auto) 1% (0-3) Neutrophils # (Auto) 7.7x10^3uL (1.8-7.7) Lymphocytes # (Auto) 1.9x10^3/uL (1.0-4.8) Monocytes # (Auto) 0.9x10^3/uL (0.0-1.1) Eosinophils # (Auto) 0.1x10^3/uL (0.0-0.7) Basophils # (Auto) 0.1x10^3/uL (0.0-0.2) Sodium Level 133mmol/L (136-145) Potassium Level 3.5mmol/L (3.5-5.1) Chloride Level 100mmol/L (98-107) Carbon Dioxide Level 24mmol/L (21-32) Anion Gap 9 (6-14) Blood Urea Nitrogen 38mg/dL (8-26) Creatinine 2.4mg/dL (0.7-1.3) Estimated GFR (Cockcroft-Gault) 33.2 Glucose Level 157mg/dL (70-99) Calcium Level 8.2mg/dL (8.5-10.1) Phosphorus Level 4.2mg/dL (2.6-4.7) Magnesium Level 1.7mg/dL (1.8-2.4) Albumin 2.8g/dL (3.4-5.0) Medications Current Medications Aspirin 325 mg 325 mg 1X ONCE PO Last administered on 08/05/16 10:48; Start 08/05/16 at 11:00; Stop 08/05/16 at 11:01; Status DC Alteplase, Recombinant 0 ml @ 0 mls/hr 1X ONCE IV ; Start 08/05/16 at 12:30; Stop 08/05/16 at 12:31; Status Cancel Alteplase, Recombinant 0 ml @ 0 mls/hr Q1H IV ; Start 08/05/16 at 12:40; Stop at 12:41; Status Cancel Alteplase, Recombinant 7 ml @ 420 mls/hr 1X ONCE IV Last administered on 12:50; Start 08/05/16 at 12:30; Stop 08/05/16 at 12:31; Status DC Alteplase, Recombinant (Activase) 62 ml @ 62 mls/hr Q1H IV Last administered on 08/05/16 12:51; Start 08/05/16 at 12:30; Stop 08/05/16 at 13:29; Status DC Furosemide 40 mg 40 mg 1X ONCE IVP Last administered on 08/05/16 13:30; Start 08/05/16 at 13:30; Stop 08/05/16 at 13:31; Status DC Sodium Bicarbonate 100 meq/Sodium Chloride 600 ml @ 500 mls/hr 1X ONCE IV ; Start 08/05/16 at 13:15; Stop 08/05/16 at 14:26; Status Cancel Sodium Bicarbonate 100 meq/Dextrose 600 ml @ 500 mls/hr 1X ONCE IV Last administered on 08/05/16 13:40; Start 08/05/16 at 13:15; Stop 08/05/16 at 14:26 ; Status DC Magnesium Sulfate/ Dextrose 50 ml @ 25 mls/hr PRN DAILY PRN IV for Mag < 1.7 on am labs Last administered on 08/06/16 09:42; Start 08/05/16 at 14:30 Sodium Chloride (Iv Sodium Chloride 0.9% 500ml Bag) 500 ml @ 0 mls/hr QID PRN IV UO< 30cc/hr over previous 6hrs; Start 08/05/16 at 14:45; Stop 08/07/16 at 07: 59; Status DC Insulin Detemir (Levemir) 10 units QHS SQ Last administered on 08/07/16 20:33 ; Start 08/05/16 at 21:00 Insulin Aspart (Novolog) 0-7 UNITS TIDWMEALS SQ Last administered on 08/07/16 17:10; Start 08/05/16 at 17:00 Dextrose (Dextrose 50%-Water Syringe) 12.5 gm PRN Q15MIN PRN IV SEE COMMENTS; Start 08/05/16 at 16:00 Dextrose (Dextrose 50%-Water Syringe) 25 gm 1X ONCE IV Last administered on 16:42; Start 08/05/16 at 16:15; Stop 08/05/16 at 16:16; Status DC Insulin Human Regular (Novolin R Vial) 10 unit 1X ONCE IV Last administered on 08/05/16 16:43; Start 08/05/16 at 16:15; Stop 08/05/16 at 16:16; Status DC Calcium Gluconate (Calcium Gluconate) 1,000 mg 1X ONCE IVP Last administered on 08/05/16 16:47; Start 08/05/16 at 16:15; Stop 08/05/16 at 16:16; Status DC Ondansetron HCl 4 mg 4 mg PRN Q6HRS PRN IV NAUSEA/VOMITING; Start 08/05/16 at 17:15 Milrinone Lactate/ Dextrose (Primacor Premix) 100 ml @ 0 mls/hr CONT PRN IV SEE I/O RECORD Last administered on 08/05/16 18:36; Start 08/05/16 at 18:15 Aspirin (Children'S Aspirin) 81 mg DAILYWBKFT PO Last administered on 15:59; Start 08/06/16 at 15:00 Atorvastatin Calcium 40 mg 40 mg QHS PO Last administered on 08/07/16 20:30; Start 08/06/16 at 21:00 Heparin Sodium/ Dextrose 500 ml @ 0 mls/hr CONT PRN IV SEE I/O RECORD Last administered on 08/06/16 15:43; Start 08/06/16 at 14:30; Stop 08/08/16 at 06:59 ; Status DC Heparin Sodium (Porcine) (Heparin Sodium) 1,650 unit PRN Q6HRS PRN IV FOR UFH LEVEL LESS THAN 0.2; Start 08/06/16 at 14:30; Stop 08/07/16 at 00:21; Status DC Furosemide (Lasix) 20 mg DAILY IVP Last administered on 08/07/16 10:01; Start 08/06/16 at 17:00 Furosemide (Lasix) 20 mg DAILY IVP ; Start 08/06/16 at 18:00; Stop 08/06/16 at 18:00; Status DC Heparin Sodium (Porcine) 1650 unit 1,650 unit PRN Q6HRS PRN IV FOR UFH LEVEL LESS THAN 0.2; Start 08/07/16 at 00:00; Status UNV Amiodarone HCl 150 mg/Dextrose 103 ml @ 618 mls/hr 1X ONCE IV Last administered on 08/07/16 17:02; Start 08/07/16 at 16:30; Stop 08/07/16 at 16:39 ; Status DC Amiodarone HCl 900 mg/Dextrose 518 ml @ 0 mls/hr CONT PRN IV SEE I/O RECORD Last administered on 08/07/16 17:03; Start 08/07/16 at 16:30; Stop 08/07/16 at 17:11; Status DC Heparin Sodium/ Sodium Chloride 1,500 ml @ As Directed STK-MED ONCE .ROUTE ; Start 08/08/16 at 07:32; Stop 08/08/16 at 07:33; Status DC Lidocaine HCl 20 ml STK-MED ONCE .ROUTE ; Start 08/08/16 at 07:32; Stop 08/08/16 at 07:33; Status DC Iodixanol (Visipaque 320) 100 ml STK-MED ONCE .ROUTE ; Start 08/08/16 at 07:32; Stop 08/08/16 at 07:33; Status DC Fentanyl Citrate (Fentanyl 2ml Vial) 100 mcg STK-MED ONCE .ROUTE ; Start at 08:02; Stop 08/08/16 at 08:03; Status DC Midazolam HCl (Versed) 2 mg STK-MED ONCE .ROUTE ; Start 08/08/16 at 08:02; Stop 08/08/16 at 08:03; Status DC Heparin Sodium/ Sodium Chloride 1,000 unit 1X ONCE IART Last administered on 08:28; Start 08/08/16 at 08:15; Stop 08/08/16 at 08:16; Status DC Midazolam HCl (Versed) 2 mg 1X ONCE IV Last administered on 08/08/16 08:31; Start 08/08/16 at 08:15; Stop 08/08/16 at 08:16; Status DC Fentanyl Citrate (Fentanyl 2ml Vial) 100 mcg 1X ONCE IV Last administered on 08:31; Start 08/08/16 at 08:15; Stop 08/08/16 at 08:17; Status DC Iodixanol (Visipaque 320) 100 ml 1X ONCE IART Last administered on 08/08/16 09 :50; Start 08/08/16 at 08:15; Stop 08/08/16 at 08:17; Status DC Lidocaine HCl 20 ml 20 ml 1X ONCE IJ Last administered on 08/08/16 08:29; Start 08/08/16 at 08:15; Stop 08/08/16 at 08:17; Status DC Heparin Sodium/ Sodium Chloride 500 ml @ As Directed STK-MED ONCE .ROUTE ; Start 08/08/16 at 08:30; Stop 08/08/16 at 08:31; Status DC Heparin Sodium (Porcine) (Heparin Sodium) 10,000 unit STK-MED ONCE .ROUTE ; Start 08/08/16 at 08:34; Stop 08/08/16 at 08:35; Status DC Heparin Sodium (Porcine) (Heparin 5,000 Units/1,000ml NS) 5,000 unit 1X ONCE IV Last administered on 08/08/16 09:15; Start 08/08/16 at 09:15; Stop 08/08/16 at 09:16; Status DC Heparin Sodium (Porcine) 2000 unit 2,000 unit 1X ONCE IV Last administered on 08/08/16 09:48; Start 08/08/16 at 09:15; Stop 08/08/16 at 09:16; Status DC Magnesium Sulfate/ Dextrose 100 ml @ 100 mls/hr 1X ONCE IV Last administered on 08/08/16t 11:38; Start 08/08/16 at 11:00; Stop 08/08/16 at 11:59 Heparin Sodium/ Dextrose 500 ml @ 0 mls/hr CONT PRN IV SEE I/O RECORD; Start at 10:45; Stop 08/08/16 at 11:29; Status DC Heparin Sodium/ Dextrose 500 ml @ 0 mls/hr CONT PRN IV SEE I/O RECORD; Start at 11:30 Active Scripts Active Cyclobenzaprine Hcl 10 Mg Tablet 1 Tab PO TID PRN Hydrocodone-Ibuprofen 7.5-200 (Hydrocodone/Ibuprofen) 1 Each Tablet 1 Tab PO PRN Q6HRS PRN Effient (Prasugrel Hcl) 10 Mg Tablet 10 Mg PO DAILYWBKFT SIG: ONE PO DAILY Hydralazine Hcl 50 Mg Tablet 50 Mg PO TID SIG: ONE BY MOUTH EVERY 8 HOURS; REPLACES NIFEDIPINE Carvedilol 12.5 Mg Tablet 12.5 Mg PO BIDWMEALS SIG: ONE P.O. BID; REPLACES CLONIDINE Reported Glimepiride 4 Mg Tablet 1 Tab PO DAILY Januvia (Sitagliptin Phosphate) 100 Mg Tablet 1 Tab PO DAILY Spironolactone 100 Mg Tablet 1 Tab PO DAILY Allopurinol 100 Mg Tablet 1 Tab PO DAILY Atorvastatin Calcium 40 Mg Tablet 1 Tab PO DAILY Aspir 81 (Aspirin) 81 Mg Tablet. 81 Tab PO DAILY Vitals/I & O Vital Sign - Last 24 Hours 08/07/16 08/07/16 08/07/16 08/07/16 12:00 16:00 17:02 19:51 Temp 97.8 97.9 98.4 97.8 97.9 98.4 Pulse 80 130 121 76 Resp 24 28 20 B/P 114/52 113/64 113/64 122/74 Pulse Ox 98 96 98 O2 Delivery Room Air Room Air Room Air 08/07/16 08/07/16 08/07/16 08/07/16 20:08 21:00 22:06 22:51 Temp 99.0 99.0 Pulse 78 71 86 Resp 16 B/P 130/64 127/73 109/57 Pulse Ox 90 O2 Delivery Room Air Room Air 08/08/16 08/08/16 08/08/1617 00:01 01:00 02:00 03:00 Pulse 76 74 72 74 B/P 116/68 142/64 118/59 119/81 08/08/16 08/08/16 08/08/16 08/08/16 03:07 04:00 05:00 08:00 Temp 98.5 98.5 Pulse 74 78 78 Resp 16 B/P 119/81 139/87 96/64 Pulse Ox 95 O2 Delivery Room Air Room Air 08/08/16 08/08/16 08/08/16 08:31 08:31 09:12 Temp 98.4 98.4 Pulse 73 58 Resp 18 16 25 B/P 133/70 Pulse Ox 100 95 100 O2 Delivery Nasal Cannula Room Air Nasal Cannula O2 Flow Rate 3.0 3.0 Intake and Output 08/07/16 08/07/16 08/08/16 15:00 23:00 07:00 Intake Total 341 ml 0 ml Output Total 650 ml 150 ml 575 ml Balance -650 ml 191 ml -575 ml RAMONA RAYGOZA III DO August 08, 2016 11:55
[2016-08-08] MEDS: ASPIRIN CHEWABLE 81 MG TABLET. PO SCH (12:50)
[2016-08-08] MEDS ORDERED: ANTI-COAG MONITOR BY PHARMACY. MC PRN (14:00)
--- NOTE | 2016-08-08 14:14 | PDOC ---
PROGRESS NOTES Assessment Problems Medical Problems: (1) CVA (cerebral vascular accident) Status: Acute Acute (subacute also possible on MRI) left frontal cortex infarct, left occipital infarct possible, cerebral ischemia from cardiogenic etiology, s/p TPA in ER. Metabolic encephalopathy. 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 Old right parietal microhemorrhage. Plan As per cardiology Will follow Subjective No complaints Objective Vital Signs Date Time Temp Pulse Resp B/P Pulse Ox O2 Delivery O2 Flow Rate FiO2 08/08/16 09:12 58 25 100 Nasal Cannula 3.0 08/08/16 08:31 98.4 133/70 98.4 Intake and Output 08/08/16 07:00 Intake Total 341 ml Output Total 1375 ml Balance -1034 ml Intake Oral 0 ml IV Total 341 ml Output Urine Total 1375 ml # Voids 1 # Bowel Movements 1 PHYSICAL EXAM Alert. Oriented to place and person, not time. PERRL. EOMI. CN: no focal findings. Muscle tone: normal. Muscle strength: 4/5 DTR: 2+ Plantar reflex: flexor Gait: not examined in bed. Sensory exam: no abnormal findings. No cerebellar signs elicited. Review of Relevant I have reviewed the following items abdulaziz (where applicable) has been applied. Labs Laboratory Tests Test 08/06/16 17:08 08/06/16 18:00 08/06/16 21:02 08/06/16 22:10 Glucose (Fingerstick) 119mg/dL (70-99) 135mg/dL (70-99) Potassium Level 4.2mmol/L (3.5-5.1) Heparin Anti-Xa Act, Unfractionated < 0.10IU/mL (0.30-0.70) Test 08/07/16 00:01 08/07/16 04:10 08/07/16 07:28 08/07/16 11:41 Potassium Level 4.0mmol/L (3.5-5.1) 3.7mmol/L (3.5-5.1) 4.1mmol/L (3.5-5.1) White Blood Count 9.1x10^3/uL (4.0-11.0) Red Blood Count 4.07x10^6/uL (4.30-5.70) Hemoglobin 12.5g/dL (13.0-17.5) Hematocrit 38.8% (39.0-53.0) Mean Corpuscular Volume 95fL (79-100) Mean Corpuscular Hemoglobin 31pg (25-35) Mean Corpuscular Hemoglobin Concent 32g/dL (31-37) Red Cell Distribution Width 15.7% (11.5-14.5) Platelet Count 233x10^3/uL (140-400) Neutrophils (%) (Auto) 69% (31-73) Lymphocytes (%) (Auto) 21% (24-48) Monocytes (%) (Auto) 8% (0-9) Eosinophils (%) (Auto) 1% (0-3) Basophils (%) (Auto) 1% (0-3) Neutrophils # (Auto) 6.3x10^3uL (1.8-7.7) Lymphocytes # (Auto) 1.9x10^3/uL (1.0-4.8) Monocytes # (Auto) 0.7x10^3/uL (0.0-1.1) Eosinophils # (Auto) 0.1x10^3/uL (0.0-0.7) Basophils # (Auto) 0.1x10^3/uL (0.0-0.2) Sodium Level 138mmol/L (136-145) Chloride Level 103mmol/L (98-107) Carbon Dioxide Level 25mmol/L (21-32) Anion Gap 10 (6-14) Blood Urea Nitrogen 41mg/dL (8-26) Creatinine 2.4mg/dL (0.7-1.3) Estimated GFR (Cockcroft-Gault) 33.2 Glucose Level 112mg/dL (70-99) Calcium Level 8.7mg/dL (8.5-10.1) Phosphorus Level 5.0mg/dL (2.6-4.7) Magnesium Level 2.1mg/dL (1.8-2.4) Troponin I Quantitative 7.419ng/mL (0.000-0.055) Albumin 3.1g/dL (3.4-5.0) Glucose (Fingerstick) 125mg/dL (70-99) Test 08/07/16 12:08 08/07/16 16:54 08/07/16 18:00 08/07/16 20:31 Glucose (Fingerstick) 152mg/dL (70-99) 202mg/dL (70-99) 168mg/dL (70-99) Heparin Anti-Xa Act, Unfractionated 0.18IU/mL (0.30-0.70) Potassium Level 3.8mmol/L (3.5-5.1) Test 08/08/16 00:30 08/08/16 05:40 08/08/16 12:17 Heparin Anti-Xa Act, Unfractionated 0.33IU/mL (0.30-0.70) White Blood Count 10.7x10^3/uL (4.0-11.0) Red Blood Count 4.00x10^6/uL (4.30-5.70) Hemoglobin 12.7g/dL (13.0-17.5) Hematocrit 37.6% (39.0-53.0) Mean Corpuscular Volume 94fL (79-100) Mean Corpuscular Hemoglobin 32pg (25-35) Mean Corpuscular Hemoglobin Concent 34g/dL (31-37) Red Cell Distribution Width 15.2% (11.5-14.5) Platelet Count 228x10^3/uL (140-400) Neutrophils (%) (Auto) 73% (31-73) Lymphocytes (%) (Auto) 18% (24-48) Monocytes (%) (Auto) 8% (0-9) Eosinophils (%) (Auto) 1% (0-3) Basophils (%) (Auto) 1% (0-3) Neutrophils # (Auto) 7.7x10^3uL (1.8-7.7) Lymphocytes # (Auto) 1.9x10^3/uL (1.0-4.8) Monocytes # (Auto) 0.9x10^3/uL (0.0-1.1) Eosinophils # (Auto) 0.1x10^3/uL (0.0-0.7) Basophils # (Auto) 0.1x10^3/uL (0.0-0.2) Sodium Level 133mmol/L (136-145) Potassium Level 3.5mmol/L (3.5-5.1) Chloride Level 100mmol/L (98-107) Carbon Dioxide Level 24mmol/L (21-32) Anion Gap 9 (6-14) Blood Urea Nitrogen 38mg/dL (8-26) Creatinine 2.4mg/dL (0.7-1.3) Estimated GFR (Cockcroft-Gault) 33.2 Glucose Level 157mg/dL (70-99) Calcium Level 8.2mg/dL (8.5-10.1) Phosphorus Level 4.2mg/dL (2.6-4.7) Magnesium Level 1.7mg/dL (1.8-2.4) Albumin 2.8g/dL (3.4-5.0) Glucose (Fingerstick) 148mg/dL (70-99) Laboratory Tests Test 08/07/16 16:54 08/07/16 18:00 08/07/16 20:31 08/08/16 00:30 Heparin Anti-Xa Act, Unfractionated 0.18IU/mL (0.30-0.70) 0.33IU/mL (0.30-0.70) Glucose (Fingerstick) 202mg/dL (70-99) 168mg/dL (70-99) Potassium Level 3.8mmol/L (3.5-5.1) Test 08/08/16 05:40 08/08/16 12:17 White Blood Count 10.7x10^3/uL (4.0-11.0) Red Blood Count 4.00x10^6/uL (4.30-5.70) Hemoglobin 12.7g/dL (13.0-17.5) Hematocrit 37.6% (39.0-53.0) Mean Corpuscular Volume 94fL (79-100) Mean Corpuscular Hemoglobin 32pg (25-35) Mean Corpuscular Hemoglobin Concent 34g/dL (31-37) Red Cell Distribution Width 15.2% (11.5-14.5) Platelet Count 228x10^3/uL (140-400) Neutrophils (%) (Auto) 73% (31-73) Lymphocytes (%) (Auto) 18% (24-48) Monocytes (%) (Auto) 8% (0-9) Eosinophils (%) (Auto) 1% (0-3) Basophils (%) (Auto) 1% (0-3) Neutrophils # (Auto) 7.7x10^3uL (1.8-7.7) Lymphocytes # (Auto) 1.9x10^3/uL (1.0-4.8) Monocytes # (Auto) 0.9x10^3/uL (0.0-1.1) Eosinophils # (Auto) 0.1x10^3/uL (0.0-0.7) Basophils # (Auto) 0.1x10^3/uL (0.0-0.2) Sodium Level 133mmol/L (136-145) Potassium Level 3.5mmol/L (3.5-5.1) Chloride Level 100mmol/L (98-107) Carbon Dioxide Level 24mmol/L (21-32) Anion Gap 9 (6-14) Blood Urea Nitrogen 38mg/dL (8-26) Creatinine 2.4mg/dL (0.7-1.3) Estimated GFR (Cockcroft-Gault) 33.2 Glucose Level 157mg/dL (70-99) Calcium Level 8.2mg/dL (8.5-10.1) Phosphorus Level 4.2mg/dL (2.6-4.7) Magnesium Level 1.7mg/dL (1.8-2.4) Albumin 2.8g/dL (3.4-5.0) Glucose (Fingerstick) 148mg/dL (70-99) Medications Current Medications Aspirin 325 mg 325 mg 1X ONCE PO Last administered on 08/05/16t 10:48; Start 08/05/16 at 11:00; Stop 08/05/16 at 11:01; Status DC Alteplase, Recombinant 0 ml @ 0 mls/hr 1X ONCE IV ; Start 08/05/16 at 12:30; Stop 08/05/16 at 12:31; Status Cancel Alteplase, Recombinant 0 ml @ 0 mls/hr Q1H IV ; Start 08/05/16 at 12:40; Stop at 12:41; Status Cancel Alteplase, Recombinant 7 ml @ 420 mls/hr 1X ONCE IV Last administered on 12:50; Start 08/05/16 at 12:30; Stop 08/05/16 at 12:31; Status DC Alteplase, Recombinant (Activase) 62 ml @ 62 mls/hr Q1H IV Last administered on 08/05/16 12:51; Start 08/05/16 at 12:30; Stop 08/05/16 at 13:29; Status DC Furosemide 40 mg 40 mg 1X ONCE IVP Last administered on 08/05/16 13:30; Start 08/05/16 at 13:30; Stop 08/05/16 at 13:31; Status DC Sodium Bicarbonate 100 meq/Sodium Chloride 600 ml @ 500 mls/hr 1X ONCE IV ; Start 08/05/16 at 13:15; Stop 08/05/16 at 14:26; Status Cancel Sodium Bicarbonate 100 meq/Dextrose 600 ml @ 500 mls/hr 1X ONCE IV Last administered on 08/05/16 13:40; Start 08/05/16 at 13:15; Stop 08/05/16 at 14:26 ; Status DC Magnesium Sulfate/ Dextrose 50 ml @ 25 mls/hr PRN DAILY PRN IV for Mag < 1.7 on am labs Last administered on 08/06/16 09:42; Start 08/05/16 at 14:30 Sodium Chloride (Iv Sodium Chloride 0.9% 500ml Bag) 500 ml @ 0 mls/hr QID PRN IV UO< 30cc/hr over previous 6hrs; Start 08/05/16 at 14:45; Stop 08/07/16 at 07: 59; Status DC Insulin Detemir (Levemir) 10 units QHS SQ Last administered on 08/07/16 20:33 ; Start 08/05/16 at 21:00 Insulin Aspart (Novolog) 0-7 UNITS TIDWMEALS SQ Last administered on 08/07/16 17:10; Start 08/05/16 at 17:00 Dextrose (Dextrose 50%-Water Syringe) 12.5 gm PRN Q15MIN PRN IV SEE COMMENTS; Start 08/05/16 at 16:00 Dextrose (Dextrose 50%-Water Syringe) 25 gm 1X ONCE IV Last administered on 16:42; Start 08/05/16 at 16:15; Stop 08/05/16 at 16:16; Status DC Insulin Human Regular (Novolin R Vial) 10 unit 1X ONCE IV Last administered on 08/05/16 16:43; Start 08/05/16 at 16:15; Stop 08/05/16 at 16:16; Status DC Calcium Gluconate (Calcium Gluconate) 1,000 mg 1X ONCE IVP Last administered on 08/05/16 16:47; Start 08/05/16 at 16:15; Stop 08/05/16 at 16:16; Status DC Ondansetron HCl 4 mg 4 mg PRN Q6HRS PRN IV NAUSEA/VOMITING; Start 08/05/16 at 17:15 Milrinone Lactate/ Dextrose (Primacor Premix) 100 ml @ 0 mls/hr CONT PRN IV SEE I/O RECORD Last administered on 08/05/16 18:36; Start 08/05/16 at 18:15 Aspirin (Children'S Aspirin) 81 mg DAILYWBKFT PO Last administered on 08/08/16 12:50; Start 08/06/16 at 15:00 Atorvastatin Calcium 40 mg 40 mg QHS PO Last administered on 08/07/16 20:30; Start 08/06/16 at 21:00 Heparin Sodium/ Dextrose 500 ml @ 0 mls/hr CONT PRN IV SEE I/O RECORD Last administered on 08/06/16 15:43; Start 08/06/16 at 14:30; Stop 08/08/16 at 06:59 ; Status DC Heparin Sodium (Porcine) (Heparin Sodium) 1,650 unit PRN Q6HRS PRN IV FOR UFH LEVEL LESS THAN 0.2; Start 08/06/16 at 14:30; Stop 08/07/16 at 00:21; Status DC Furosemide (Lasix) 20 mg DAILY IVP Last administered on 08/07/16 10:01; Start 08/06/16 at 17:00 Furosemide (Lasix) 20 mg DAILY IVP ; Start 08/06/16 at 18:00; Stop 08/06/16 at 18:00; Status DC Heparin Sodium (Porcine) 1650 unit 1,650 unit PRN Q6HRS PRN IV FOR UFH LEVEL LESS THAN 0.2; Start 08/07/16 at 00:00; Status UNV Amiodarone HCl 150 mg/Dextrose 103 ml @ 618 mls/hr 1X ONCE IV Last administered on 08/07/16 17:02; Start 08/07/16 at 16:30; Stop 08/07/16 at 16:39 ; Status DC Amiodarone HCl 900 mg/Dextrose 518 ml @ 0 mls/hr CONT PRN IV SEE I/O RECORD Last administered on 08/07/16 17:03; Start 08/07/16 at 16:30; Stop 08/07/16 at 17:11; Status DC Heparin Sodium/ Sodium Chloride 1,500 ml @ As Directed STK-MED ONCE .ROUTE ; Start 08/08/16 at 07:32; Stop 08/08/16 at 07:33; Status DC Lidocaine HCl 20 ml STK-MED ONCE .ROUTE ; Start 08/08/16 at 07:32; Stop 08/08/16 at 07:33; Status DC Iodixanol (Visipaque 320) 100 ml STK-MED ONCE .ROUTE ; Start 08/08/16 at 07:32; Stop 08/08/16 at 07:33; Status DC Fentanyl Citrate (Fentanyl 2ml Vial) 100 mcg STK-MED ONCE .ROUTE ; Start at 08:02; Stop 08/08/16 at 08:03; Status DC Midazolam HCl (Versed) 2 mg STK-MED ONCE .ROUTE ; Start 08/08/16 at 08:02; Stop 08/08/16 at 08:03; Status DC Heparin Sodium/ Sodium Chloride 1,000 unit 1X ONCE IART Last administered on 08:28; Start 08/08/16 at 08:15; Stop 08/08/16 at 08:16; Status DC Midazolam HCl (Versed) 2 mg 1X ONCE IV Last administered on 08/08/16 08:31; Start 08/08/16 at 08:15; Stop 08/08/16 at 08:16; Status DC Fentanyl Citrate (Fentanyl 2ml Vial) 100 mcg 1X ONCE IV Last administered on 08:31; Start 08/08/16 at 08:15; Stop 08/08/16 at 08:17; Status DC Iodixanol (Visipaque 320) 100 ml 1X ONCE IART Last administered on 08/08/16 09 :50; Start 08/08/16 at 08:15; Stop 08/08/16 at 08:17; Status DC Lidocaine HCl 20 ml 20 ml 1X ONCE IJ Last administered on 08/08/16 08:29; Start 08/08/16 at 08:15; Stop 08/08/16 at 08:17; Status DC Heparin Sodium/ Sodium Chloride 500 ml @ As Directed STK-MED ONCE .ROUTE ; Start 08/08/16 at 08:30; Stop 08/08/16 at 08:31; Status DC Heparin Sodium (Porcine) (Heparin Sodium) 10,000 unit STK-MED ONCE .ROUTE ; Start 08/08/16 at 08:34; Stop 08/08/16 at 08:35; Status DC Heparin Sodium (Porcine) (Heparin 5,000 Units/1,000ml NS) 5,000 unit 1X ONCE IV Last administered on 08/08/16 09:15; Start 08/08/16 at 09:15; Stop 08/08/16 at 09:16; Status DC Heparin Sodium (Porcine) 2000 unit 2,000 unit 1X ONCE IV Last administered on 08/08/16 09:48; Start 08/08/16 at 09:15; Stop 08/08/16 at 09:16; Status DC Magnesium Sulfate/ Dextrose 100 ml @ 100 mls/hr 1X ONCE IV Last administered on 08/08/16 11:38; Start 08/08/16 at 11:00; Stop 08/08/16 at 11:59; Status DC Heparin Sodium/ Dextrose 500 ml @ 0 mls/hr CONT PRN IV SEE I/O RECORD; Start at 10:45; Stop 08/08/16 at 11:29; Status DC Heparin Sodium/ Dextrose 500 ml @ 0 mls/hr CONT PRN IV SEE I/O RECORD; Start at 11:30 Info (Anti-Coagulation Monitoring By Pharmacy) 1 each PRN DAILY PRN MC SEE COMMENTS; Start 08/08/16 at 14:00 Active Scripts Active Cyclobenzaprine Hcl 10 Mg Tablet 1 Tab PO TID PRN Hydrocodone-Ibuprofen 7.5-200 (Hydrocodone/Ibuprofen) 1 Each Tablet 1 Tab PO PRN Q6HRS PRN Effient (Prasugrel Hcl) 10 Mg Tablet 10 Mg PO DAILYWBKFT SIG: ONE PO DAILY Hydralazine Hcl 50 Mg Tablet 50 Mg PO TID SIG: ONE BY MOUTH EVERY 8 HOURS; REPLACES NIFEDIPINE Carvedilol 12.5 Mg Tablet 12.5 Mg PO BIDWMEALS SIG: ONE P.O. BID; REPLACES CLONIDINE Reported Glimepiride 4 Mg Tablet 1 Tab PO DAILY Januvia (Sitagliptin Phosphate) 100 Mg Tablet 1 Tab PO DAILY Spironolactone 100 Mg Tablet 1 Tab PO DAILY Allopurinol 100 Mg Tablet 1 Tab PO DAILY Atorvastatin Calcium 40 Mg Tablet 1 Tab PO DAILY Aspir 81 (Aspirin) 81 Mg Tablet.dr 81 Tab PO DAILY Vitals/I & O Vital Sign - Last 24 Hours 08/07/16 08/07/16 08/07/16 08/07/16 16:00 17:02 19:51 20:08 Temp 97.9 98.4 97.9 98.4 Pulse 130 121 76 Resp 28 20 B/P 113/64 113/64 122/74 Pulse Ox 96 98 O2 Delivery Room Air Room Air Room Air 08/07/16 08/07/16 08/07/16 08/08/16 21:00 22:06 22:51 00:01 Temp 99.0 99.0 Pulse 78 71 86 76 Resp 16 B/P 130/64 127/73 109/57 116/68 Pulse Ox 90 O2 Delivery Room Air 08/08/16 08/08/16 08/08/16 08/08/16 01:00 02:00 03:00 03:07 Temp 98.5 98.5 Pulse 74 72 74 74 Resp 16 B/P 142/64 118/59 119/81 119/81 Pulse Ox 95 O2 Delivery Room Air 08/08/16 08/08/16 08/08/16 08/08/16 04:00 05:00 08:00 08:31 Pulse 78 78 Resp 18 B/P 139/87 96/64 Pulse Ox 100 O2 Delivery Room Air Nasal Cannula O2 Flow Rate 3.0 08/08/16 08/08/16 08:31 09:12 Temp 98.4 98.4 Pulse 73 58 Resp 16 25 B/P 133/70 Pulse Ox 95 100 O2 Delivery Room Air Nasal Cannula O2 Flow Rate 3.0 Intake and Output 08/07/16 08/07/16 08/08/16 15:00 23:00 07:00 Intake Total 341 ml 0 ml Output Total 650 ml 150 ml 575 ml Balance -650 ml 191 ml -575 ml Images Brain MRI 08/05: FINDINGS There is slight restricted diffusion within the left frontal lobe cortex and subcortical white matter likely due acute or subacute infarction. There is also a tiny focus of slight increased signal on diffusion weighted images within the left occipital lobe, possibly due to additional subacute infarction. There is a focus of susceptibility effect within the right parietal lobe likely due to chronic microhemorrhage. There are extensive scattered areas of T2/FLAIR hyperintensity throughout the cerebral white matter, likely due to chronic small vessel disease. There is cerebral volume loss. There are foci of encephalomalacia within the cerebellar hemispheres, likely due to chronic infarction. There are chronic infarct within the bilateral basal ganglia, right external capsule and left thalamus. The orbits and paranasal sinuses are unremarkable. There is a tiny amount of fluid within the right greater than left mastoid air cells. The basilar artery is slightly diminutive, likely due to anterior dominant circulation. IMPRESSION 1. Suspected acute to subacute infarction within the left frontal lobe cortex and subcortical white matter and possibly the left occipital lobe white matter. 2. Scattered foci of signal change throughout the cerebral white matter, likely due to chronic small vessel disease. 3. Focus of suspected chronic microhemorrhage within the right parietal lobe. 4. Cerebral volume loss. 5. Chronic infarcts within the bilateral basal ganglia, right external capsule, left thalamus and cerebellar hemispheres. Carotids 08/05: Mild plaque formation is seen within the carotid bifurcations bilaterally Echo 08/05: LEFT VENTRICLE The Left Ventricle is mildly dilated. There is normal left ventricular wall thickness. Left ventricle systolic function is severely impaired. The Ejection Fraction is <20%. There is severe global hypokinesis of the left ventricle. Tissue Doppler imaging reveals severe left ventricular diastolic dysfunction. No left ventricle thrombus noted on this study. RIGHT VENTRICLE The right ventricle is normal size. There is normal right ventricular wall thickness. Systolic function is moderately reduced. ATRIA The left atrium is severely dilated. The right atrium size is normal. The interatrial septum is intact with no evidence for an atrial septal defect or patent foramen ovale as noted on 2-D or Doppler imaging. AORTIC VALVE The aortic valve is mildly thickened. The aortic valve is trileaflet. Doppler and Color Flow revealed mild aortic regurgitation. There is no significant aortic valvular stenosis. MITRAL VALVE Mitral annular calcification is mild. The mitral valve leaflets are thickened. There is no evidence of mitral valve prolapse. There is no mitral valve stenosis. Doppler and Color Flow revealed trace mitral regurgitation. TRICUSPID VALVE Doppler and Color Flow revealed mild tricuspid regurgitation. The pulmonary artery systolic pressure is estimated at 52 mmHg. There is moderate pulmonary hypertension. PULMONIC VALVE Doppler and Color Flow revealed no pulmonic valvular regurgitation. There is no pulmonic valvular stenosis. GREAT VESSELS The aortic root is normal in size. The ascending aorta is normal in size. The pulmonary artery is normal. The IVC is normal in size and collapses >50% with inspiration. PERICARDIAL EFFUSION There is no evidence of significant pericardial effusion. Critical Notification Date: 08/05/2016 Time: 13:41 Physician Name:Lsisette Nicolas Critical Value: Yes <Conclusion> Left ventricle systolic function is severely impaired. The Ejection Fraction is <20%. There is severe global hypokinesis of the left ventricle. Doppler and Color Flow revealed mild tricuspid regurgitation. The pulmonary artery systolic pressure is estimated at 52 mmHg. There is moderate pulmonary hypertension. DINORAH HERNANDEZ MD August 08, 2016 14:14
--- NOTE | 2016-08-08 15:51 | RAD ---
APPROVED REPORT Patient Location: IN-PATIENT Indications Pulselessness RT Risk Factors Hypertension Cardiac Disease Diabetes Smoking VELOCITY AND DOPPLER WAVEFORM ANALYSIS RIGHT cm/secWaveformSeverity LEFT c m/secWaveformSeverity dCFA 98.0MonophasicdCFA Prof Fem Art. 241.0MonophasicProf Fem Art. Fem Art Prox. 48.0MonophasicFem Art Prox. Fem Art Mid. 68.0MonophasicFem Art Mid. Fem Art Dist. 53.0MonophasicFem Art Dist. Pop Art(AK) 17.0MonophasicPop Art(AK) [employer]CHNICIAN Dist. 11.0MonophasicPTA Dist. Per Art Dist. 10.0MonophasicPer Art Dist. MINO Dist. 12.0MonophasicATA Dist. Findings Mcgill scale images demonstrate moderate diffuse plaque. Color doppler reveals significantly decreased color flow but is stable compared to prior study. Spectral waveforms are diminished proximally near t he DELI CLERK bifurcation but more distally remain unchanged with monophasic flows throughout. Critical Notification Critical Value: No <Conclusion> Low flow state with monophasic waveforms, no significant change compared to prior. Findings likely du e to severe HF.
[2016-08-08] MEDS: MILRINONE 20MG/100ML PREMIX 100 ML IV PRN (15:54)
[2016-08-08] MEDS: MAGNESIUM SULFATE 2GM 50 ML IV PRN (18:09)
[2016-08-08] MEDS: ATORVASTATIN CALCIUM 40 MG TABLET. PO SCH (21:38)
[2016-08-08] MEDS: INSULIN DETEMIR 300 UNITS/3 ML INSULN.PEN. SQ SCH (21:54)
--- NOTE | 2016-08-08 22:39 | PDOC ---
Provider Note Provider Note Patient underwent cardiac cath today due to Trop of 31 after stabilization of his possible CVA Diagnostic angiography reveals severe ISR of the LM, LAD and LCx stents. 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 In this setting he had a IABP placed for his heart failure. He currently has cardiogenic shock and on milrinone therapy. Symptoms of dyspnea present. I had a long discussion with the patient, his cousin Robin and patient's brother (via phone). We talked about various options including medical therapy with hospice, possible CABG and high risk PCI. Reviewed films with Dr. Irizarry of CT surgery, who felt that patient would not survive CABG given his recent CVA, EMILY and severe ischemic CMP. Ultimately, I offered Mr. che high risk repeat PCI. We discussed need for compliance with meds as it appears that the reason for his ISR is lack of compliance with meds from before. I quoted the family a 20-30% mortality risk. After a thorough discussion, Mr. Che wishes to proceed understanding the risks. We will plan for Impella assisted LM PCI in the morning. Will follow along. ANGEL ROBLES MD August 08, 2016 22:39
[2016-08-09] VITALS (27 sets, daily range): BP systolic 130–169; BP diastolic 55–94
[2016-08-09] MEDS: ONDANSETRON PF 4 MG/2 ML VIAL. IV PRN ×2 (00:35→13:03)
[2016-08-09 05:36] LABS: BASO % 0 % (0-3); EOS % 1 % (0-3); HEMATOCRIT 37.1 % (39.0-53.0); HEMOGLOBIN 12.4 g/dL (13.0-17.5); LYMPH # 1.5 x10^3/uL (1.0-4.8); LYMPH % 13 % (24-48); MEAN CORPUSCULAR HEMOGLOBIN 31 pg (25-35); MEAN CORPUSCULAR HGB CONC 34 g/dL (31-37); MEAN CORPUSCULAR VOLUME 94 fL (79-100); MONO % 10 % (0-9); NEUT % 76 % (31-73); PLATELET COUNT 170 x10^3/uL (140-400); RED BLOOD COUNT 3.97 x10^6/uL (4.30-5.70); RED CELL DISTRIBUTION WIDTH 15.7 % (11.5-14.5); WHITE BLOOD COUNT 11.1 x10^3/uL (4.0-11.0)
[2016-08-09 05:43] LABS: ALBUMIN 2.8 g/dL (3.4-5.0); CALCIUM 8.2 mg/dL (8.5-10.1); POTASSIUM 4.2 mmol/L (3.5-5.1)
[2016-08-09] MEDS ORDERED: IODIXANOL 320 MG/ML 100 ML VIAL. ONE (06:41)
[2016-08-09] MEDS ORDERED: LIDOCAINE 2% 20 ML VIAL. ONE (06:41)
[2016-08-09] MEDS ORDERED: HEPARIN for ARTERIAL LINE 1,500 ML ONE (06:41)
--- NOTE | 2016-08-09 07:19 | PDOC ---
MODERATE SEDATION ASSESSMENT RISKS/ALTERNATIVES Risks/Alternatives Risks and alternatives of this type of sedation and procedure discussed with: RISK/ALTERNATIVES: Patient H & P ON CHART H & P H & P on chart and reviewed for co-morbid conditions and appropriate labs. H&P ON CHART: Yes STATUS PREG STATUS ASSESSED: N/A MEDS/ALLERGIES REVIEWED Meds/Allergies Reviewed Medications and Allergies including time and route of recently administered narcotics and sedatives. MEDS/ALLERGIES REVIEWED: Yes ASA RATING ASA RATING: IV AIRWAY ASSESSMENT Airway Assessment Airway patency, oral function limitations, presence of caps, crowns, dentures, partials, and ability to extend neck assessed. AIRWAY ASSESSMENT: Yes MALLAMPATI SCORE MALLAMPATI SCORE: II PRE-SEDATION ASSESSMENT PRE-SEDATION ASSESSMENT: Yes ANGEL ROBLES MD August 09, 2016 07:19
[2016-08-09] MEDS ORDERED: MIDAZOLAM HCL/PF 2 MG/2 ML VIAL. ONE (07:29)
[2016-08-09] MEDS ORDERED: fentaNYL PF VIAL 100 MCG/2 ML VIAL ONE (07:29)
[2016-08-09] MEDS ORDERED: HEPARIN for IV BOLUS 10,000 UNIT/10 ML VIAL. ONE (07:36)
[2016-08-09] MEDS ORDERED: PHENYLEPHRINE in 0.9% NACL PF 1 MG/10 ML DISP.SYRIN. IV ONE (07:36)
[2016-08-09] MEDS: INSULIN ASPART 300 UNITS/3 ML INSULN.PEN SQ SCH ×3 (08:00→17:00)
[2016-08-09] MEDS ORDERED: TICAGRELOR 90 MG TABLET. PO ONE ×2 (09:00→23:00)
[2016-08-09] MEDS ORDERED: IODIXANOL 320 MG/ML 100 ML VIAL. IART ONE (09:00)
[2016-08-09] MEDS ORDERED: HEPARIN for IV BOLUS 10,000 UNIT/10 ML VIAL. IV ONE (09:00)
[2016-08-09] MEDS ORDERED: MIDAZOLAM HCL/PF 2 MG/2 ML VIAL. IV ONE (09:00)
[2016-08-09] MEDS ORDERED: fentaNYL PF VIAL 100 MCG/2 ML VIAL IV ONE (09:00)
[2016-08-09] MEDS ORDERED: LIDOCAINE 2% 20 ML VIAL. IJ ONE (09:00)
[2016-08-09] MEDS ORDERED: IV NORMAL SALINE 250ML 250 ML IV ONE (09:45)
--- NOTE | 2016-08-09 11:40 | PDOC ---
SUBJECTIVE ROS EMILY/ CKD III Doing better today. s/p LHC and off AIBP CVS: no Orthopnea, no CP RESP: no SOB, no CHING GI: no Nausea, no Vomiting : no Dysuria, no Urgency OBJECTIVE Vital Signs Vital Signs Date Time Temp Pulse Resp B/P Pulse Ox O2 Delivery O2 Flow Rate FiO2 08/09/16 09:51 76 20 100 Room Air 08/09/16 09:49 2.0 08/09/16 07:04 148/68 08/09/16 04:00 98.5 98.5 I & 0 Intake and Output 08/09/16 07:00 Intake Total 988 ml Output Total 1335 ml Balance -347 ml Intake Oral 440 ml IV Total 548 ml Output Urine Total 1285 ml Emesis 50 ml PHYSICAL EXAM Physical Exam General Appearance: AAO x 3 today, In no apparent Distress Eyes: sclera anicteric; Conjunctiva Normal EN: No EN Drainage Mucous Memb. moist Neck: no JVD min JVP Supple no Thyromegaly CVS: S1 S2 + Murmur No Gallop No Rub no Edema Resp: no Rales no Rhonchi no Acc. Muscle use GI: BS hypoactive NO Bruit Non Tender Non Distended : no CVA tenderness; no Suprapubic Tenderness Assessment & Plan EMILY - suspect due to Cardiac decompensation and sev intravascular vol depeltion. gradually improving. ? Elemnt of ATN cannotbe ruled out. 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 and off AIBP - watch UO for now on gentle IVF Low Alb - Doubt that its all due to Proteinruia COMMENT/RELEVANT DATA Meds Current Medications Medications (Trade) Dose Ordered Sig/Tom Start Time Stop Time Status Last Admin Dose Admin Alteplase, Recombinant (Activase) 62 ml @ 62 mls/hr Q1H 08/05/16 12:30 08/05/16 13:29 DC 08/05/16 12:51 62 MLS/HR Amiodarone HCl 150 mg/Dextrose 103 ml @ 618 mls/hr 1X ONCE 08/07/16 16:30 08/07/16 16:39 DC 08/07/16 17:02 618 MLS/HR Amiodarone HCl/ Dextrose (Cordarone) 518 ml @ 0 mls/hr CONT PRN 08/07/16 16:30 08/07/16 17:11 DC 08/07/16 17:03 33.3 MLS/HR Aspirin (Children'S Aspirin) 81 mg [id number] 08/06/16 15:00 08/08/16 12:50 81 MG Aspirin 325 mg 325 mg 1X ONCE 08/05/16 11:00 08/05/16 11:01 DC 08/05/16 10:48 325 MG Atorvastatin Calcium (Lipitor) 40 mg QHS 08/06/16 21:00 08/08/16 21:38 40 MG Calcium Gluconate (Calcium Gluconate) 1,000 mg 1X ONCE 08/05/16 16:15 08/05/16 16:16 DC 08/05/16 16:47 1,000 MG Cefazolin Sodium 50 ml @ 100 mls/hr 1X ONCE 08/09/16 09:45 08/09/16 10:14 DC Dextrose (Dextrose 50%-Water Syringe) 25 gm 1X ONCE 08/05/16 16:15 08/05/16 16:16 DC 08/05/16 16:42 25 GM Fentanyl Citrate (Fentanyl 2ml Vial) 100 mcg 1X ONCE 08/09/16 09:00 08/09/16 09:07 DC 08/09/16 09:49 100 MCG Furosemide (Lasix) 20 mg DAILY 08/06/16 18:00 08/06/16 18:00 DC Furosemide 40 mg 40 mg 1X ONCE 08/05/16 13:30 08/05/16 13:31 DC 08/05/16 13:30 40 MG Heparin Sodium (Porcine) (Heparin 5,000 Units/1,000ml NS) 5,000 unit 1X ONCE 08/08/16 09:15 08/08/16 09:16 DC 08/08/16 09:15 5,000 UNIT Heparin Sodium (Porcine) (Heparin Sodium) 7,000 unit 1X ONCE 08/09/16 09:00 08/09/16 09:07 DC 08/09/16 09:49 7,000 UNIT Heparin Sodium (Porcine) 1650 unit 1,650 unit PRN Q6HRS PRN 08/07/16 00:00 UNV Heparin Sodium (Porcine) 2000 unit 2,000 unit 1X ONCE 08/08/16 09:15 08/08/16 09:16 DC 08/08/16 09:48 2,000 UNIT Heparin Sodium/ Dextrose 500 ml @ 0 mls/hr CONT PRN 08/08/16 11:30 08/08/16 11:00 19.5 MLS/HR Heparin Sodium/ Sodium Chloride 1,000 unit 1X ONCE 08/09/16 09:00 08/09/16 09:07 DC 08/09/16 09:47 1,000 UNIT Info (Anti-Coagulation Monitoring By Pharmacy) 1 each PRN DAILY PRN 08/08/16 14:00 Insulin Aspart (Novolog) 0-7 UNITS TIDWMEALS 08/05/16 17:00 08/08/16 17:31 3 UNITS Insulin Detemir (Levemir) 10 units QHS 08/05/16 21:00 08/08/16 21:54 10 UNITS Insulin Human Regular (Novolin R Vial) 10 unit 1X ONCE 08/05/16 16:15 08/05/16 16:16 DC 08/05/16 16:43 10 UNIT Iodixanol (Visipaque 320) 100 ml 1X ONCE 08/09/16 09:00 08/09/16 09:07 DC 08/09/16 09:48 144 ML Lidocaine HCl 20 ml STK-MED ONCE 08/09/16 06:41 08/09/16 06:42 DC Lidocaine HCl 20 ml 20 ml 1X ONCE 08/09/16 09:00 08/09/16 09:07 DC 08/09/16 09:48 10 ML Magnesium Sulfate/ Dextrose 100 ml @ 100 mls/hr 1X ONCE 08/08/16 11:00 08/08/16 11:59 DC 08/08/16 11:38 100 MLS/HR Midazolam HCl (Versed) 2 mg 1X ONCE 08/09/16 09:00 08/09/16 09:07 DC 08/09/16 09:48 2 MG Milrinone Lactate/ Dextrose (Primacor Premix) 100 ml @ 0 mls/hr CONT PRN 08/05/16 18:15 08/08/16 15:54 2.7 MLS/HR Ondansetron HCl 4 mg 4 mg PRN Q6HRS PRN 08/05/16 17:15 08/09/16 00:35 4 MG Phenylephrine HCl 1 mg STK-MED ONCE 08/09/16 07:36 08/09/16 07:37 DC Sodium Bicarbonate 100 meq/Dextrose 600 ml @ 500 mls/hr 1X ONCE 08/05/16 13:15 08/05/16 14:26 DC 08/05/16 13:40 500 MLS/HR Sodium Bicarbonate 100 meq/Sodium Chloride 600 ml @ 500 mls/hr 1X ONCE 08/05/16 13:15 08/05/16 14:26 Cancel Sodium Chloride (Iv Sodium Chloride 0.9% 250ml) 250 ml @ 50 mls/hr 1X ONCE 08/09/16 09:45 08/09/16 14:44 08/09/16 09:49 50 MLS/HR Sodium Chloride (Iv Sodium Chloride 0.9% 500ml Bag) 500 ml @ 0 mls/hr QID PRN 08/05/16 14:45 08/07/16 07:59 DC Ticagrelor (Brilinta) 180 mg 1X ONCE 08/09/16 09:00 08/09/16 09:07 DC Lab Laboratory Tests Test 08/08/16 12:17 08/08/16 17:28 08/08/16 18:20 08/08/16 21:36 Glucose (Fingerstick) 148mg/dL (70-99) 162mg/dL (70-99) 141mg/dL (70-99) Heparin Anti-Xa Act, Unfractionated 0.17IU/mL (0.30-0.70) Test 08/09/16 05:00 08/09/16 05:10 08/09/16 08:17 08/09/16 08:54 White Blood Count 11.1x10^3/uL (4.0-11.0) Red Blood Count 3.97x10^6/uL (4.30-5.70) Hemoglobin 12.4g/dL (13.0-17.5) Hematocrit 37.1% (39.0-53.0) Mean Corpuscular Volume 94fL (79-100) Mean Corpuscular Hemoglobin 31pg (25-35) Mean Corpuscular Hemoglobin Concent 34g/dL (31-37) Red Cell Distribution Width 15.7% (11.5-14.5) Platelet Count 170x10^3/uL (140-400) Neutrophils (%) (Auto) 76% (31-73) Lymphocytes (%) (Auto) 13% (24-48) Monocytes (%) (Auto) 10% (0-9) Eosinophils (%) (Auto) 1% (0-3) Basophils (%) (Auto) 0% (0-3) Neutrophils # (Auto) 8.4x10^3uL (1.8-7.7) Lymphocytes # (Auto) 1.5x10^3/uL (1.0-4.8) Monocytes # (Auto) 1.1x10^3/uL (0.0-1.1) Eosinophils # (Auto) 0.1x10^3/uL (0.0-0.7) Basophils # (Auto) 0.0x10^3/uL (0.0-0.2) Magnesium Level 2.5mg/dL (1.8-2.4) Sodium Level 136mmol/L (136-145) Potassium Level 4.2mmol/L (3.5-5.1) Chloride Level 103mmol/L (98-107) Carbon Dioxide Level 24mmol/L (21-32) Anion Gap 9 (6-14) Blood Urea Nitrogen 28mg/dL (8-26) Creatinine 2.0mg/dL (0.7-1.3) Estimated GFR (Cockcroft-Gault) 41.0 Glucose Level 130mg/dL (70-99) Calcium Level 8.2mg/dL (8.5-10.1) Phosphorus Level 4.0mg/dL (2.6-4.7) Albumin 2.8g/dL (3.4-5.0) Activated Clotting Time 242sec (92-181) 257sec (92-181) JONI CRISOSTOMO MD August 09, 2016 11:40
[2016-08-09] MEDS: ASPIRIN CHEWABLE 81 MG TABLET. PO SCH (12:43)
--- NOTE | 2016-08-09 13:12 | PDOC ---
PROGRESS NOTES Chief Complaint Chief Complaint cc: angina -CVA -NSTEMI -coronary stent -acute renal failure -Systolic heart failure -atrial fibrillation -hypertension -COPD -chronic kidney disease -DM -hyperlipidemia History of Present Illness History of Present Illness Mr. Fernandez was resting in bed when we visited with him. He received 2 cardiac stents this morning. He no longer c/o chest pain. We discussed care with family member in room and nurse. Vitals Vitals Vital Signs Date Time Temp Pulse Resp B/P Pulse Ox O2 Delivery O2 Flow Rate FiO2 08/09/16 11:48 Room Air 08/09/16 11:30 75 16 157/75 100 08/09/16 10:15 97.9 97.9 08/09/16 09:49 2.0 Physical Exam General: Alert, Cooperative, No acute distress Heart: Regular rate (SR), No murmurs Lungs: Clear, Other (He had decreased inspiratory effort. ) Abdomen: No tenderness, No masses Extremities: No cyanosis, No edema Skin: No rashes, No breakdown Labs LABS Laboratory Tests Test 08/08/16 17:28 08/08/16 18:20 08/08/16 21:36 08/09/16 05:00 Glucose (Fingerstick) 162mg/dL (70-99) 141mg/dL (70-99) Heparin Anti-Xa Act, Unfractionated 0.17IU/mL (0.30-0.70) White Blood Count 11.1x10^3/uL (4.0-11.0) Red Blood Count 3.97x10^6/uL (4.30-5.70) Hemoglobin 12.4g/dL (13.0-17.5) Hematocrit 37.1% (39.0-53.0) Mean Corpuscular Volume 94fL (79-100) Mean Corpuscular Hemoglobin 31pg (25-35) Mean Corpuscular Hemoglobin Concent 34g/dL (31-37) Red Cell Distribution Width 15.7% (11.5-14.5) Platelet Count 170x10^3/uL (140-400) Neutrophils (%) (Auto) 76% (31-73) Lymphocytes (%) (Auto) 13% (24-48) Monocytes (%) (Auto) 10% (0-9) Eosinophils (%) (Auto) 1% (0-3) Basophils (%) (Auto) 0% (0-3) Neutrophils # (Auto) 8.4x10^3uL (1.8-7.7) Lymphocytes # (Auto) 1.5x10^3/uL (1.0-4.8) Monocytes # (Auto) 1.1x10^3/uL (0.0-1.1) Eosinophils # (Auto) 0.1x10^3/uL (0.0-0.7) Basophils # (Auto) 0.0x10^3/uL (0.0-0.2) Magnesium Level 2.5mg/dL (1.8-2.4) Test 08/09/16 05:10 08/09/16 08:17 08/09/16 08:54 08/09/16 12:06 Sodium Level 136mmol/L (136-145) Potassium Level 4.2mmol/L (3.5-5.1) Chloride Level 103mmol/L (98-107) Carbon Dioxide Level 24mmol/L (21-32) Anion Gap 9 (6-14) Blood Urea Nitrogen 28mg/dL (8-26) Creatinine 2.0mg/dL (0.7-1.3) Estimated GFR (Cockcroft-Gault) 41.0 Glucose Level 130mg/dL (70-99) Calcium Level 8.2mg/dL (8.5-10.1) Phosphorus Level 4.0mg/dL (2.6-4.7) Albumin 2.8g/dL (3.4-5.0) Activated Clotting Time 242sec (92-181) 257sec (92-181) Glucose (Fingerstick) 168mg/dL (70-99) Review of Systems Review of Systems General: complains of weakness Card: Denies chest pain Assessment and Plan Assessmemt and Plan Problems Medical Problems: (1) CVA (cerebral vascular accident) Status: Acute -Angina - Post repeat cardiac stenting -CVA -NSTEMI -history of coronary stent -acute renal failure -Systolic heart failure -atrial fibrillation -hypertension -COPD -chronic kidney disease -DM -hyperlipidemia Plan: -Monitor for chest pain -D/Christiano IABP per CTS -Recheck AM labs -PT/OT as tolerated -Subspecialty input appreciated Problems: Comment Review of Relevant I have reviewed the following items abdulaziz (where applicable) has been applied. Labs Laboratory Tests Test 08/07/16 16:54 08/07/16 18:00 08/07/16 20:31 08/08/16 00:30 Heparin Anti-Xa Act, Unfractionated 0.18IU/mL (0.30-0.70) 0.33IU/mL (0.30-0.70) Glucose (Fingerstick) 202mg/dL (70-99) 168mg/dL (70-99) Potassium Level 3.8mmol/L (3.5-5.1) Test 08/08/16 05:40 08/08/16 12:17 08/08/16 17:28 08/08/16 18:20 White Blood Count 10.7x10^3/uL (4.0-11.0) Red Blood Count 4.00x10^6/uL (4.30-5.70) Hemoglobin 12.7g/dL (13.0-17.5) Hematocrit 37.6% (39.0-53.0) Mean Corpuscular Volume 94fL (79-100) Mean Corpuscular Hemoglobin 32pg (25-35) Mean Corpuscular Hemoglobin Concent 34g/dL (31-37) Red Cell Distribution Width 15.2% (11.5-14.5) Platelet Count 228x10^3/uL (140-400) Neutrophils (%) (Auto) 73% (31-73) Lymphocytes (%) (Auto) 18% (24-48) Monocytes (%) (Auto) 8% (0-9) Eosinophils (%) (Auto) 1% (0-3) Basophils (%) (Auto) 1% (0-3) Neutrophils # (Auto) 7.7x10^3uL (1.8-7.7) Lymphocytes # (Auto) 1.9x10^3/uL (1.0-4.8) Monocytes # (Auto) 0.9x10^3/uL (0.0-1.1) Eosinophils # (Auto) 0.1x10^3/uL (0.0-0.7) Basophils # (Auto) 0.1x10^3/uL (0.0-0.2) Sodium Level 133mmol/L (136-145) Potassium Level 3.5mmol/L (3.5-5.1) Chloride Level 100mmol/L (98-107) Carbon Dioxide Level 24mmol/L (21-32) Anion Gap 9 (6-14) Blood Urea Nitrogen 38mg/dL (8-26) Creatinine 2.4mg/dL (0.7-1.3) Estimated GFR (Cockcroft-Gault) 33.2 Glucose Level 157mg/dL (70-99) Calcium Level 8.2mg/dL (8.5-10.1) Phosphorus Level 4.2mg/dL (2.6-4.7) Magnesium Level 1.7mg/dL (1.8-2.4) Albumin 2.8g/dL (3.4-5.0) Glucose (Fingerstick) 148mg/dL (70-99) 162mg/dL (70-99) Heparin Anti-Xa Act, Unfractionated 0.17IU/mL (0.30-0.70) Test 08/08/16 21:36 08/09/16 05:00 08/09/16 05:10 08/09/16 08:17 Glucose (Fingerstick) 141mg/dL (70-99) White Blood Count 11.1x10^3/uL (4.0-11.0) Red Blood Count 3.97x10^6/uL (4.30-5.70) Hemoglobin 12.4g/dL (13.0-17.5) Hematocrit 37.1% (39.0-53.0) Mean Corpuscular Volume 94fL (79-100) Mean Corpuscular Hemoglobin 31pg (25-35) Mean Corpuscular Hemoglobin Concent 34g/dL (31-37) Red Cell Distribution Width 15.7% (11.5-14.5) Platelet Count 170x10^3/uL (140-400) Neutrophils (%) (Auto) 76% (31-73) Lymphocytes (%) (Auto) 13% (24-48) Monocytes (%) (Auto) 10% (0-9) Eosinophils (%) (Auto) 1% (0-3) Basophils (%) (Auto) 0% (0-3) Neutrophils # (Auto) 8.4x10^3uL (1.8-7.7) Lymphocytes # (Auto) 1.5x10^3/uL (1.0-4.8) Monocytes # (Auto) 1.1x10^3/uL (0.0-1.1) Eosinophils # (Auto) 0.1x10^3/uL (0.0-0.7) Basophils # (Auto) 0.0x10^3/uL (0.0-0.2) Magnesium Level 2.5mg/dL (1.8-2.4) Sodium Level 136mmol/L (136-145) Potassium Level 4.2mmol/L (3.5-5.1) Chloride Level 103mmol/L (98-107) Carbon Dioxide Level 24mmol/L (21-32) Anion Gap 9 (6-14) Blood Urea Nitrogen 28mg/dL (8-26) Creatinine 2.0mg/dL (0.7-1.3) Estimated GFR (Cockcroft-Gault) 41.0 Glucose Level 130mg/dL (70-99) Calcium Level 8.2mg/dL (8.5-10.1) Phosphorus Level 4.0mg/dL (2.6-4.7) Albumin 2.8g/dL (3.4-5.0) Activated Clotting Time 242sec (92-181) Test 08/09/16 08:54 08/09/16 12:06 Activated Clotting Time 257sec (92-181) Glucose (Fingerstick) 168mg/dL (70-99) Laboratory Tests Test 08/08/16 17:28 08/08/16 18:20 08/08/16 21:36 08/09/16 05:00 Glucose (Fingerstick) 162mg/dL (70-99) 141mg/dL (70-99) Heparin Anti-Xa Act, Unfractionated 0.17IU/mL (0.30-0.70) White Blood Count 11.1x10^3/uL (4.0-11.0) Red Blood Count 3.97x10^6/uL (4.30-5.70) Hemoglobin 12.4g/dL (13.0-17.5) Hematocrit 37.1% (39.0-53.0) Mean Corpuscular Volume 94fL (79-100) Mean Corpuscular Hemoglobin 31pg (25-35) Mean Corpuscular Hemoglobin Concent 34g/dL (31-37) Red Cell Distribution Width 15.7% (11.5-14.5) Platelet Count 170x10^3/uL (140-400) Neutrophils (%) (Auto) 76% (31-73) Lymphocytes (%) (Auto) 13% (24-48) Monocytes (%) (Auto) 10% (0-9) Eosinophils (%) (Auto) 1% (0-3) Basophils (%) (Auto) 0% (0-3) Neutrophils # (Auto) 8.4x10^3uL (1.8-7.7) Lymphocytes # (Auto) 1.5x10^3/uL (1.0-4.8) Monocytes # (Auto) 1.1x10^3/uL (0.0-1.1) Eosinophils # (Auto) 0.1x10^3/uL (0.0-0.7) Basophils # (Auto) 0.0x10^3/uL (0.0-0.2) Magnesium Level 2.5mg/dL (1.8-2.4) Test 08/09/16 05:10 08/09/16 08:17 08/09/16 08:54 08/09/16 12:06 Sodium Level 136mmol/L (136-145) Potassium Level 4.2mmol/L (3.5-5.1) Chloride Level 103mmol/L (98-107) Carbon Dioxide Level 24mmol/L (21-32) Anion Gap 9 (6-14) Blood Urea Nitrogen 28mg/dL (8-26) Creatinine 2.0mg/dL (0.7-1.3) Estimated GFR (Cockcroft-Gault) 41.0 Glucose Level 130mg/dL (70-99) Calcium Level 8.2mg/dL (8.5-10.1) Phosphorus Level 4.0mg/dL (2.6-4.7) Albumin 2.8g/dL (3.4-5.0) Activated Clotting Time 242sec (92-181) 257sec (92-181) Glucose (Fingerstick) 168mg/dL (70-99) Medications Current Medications Aspirin 325 mg 325 mg 1X ONCE PO Last administered on 08/05/16 10:48; Start 08/05/16 at 11:00; Stop 08/05/16 at 11:01; Status DC Alteplase, Recombinant 0 ml @ 0 mls/hr 1X ONCE IV ; Start 08/05/16 at 12:30; Stop 08/05/16 at 12:31; Status Cancel Alteplase, Recombinant 0 ml @ 0 mls/hr Q1H IV ; Start 08/05/16 at 12:40; Stop at 12:41; Status Cancel Alteplase, Recombinant 7 ml @ 420 mls/hr 1X ONCE IV Last administered on 12:50; Start 08/05/16 at 12:30; Stop 08/05/16 at 12:31; Status DC Alteplase, Recombinant (Activase) 62 ml @ 62 mls/hr Q1H IV Last administered on 08/05/16 12:51; Start 08/05/16 at 12:30; Stop 08/05/16 at 13:29; Status DC Furosemide 40 mg 40 mg 1X ONCE IVP Last administered on 08/05/16 13:30; Start 08/05/16 at 13:30; Stop 08/05/16 at 13:31; Status DC Sodium Bicarbonate 100 meq/Sodium Chloride 600 ml @ 500 mls/hr 1X ONCE IV ; Start 08/05/16 at 13:15; Stop 08/05/16 at 14:26; Status Cancel Sodium Bicarbonate 100 meq/Dextrose 600 ml @ 500 mls/hr 1X ONCE IV Last administered on 08/05/16 13:40; Start 08/05/16 at 13:15; Stop 08/05/16 at 14:26 ; Status DC Magnesium Sulfate/ Dextrose 50 ml @ 25 mls/hr PRN DAILY PRN IV for Mag < 1.7 on am labs Last administered on 08/08/16 18:09; Start 08/05/16 at 14:30 Sodium Chloride (Iv Sodium Chloride 0.9% 500ml Bag) 500 ml @ 0 mls/hr QID PRN IV UO< 30cc/hr over previous 6hrs; Start 08/05/16 at 14:45; Stop 08/07/16 at 07: 59; Status DC Insulin Detemir (Levemir) 10 units QHS SQ Last administered on 08/08/16 21:54; Start 08/05/16 at 21:00 Insulin Aspart (Novolog) 0-7 UNITS TIDWMEALS SQ Last administered on 08/09/16 12:11; Start 08/05/16 at 17:00 Dextrose (Dextrose 50%-Water Syringe) 12.5 gm PRN Q15MIN PRN IV SEE COMMENTS; Start 08/05/16 at 16:00 Dextrose (Dextrose 50%-Water Syringe) 25 gm 1X ONCE IV Last administered on 16:42; Start 08/05/16 at 16:15; Stop 08/05/16 at 16:16; Status DC Insulin Human Regular (Novolin R Vial) 10 unit 1X ONCE IV Last administered on 08/05/16 16:43; Start 08/05/16 at 16:15; Stop 08/05/16 at 16:16; Status DC Calcium Gluconate (Calcium Gluconate) 1,000 mg 1X ONCE IVP Last administered on 08/05/16 16:47; Start 08/05/16 at 16:15; Stop 08/05/16 at 16:16; Status DC Ondansetron HCl 4 mg 4 mg PRN Q6HRS PRN IV NAUSEA/VOMITING Last administered on 08/09/16 00:35; Start 08/05/16 at 17:15 Milrinone Lactate/ Dextrose (Primacor Premix) 100 ml @ 0 mls/hr CONT PRN IV SEE I/O RECORD Last administered on 08/08/16 15:54; Start 08/05/16 at 18:15 Aspirin (Children'S Aspirin) 81 mg DAILYWBKFT PO Last administered on 08/09/16 12:43; Start 08/06/16 at 15:00 Atorvastatin Calcium 40 mg 40 mg QHS PO Last administered on 08/08/16 21:38; Start 08/06/16 at 21:00 Heparin Sodium/ Dextrose 500 ml @ 0 mls/hr CONT PRN IV SEE I/O RECORD Last administered on 08/06/16 15:43; Start 08/06/16 at 14:30; Stop 08/08/16 at 06:59 ; Status DC Heparin Sodium (Porcine) (Heparin Sodium) 1,650 unit PRN Q6HRS PRN IV FOR UFH LEVEL LESS THAN 0.2; Start 08/06/16 at 14:30; Stop 08/07/16 at 00:21; Status DC Furosemide (Lasix) 20 mg DAILY IVP Last administered on 08/07/16 10:01; Start 08/06/16 at 17:00; Stop 08/08/16 at 15:45; Status DC Furosemide (Lasix) 20 mg DAILY IVP ; Start 08/06/16 at 18:00; Stop 08/06/16 at 18:00; Status DC Heparin Sodium (Porcine) 1650 unit 1,650 unit PRN Q6HRS PRN IV FOR UFH LEVEL LESS THAN 0.2; Start 08/07/16 at 00:00; Status UNV Amiodarone HCl 150 mg/Dextrose 103 ml @ 618 mls/hr 1X ONCE IV Last administered on 08/07/16 17:02; Start 08/07/16 at 16:30; Stop 08/07/16 at 16:39 ; Status DC Amiodarone HCl 900 mg/Dextrose 518 ml @ 0 mls/hr CONT PRN IV SEE I/O RECORD Last administered on 08/07/16 17:03; Start 08/07/16 at 16:30; Stop 08/07/16 at 17:11; Status DC Heparin Sodium/ Sodium Chloride 1,500 ml @ As Directed STK-MED ONCE .ROUTE ; Start 08/08/16 at 07:32; Stop 08/08/16 at 07:33; Status DC Lidocaine HCl 20 ml STK-MED ONCE .ROUTE ; Start 08/08/16 at 07:32; Stop 08/08/16 at 07:33; Status DC Iodixanol (Visipaque 320) 100 ml STK-MED ONCE .ROUTE ; Start 08/08/16 at 07:32; Stop 08/08/16 at 07:33; Status DC Fentanyl Citrate (Fentanyl 2ml Vial) 100 mcg STK-MED ONCE .ROUTE ; Start at 08:02; Stop 08/08/16 at 08:03; Status DC Midazolam HCl (Versed) 2 mg STK-MED ONCE .ROUTE ; Start 08/08/16 at 08:02; Stop 08/08/16 at 08:03; Status DC Heparin Sodium/ Sodium Chloride 1,000 unit 1X ONCE IART Last administered on 08:28; Start 08/08/16 at 08:15; Stop 08/08/16 at 08:16; Status DC Midazolam HCl (Versed) 2 mg 1X ONCE IV Last administered on 08/08/16 08:31; Start 08/08/16 at 08:15; Stop 08/08/16 at 08:16; Status DC Fentanyl Citrate (Fentanyl 2ml Vial) 100 mcg 1X ONCE IV Last administered on 08:31; Start 08/08/16 at 08:15; Stop 08/08/16 at 08:17; Status DC Iodixanol (Visipaque 320) 100 ml 1X ONCE IART Last administered on 08/08/16 09 :50; Start 08/08/16 at 08:15; Stop 08/08/16 at 08:17; Status DC Lidocaine HCl 20 ml 20 ml 1X ONCE IJ Last administered on 08/08/16 08:29; Start 08/08/16 at 08:15; Stop 08/08/16 at 08:17; Status DC Heparin Sodium/ Sodium Chloride 500 ml @ As Directed STK-MED ONCE .ROUTE ; Start 08/08/16 at 08:30; Stop 08/08/16 at 08:31; Status DC Heparin Sodium (Porcine) (Heparin Sodium) 10,000 unit STK-MED ONCE .ROUTE ; Start 08/08/16 at 08:34; Stop 08/08/16 at 08:35; Status DC Heparin Sodium (Porcine) (Heparin 5,000 Units/1,000ml NS) 5,000 unit 1X ONCE IV Last administered on 08/08/16 09:15; Start 08/08/16 at 09:15; Stop 08/08/16 at 09:16; Status DC Heparin Sodium (Porcine) 2000 unit 2,000 unit 1X ONCE IV Last administered on 08/08/16 09:48; Start 08/08/16 at 09:15; Stop 08/08/16 at 09:16; Status DC Magnesium Sulfate/ Dextrose 100 ml @ 100 mls/hr 1X ONCE IV Last administered on 08/08/16 11:38; Start 08/08/16 at 11:00; Stop 08/08/16 at 11:59; Status DC Heparin Sodium/ Dextrose 500 ml @ 0 mls/hr CONT PRN IV SEE I/O RECORD; Start at 10:45; Stop 08/08/16 at 11:29; Status DC Heparin Sodium/ Dextrose 500 ml @ 0 mls/hr CONT PRN IV SEE I/O RECORD Last administered on 08/08/16t 11:00; Start 08/08/16 at 11:30 Info 1 each 1 each PRN DAILY PRN MC SEE COMMENTS; Start 08/08/16 at 14:00 Heparin Sodium/ Sodium Chloride 1,500 ml @ As Directed STK-MED ONCE .ROUTE ; Start 08/09/16 at 06:41; Stop 08/09/16 at 06:42; Status DC Iodixanol (Visipaque 320) 100 ml STK-MED ONCE .ROUTE ; Start 08/09/16 at 06:41; Stop 08/09/16 at 06:42; Status DC Lidocaine HCl 20 ml STK-MED ONCE .ROUTE ; Start 08/09/16 at 06:41; Stop 08/09/16 at 06:42; Status DC Fentanyl Citrate (Fentanyl 2ml Vial) 100 mcg STK-MED ONCE .ROUTE ; Start at 07:29; Stop 08/09/16 at 07:30; Status DC Midazolam HCl (Versed) 2 mg STK-MED ONCE .ROUTE ; Start 08/09/16 at 07:29; Stop 08/09/16 at 07:30; Status DC Heparin Sodium (Porcine) (Heparin Sodium) 10,000 unit STK-MED ONCE .ROUTE ; Start 08/09/16 at 07:36; Stop 08/09/16 at 07:37; Status DC Phenylephrine HCl 1 mg 1 mg STK-MED ONCE IV ; Start 08/09/16 at 07:36; Stop at 07:37; Status DC Heparin Sodium/ Sodium Chloride 500 ml @ As Directed STK-MED ONCE .ROUTE ; Start 08/09/16 at 08:18; Stop 08/09/16 at 08:19; Status DC Heparin Sodium/ Sodium Chloride 1,000 unit 1X ONCE IART Last administered on t 09:47; Start 08/09/16 at 09:00; Stop 08/09/16 at 09:07; Status DC Midazolam HCl (Versed) 2 mg 1X ONCE IV Last administered on 08/09/16 09:48; Start 08/09/16 at 09:00; Stop 08/09/16 at 09:07; Status DC Fentanyl Citrate (Fentanyl 2ml Vial) 100 mcg 1X ONCE IV Last administered on 09:49; Start 08/09/16 at 09:00; Stop 08/09/16 at 09:07; Status DC Iodixanol (Visipaque 320) 100 ml 1X ONCE IART Last administered on 08/09/16 09 :48; Start 08/09/16 at 09:00; Stop 08/09/16 at 09:07; Status DC Ticagrelor (Brilinta) 180 mg 1X ONCE PO Last administered on 08/09/16 12:42; Start 08/09/16 at 09:00; Stop 08/09/16 at 09:07; Status DC Heparin Sodium (Porcine) (Heparin Sodium) 7,000 unit 1X ONCE IV Last administered on 08/09/16 09:49; Start 08/09/16 at 09:00; Stop 08/09/16 at 09:07; Status DC Lidocaine HCl 20 ml 20 ml 1X ONCE IJ Last administered on 08/09/16 09:48; Start 08/09/16 at 09:00; Stop 08/09/16 at 09:07; Status DC Cefazolin Sodium 50 ml @ 100 mls/hr 1X ONCE IV ; Start 08/09/16 at 09:45; Stop 08/09/16 at 10:14; Status Cancel Sodium Chloride 250 ml @ 50 mls/hr 1X ONCE IV Last administered on 08/09/16 09:49; Start 08/09/16 at 09:45; Stop 08/09/16 at 14:44 Cefazolin Sodium/ Sodium Chloride (Ancef/Iv Sodium Chloride 0.9% 50ml) 50 ml @ 100 mls/hr 1X ONCE IV ; Start 08/09/16 at 13:00; Stop 08/09/16 at 13:29 Active Scripts Active Cyclobenzaprine Hcl 10 Mg Tablet 1 Tab PO TID PRN Hydrocodone-Ibuprofen 7.5-200 (Hydrocodone/Ibuprofen) 1 Each Tablet 1 Tab PO PRN Q6HRS PRN Effient (Prasugrel Hcl) 10 Mg Tablet 10 Mg PO DAILYWBKFT SIG: ONE PO DAILY Hydralazine Hcl 50 Mg Tablet 50 Mg PO TID SIG: ONE BY MOUTH EVERY 8 HOURS; REPLACES NIFEDIPINE Carvedilol 12.5 Mg Tablet 12.5 Mg PO BIDWMEALS SIG: ONE P.O. BID; REPLACES CLONIDINE Reported Glimepiride 4 Mg Tablet 1 Tab PO DAILY Januvia (Sitagliptin Phosphate) 100 Mg Tablet 1 Tab PO DAILY Spironolactone 100 Mg Tablet 1 Tab PO DAILY Allopurinol 100 Mg Tablet 1 Tab PO DAILY Atorvastatin Calcium 40 Mg Tablet 1 Tab PO DAILY Aspir 81 (Aspirin) 81 Mg Tablet.dr 81 Tab PO DAILY Vitals/I & O Vital Sign - Last 24 Hours 08/08/16 08/08/16 08/08/16 08/08/16 14:00 15:00 16:00 16:00 Temp 98.1 98.1 Pulse 60 65 61 Resp 20 20 20 B/P 168/85 178/118 147/84 Pulse Ox 100 98 100 O2 Delivery Room Air Room Air Room Air Room Air 08/08/16 08/08/16 08/08/16 08/08/16 17:00 18:00 19:00 20:00 Temp 98.4 98.4 Pulse 60 60 58 60 Resp 18 20 24 25 B/P 160/73 143/76 136/67 167/85 Pulse Ox 100 100 100 100 O2 Delivery Room Air Room Air Room Air Room Air 08/08/16 08/08/16 08/08/16 08/08/16 20:00 21:00 22:00 23:00 Pulse 67 72 68 Resp 21 20 20 B/P 172/76 176/76 150/74 Pulse Ox 100 100 100 O2 Delivery Room Air Room Air Room Air Room Air 08/09/16 08/09/16 08/09/16 08/09/16 00:04 00:05 01:07 02:05 Temp 98.6 98.6 Pulse 63 69 70 Resp 26 25 21 B/P 164/88 147/67 141/70 Pulse Ox 97 98 99 O2 Delivery Room Air Room Air Room Air Room Air 08/09/16 08/09/16 08/09/16 08/09/16 03:00 04:00 04:08 05:00 Temp 98.5 98.5 Pulse 72 68 65 Resp 21 18 20 B/P 138/64 145/94 163/86 Pulse Ox 99 98 99 O2 Delivery Room Air Room Air Room Air Room Air 08/09/16 08/09/16 08/09/16 08/09/16 06:00 07:04 07:10 09:49 Temp 98.0 98.0 Pulse 65 65 Resp 24 23 24 B/P 152/78 148/68 Pulse Ox 98 98 100 O2 Delivery Room Air Room Air Room Air Nasal Cannula O2 Flow Rate 2.0 08/09/16 08/09/16 08/09/16 08/09/16 09:51 10:15 10:30 10:45 Temp 97.9 97.9 Pulse 76 74 72 72 Resp 20 16 18 20 B/P 145/71 150/79 146/77 Pulse Ox 100 99 100 99 O2 Delivery Room Air Room Air Room Air Room Air 08/09/16 08/09/16 08/09/16 11:00 11:30 11:48 Pulse 70 75 Resp 22 16 B/P 155/79 157/75 Pulse Ox 98 100 O2 Delivery Room Air Room Air Room Air Intake and Output 08/08/16 08/08/16 08/09/16 15:00 23:00 07:00 Intake Total 100 ml 562 ml 326 ml Output Total 585 ml 375 ml 375 ml Balance -485 ml 187 ml -49 ml Nutrition Consultation Dietary Evaluation: Recommendations by RD: Dietary education by RD Comments: Rec. dysphagia II cardiac/ada diet with thin liquids per [employer] Educated on MNT for TLC diet and provided handouts for reference upon d/c Expected Outcomes/Goals: to meet >75% est nutr needs to identify 2 heart healthy foods Interpretation of weight loss: >10% in 6 months Malnutrition Findings: Body Fat Depletion (Non Severe: Mild Depletion Weight Status: Appropriate CASTRAMONA ZAVALETA K III DO August 09, 2016 13:12
[2016-08-09] MEDS ORDERED: fentaNYL PF VIAL 100 MCG/2 ML VIAL IV PRN (13:30)
--- NOTE | 2016-08-09 13:46 | PDOC ---
PROGRESS NOTES Assessment Problems Medical Problems: (1) CVA (cerebral vascular accident) Status: Acute Acute (subacute also possible on MRI) left frontal cortex infarct, left occipital infarct possible, cerebral ischemia from cardiogenic etiology, s/p TPA in ER. Metabolic encephalopathy. 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 Old right parietal microhemorrhage. S/P balloon pump removal and stent placement 5/2 AM Plan Will follow Subjective denies pain Objective Vital Signs Date Time Temp Pulse Resp B/P Pulse Ox O2 Delivery O2 Flow Rate FiO2 08/09/16 11:48 Room Air 08/09/16 11:30 75 16 157/75 100 08/09/16 10:15 97.9 97.9 08/09/16 09:49 2.0 Intake and Output 08/09/16 07:00 Intake Total 988 ml Output Total 1335 ml Balance -347 ml Intake Oral 440 ml IV Total 548 ml Output Urine Total 1285 ml Emesis 50 ml PHYSICAL EXAM Alert. Oriented to place and person, not time. PERRL. EOMI. CN: no focal findings. Muscle tone: normal. Muscle strength: 4/5 DTR: 2+ Plantar reflex: flexor Gait: not examined in bed. Sensory exam: no abnormal findings. No cerebellar signs elicited. Review of Relevant I have reviewed the following items abdulaziz (where applicable) has been applied. Labs Laboratory Tests Test 08/07/16 16:54 08/07/16 18:00 08/07/16 20:31 08/08/16 00:30 Heparin Anti-Xa Act, Unfractionated 0.18IU/mL (0.30-0.70) 0.33IU/mL (0.30-0.70) Glucose (Fingerstick) 202mg/dL (70-99) 168mg/dL (70-99) Potassium Level 3.8mmol/L (3.5-5.1) Test 08/08/16 05:40 08/08/16 12:17 08/08/16 17:28 08/08/16 18:20 White Blood Count 10.7x10^3/uL (4.0-11.0) Red Blood Count 4.00x10^6/uL (4.30-5.70) Hemoglobin 12.7g/dL (13.0-17.5) Hematocrit 37.6% (39.0-53.0) Mean Corpuscular Volume 94fL (79-100) Mean Corpuscular Hemoglobin 32pg (25-35) Mean Corpuscular Hemoglobin Concent 34g/dL (31-37) Red Cell Distribution Width 15.2% (11.5-14.5) Platelet Count 228x10^3/uL (140-400) Neutrophils (%) (Auto) 73% (31-73) Lymphocytes (%) (Auto) 18% (24-48) Monocytes (%) (Auto) 8% (0-9) Eosinophils (%) (Auto) 1% (0-3) Basophils (%) (Auto) 1% (0-3) Neutrophils # (Auto) 7.7x10^3uL (1.8-7.7) Lymphocytes # (Auto) 1.9x10^3/uL (1.0-4.8) Monocytes # (Auto) 0.9x10^3/uL (0.0-1.1) Eosinophils # (Auto) 0.1x10^3/uL (0.0-0.7) Basophils # (Auto) 0.1x10^3/uL (0.0-0.2) Sodium Level 133mmol/L (136-145) Potassium Level 3.5mmol/L (3.5-5.1) Chloride Level 100mmol/L (98-107) Carbon Dioxide Level 24mmol/L (21-32) Anion Gap 9 (6-14) Blood Urea Nitrogen 38mg/dL (8-26) Creatinine 2.4mg/dL (0.7-1.3) Estimated GFR (Cockcroft-Gault) 33.2 Glucose Level 157mg/dL (70-99) Calcium Level 8.2mg/dL (8.5-10.1) Phosphorus Level 4.2mg/dL (2.6-4.7) Magnesium Level 1.7mg/dL (1.8-2.4) Albumin 2.8g/dL (3.4-5.0) Glucose (Fingerstick) 148mg/dL (70-99) 162mg/dL (70-99) Heparin Anti-Xa Act, Unfractionated 0.17IU/mL (0.30-0.70) Test 08/08/16 21:36 08/09/16 05:00 08/09/16 05:10 08/09/16 08:17 Glucose (Fingerstick) 141mg/dL (70-99) White Blood Count 11.1x10^3/uL (4.0-11.0) Red Blood Count 3.97x10^6/uL (4.30-5.70) Hemoglobin 12.4g/dL (13.0-17.5) Hematocrit 37.1% (39.0-53.0) Mean Corpuscular Volume 94fL (79-100) Mean Corpuscular Hemoglobin 31pg (25-35) Mean Corpuscular Hemoglobin Concent 34g/dL (31-37) Red Cell Distribution Width 15.7% (11.5-14.5) Platelet Count 170x10^3/uL (140-400) Neutrophils (%) (Auto) 76% (31-73) Lymphocytes (%) (Auto) 13% (24-48) Monocytes (%) (Auto) 10% (0-9) Eosinophils (%) (Auto) 1% (0-3) Basophils (%) (Auto) 0% (0-3) Neutrophils # (Auto) 8.4x10^3uL (1.8-7.7) Lymphocytes # (Auto) 1.5x10^3/uL (1.0-4.8) Monocytes # (Auto) 1.1x10^3/uL (0.0-1.1) Eosinophils # (Auto) 0.1x10^3/uL (0.0-0.7) Basophils # (Auto) 0.0x10^3/uL (0.0-0.2) Magnesium Level 2.5mg/dL (1.8-2.4) Sodium Level 136mmol/L (136-145) Potassium Level 4.2mmol/L (3.5-5.1) Chloride Level 103mmol/L (98-107) Carbon Dioxide Level 24mmol/L (21-32) Anion Gap 9 (6-14) Blood Urea Nitrogen 28mg/dL (8-26) Creatinine 2.0mg/dL (0.7-1.3) Estimated GFR (Cockcroft-Gault) 41.0 Glucose Level 130mg/dL (70-99) Calcium Level 8.2mg/dL (8.5-10.1) Phosphorus Level 4.0mg/dL (2.6-4.7) Albumin 2.8g/dL (3.4-5.0) Activated Clotting Time 242sec (92-181) Test 08/09/16 08:54 08/09/16 12:06 Activated Clotting Time 257sec (92-181) Glucose (Fingerstick) 168mg/dL (70-99) Laboratory Tests Test 08/08/16 17:28 08/08/16 18:20 08/08/16 21:36 08/09/16 05:00 Glucose (Fingerstick) 162mg/dL (70-99) 141mg/dL (70-99) Heparin Anti-Xa Act, Unfractionated 0.17IU/mL (0.30-0.70) White Blood Count 11.1x10^3/uL (4.0-11.0) Red Blood Count 3.97x10^6/uL (4.30-5.70) Hemoglobin 12.4g/dL (13.0-17.5) Hematocrit 37.1% (39.0-53.0) Mean Corpuscular Volume 94fL (79-100) Mean Corpuscular Hemoglobin 31pg (25-35) Mean Corpuscular Hemoglobin Concent 34g/dL (31-37) Red Cell Distribution Width 15.7% (11.5-14.5) Platelet Count 170x10^3/uL (140-400) Neutrophils (%) (Auto) 76% (31-73) Lymphocytes (%) (Auto) 13% (24-48) Monocytes (%) (Auto) 10% (0-9) Eosinophils (%) (Auto) 1% (0-3) Basophils (%) (Auto) 0% (0-3) Neutrophils # (Auto) 8.4x10^3uL (1.8-7.7) Lymphocytes # (Auto) 1.5x10^3/uL (1.0-4.8) Monocytes # (Auto) 1.1x10^3/uL (0.0-1.1) Eosinophils # (Auto) 0.1x10^3/uL (0.0-0.7) Basophils # (Auto) 0.0x10^3/uL (0.0-0.2) Magnesium Level 2.5mg/dL (1.8-2.4) Test 08/09/16 05:10 08/09/16 08:17 08/09/16 08:54 08/09/16 12:06 Sodium Level 136mmol/L (136-145) Potassium Level 4.2mmol/L (3.5-5.1) Chloride Level 103mmol/L (98-107) Carbon Dioxide Level 24mmol/L (21-32) Anion Gap 9 (6-14) Blood Urea Nitrogen 28mg/dL (8-26) Creatinine 2.0mg/dL (0.7-1.3) Estimated GFR (Cockcroft-Gault) 41.0 Glucose Level 130mg/dL (70-99) Calcium Level 8.2mg/dL (8.5-10.1) Phosphorus Level 4.0mg/dL (2.6-4.7) Albumin 2.8g/dL (3.4-5.0) Activated Clotting Time 242sec (92-181) 257sec (92-181) Glucose (Fingerstick) 168mg/dL (70-99) Medications Current Medications Aspirin 325 mg 325 mg 1X ONCE PO Last administered on 08/05/16 10:48; Start 08/05/16 at 11:00; Stop 08/05/16 at 11:01; Status DC Alteplase, Recombinant 0 ml @ 0 mls/hr 1X ONCE IV ; Start 08/05/16 at 12:30; Stop 08/05/16 at 12:31; Status Cancel Alteplase, Recombinant 0 ml @ 0 mls/hr Q1H IV ; Start 08/05/16 at 12:40; Stop at 12:41; Status Cancel Alteplase, Recombinant 7 ml @ 420 mls/hr 1X ONCE IV Last administered on 12:50; Start 08/05/16 at 12:30; Stop 08/05/16 at 12:31; Status DC Alteplase, Recombinant (Activase) 62 ml @ 62 mls/hr Q1H IV Last administered on 08/05/16 12:51; Start 08/05/16 at 12:30; Stop 08/05/16 at 13:29; Status DC Furosemide 40 mg 40 mg 1X ONCE IVP Last administered on 08/05/16 13:30; Start 08/05/16 at 13:30; Stop 08/05/16 at 13:31; Status DC Sodium Bicarbonate 100 meq/Sodium Chloride 600 ml @ 500 mls/hr 1X ONCE IV ; Start 08/05/16 at 13:15; Stop 08/05/16 at 14:26; Status Cancel Sodium Bicarbonate 100 meq/Dextrose 600 ml @ 500 mls/hr 1X ONCE IV Last administered on 08/05/16 13:40; Start 08/05/16 at 13:15; Stop 08/05/16 at 14:26 ; Status DC Magnesium Sulfate/ Dextrose 50 ml @ 25 mls/hr PRN DAILY PRN IV for Mag < 1.7 on am labs Last administered on 08/08/16 18:09; Start 08/05/16 at 14:30 Sodium Chloride (Iv Sodium Chloride 0.9% 500ml Bag) 500 ml @ 0 mls/hr QID PRN IV UO< 30cc/hr over previous 6hrs; Start 08/05/16 at 14:45; Stop 08/07/16 at 07: 59; Status DC Insulin Detemir (Levemir) 10 units QHS SQ Last administered on 08/08/16 21:54; Start 08/05/16 at 21:00 Insulin Aspart (Novolog) 0-7 UNITS TIDWMEALS SQ Last administered on 08/09/16 12:11; Start 08/05/16 at 17:00 Dextrose (Dextrose 50%-Water Syringe) 12.5 gm PRN Q15MIN PRN IV SEE COMMENTS; Start 08/05/16 at 16:00 Dextrose (Dextrose 50%-Water Syringe) 25 gm 1X ONCE IV Last administered on 16:42; Start 08/05/16 at 16:15; Stop 08/05/16 at 16:16; Status DC Insulin Human Regular (Novolin R Vial) 10 unit 1X ONCE IV Last administered on 08/05/16 16:43; Start 08/05/16 at 16:15; Stop 08/05/16 at 16:16; Status DC Calcium Gluconate (Calcium Gluconate) 1,000 mg 1X ONCE IVP Last administered on 08/05/16 16:47; Start 08/05/16 at 16:15; Stop 08/05/16 at 16:16; Status DC Ondansetron HCl 4 mg 4 mg PRN Q6HRS PRN IV NAUSEA/VOMITING Last administered on 08/09/16 13:03; Start 08/05/16 at 17:15 Milrinone Lactate/ Dextrose (Primacor Premix) 100 ml @ 0 mls/hr CONT PRN IV SEE I/O RECORD Last administered on 08/08/16 15:54; Start 08/05/16 at 18:15 Aspirin (Children'S Aspirin) 81 mg DAILYWBKFT PO Last administered on 08/09/16 12:43; Start 08/06/16 at 15:00 Atorvastatin Calcium 40 mg 40 mg QHS PO Last administered on 08/08/16 21:38; Start 08/06/16 at 21:00 Heparin Sodium/ Dextrose 500 ml @ 0 mls/hr CONT PRN IV SEE I/O RECORD Last administered on 08/06/16 15:43; Start 08/06/16 at 14:30; Stop 08/08/16 at 06:59 ; Status DC Heparin Sodium (Porcine) (Heparin Sodium) 1,650 unit PRN Q6HRS PRN IV FOR UFH LEVEL LESS THAN 0.2; Start 08/06/16 at 14:30; Stop 08/07/16 at 00:21; Status DC Furosemide (Lasix) 20 mg DAILY IVP Last administered on 08/07/16 10:01; Start 08/06/16 at 17:00; Stop 08/08/16 at 15:45; Status DC Furosemide (Lasix) 20 mg DAILY IVP ; Start 08/06/16 at 18:00; Stop 08/06/16 at 18:00; Status DC Heparin Sodium (Porcine) 1650 unit 1,650 unit PRN Q6HRS PRN IV FOR UFH LEVEL LESS THAN 0.2; Start 08/07/16 at 00:00; Status UNV Amiodarone HCl 150 mg/Dextrose 103 ml @ 618 mls/hr 1X ONCE IV Last administered on 08/07/16 17:02; Start 08/07/16 at 16:30; Stop 08/07/16 at 16:39 ; Status DC Amiodarone HCl 900 mg/Dextrose 518 ml @ 0 mls/hr CONT PRN IV SEE I/O RECORD Last administered on 08/07/16 17:03; Start 08/07/16 at 16:30; Stop 08/07/16 at 17:11; Status DC Heparin Sodium/ Sodium Chloride 1,500 ml @ As Directed STK-MED ONCE .ROUTE ; Start 08/08/16 at 07:32; Stop 08/08/16 at 07:33; Status DC Lidocaine HCl 20 ml STK-MED ONCE .ROUTE ; Start 08/08/16 at 07:32; Stop 08/08/16 at 07:33; Status DC Iodixanol (Visipaque 320) 100 ml STK-MED ONCE .ROUTE ; Start 08/08/16 at 07:32; Stop 08/08/16 at 07:33; Status DC Fentanyl Citrate (Fentanyl 2ml Vial) 100 mcg STK-MED ONCE .ROUTE ; Start at 08:02; Stop 08/08/16 at 08:03; Status DC Midazolam HCl (Versed) 2 mg STK-MED ONCE .ROUTE ; Start 08/08/16 at 08:02; Stop 08/08/16 at 08:03; Status DC Heparin Sodium/ Sodium Chloride 1,000 unit 1X ONCE IART Last administered on 08:28; Start 08/08/16 at 08:15; Stop 08/08/16 at 08:16; Status DC Midazolam HCl (Versed) 2 mg 1X ONCE IV Last administered on 08/08/16 08:31; Start 08/08/16 at 08:15; Stop 08/08/16 at 08:16; Status DC Fentanyl Citrate (Fentanyl 2ml Vial) 100 mcg 1X ONCE IV Last administered on 08:31; Start 08/08/16 at 08:15; Stop 08/08/16 at 08:17; Status DC Iodixanol (Visipaque 320) 100 ml 1X ONCE IART Last administered on 08/08/16 09 :50; Start 08/08/16 at 08:15; Stop 08/08/16 at 08:17; Status DC Lidocaine HCl 20 ml 20 ml 1X ONCE IJ Last administered on 08/08/16 08:29; Start 08/08/16 at 08:15; Stop 08/08/16 at 08:17; Status DC Heparin Sodium/ Sodium Chloride 500 ml @ As Directed STK-MED ONCE .ROUTE ; Start 08/08/16 at 08:30; Stop 08/08/16 at 08:31; Status DC Heparin Sodium (Porcine) (Heparin Sodium) 10,000 unit STK-MED ONCE .ROUTE ; Start 08/08/16 at 08:34; Stop 08/08/16 at 08:35; Status DC Heparin Sodium (Porcine) (Heparin 5,000 Units/1,000ml NS) 5,000 unit 1X ONCE IV Last administered on 08/08/16 09:15; Start 08/08/16 at 09:15; Stop 08/08/16 at 09:16; Status DC Heparin Sodium (Porcine) 2000 unit 2,000 unit 1X ONCE IV Last administered on 08/08/16 09:48; Start 08/08/16 at 09:15; Stop 08/08/16 at 09:16; Status DC Magnesium Sulfate/ Dextrose 100 ml @ 100 mls/hr 1X ONCE IV Last administered on 08/08/16 11:38; Start 08/08/16 at 11:00; Stop 08/08/16 at 11:59; Status DC Heparin Sodium/ Dextrose 500 ml @ 0 mls/hr CONT PRN IV SEE I/O RECORD; Start at 10:45; Stop 08/08/16 at 11:29; Status DC Heparin Sodium/ Dextrose 500 ml @ 0 mls/hr CONT PRN IV SEE I/O RECORD Last administered on 08/08/16 11:00; Start 08/08/16 at 11:30 Info 1 each 1 each PRN DAILY PRN MC SEE COMMENTS; Start 08/08/16 at 14:00 Heparin Sodium/ Sodium Chloride 1,500 ml @ As Directed STK-MED ONCE .ROUTE ; Start 08/09/16 at 06:41; Stop 08/09/16 at 06:42; Status DC Iodixanol (Visipaque 320) 100 ml STK-MED ONCE .ROUTE ; Start 08/09/16 at 06:41; Stop 08/09/16 at 06:42; Status DC Lidocaine HCl 20 ml STK-MED ONCE .ROUTE ; Start 08/09/16 at 06:41; Stop 08/09/16 at 06:42; Status DC Fentanyl Citrate (Fentanyl 2ml Vial) 100 mcg STK-MED ONCE .ROUTE ; Start at 07:29; Stop 08/09/16 at 07:30; Status DC Midazolam HCl (Versed) 2 mg STK-MED ONCE .ROUTE ; Start 08/09/16 at 07:29; Stop 08/09/16 at 07:30; Status DC Heparin Sodium (Porcine) (Heparin Sodium) 10,000 unit STK-MED ONCE .ROUTE ; Start 08/09/16 at 07:36; Stop 08/09/16 at 07:37; Status DC Phenylephrine HCl 1 mg 1 mg STK-MED ONCE IV ; Start 08/09/16 at 07:36; Stop at 07:37; Status DC Heparin Sodium/ Sodium Chloride 500 ml @ As Directed STK-MED ONCE .ROUTE ; Start 08/09/16 at 08:18; Stop 08/09/16 at 08:19; Status DC Heparin Sodium/ Sodium Chloride 1,000 unit 1X ONCE IART Last administered on 09:47; Start 08/09/16 at 09:00; Stop 08/09/16 at 09:07; Status DC Midazolam HCl (Versed) 2 mg 1X ONCE IV Last administered on 08/09/16 09:48; Start 08/09/16 at 09:00; Stop 08/09/16 at 09:07; Status DC Fentanyl Citrate (Fentanyl 2ml Vial) 100 mcg 1X ONCE IV Last administered on 09:49; Start 08/09/16 at 09:00; Stop 08/09/16 at 09:07; Status DC Iodixanol (Visipaque 320) 100 ml 1X ONCE IART Last administered on 08/09/16 09 :48; Start 08/09/16 at 09:00; Stop 08/09/16 at 09:07; Status DC Ticagrelor (Brilinta) 180 mg 1X ONCE PO Last administered on 08/09/16 12:42; Start 08/09/16 at 09:00; Stop 08/09/16 at 09:07; Status DC Heparin Sodium (Porcine) (Heparin Sodium) 7,000 unit 1X ONCE IV Last administered on 08/09/16 09:49; Start 08/09/16 at 09:00; Stop 08/09/16 at 09:07; Status DC Lidocaine HCl 20 ml 20 ml 1X ONCE IJ Last administered on 08/09/16 09:48; Start 08/09/16 at 09:00; Stop 08/09/16 at 09:07; Status DC Cefazolin Sodium 50 ml @ 100 mls/hr 1X ONCE IV ; Start 08/09/16 at 09:45; Stop 08/09/16 at 10:14; Status Cancel Sodium Chloride 250 ml @ 50 mls/hr 1X ONCE IV Last administered on 08/09/16 09:49; Start 08/09/16 at 09:45; Stop 08/09/16 at 14:44 Cefazolin Sodium/ Sodium Chloride (Ancef/Iv Sodium Chloride 0.9% 50ml) 50 ml @ 100 mls/hr 1X ONCE IV ; Start 08/09/16 at 13:00; Stop 08/09/16 at 13:29; Status DC Fentanyl Citrate (Fentanyl 2ml Vial) 25 mcg PRN Q2HR PRN IV PAIN Last administered on 08/09/16 13:35; Start 08/09/16 at 13:30 Active Scripts Active Cyclobenzaprine Hcl 10 Mg Tablet 1 Tab PO TID PRN Hydrocodone-Ibuprofen 7.5-200 (Hydrocodone/Ibuprofen) 1 Each Tablet 1 Tab PO PRN Q6HRS PRN Effient (Prasugrel Hcl) 10 Mg Tablet 10 Mg PO DAILYWBKFT SIG: ONE PO DAILY Hydralazine Hcl 50 Mg Tablet 50 Mg PO TID SIG: ONE BY MOUTH EVERY 8 HOURS; REPLACES NIFEDIPINE Carvedilol 12.5 Mg Tablet 12.5 Mg PO BIDWMEALS SIG: ONE P.O. BID; REPLACES CLONIDINE Reported Glimepiride 4 Mg Tablet 1 Tab PO DAILY Januvia (Sitagliptin Phosphate) 100 Mg Tablet 1 Tab PO DAILY Spironolactone 100 Mg Tablet 1 Tab PO DAILY Allopurinol 100 Mg Tablet 1 Tab PO DAILY Atorvastatin Calcium 40 Mg Tablet 1 Tab PO DAILY Aspir 81 (Aspirin) 81 Mg Tablet. 81 Tab PO DAILY Vitals/I & O Vital Sign - Last 24 Hours 08/08/16 08/08/16 08/08/16 08/08/16 14:00 15:00 16:00 16:00 Temp 98.1 98.1 Pulse 60 65 61 Resp 20 20 20 B/P 168/85 178/118 147/84 Pulse Ox 100 98 100 O2 Delivery Room Air Room Air Room Air Room Air 08/08/16 08/08/16 08/08/16 08/08/16 17:00 18:00 19:00 20:00 Temp 98.4 98.4 Pulse 60 60 58 60 Resp 18 20 24 25 B/P 160/73 143/76 136/67 167/85 Pulse Ox 100 100 100 100 O2 Delivery Room Air Room Air Room Air Room Air 08/08/16 08/08/16 08/08/16 08/08/16 20:00 21:00 22:00 23:00 Pulse 67 72 68 Resp 21 20 20 B/P 172/76 176/76 150/74 Pulse Ox 100 100 100 O2 Delivery Room Air Room Air Room Air Room Air 08/09/16 08/09/16 08/09/16 08/09/16 00:04 00:05 01:07 02:05 Temp 98.6 98.6 Pulse 63 69 70 Resp 25 21 B/P 164/88 147/67 141/70 Pulse Ox 97 98 99 O2 Delivery Room Air Room Air Room Air Room Air 08/09/16 08/09/16 08/09/16 08/09/16 03:00 04:00 04:08 05:00 Temp 98.5 98.5 Pulse 72 68 65 Resp 21 18 20 B/P 138/64 145/94 163/86 Pulse Ox 99 98 99 O2 Delivery Room Air Room Air Room Air Room Air 08/09/16 08/09/16 08/09/16 08/09/16 06:00 07:04 07:10 09:49 Temp 98.0 98.0 Pulse 65 65 Resp 24 23 24 B/P 152/78 148/68 Pulse Ox 98 98 100 O2 Delivery Room Air Room Air Room Air Nasal Cannula O2 Flow Rate 2.0 08/09/16 08/09/16 08/09/16 08/09/16 09:51 10:15 10:30 10:45 Temp 97.9 97.9 Pulse 76 74 72 72 Resp 20 16 18 20 B/P 145/71 150/79 146/77 Pulse Ox 100 99 100 99 O2 Delivery Room Air Room Air Room Air Room Air 508/09/16 08/09/16 11:00 11:30 11:48 Pulse 70 75 Resp 22 16 B/P 155/79 157/75 Pulse Ox 98 100 O2 Delivery Room Air Room Air Room Air Intake and Output 08/08/16 08/08/16 08/09/16 15:00 23:00 07:00 Intake Total 100 ml 562 ml 326 ml Output Total 585 ml 375 ml 375 ml Balance -485 ml 187 ml -49 ml DINORAH HERNANDEZ MD August 09, 2016 13:46
--- NOTE | 2016-08-09 17:39 | CARD ---
APPROVED REPORT Procedure(s) performed: PTCA with Balloon Angioplasty LM PTCA with Balloon Angioplasty LAD FFR RCA PTCA with Stenting RCA 144mL Visipaque [id number] 1023.20cGy 19.5 mins Fluoro HISTORY The patient is a 65 year-old male with a history of : previous DE, previous CHF, coronary artery dise ase, previous PCI (The PCI date was ), hypertension, dyslipidemia. INDICATION The indication(s) include : non-STEMI , Patient is a 65-year-old male who presents to the cardiac cat heterization laboratory for salvage PCI in the setting of cardiac shock, non-ST elevation myocardial infarction with a troponin of 31 and severe angina and heart failure symptoms.. PROCEDURE NARRATIVE After appropriate informed consent with full explanation of the risks and benefits of the procedure a nd discussion with family and the patient a high risk left main multivessel PCI was performed. The pa tient was brought to the catheterization laboratory and laid supine on the table and prepped and drap ed in the usual sterile fashion. Please see prior reports for diagnostic angiography demonstrating se elizabeth critical LM, LAD/LCx ISR with three vessel CAD. IABP removal: The previously placed intra-aortic balloon pump through the right groin was then removed and a 8 Fren ch sheath was inserted over a J-tipped guidewire. Next, a 5 Turkish sheath was inserted into the left common femoral vein for venous access using the modified Seldinger technique and a J-tipped guidewire . Subsequently, a 6 Turkish sheath was placed in the left common femoral artery using the modified Cristin melissa technique. Next, 2 preclosed suture devices were deployed in a crisscross fashion following wh ich a sequential dilation with 8 and10 Turkish dilators was performed with ultimate insertion of a 13 Turkish sheath for the left ventricular assist device. Impella Insertion: Next, a pigtail catheter was placed in the left ventricle and pressures were obtained. LVEDP was regina ured to be 40 mmHg. Therefore, it was felt that assistance with cardiac output using an Impella pump would be essential given the patient's critical three vessel disease. Subsequently, a 0.018 inch wire with a pre-fashioned curve was placed in the left ventricle over the pigtail and the pigtail was rem robin. Next, the Impella 2.5 percutaneous left ventricular assist device was placed in the left ventri gabriella over the wire in appropriate position with appropriate augmentation of flows. Interventional technique: Heparin weight-based bolus dosing was used to achieve and maintain an ACT greater than 250. Through a 6 Turkish JL4 guide catheter a pro-water wire was placed in the distal left circumflex and a second w felipe was placed in the distal LAD. Due to presence of previous left main, left circumflex and left ant erior descending artery stents it was felt that simple balloon angioplasty would yield the most optim al result incentive multiple layers of metallic stents which might predispose to recurrent in-stent r estenosis. Therefore, a Trek 2.0 x 12 mm balloon was used to angioplasty the ostium of the left main into left circumflex stent. Next a second 2.0 x 12 mm Trek balloon was used to dilate the ostium of t he LAD and proximal segment which had been previously stented. Subsequently, noncompliant balloons we re used to perform prolonged inflations in the left main and circumflex vessels using 3.0 x 15 mm bal loon and a 2.5 x 12 mm balloon in the LAD. Finally the ostium of the left main was dilated with a 3.5 x 12 mm balloon (noncompliant) at high pressure and prolonged inflations of approximately 2 minutes. Final post angioplasty angiography revealed excellent stent expansion with less than 20% residual st enosis in the left main/left circumflex stent. The ostial LAD stent had significant recoil despite pr olonged inflation with a 2.5 mm noncompliant balloon with a residual 50% stenosis. Given significant improvement in flows with no evidence of dampening upon engagement which had previously been present, further intervention was deferred as TERRI-3 flow was noted in the LAD and circumflex vessels which w ere significant improved compared to prior. Next, a JR4 guide catheter was used to engage the right c oronary artery through which a 0.014 inch bulky no pressure wire was advanced to the distal RCA. An I FR measurement was performed which was noted to be 0.92. The ostial to proximal RCA had a 60% stenosi s and therefore given the patient's clinical circumstance it was felt that this lesion should be jennifer scularized. A 3.5 x 12 mm balloon was used to angioplasty the lesion and subsequently a 4.0 x 12 mm r esolute drug loading stent was implanted at high pressures. Repeat angiography revealed a distal sten t edge dissection and therefore this was covered with a 3.5 x 18 mm resolute drug-eluting stent. The overlap segment was angioplastied with a 3.5 mm noncompliant balloon. Final post PCI angiography reve aled excellent stent expansion with TERRI-3 flow in the vessel. Next the left ventricular assist device was weaned down and removed without complications. The previo usly deployed preclosed suture system was used to achieve hemostasis of the left common femoral arter y access site. A limited left common femoral artery angiography was performed by using the crossover technique. A Omni Flush catheter was advanced from the right femoral artery sheath and a J-tipped alan dewire was placed in the left external iliac artery. Next a glide catheter was placed in the left ext ernal iliac artery over the J-tip guidewire. Limited selective angiography was performed which reveal ed adequate hemostasis of the left common femoral artery without any extravasation or significant talon nosis. The right femoral arterial sheath was then removed and hemostasis was achieved with a Angio-Se al device. The left common femoral vein sheath was sutured in place and removed in the ICU without co mplications. The patient received 180 mg of Ticagrelor at case completion. The patient tolerated the procedure well and was transported to the ICU in stable condition. Procedure Code: Assistance with Cardiac Ouptut Using Impeller Pump, Continous - [id number] Measurement of cardiac pressure, left heart, percutaneous approach (Left heart cath) EF: Less than 20% with cardiogenic shock. LVEDP: 44 mm Hg. HALFWAY: NSTEMI (I21.4), Acute systolic heart failure (I50.21), Cardiogenic shock (R57.0) Conclusion 1. Successful PTCA of the LM, LAD and LCx severe ISR. 2. Successful PCI of the proximal RCA. 3. Successful removal of an 8fr IABP 4. Successful insertion and removal of a Impella 2.5 LVAD. 5. Successful closure of the LCFA using a Preclose system. 6. Successful closure of the RCFA using an Angioseal device. 7. Severely elevated LVEDP of 40 mm Hg. Recommendations ASA 81mg daily indefinitely Ticagrelor 90mg bid x 30 days and then transition to Plavix. Continue Milrinone for heart failure. Continue statin therapy. Cardiac rehab. Diuresis as renal function allows.
[2016-08-09] MEDS: IV NORMAL SALINE 1000ML BAG 1,000 ML IV SCH (17:48)
[2016-08-09] MEDS: ATORVASTATIN CALCIUM 40 MG TABLET. PO SCH (21:00)
[2016-08-09] MEDS: INSULIN DETEMIR 300 UNITS/3 ML INSULN.PEN. SQ SCH (21:01)
[2016-08-10] VITALS (16 sets, daily range): BP systolic 99–161; BP diastolic 53–86
[2016-08-10 04:42] LABS: BASO % 0 % (0-3); EOS % 1 % (0-3); HEMATOCRIT 35.2 % (39.0-53.0); HEMOGLOBIN 11.4 g/dL (13.0-17.5); LYMPH # 1.2 x10^3/uL (1.0-4.8); LYMPH % 11 % (24-48); MEAN CORPUSCULAR HEMOGLOBIN 31 pg (25-35); MEAN CORPUSCULAR HGB CONC 33 g/dL (31-37); MEAN CORPUSCULAR VOLUME 96 fL (79-100); MONO % 11 % (0-9); NEUT % 78 % (31-73); PLATELET COUNT 151 x10^3/uL (140-400); RED BLOOD COUNT 3.67 x10^6/uL (4.30-5.70); RED CELL DISTRIBUTION WIDTH 15.6 % (11.5-14.5); WHITE BLOOD COUNT 11.2 x10^3/uL (4.0-11.0)
[2016-08-10] MEDS: MILRINONE 20MG/100ML PREMIX 100 ML IV PRN (04:50)
[2016-08-10] MEDS: IV NORMAL SALINE 1000ML BAG 1,000 ML IV SCH ×2 (04:50→23:45)
[2016-08-10 05:07] LABS: ALBUMIN 2.7 g/dL (3.4-5.0); CALCIUM 8.3 mg/dL (8.5-10.1); CREATININE 1.9 mg/dL (0.7-1.3); GFR 43.5; PHOSPHORUS 3.9 mg/dL (2.6-4.7); POTASSIUM 4.1 mmol/L (3.5-5.1)
[2016-08-10] MEDS: INSULIN ASPART 300 UNITS/3 ML INSULN.PEN SQ SCH ×3 (07:50→16:40)
[2016-08-10] MEDS: TICAGRELOR 90 MG TABLET. PO SCH ×2 (08:17→21:08)
[2016-08-10] MEDS: ASPIRIN CHEWABLE 81 MG TABLET. PO SCH (08:18)
--- NOTE | 2016-08-10 11:17 | PDOC ---
PROGRESS NOTES Assessment Problems Medical Problems: (1) CVA (cerebral vascular accident) Status: Acute Acute (subacute also possible on MRI) left frontal cortex infarct, left occipital infarct possible, cerebral ischemia from cardiogenic etiology, s/p TPA in ER. Metabolic encephalopathy. 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 Old right parietal microhemorrhage. S/P balloon pump removal and stent placement 5/2 AM Plan Rehabilitation modalities as tolerated No further neurological tests required Subjective No complaints Objective Vital Signs Date Time Temp Pulse Resp B/P Pulse Ox O2 Delivery O2 Flow Rate FiO2 08/10/16 08:00 Room Air 08/10/16 07:00 83 12 159/81 99 08/10/16 04:00 98.2 98.2 08/09/16 09:49 2.0 Intake and Output 08/10/16 07:00 Intake Total 1912 ml Output Total 1510 ml Balance 402 ml Intake Oral 1000 ml IV Total 912 ml Output Urine Total 1510 ml PHYSICAL EXAM Alert. Oriented to "hospital" and person, not time. PERRL. EOMI. CN: no focal findings. Muscle tone: normal. Muscle strength: 4/5 DTR: 2+ Plantar reflex: flexor Gait: not examined in bed. Sensory exam: no abnormal findings. No cerebellar signs elicited. Review of Relevant I have reviewed the following items abdulaziz (where applicable) has been applied. Labs Laboratory Tests Test 08/08/16 12:17 08/08/16 17:28 08/08/16 18:20 08/08/16 21:36 Glucose (Fingerstick) 148mg/dL (70-99) 162mg/dL (70-99) 141mg/dL (70-99) Heparin Anti-Xa Act, Unfractionated 0.17IU/mL (0.30-0.70) Test 08/09/16 05:00 08/09/16 05:10 08/09/16 08:17 08/09/16 08:54 White Blood Count 11.1x10^3/uL (4.0-11.0) Red Blood Count 3.97x10^6/uL (4.30-5.70) Hemoglobin 12.4g/dL (13.0-17.5) Hematocrit 37.1% (39.0-53.0) Mean Corpuscular Volume 94fL (79-100) Mean Corpuscular Hemoglobin 31pg (25-35) Mean Corpuscular Hemoglobin Concent 34g/dL (31-37) Red Cell Distribution Width 15.7% (11.5-14.5) Platelet Count 170x10^3/uL (140-400) Neutrophils (%) (Auto) 76% (31-73) Lymphocytes (%) (Auto) 13% (24-48) Monocytes (%) (Auto) 10% (0-9) Eosinophils (%) (Auto) 1% (0-3) Basophils (%) (Auto) 0% (0-3) Neutrophils # (Auto) 8.4x10^3uL (1.8-7.7) Lymphocytes # (Auto) 1.5x10^3/uL (1.0-4.8) Monocytes # (Auto) 1.1x10^3/uL (0.0-1.1) Eosinophils # (Auto) 0.1x10^3/uL (0.0-0.7) Basophils # (Auto) 0.0x10^3/uL (0.0-0.2) Magnesium Level 2.5mg/dL (1.8-2.4) Sodium Level 136mmol/L (136-145) Potassium Level 4.2mmol/L (3.5-5.1) Chloride Level 103mmol/L (98-107) Carbon Dioxide Level 24mmol/L (21-32) Anion Gap 9 (6-14) Blood Urea Nitrogen 28mg/dL (8-26) Creatinine 2.0mg/dL (0.7-1.3) Estimated GFR (Cockcroft-Gault) 41.0 Glucose Level 130mg/dL (70-99) Calcium Level 8.2mg/dL (8.5-10.1) Phosphorus Level 4.0mg/dL (2.6-4.7) Albumin 2.8g/dL (3.4-5.0) Activated Clotting Time 242sec (92-181) 257sec (92-181) Test 08/09/16 12:06 08/09/16 17:45 08/09/16 20:56 08/10/16 04:20 Glucose (Fingerstick) 168mg/dL (70-99) 125mg/dL (70-99) 173mg/dL (70-99) White Blood Count 11.2x10^3/uL (4.0-11.0) Red Blood Count 3.67x10^6/uL (4.30-5.70) Hemoglobin 11.4g/dL (13.0-17.5) Hematocrit 35.2% (39.0-53.0) Mean Corpuscular Volume 96fL (79-100) Mean Corpuscular Hemoglobin 31pg (25-35) Mean Corpuscular Hemoglobin Concent 33g/dL (31-37) Red Cell Distribution Width 15.6% (11.5-14.5) Platelet Count 151x10^3/uL (140-400) Neutrophils (%) (Auto) 78% (31-73) Lymphocytes (%) (Auto) 11% (24-48) Monocytes (%) (Auto) 11% (0-9) Eosinophils (%) (Auto) 1% (0-3) Basophils (%) (Auto) 0% (0-3) Neutrophils # (Auto) 8.8x10^3uL (1.8-7.7) Lymphocytes # (Auto) 1.2x10^3/uL (1.0-4.8) Monocytes # (Auto) 1.2x10^3/uL (0.0-1.1) Eosinophils # (Auto) 0.1x10^3/uL (0.0-0.7) Basophils # (Auto) 0.0x10^3/uL (0.0-0.2) Sodium Level 134mmol/L (136-145) Potassium Level 4.1mmol/L (3.5-5.1) Chloride Level 102mmol/L (98-107) Carbon Dioxide Level 24mmol/L (21-32) Anion Gap 8 (6-14) Blood Urea Nitrogen 22mg/dL (8-26) Creatinine 1.9mg/dL (0.7-1.3) Estimated GFR (Cockcroft-Gault) 43.5 Glucose Level 123mg/dL (70-99) Calcium Level 8.3mg/dL (8.5-10.1) Phosphorus Level 3.9mg/dL (2.6-4.7) Magnesium Level 1.9mg/dL (1.8-2.4) Albumin 2.7g/dL (3.4-5.0) Test 08/10/16 08:00 Glucose (Fingerstick) 136mg/dL (70-99) Laboratory Tests Test 08/09/16 12:06 08/09/16 17:45 08/09/16 20:56 08/10/16 04:20 Glucose (Fingerstick) 168mg/dL (70-99) 125mg/dL (70-99) 173mg/dL (70-99) White Blood Count 11.2x10^3/uL (4.0-11.0) Red Blood Count 3.67x10^6/uL (4.30-5.70) Hemoglobin 11.4g/dL (13.0-17.5) Hematocrit 35.2% (39.0-53.0) Mean Corpuscular Volume 96fL (79-100) Mean Corpuscular Hemoglobin 31pg (25-35) Mean Corpuscular Hemoglobin Concent 33g/dL (31-37) Red Cell Distribution Width 15.6% (11.5-14.5) Platelet Count 151x10^3/uL (140-400) Neutrophils (%) (Auto) 78% (31-73) Lymphocytes (%) (Auto) 11% (24-48) Monocytes (%) (Auto) 11% (0-9) Eosinophils (%) (Auto) 1% (0-3) Basophils (%) (Auto) 0% (0-3) Neutrophils # (Auto) 8.8x10^3uL (1.8-7.7) Lymphocytes # (Auto) 1.2x10^3/uL (1.0-4.8) Monocytes # (Auto) 1.2x10^3/uL (0.0-1.1) Eosinophils # (Auto) 0.1x10^3/uL (0.0-0.7) Basophils # (Auto) 0.0x10^3/uL (0.0-0.2) Sodium Level 134mmol/L (136-145) Potassium Level 4.1mmol/L (3.5-5.1) Chloride Level 102mmol/L (98-107) Carbon Dioxide Level 24mmol/L (21-32) Anion Gap 8 (6-14) Blood Urea Nitrogen 22mg/dL (8-26) Creatinine 1.9mg/dL (0.7-1.3) Estimated GFR (Cockcroft-Gault) 43.5 Glucose Level 123mg/dL (70-99) Calcium Level 8.3mg/dL (8.5-10.1) Phosphorus Level 3.9mg/dL (2.6-4.7) Magnesium Level 1.9mg/dL (1.8-2.4) Albumin 2.7g/dL (3.4-5.0) Test 08/10/16 08:00 Glucose (Fingerstick) 136mg/dL (70-99) Medications Current Medications Aspirin 325 mg 325 mg 1X ONCE PO Last administered on 08/05/16 10:48; Start 08/05/16 at 11:00; Stop 08/05/16 at 11:01; Status DC Alteplase, Recombinant 0 ml @ 0 mls/hr 1X ONCE IV ; Start 08/05/16 at 12:30; Stop 08/05/16 at 12:31; Status Cancel Alteplase, Recombinant 0 ml @ 0 mls/hr Q1H IV ; Start 08/05/16 at 12:40; Stop at 12:41; Status Cancel Alteplase, Recombinant 7 ml @ 420 mls/hr 1X ONCE IV Last administered on 12:50; Start 08/05/16 at 12:30; Stop 08/05/16 at 12:31; Status DC Alteplase, Recombinant (Activase) 62 ml @ 62 mls/hr Q1H IV Last administered on 08/05/16 12:51; Start 08/05/16 at 12:30; Stop 08/05/16 at 13:29; Status DC Furosemide 40 mg 40 mg 1X ONCE IVP Last administered on 08/05/16 13:30; Start 08/05/16 at 13:30; Stop 08/05/16 at 13:31; Status DC Sodium Bicarbonate 100 meq/Sodium Chloride 600 ml @ 500 mls/hr 1X ONCE IV ; Start 08/05/16 at 13:15; Stop 08/05/16 at 14:26; Status Cancel Sodium Bicarbonate 100 meq/Dextrose 600 ml @ 500 mls/hr 1X ONCE IV Last administered on 08/05/16 13:40; Start 08/05/16 at 13:15; Stop 08/05/16 at 14:26 ; Status DC Magnesium Sulfate/ Dextrose 50 ml @ 25 mls/hr PRN DAILY PRN IV for Mag < 1.7 on am labs Last administered on 08/08/16 18:09; Start 08/05/16 at 14:30 Sodium Chloride (Iv Sodium Chloride 0.9% 500ml Bag) 500 ml @ 0 mls/hr QID PRN IV UO< 30cc/hr over previous 6hrs; Start 08/05/16 at 14:45; Stop 08/07/16 at 07: 59; Status DC Insulin Detemir (Levemir) 10 units QHS SQ Last administered on 08/09/16 21:01; Start 08/05/16 at 21:00 Insulin Aspart (Novolog) 0-7 UNITS TIDWMEALS SQ Last administered on 08/09/16 12:11; Start 08/05/16 at 17:00 Dextrose (Dextrose 50%-Water Syringe) 12.5 gm PRN Q15MIN PRN IV SEE COMMENTS; Start 08/05/16 at 16:00 Dextrose (Dextrose 50%-Water Syringe) 25 gm 1X ONCE IV Last administered on 16:42; Start 08/05/16 at 16:15; Stop 08/05/16 at 16:16; Status DC Insulin Human Regular (Novolin R Vial) 10 unit 1X ONCE IV Last administered on 08/05/16 16:43; Start 08/05/16 at 16:15; Stop 08/05/16 at 16:16; Status DC Calcium Gluconate (Calcium Gluconate) 1,000 mg 1X ONCE IVP Last administered on 08/05/16 16:47; Start 08/05/16 at 16:15; Stop 08/05/16 at 16:16; Status DC Ondansetron HCl 4 mg 4 mg PRN Q6HRS PRN IV NAUSEA/VOMITING Last administered on 08/09/16 13:03; Start 08/05/16 at 17:15 Milrinone Lactate/ Dextrose (Primacor Premix) 100 ml @ 0 mls/hr CONT PRN IV SEE I/O RECORD Last administered on 08/10/16 04:50; Start 08/05/16 at 18:15 Aspirin (Children'S Aspirin) 81 mg DAILYWBKFT PO Last administered on 08/10/16 08:18; Start 08/06/16 at 15:00 Atorvastatin Calcium 40 mg 40 mg QHS PO Last administered on 08/09/16 21:00; Start 08/06/16 at 21:00 Heparin Sodium/ Dextrose 500 ml @ 0 mls/hr CONT PRN IV SEE I/O RECORD Last administered on 08/06/16 15:43; Start 08/06/16 at 14:30; Stop 08/08/16 at 06:59 ; Status DC Heparin Sodium (Porcine) (Heparin Sodium) 1,650 unit PRN Q6HRS PRN IV FOR UFH LEVEL LESS THAN 0.2; Start 08/06/16 at 14:30; Stop 08/07/16 at 00:21; Status DC Furosemide (Lasix) 20 mg DAILY IVP Last administered on 08/07/16 10:01; Start 08/06/16 at 17:00; Stop 08/08/16 at 15:45; Status DC Furosemide (Lasix) 20 mg DAILY IVP ; Start 08/06/16 at 18:00; Stop 08/06/16 at 18:00; Status DC Heparin Sodium (Porcine) 1650 unit 1,650 unit PRN Q6HRS PRN IV FOR UFH LEVEL LESS THAN 0.2; Start 08/07/16 at 00:00; Status UNV Amiodarone HCl 150 mg/Dextrose 103 ml @ 618 mls/hr 1X ONCE IV Last administered on 08/07/16 17:02; Start 08/07/16 at 16:30; Stop 08/07/16 at 16:39 ; Status DC Amiodarone HCl 900 mg/Dextrose 518 ml @ 0 mls/hr CONT PRN IV SEE I/O RECORD Last administered on 08/07/16 17:03; Start 08/07/16 at 16:30; Stop 08/07/16 at 17:11; Status DC Heparin Sodium/ Sodium Chloride 1,500 ml @ As Directed STK-MED ONCE .ROUTE ; Start 08/08/16 at 07:32; Stop 08/08/16 at 07:33; Status DC Lidocaine HCl 20 ml STK-MED ONCE .ROUTE ; Start 08/08/16 at 07:32; Stop 08/08/16 at 07:33; Status DC Iodixanol (Visipaque 320) 100 ml STK-MED ONCE .ROUTE ; Start 08/08/16 at 07:32; Stop 08/08/16 at 07:33; Status DC Fentanyl Citrate (Fentanyl 2ml Vial) 100 mcg STK-MED ONCE .ROUTE ; Start at 08:02; Stop 08/08/16 at 08:03; Status DC Midazolam HCl (Versed) 2 mg STK-MED ONCE .ROUTE ; Start 08/08/16 at 08:02; Stop 08/08/16 at 08:03; Status DC Heparin Sodium/ Sodium Chloride 1,000 unit 1X ONCE IART Last administered on 08:28; Start 08/08/16 at 08:15; Stop 08/08/16 at 08:16; Status DC Midazolam HCl (Versed) 2 mg 1X ONCE IV Last administered on 08/08/16 08:31; Start 08/08/16 at 08:15; Stop 08/08/16 at 08:16; Status DC Fentanyl Citrate (Fentanyl 2ml Vial) 100 mcg 1X ONCE IV Last administered on 08:31; Start 08/08/16 at 08:15; Stop 08/08/16 at 08:17; Status DC Iodixanol (Visipaque 320) 100 ml 1X ONCE IART Last administered on 08/08/16 09 :50; Start 08/08/16 at 08:15; Stop 08/08/16 at 08:17; Status DC Lidocaine HCl 20 ml 20 ml 1X ONCE IJ Last administered on 08/08/16 08:29; Start 08/08/16 at 08:15; Stop 08/08/16 at 08:17; Status DC Heparin Sodium/ Sodium Chloride 500 ml @ As Directed STK-MED ONCE .ROUTE ; Start 08/08/16 at 08:30; Stop 08/08/16 at 08:31; Status DC Heparin Sodium (Porcine) (Heparin Sodium) 10,000 unit STK-MED ONCE .ROUTE ; Start 08/08/16 at 08:34; Stop 08/08/16 at 08:35; Status DC Heparin Sodium (Porcine) (Heparin 5,000 Units/1,000ml NS) 5,000 unit 1X ONCE IV Last administered on 08/08/16 09:15; Start 08/08/16 at 09:15; Stop 08/08/16 at 09:16; Status DC Heparin Sodium (Porcine) 2000 unit 2,000 unit 1X ONCE IV Last administered on 08/08/16 09:48; Start 08/08/16 at 09:15; Stop 08/08/16 at 09:16; Status DC Magnesium Sulfate/ Dextrose 100 ml @ 100 mls/hr 1X ONCE IV Last administered on 08/08/16 11:38; Start 08/08/16 at 11:00; Stop 08/08/16 at 11:59; Status DC Heparin Sodium/ Dextrose 500 ml @ 0 mls/hr CONT PRN IV SEE I/O RECORD; Start at 10:45; Stop 08/08/16 at 11:29; Status DC Heparin Sodium/ Dextrose 500 ml @ 0 mls/hr CONT PRN IV SEE I/O RECORD Last administered on 08/08/16 11:00; Start 08/08/16 at 11:30; Stop 08/10/16 at 09:30; Status DC Info 1 each 1 each PRN DAILY PRN MC SEE COMMENTS; Start 08/08/16 at 14:00; Stop 08/10/16 at 09:30; Status DC Heparin Sodium/ Sodium Chloride 1,500 ml @ As Directed STK-MED ONCE .ROUTE ; Start 08/09/16 at 06:41; Stop 08/09/16 at 06:42; Status DC Iodixanol (Visipaque 320) 100 ml STK-MED ONCE .ROUTE ; Start 08/09/16 at 06:41; Stop 08/09/16 at 06:42; Status DC Lidocaine HCl 20 ml STK-MED ONCE .ROUTE ; Start 08/09/16 at 06:41; Stop 08/09/16 at 06:42; Status DC Fentanyl Citrate (Fentanyl 2ml Vial) 100 mcg STK-MED ONCE .ROUTE ; Start at 07:29; Stop 08/09/16 at 07:30; Status DC Midazolam HCl (Versed) 2 mg STK-MED ONCE .ROUTE ; Start 08/09/16 at 07:29; Stop 08/09/16 at 07:30; Status DC Heparin Sodium (Porcine) (Heparin Sodium) 10,000 unit STK-MED ONCE .ROUTE ; Start 08/09/16 at 07:36; Stop 08/09/16 at 07:37; Status DC Phenylephrine HCl 1 mg 1 mg STK-MED ONCE IV ; Start 08/09/16 at 07:36; Stop at 07:37; Status DC Heparin Sodium/ Sodium Chloride 500 ml @ As Directed STK-MED ONCE .ROUTE ; Start 08/09/16 at 08:18; Stop 08/09/16 at 08:19; Status DC Heparin Sodium/ Sodium Chloride 1,000 unit 1X ONCE IART Last administered on 09:47; Start 08/09/16 at 09:00; Stop 08/09/16 at 09:07; Status DC Midazolam HCl (Versed) 2 mg 1X ONCE IV Last administered on 08/09/16 09:48; Start 08/09/16 at 09:00; Stop 08/09/16 at 09:07; Status DC Fentanyl Citrate (Fentanyl 2ml Vial) 100 mcg 1X ONCE IV Last administered on 09:49; Start 08/09/16 at 09:00; Stop 08/09/16 at 09:07; Status DC Iodixanol (Visipaque 320) 100 ml 1X ONCE IART Last administered on 08/09/16 09 :48; Start 08/09/16 at 09:00; Stop 08/09/16 at 09:07; Status DC Ticagrelor (Brilinta) 180 mg 1X ONCE PO Last administered on 08/09/16 12:42; Start 08/09/16 at 09:00; Stop 08/09/16 at 09:07; Status DC Heparin Sodium (Porcine) (Heparin Sodium) 7,000 unit 1X ONCE IV Last administered on 08/09/16 09:49; Start 08/09/16 at 09:00; Stop 08/09/16 at 09:07; Status DC Lidocaine HCl 20 ml 20 ml 1X ONCE IJ Last administered on 08/09/16 09:48; Start 08/09/16 at 09:00; Stop 08/09/16 at 09:07; Status DC Cefazolin Sodium 50 ml @ 100 mls/hr 1X ONCE IV ; Start 08/09/16 at 09:45; Stop 08/09/16 at 10:14; Status Cancel Sodium Chloride 250 ml @ 50 mls/hr 1X ONCE IV Last administered on 08/09/16 09:49; Start 08/09/16 at 09:45; Stop 08/09/16 at 14:44; Status DC Cefazolin Sodium/ Sodium Chloride (Ancef/Iv Sodium Chloride 0.9% 50ml) 50 ml @ 100 mls/hr 1X ONCE IV Last administered on 08/09/16 14:12; Start 08/09/16 at 13 :00; Stop 08/09/16 at 13:29; Status DC Fentanyl Citrate 25 mcg 25 mcg PRN Q2HR PRN IV PAIN Last administered on 13:35; Start 08/09/16 at 13:30 Sodium Chloride (Iv Sodium Chloride 0.9% 1000ml Bag) 1,000 ml @ 50 mls/hr Q20H IV Last administered on 08/10/16 04:50; Start 08/09/16 at 16:30 Ticagrelor (Brilinta) 90 mg BID PO Last administered on 08/10/16 08:17; Start 08/10/16 at 09:00 Ticagrelor (Brilinta) 90 mg 1X ONCE PO Last administered on 08/09/16 23:14; Start 08/09/16 at 23:00; Stop 08/09/16 at 23:01; Status DC Active Scripts Active Cyclobenzaprine Hcl 10 Mg Tablet 1 Tab PO TID PRN Hydrocodone-Ibuprofen 7.5-200 (Hydrocodone/Ibuprofen) 1 Each Tablet 1 Tab PO PRN Q6HRS PRN Effient (Prasugrel Hcl) 10 Mg Tablet 10 Mg PO DAILYWBKFT SIG: ONE PO DAILY Hydralazine Hcl 50 Mg Tablet 50 Mg PO TID SIG: ONE BY MOUTH EVERY 8 HOURS; REPLACES NIFEDIPINE Carvedilol 12.5 Mg Tablet 12.5 Mg PO BIDWMEALS SIG: ONE P.O. BID; REPLACES CLONIDINE Reported Glimepiride 4 Mg Tablet 1 Tab PO DAILY Januvia (Sitagliptin Phosphate) 100 Mg Tablet 1 Tab PO DAILY Spironolactone 100 Mg Tablet 1 Tab PO DAILY Allopurinol 100 Mg Tablet 1 Tab PO DAILY Atorvastatin Calcium 40 Mg Tablet 1 Tab PO DAILY Aspir 81 (Aspirin) 81 Mg Tablet.dr 81 Tab PO DAILY Vitals/I & O Vital Sign - Last 24 Hours 08/09/16 08/09/16 08/09/16 08/09/16 11:30 11:48 12:00 12:30 Temp 97.9 97.9 Pulse 75 74 74 Resp 16 19 19 B/P 157/75 146/57 147/78 Pulse Ox 100 100 100 O2 Delivery Room Air Room Air Room Air Room Air 08/09/16 08/09/16 08/09/16 08/09/16 13:00 14:00 15:00 16:00 Pulse 92 76 76 Resp 25 16 20 B/P 156/78 131/74 151/75 Pulse Ox 100 95 100 O2 Delivery Room Air Room Air Room Air Room Air 08/09/16 08/09/16 08/09/16 08/09/16 16:00 17:00 18:00 19:00 Temp 98.3 98.3 Pulse 82 78 85 97 Resp 17 18 20 18 B/P 154/73 160/68 168/70 168/74 Pulse Ox 100 100 100 99 O2 Delivery Room Air Room Air Room Air Nasal Cannula 08/09/16 08/09/16 08/09/16 08/09/16 20:04 20:11 21:08 22:04 Temp 98.6 98.6 Pulse 88 88 86 Resp 18 18 18 B/P 130/55 159/73 152/80 Pulse Ox 97 100 99 O2 Delivery Room Air Room Air Room Air Room Air 08/09/16 08/10/16 08/10/16 08/10/16 23:09 00:07 00:08 01:04 Temp 98.9 98.9 Pulse 90 90 99 Resp 20 20 20 B/P 169/79 140/73 148/76 Pulse Ox 97 100 99 O2 Delivery Room Air Room Air Room Air Room Air 08/10/16 08/10/16 08/10/16 08/10/16 02:00 03:13 04:00 04:00 Temp 98.2 98.2 Pulse 82 90 79 Resp 18 18 20 B/P 160/80 144/81 152/74 Pulse Ox 93 100 97 O2 Delivery Room Air Room Air Room Air Room Air 08/10/16 08/10/16 08/10/16 08/10/16 05:02 06:06 07:00 08:00 Pulse 84 90 83 Resp 18 20 12 B/P 158/70 139/64 159/81 Pulse Ox 100 98 99 O2 Delivery Room Air Room Air Room Air Room Air Intake and Output 08/09/16 08/09/16 08/10/16 15:00 23:00 07:00 Intake Total 100 ml 678 ml 1134 ml Output Total 400 ml 210 ml 900 ml Balance -300 ml 468 ml 234 ml DINORAH HERNANDEZ MD August 10, 2016 11:17
--- NOTE | 2016-08-10 11:23 | PDOC ---
SUBJECTIVE ROS EMILY/ CKD III Doign and feeling much better, Currently OOB in a chair CVS: no Orthopnea, no CP RESP: no SOB, no CHING GI: no Nausea, no Vomiting : no Dysuria, no Urgency OBJECTIVE Vital Signs Vital Signs Date Time Temp Pulse Resp B/P Pulse Ox O2 Delivery O2 Flow Rate FiO2 08/10/16 08:00 Room Air 08/10/16 07:00 83 12 159/81 99 08/10/16 04:00 98.2 98.2 08/09/16 09:49 2.0 I & 0 Intake and Output 08/10/16 06:59 Intake Total 1912 ml Output Total 1510 ml Balance 402 ml Intake Oral 1000 ml IV Total 912 ml Output Urine Total 1510 ml PHYSICAL EXAM Physical Exam General Appearance: AAO x 3 today, In no apparent Distress Eyes: sclera anicteric; Conjunctiva Normal EN: No EN Drainage Mucous Memb. moist Neck: no JVD min JVP Supple no Thyromegaly CVS: S1 S2 + Murmur No Gallop No Rub no Edema Resp: no Rales no Rhonchi no Acc. Muscle use GI: BS hypoactive NO Bruit Non Tender Non Distended : no CVA tenderness; no Suprapubic Tenderness Assessment & Plan EMILY - suspect due to Cardiac decompensation and sev intravascular vol depeltion. gradually improving. ? Elemnt of ATN cannotbe ruled out. Current fluid and E-lyte status does not necessitate emergent need for dialysis. Will re-evaluate for dialysis in the am CKD III - baseline creat ~ 1.8 in Feb 2016 Proteinruia - 1.1 gms - susepct DM/HTNsive /NS. 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 - Doubt that its all due to Proteinuria COMMENT/RELEVANT DATA Meds Current Medications Medications (Trade) Dose Ordered Sig/Tom Start Time Stop Time Status Last Admin Dose Admin Alteplase, Recombinant (Activase) 62 ml @ 62 mls/hr Q1H 08/05/16 12:30 08/05/16 13:29 DC 08/05/16 12:51 62 MLS/HR Amiodarone HCl 150 mg/Dextrose 103 ml @ 618 mls/hr 1X ONCE 08/07/16 16:30 08/07/16 16:39 DC 08/07/16 17:02 618 MLS/HR Amiodarone HCl/ Dextrose (Cordarone) 518 ml @ 0 mls/hr CONT PRN 08/07/16 16:30 08/07/16 17:11 DC 08/07/16 17:03 33.3 MLS/HR Aspirin (Children'S Aspirin) 81 mg DAILYWBKFT 08/06/16 15:00 08/10/16 08:18 81 MG Aspirin 325 mg 325 mg 1X ONCE 08/05/16 11:00 08/05/16 11:01 DC 08/05/16 10:48 325 MG Atorvastatin Calcium (Lipitor) 40 mg QHS 08/06/16 21:00 08/09/16 21:00 40 MG Calcium Gluconate (Calcium Gluconate) 1,000 mg 1X ONCE 08/05/16 16:15 08/05/16 16:16 DC 08/05/16 16:47 1,000 MG Cefazolin Sodium 50 ml @ 100 mls/hr 1X ONCE 08/09/16 09:45 08/09/16 10:14 Cancel Cefazolin Sodium/ Sodium Chloride (Ancef/Iv Sodium Chloride 0.9% 50ml) 50 ml @ 100 mls/hr 1X ONCE 08/09/16 13:00 08/09/16 13:29 DC 08/09/16 14:12 100 MLS/HR Dextrose (Dextrose 50%-Water Syringe) 25 gm 1X ONCE 08/05/16 16:15 08/05/16 16:16 DC 08/05/16 16:42 25 GM Fentanyl Citrate (Fentanyl 2ml Vial) 100 mcg 1X ONCE 08/09/16 09:00 08/09/16 09:07 DC 08/09/16 09:49 100 MCG Fentanyl Citrate 25 mcg 25 mcg PRN Q2HR PRN 08/09/16 13:30 08/09/16 13:35 25 MCG Furosemide (Lasix) 20 mg DAILY 08/06/16 18:00 08/06/16 18:00 DC Furosemide 40 mg 40 mg 1X ONCE 08/05/16 13:30 08/05/16 13:31 DC 08/05/16 13:30 40 MG Heparin Sodium (Porcine) (Heparin 5,000 Units/1,000ml NS) 5,000 unit 1X ONCE 08/08/16 09:15 08/08/16 09:16 DC 08/08/16 09:15 5,000 UNIT Heparin Sodium (Porcine) (Heparin Sodium) 7,000 unit 1X ONCE 08/09/16 09:00 08/09/16 09:07 DC 08/09/16 09:49 7,000 UNIT Heparin Sodium (Porcine) 1650 unit 1,650 unit PRN Q6HRS PRN 08/07/16 00:00 UNV Heparin Sodium (Porcine) 2000 unit 2,000 unit 1X ONCE 08/08/16 09:15 08/08/16 09:16 DC 08/08/16 09:48 2,000 UNIT Heparin Sodium/ Dextrose 500 ml @ 0 mls/hr CONT PRN 08/08/16 11:30 08/10/16 09:30 DC 08/08/16 11:00 19.5 MLS/HR Heparin Sodium/ Sodium Chloride 1,000 unit 1X ONCE 08/09/16 09:00 08/09/16 09:07 DC 08/09/16 09:47 1,000 UNIT Info (Anti-Coagulation Monitoring By Pharmacy) 1 each PRN DAILY PRN 08/08/16 14:00 08/10/16 09:30 DC Insulin Aspart (Novolog) 0-7 UNITS TIDWMEALS 08/05/16 17:00 08/09/16 12:11 3 UNITS Insulin Detemir (Levemir) 10 units QHS 08/05/16 21:00 08/09/16 21:01 10 UNITS Insulin Human Regular (Novolin R Vial) 10 unit 1X ONCE 08/05/16 16:15 08/05/16 16:16 DC 08/05/16 16:43 10 UNIT Iodixanol (Visipaque 320) 100 ml 1X ONCE 08/09/16 09:00 08/09/16 09:07 DC 08/09/16 09:48 144 ML Lidocaine HCl 20 ml STK-MED ONCE 08/09/16 06:41 08/09/16 06:42 DC Lidocaine HCl 20 ml 20 ml 1X ONCE 08/09/16 09:00 08/09/16 09:07 DC 08/09/16 09:48 10 ML Magnesium Sulfate/ Dextrose 100 ml @ 100 mls/hr 1X ONCE 08/08/16 11:00 08/08/16 11:59 DC 08/08/16 11:38 100 MLS/HR Midazolam HCl (Versed) 2 mg 1X ONCE 08/09/16 09:00 08/09/16 09:07 DC 08/09/16 09:48 2 MG Milrinone Lactate/ Dextrose (Primacor Premix) 100 ml @ 0 mls/hr CONT PRN 08/05/16 18:15 08/10/16 04:50 2.7 MLS/HR Ondansetron HCl 4 mg 4 mg PRN Q6HRS PRN 08/05/16 17:15 08/09/16 13:03 4 MG Phenylephrine HCl 1 mg STK-MED ONCE 08/09/16 07:36 08/09/16 07:37 DC Sodium Bicarbonate 100 meq/Dextrose 600 ml @ 500 mls/hr 1X ONCE 08/05/16 13:15 08/05/16 14:26 DC 08/05/16 13:40 500 MLS/HR Sodium Bicarbonate 100 meq/Sodium Chloride 600 ml @ 500 mls/hr 1X ONCE 08/05/16 13:15 08/05/16 14:26 Cancel Sodium Chloride (Iv Sodium Chloride 0.9% 500ml Bag) 500 ml @ 0 mls/hr QID PRN 08/05/16 14:45 08/07/16 07:59 DC Sodium Chloride (Iv Sodium Chloride 0.9% 1000ml Bag) 1,000 ml @ 50 mls/hr Q20H 08/09/16 16:30 08/10/16 04:50 50 MLS/HR Ticagrelor (Brilinta) 90 mg 1X ONCE 08/09/16 23:00 08/09/16 23:01 DC 08/09/16 23:14 90 MG Lab Laboratory Tests Test 08/09/16 12:06 08/09/16 17:45 08/09/16 20:56 08/10/16 04:20 Glucose (Fingerstick) 168mg/dL (70-99) 125mg/dL (70-99) 173mg/dL (70-99) White Blood Count 11.2x10^3/uL (4.0-11.0) Red Blood Count 3.67x10^6/uL (4.30-5.70) Hemoglobin 11.4g/dL (13.0-17.5) Hematocrit 35.2% (39.0-53.0) Mean Corpuscular Volume 96fL (79-100) Mean Corpuscular Hemoglobin 31pg (25-35) Mean Corpuscular Hemoglobin Concent 33g/dL (31-37) Red Cell Distribution Width 15.6% (11.5-14.5) Platelet Count 151x10^3/uL (140-400) Neutrophils (%) (Auto) 78% (31-73) Lymphocytes (%) (Auto) 11% (24-48) Monocytes (%) (Auto) 11% (0-9) Eosinophils (%) (Auto) 1% (0-3) Basophils (%) (Auto) 0% (0-3) Neutrophils # (Auto) 8.8x10^3uL (1.8-7.7) Lymphocytes # (Auto) 1.2x10^3/uL (1.0-4.8) Monocytes # (Auto) 1.2x10^3/uL (0.0-1.1) Eosinophils # (Auto) 0.1x10^3/uL (0.0-0.7) Basophils # (Auto) 0.0x10^3/uL (0.0-0.2) Sodium Level 134mmol/L (136-145) Potassium Level 4.1mmol/L (3.5-5.1) Chloride Level 102mmol/L (98-107) Carbon Dioxide Level 24mmol/L (21-32) Anion Gap 8 (6-14) Blood Urea Nitrogen 22mg/dL (8-26) Creatinine 1.9mg/dL (0.7-1.3) Estimated GFR (Cockcroft-Gault) 43.5 Glucose Level 123mg/dL (70-99) Calcium Level 8.3mg/dL (8.5-10.1) Phosphorus Level 3.9mg/dL (2.6-4.7) Magnesium Level 1.9mg/dL (1.8-2.4) Albumin 2.7g/dL (3.4-5.0) Test 08/10/16 08:00 Glucose (Fingerstick) 136mg/dL (70-99) JONI CRISOSTOMO MD August 10, 2016 11:23
--- NOTE | 2016-08-10 12:14 | PDOC ---
SAAD CHUNG TRACTOR TRAILER DRIVER 08/10/16 1214: CARDIO Progress Notes Date and Time Date of Service 08/10/2016 Time of Evaluation 1200 Subjective Subjective: No Chest Pain, No shortness of breath, No Palpitations, No Dizziness Vitals Vitals Vital Signs Date Time Temp Pulse Resp B/P Pulse Ox O2 Delivery O2 Flow Rate FiO2 08/10/16 08:00 Room Air 08/10/16 07:00 83 12 159/81 99 08/10/16 04:00 98.2 98.2 08/09/16 09:49 2.0 Weight Weight [ ] Input and Output Intake and Output Intake and Output 08/10/16 06:59 Intake Total 1912 ml Output Total 1510 ml Balance 402 ml Intake Oral 1000 ml IV Total 912 ml Output Urine Total 1510 ml Laboratory Labs Laboratory Tests Test 08/09/16 12:06 08/09/16 17:45 08/09/16 20:56 08/10/16 04:20 Glucose (Fingerstick) 168mg/dL (70-99) 125mg/dL (70-99) 173mg/dL (70-99) White Blood Count 11.2x10^3/uL (4.0-11.0) Red Blood Count 3.67x10^6/uL (4.30-5.70) Hemoglobin 11.4g/dL (13.0-17.5) Hematocrit 35.2% (39.0-53.0) Mean Corpuscular Volume 96fL (79-100) Mean Corpuscular Hemoglobin 31pg (25-35) Mean Corpuscular Hemoglobin Concent 33g/dL (31-37) Red Cell Distribution Width 15.6% (11.5-14.5) Platelet Count 151x10^3/uL (140-400) Neutrophils (%) (Auto) 78% (31-73) Lymphocytes (%) (Auto) 11% (24-48) Monocytes (%) (Auto) 11% (0-9) Eosinophils (%) (Auto) 1% (0-3) Basophils (%) (Auto) 0% (0-3) Neutrophils # (Auto) 8.8x10^3uL (1.8-7.7) Lymphocytes # (Auto) 1.2x10^3/uL (1.0-4.8) Monocytes # (Auto) 1.2x10^3/uL (0.0-1.1) Eosinophils # (Auto) 0.1x10^3/uL (0.0-0.7) Basophils # (Auto) 0.0x10^3/uL (0.0-0.2) Sodium Level 134mmol/L (136-145) Potassium Level 4.1mmol/L (3.5-5.1) Chloride Level 102mmol/L (98-107) Carbon Dioxide Level 24mmol/L (21-32) Anion Gap 8 (6-14) Blood Urea Nitrogen 22mg/dL (8-26) Creatinine 1.9mg/dL (0.7-1.3) Estimated GFR (Cockcroft-Gault) 43.5 Glucose Level 123mg/dL (70-99) Calcium Level 8.3mg/dL (8.5-10.1) Phosphorus Level 3.9mg/dL (2.6-4.7) Magnesium Level 1.9mg/dL (1.8-2.4) Albumin 2.7g/dL (3.4-5.0) Test 08/10/16 08:00 Glucose (Fingerstick) 136mg/dL (70-99) Physical Exam HEENT: Neck Supple W Full Motion Chest: Symmetric LUNGS: Clear to Auscultation Heart: S1S2, RRR (SR ) Abdomen: Soft N/T Extremities: No Calf Tenderness Neurology: alert, oriented, follow commands Other Exams bilateral groin arteriotomy site intact without swelling, erythema, neurovascular status to bilateral LE intact Assessment Assessment 1. Acute CVA: received tPA in ED. Neurology following 2. NSTEMI: Multivessel disease. S/P Impella assisted PTCA to LM, LAD, LCx, and PCI to RCA 3. EMILY: improved. nephrology following 4. Cardiogenic shock: BP now stable 5. Severe ICM/acute on chronic systolic CHF: Good diurese. NYHA 2-3. EF <20% 6. Known CAD: s/p PCI/YINKA to LM and ostial/proximal LAD on 02/2016. 7. Peripheral Vascular Disease 8. PAFIB: no AFIB but noted with runs of atrial tach and PVCs (likely milrinone related). [id number] 6. 9. Hypertension: controlled 10. [id number] 11. Noncompliance Recommendations 1. Milrinone therapy will titrate off this afternoon 2. Continue with secondary prevention. DAPT with ASA/brillinta. Will transition to plavix in 1 month 3. If BP remains adequate then will start on BB 4. Hold ACEi/ARB. Good candidate for entresto, will verify ins coverage otherwise ACEi will be started. 5. Start lasix therapy tomorrow. 6. Will have SW/CM clarify in regards to medical insurance. 7. Will arrange for [employer] reevaluate in 3 months via TTE for need of AICD. 8. ASA for stroke prevention. Due to acute CVA would not be able to proceed with OAC/NOAC till cleared by neurology. 9. Again discussed significant adherence. ANGEL ROBLES MD 08/10/16 2115: CARDIO Progress Notes Plan Plan Pt. seen and examined. AGree with above DOPE WORKER note. No acute events overnight. Denies cp/dyspnea. Sitting in chair. Labs stable. No edema. Med changes as noted above. Will follow. Prog still quite gaurded, discussed with cousin. SAAD CHUNG TRACTOR TRAILER DRIVER August 10, 2016 12:14 ANGEL ROBLES MD August 10, 2016 21:15
--- NOTE | 2016-08-10 13:43 | PDOC ---
PROGRESS NOTES Chief Complaint Chief Complaint stroke -CVA -NSTEMI -coronary stent -acute renal failure -Systolic heart failure -atrial fibrillation -hypertension -COPD -chronic kidney disease -DM -hyperlipidemia History of Present Illness History of Present Illness sitting up an eating, friends visits s/p stents He no longer c/o chest pain. We discussed care with family member Vitals Vitals Vital Signs Date Time Temp Pulse Resp B/P Pulse Ox O2 Delivery O2 Flow Rate FiO2 08/10/16 08:00 Room Air 08/10/16 07:00 83 12 159/81 99 08/10/16 04:00 98.2 98.2 08/09/16 09:49 2.0 Physical Exam General: Alert, Cooperative, No acute distress Heart: Regular rate (SR), No murmurs Lungs: Clear, Other (He had decreased inspiratory effort. ) Abdomen: No tenderness, No masses Extremities: No cyanosis, No edema Skin: No rashes, No breakdown Labs LABS Laboratory Tests Test 08/09/16 17:45 08/09/16 20:56 08/10/16 04:20 08/10/16 08:00 Glucose (Fingerstick) 125mg/dL (70-99) 173mg/dL (70-99) 136mg/dL (70-99) White Blood Count 11.2x10^3/uL (4.0-11.0) Red Blood Count 3.67x10^6/uL (4.30-5.70) Hemoglobin 11.4g/dL (13.0-17.5) Hematocrit 35.2% (39.0-53.0) Mean Corpuscular Volume 96fL (79-100) Mean Corpuscular Hemoglobin 31pg (25-35) Mean Corpuscular Hemoglobin Concent 33g/dL (31-37) Red Cell Distribution Width 15.6% (11.5-14.5) Platelet Count 151x10^3/uL (140-400) Neutrophils (%) (Auto) 78% (31-73) Lymphocytes (%) (Auto) 11% (24-48) Monocytes (%) (Auto) 11% (0-9) Eosinophils (%) (Auto) 1% (0-3) Basophils (%) (Auto) 0% (0-3) Neutrophils # (Auto) 8.8x10^3uL (1.8-7.7) Lymphocytes # (Auto) 1.2x10^3/uL (1.0-4.8) Monocytes # (Auto) 1.2x10^3/uL (0.0-1.1) Eosinophils # (Auto) 0.1x10^3/uL (0.0-0.7) Basophils # (Auto) 0.0x10^3/uL (0.0-0.2) Sodium Level 134mmol/L (136-145) Potassium Level 4.1mmol/L (3.5-5.1) Chloride Level 102mmol/L (98-107) Carbon Dioxide Level 24mmol/L (21-32) Anion Gap 8 (6-14) Blood Urea Nitrogen 22mg/dL (8-26) Creatinine 1.9mg/dL (0.7-1.3) Estimated GFR (Cockcroft-Gault) 43.5 Glucose Level 123mg/dL (70-99) Calcium Level 8.3mg/dL (8.5-10.1) Phosphorus Level 3.9mg/dL (2.6-4.7) Magnesium Level 1.9mg/dL (1.8-2.4) Albumin 2.7g/dL (3.4-5.0) Test 08/10/16 11:54 Glucose (Fingerstick) 223mg/dL (70-99) Review of Systems Review of Systems no nv.d. Assessment and Plan Assessmemt and Plan transfer to floor planning rehab or other Problems Medical Problems: (1) CVA (cerebral vascular accident) Status: Acute Problems: Comment Review of Relevant I have reviewed the following items abdulaziz (where applicable) has been applied. Labs Laboratory Tests Test 08/08/16 17:28 08/08/16 18:20 08/08/16 21:36 08/09/16 05:00 Glucose (Fingerstick) 162mg/dL (70-99) 141mg/dL (70-99) Heparin Anti-Xa Act, Unfractionated 0.17IU/mL (0.30-0.70) White Blood Count 11.1x10^3/uL (4.0-11.0) Red Blood Count 3.97x10^6/uL (4.30-5.70) Hemoglobin 12.4g/dL (13.0-17.5) Hematocrit 37.1% (39.0-53.0) Mean Corpuscular Volume 94fL (79-100) Mean Corpuscular Hemoglobin 31pg (25-35) Mean Corpuscular Hemoglobin Concent 34g/dL (31-37) Red Cell Distribution Width 15.7% (11.5-14.5) Platelet Count 170x10^3/uL (140-400) Neutrophils (%) (Auto) 76% (31-73) Lymphocytes (%) (Auto) 13% (24-48) Monocytes (%) (Auto) 10% (0-9) Eosinophils (%) (Auto) 1% (0-3) Basophils (%) (Auto) 0% (0-3) Neutrophils # (Auto) 8.4x10^3uL (1.8-7.7) Lymphocytes # (Auto) 1.5x10^3/uL (1.0-4.8) Monocytes # (Auto) 1.1x10^3/uL (0.0-1.1) Eosinophils # (Auto) 0.1x10^3/uL (0.0-0.7) Basophils # (Auto) 0.0x10^3/uL (0.0-0.2) Magnesium Level 2.5mg/dL (1.8-2.4) Test 08/09/16 05:10 08/09/16 08:17 08/09/16 08:54 08/09/16 12:06 Sodium Level 136mmol/L (136-145) Potassium Level 4.2mmol/L (3.5-5.1) Chloride Level 103mmol/L (98-107) Carbon Dioxide Level 24mmol/L (21-32) Anion Gap 9 (6-14) Blood Urea Nitrogen 28mg/dL (8-26) Creatinine 2.0mg/dL (0.7-1.3) Estimated GFR (Cockcroft-Gault) 41.0 Glucose Level 130mg/dL (70-99) Calcium Level 8.2mg/dL (8.5-10.1) Phosphorus Level 4.0mg/dL (2.6-4.7) Albumin 2.8g/dL (3.4-5.0) Activated Clotting Time 242sec (92-181) 257sec (92-181) Glucose (Fingerstick) 168mg/dL (70-99) Test 08/09/16 17:45 08/09/16 20:56 08/10/16 04:20 08/10/16 08:00 Glucose (Fingerstick) 125mg/dL (70-99) 173mg/dL (70-99) 136mg/dL (70-99) White Blood Count 11.2x10^3/uL (4.0-11.0) Red Blood Count 3.67x10^6/uL (4.30-5.70) Hemoglobin 11.4g/dL (13.0-17.5) Hematocrit 35.2% (39.0-53.0) Mean Corpuscular Volume 96fL (79-100) Mean Corpuscular Hemoglobin 31pg (25-35) Mean Corpuscular Hemoglobin Concent 33g/dL (31-37) Red Cell Distribution Width 15.6% (11.5-14.5) Platelet Count 151x10^3/uL (140-400) Neutrophils (%) (Auto) 78% (31-73) Lymphocytes (%) (Auto) 11% (24-48) Monocytes (%) (Auto) 11% (0-9) Eosinophils (%) (Auto) 1% (0-3) Basophils (%) (Auto) 0% (0-3) Neutrophils # (Auto) 8.8x10^3uL (1.8-7.7) Lymphocytes # (Auto) 1.2x10^3/uL (1.0-4.8) Monocytes # (Auto) 1.2x10^3/uL (0.0-1.1) Eosinophils # (Auto) 0.1x10^3/uL (0.0-0.7) Basophils # (Auto) 0.0x10^3/uL (0.0-0.2) Sodium Level 134mmol/L (136-145) Potassium Level 4.1mmol/L (3.5-5.1) Chloride Level 102mmol/L (98-107) Carbon Dioxide Level 24mmol/L (21-32) Anion Gap 8 (6-14) Blood Urea Nitrogen 22mg/dL (8-26) Creatinine 1.9mg/dL (0.7-1.3) Estimated GFR (Cockcroft-Gault) 43.5 Glucose Level 123mg/dL (70-99) Calcium Level 8.3mg/dL (8.5-10.1) Phosphorus Level 3.9mg/dL (2.6-4.7) Magnesium Level 1.9mg/dL (1.8-2.4) Albumin 2.7g/dL (3.4-5.0) Test 08/10/16 11:54 Glucose (Fingerstick) 223mg/dL (70-99) Laboratory Tests Test 08/09/16 17:45 08/09/16 20:56 08/10/16 04:20 08/10/16 08:00 Glucose (Fingerstick) 125mg/dL (70-99) 173mg/dL (70-99) 136mg/dL (70-99) White Blood Count 11.2x10^3/uL (4.0-11.0) Red Blood Count 3.67x10^6/uL (4.30-5.70) Hemoglobin 11.4g/dL (13.0-17.5) Hematocrit 35.2% (39.0-53.0) Mean Corpuscular Volume 96fL (79-100) Mean Corpuscular Hemoglobin 31pg (25-35) Mean Corpuscular Hemoglobin Concent 33g/dL (31-37) Red Cell Distribution Width 15.6% (11.5-14.5) Platelet Count 151x10^3/uL (140-400) Neutrophils (%) (Auto) 78% (31-73) Lymphocytes (%) (Auto) 11% (24-48) Monocytes (%) (Auto) 11% (0-9) Eosinophils (%) (Auto) 1% (0-3) Basophils (%) (Auto) 0% (0-3) Neutrophils # (Auto) 8.8x10^3uL (1.8-7.7) Lymphocytes # (Auto) 1.2x10^3/uL (1.0-4.8) Monocytes # (Auto) 1.2x10^3/uL (0.0-1.1) Eosinophils # (Auto) 0.1x10^3/uL (0.0-0.7) Basophils # (Auto) 0.0x10^3/uL (0.0-0.2) Sodium Level 134mmol/L (136-145) Potassium Level 4.1mmol/L (3.5-5.1) Chloride Level 102mmol/L (98-107) Carbon Dioxide Level 24mmol/L (21-32) Anion Gap 8 (6-14) Blood Urea Nitrogen 22mg/dL (8-26) Creatinine 1.9mg/dL (0.7-1.3) Estimated GFR (Cockcroft-Gault) 43.5 Glucose Level 123mg/dL (70-99) Calcium Level 8.3mg/dL (8.5-10.1) Phosphorus Level 3.9mg/dL (2.6-4.7) Magnesium Level 1.9mg/dL (1.8-2.4) Albumin 2.7g/dL (3.4-5.0) Test 08/10/16 11:54 Glucose (Fingerstick) 223mg/dL (70-99) Medications Current Medications Aspirin 325 mg 325 mg 1X ONCE PO Last administered on 08/05/16 10:48; Start 08/05/16 at 11:00; Stop 08/05/16 at 11:01; Status DC Alteplase, Recombinant 0 ml @ 0 mls/hr 1X ONCE IV ; Start 08/05/16 at 12:30; Stop 08/05/16 at 12:31; Status Cancel Alteplase, Recombinant 0 ml @ 0 mls/hr Q1H IV ; Start 08/05/16 at 12:40; Stop at 12:41; Status Cancel Alteplase, Recombinant 7 ml @ 420 mls/hr 1X ONCE IV Last administered on 12:50; Start 08/05/16 at 12:30; Stop 08/05/16 at 12:31; Status DC Alteplase, Recombinant (Activase) 62 ml @ 62 mls/hr Q1H IV Last administered on 08/05/16 12:51; Start 08/05/16 at 12:30; Stop 08/05/16 at 13:29; Status DC Furosemide 40 mg 40 mg 1X ONCE IVP Last administered on 08/05/16 13:30; Start 08/05/16 at 13:30; Stop 08/05/16 at 13:31; Status DC Sodium Bicarbonate 100 meq/Sodium Chloride 600 ml @ 500 mls/hr 1X ONCE IV ; Start 08/05/16 at 13:15; Stop 08/05/16 at 14:26; Status Cancel Sodium Bicarbonate 100 meq/Dextrose 600 ml @ 500 mls/hr 1X ONCE IV Last administered on 08/05/16 13:40; Start 08/05/16 at 13:15; Stop 08/05/16 at 14:26 ; Status DC Magnesium Sulfate/ Dextrose 50 ml @ 25 mls/hr PRN DAILY PRN IV for Mag < 1.7 on am labs Last administered on 08/08/16 18:09; Start 08/05/16 at 14:30 Sodium Chloride (Iv Sodium Chloride 0.9% 500ml Bag) 500 ml @ 0 mls/hr QID PRN IV UO< 30cc/hr over previous 6hrs; Start 08/05/16 at 14:45; Stop 08/07/16 at 07: 59; Status DC Insulin Detemir (Levemir) 10 units QHS SQ Last administered on 08/09/16 21:01; Start 08/05/16 at 21:00 Insulin Aspart (Novolog) 0-7 UNITS TIDWMEALS SQ Last administered on 08/10/16 12:13; Start 08/05/16 at 17:00 Dextrose (Dextrose 50%-Water Syringe) 12.5 gm PRN Q15MIN PRN IV SEE COMMENTS; Start 08/05/16 at 16:00 Dextrose (Dextrose 50%-Water Syringe) 25 gm 1X ONCE IV Last administered on 16:42; Start 08/05/16 at 16:15; Stop 08/05/16 at 16:16; Status DC Insulin Human Regular (Novolin R Vial) 10 unit 1X ONCE IV Last administered on 08/05/16 16:43; Start 08/05/16 at 16:15; Stop 08/05/16 at 16:16; Status DC Calcium Gluconate (Calcium Gluconate) 1,000 mg 1X ONCE IVP Last administered on 08/05/16 16:47; Start 08/05/16 at 16:15; Stop 08/05/16 at 16:16; Status DC Ondansetron HCl 4 mg 4 mg PRN Q6HRS PRN IV NAUSEA/VOMITING Last administered on 08/09/16 13:03; Start 08/05/16 at 17:15 Milrinone Lactate/ Dextrose (Primacor Premix) 100 ml @ 0 mls/hr CONT PRN IV SEE I/O RECORD Last administered on 08/10/16 04:50; Start 08/05/16 at 18:15; Stop 08/10/16 at 12:42; Status DC Aspirin (Children'S Aspirin) 81 mg DAILYWBKFT PO Last administered on 08/10/16 08:18; Start 08/06/16 at 15:00 Atorvastatin Calcium 40 mg 40 mg QHS PO Last administered on 08/09/16 21:00; Start 08/06/16 at 21:00 Heparin Sodium/ Dextrose 500 ml @ 0 mls/hr CONT PRN IV SEE I/O RECORD Last administered on 08/06/16 15:43; Start 08/06/16 at 14:30; Stop 08/08/16 at 06:59 ; Status DC Heparin Sodium (Porcine) (Heparin Sodium) 1,650 unit PRN Q6HRS PRN IV FOR UFH LEVEL LESS THAN 0.2; Start 08/06/16 at 14:30; Stop 08/07/16 at 00:21; Status DC Furosemide (Lasix) 20 mg DAILY IVP Last administered on 08/07/16 10:01; Start 08/06/16 at 17:00; Stop 08/08/16 at 15:45; Status DC Furosemide (Lasix) 20 mg DAILY IVP ; Start 08/06/16 at 18:00; Stop 08/06/16 at 18:00; Status DC Heparin Sodium (Porcine) 1650 unit 1,650 unit PRN Q6HRS PRN IV FOR UFH LEVEL LESS THAN 0.2; Start 08/07/16 at 00:00; Status UNV Amiodarone HCl 150 mg/Dextrose 103 ml @ 618 mls/hr 1X ONCE IV Last administered on 08/07/16 17:02; Start 08/07/16 at 16:30; Stop 08/07/16 at 16:39 ; Status DC Amiodarone HCl 900 mg/Dextrose 518 ml @ 0 mls/hr CONT PRN IV SEE I/O RECORD Last administered on 08/07/16 17:03; Start 08/07/16 at 16:30; Stop 08/07/16 at 17:11; Status DC Heparin Sodium/ Sodium Chloride 1,500 ml @ As Directed STK-MED ONCE .ROUTE ; Start 08/08/16 at 07:32; Stop 08/08/16 at 07:33; Status DC Lidocaine HCl 20 ml STK-MED ONCE .ROUTE ; Start 08/08/16 at 07:32; Stop 08/08/16 at 07:33; Status DC Iodixanol (Visipaque 320) 100 ml STK-MED ONCE .ROUTE ; Start 08/08/16 at 07:32; Stop 08/08/16 at 07:33; Status DC Fentanyl Citrate (Fentanyl 2ml Vial) 100 mcg STK-MED ONCE .ROUTE ; Start at 08:02; Stop 08/08/16 at 08:03; Status DC Midazolam HCl (Versed) 2 mg STK-MED ONCE .ROUTE ; Start 08/08/16 at 08:02; Stop 08/08/16 at 08:03; Status DC Heparin Sodium/ Sodium Chloride 1,000 unit 1X ONCE IART Last administered on 08:28; Start 08/08/16 at 08:15; Stop 08/08/16 at 08:16; Status DC Midazolam HCl (Versed) 2 mg 1X ONCE IV Last administered on 08/08/16 08:31; Start 08/08/16 at 08:15; Stop 08/08/16 at 08:16; Status DC Fentanyl Citrate (Fentanyl 2ml Vial) 100 mcg 1X ONCE IV Last administered on 08:31; Start 08/08/16 at 08:15; Stop 08/08/16 at 08:17; Status DC Iodixanol (Visipaque 320) 100 ml 1X ONCE IART Last administered on 08/08/16 09 :50; Start 08/08/16 at 08:15; Stop 08/08/16 at 08:17; Status DC Lidocaine HCl 20 ml 20 ml 1X ONCE IJ Last administered on 08/08/16 08:29; Start 08/08/16 at 08:15; Stop 08/08/16 at 08:17; Status DC Heparin Sodium/ Sodium Chloride 500 ml @ As Directed STK-MED ONCE .ROUTE ; Start 08/08/16 at 08:30; Stop 08/08/16 at 08:31; Status DC Heparin Sodium (Porcine) (Heparin Sodium) 10,000 unit STK-MED ONCE .ROUTE ; Start 08/08/16 at 08:34; Stop 08/08/16 at 08:35; Status DC Heparin Sodium (Porcine) (Heparin 5,000 Units/1,000ml NS) 5,000 unit 1X ONCE IV Last administered on 08/08/16 09:15; Start 08/08/16 at 09:15; Stop 08/08/16 at 09:16; Status DC Heparin Sodium (Porcine) 2000 unit 2,000 unit 1X ONCE IV Last administered on 08/08/16 09:48; Start 08/08/16 at 09:15; Stop 08/08/16 at 09:16; Status DC Magnesium Sulfate/ Dextrose 100 ml @ 100 mls/hr 1X ONCE IV Last administered on 08/08/16 11:38; Start 08/08/16 at 11:00; Stop 08/08/16 at 11:59; Status DC Heparin Sodium/ Dextrose 500 ml @ 0 mls/hr CONT PRN IV SEE I/O RECORD; Start at 10:45; Stop 08/08/16 at 11:29; Status DC Heparin Sodium/ Dextrose 500 ml @ 0 mls/hr CONT PRN IV SEE I/O RECORD Last administered on 08/08/16 11:00; Start 08/08/16 at 11:30; Stop 08/10/16 at 09:30; Status DC Info 1 each 1 each PRN DAILY PRN MC SEE COMMENTS; Start 08/08/16 at 14:00; Stop 08/10/16 at 09:30; Status DC Heparin Sodium/ Sodium Chloride 1,500 ml @ As Directed STK-MED ONCE .ROUTE ; Start 08/09/16 at 06:41; Stop 08/09/16 at 06:42; Status DC Iodixanol (Visipaque 320) 100 ml STK-MED ONCE .ROUTE ; Start 08/09/16 at 06:41; Stop 08/09/16 at 06:42; Status DC Lidocaine HCl 20 ml STK-MED ONCE .ROUTE ; Start 08/09/16 at 06:41; Stop 08/09/16 at 06:42; Status DC Fentanyl Citrate (Fentanyl 2ml Vial) 100 mcg STK-MED ONCE .ROUTE ; Start at 07:29; Stop 08/09/16 at 07:30; Status DC Midazolam HCl (Versed) 2 mg STK-MED ONCE .ROUTE ; Start 08/09/16 at 07:29; Stop 08/09/16 at 07:30; Status DC Heparin Sodium (Porcine) (Heparin Sodium) 10,000 unit STK-MED ONCE .ROUTE ; Start 08/09/16 at 07:36; Stop 08/09/16 at 07:37; Status DC Phenylephrine HCl 1 mg 1 mg STK-MED ONCE IV ; Start 08/09/16 at 07:36; Stop at 07:37; Status DC Heparin Sodium/ Sodium Chloride 500 ml @ As Directed STK-MED ONCE .ROUTE ; Start 08/09/16 at 08:18; Stop 08/09/16 at 08:19; Status DC Heparin Sodium/ Sodium Chloride 1,000 unit 1X ONCE IART Last administered on 09:47; Start 08/09/16 at 09:00; Stop 08/09/16 at 09:07; Status DC Midazolam HCl (Versed) 2 mg 1X ONCE IV Last administered on 08/09/16 09:48; Start 08/09/16 at 09:00; Stop 08/09/16 at 09:07; Status DC Fentanyl Citrate (Fentanyl 2ml Vial) 100 mcg 1X ONCE IV Last administered on 09:49; Start 08/09/16 at 09:00; Stop 08/09/16 at 09:07; Status DC Iodixanol (Visipaque 320) 100 ml 1X ONCE IART Last administered on 08/09/16 09 :48; Start 08/09/16 at 09:00; Stop 08/09/16 at 09:07; Status DC Ticagrelor (Brilinta) 180 mg 1X ONCE PO Last administered on 08/09/16 12:42; Start 08/09/16 at 09:00; Stop 08/09/16 at 09:07; Status DC Heparin Sodium (Porcine) (Heparin Sodium) 7,000 unit 1X ONCE IV Last administered on 08/09/16 09:49; Start 08/09/16 at 09:00; Stop 08/09/16 at 09:07; Status DC Lidocaine HCl 20 ml 20 ml 1X ONCE IJ Last administered on 08/09/16 09:48; Start 08/09/16 at 09:00; Stop 08/09/16 at 09:07; Status DC Cefazolin Sodium 50 ml @ 100 mls/hr 1X ONCE IV ; Start 08/09/16 at 09:45; Stop 08/09/16 at 10:14; Status Cancel Sodium Chloride 250 ml @ 50 mls/hr 1X ONCE IV Last administered on 08/09/16 09:49; Start 08/09/16 at 09:45; Stop 08/09/16 at 14:44; Status DC Cefazolin Sodium/ Sodium Chloride (Ancef/Iv Sodium Chloride 0.9% 50ml) 50 ml @ 100 mls/hr 1X ONCE IV Last administered on 08/09/16 14:12; Start 08/09/16 at 13 :00; Stop 08/09/16 at 13:29; Status DC Fentanyl Citrate 25 mcg 25 mcg PRN Q2HR PRN IV PAIN Last administered on 13:35; Start 08/09/16 at 13:30 Sodium Chloride (Iv Sodium Chloride 0.9% 1000ml Bag) 1,000 ml @ 50 mls/hr Q20H IV Last administered on 08/10/16 04:50; Start 08/09/16 at 16:30 Ticagrelor (Brilinta) 90 mg BID PO Last administered on 08/10/16 08:17; Start 08/10/16 at 09:00 Ticagrelor (Brilinta) 90 mg 1X ONCE PO Last administered on 08/09/16 23:14; Start 08/09/16 at 23:00; Stop 08/09/16 at 23:01; Status DC Active Scripts Active Cyclobenzaprine Hcl 10 Mg Tablet 1 Tab PO TID PRN Hydrocodone-Ibuprofen 7.5-200 (Hydrocodone/Ibuprofen) 1 Each Tablet 1 Tab PO PRN Q6HRS PRN Effient (Prasugrel Hcl) 10 Mg Tablet 10 Mg PO DAILYWBKFT SIG: ONE PO DAILY Hydralazine Hcl 50 Mg Tablet 50 Mg PO TID SIG: ONE BY MOUTH EVERY 8 HOURS; REPLACES NIFEDIPINE Carvedilol 12.5 Mg Tablet 12.5 Mg PO BIDWMEALS SIG: ONE P.O. BID; REPLACES CLONIDINE Reported Glimepiride 4 Mg Tablet 1 Tab PO DAILY Januvia (Sitagliptin Phosphate) 100 Mg Tablet 1 Tab PO DAILY Spironolactone 100 Mg Tablet 1 Tab PO DAILY Allopurinol 100 Mg Tablet 1 Tab PO DAILY Atorvastatin Calcium 40 Mg Tablet 1 Tab PO DAILY Aspir 81 (Aspirin) 81 Mg Tablet. 81 Tab PO DAILY Vitals/I & O Vital Sign - Last 24 Hours 08/09/16 08/09/16 08/09/16 08/09/16 14:00 15:00 16:00 16:00 Temp 98.3 98.3 Pulse 76 76 82 Resp 16 17 B/P 131/74 151/75 154/73 Pulse Ox 95 100 100 O2 Delivery Room Air Room Air Room Air Room Air 08/09/16 08/09/16 08/09/16 08/09/16 17:00 18:00 19:00 20:04 Temp 98.6 98.6 Pulse 78 85 97 88 Resp 18 20 18 18 B/P 160/68 168/70 168/74 130/55 Pulse Ox 100 100 99 97 O2 Delivery Room Air Room Air Nasal Cannula Room Air 08/09/16 08/09/16 08/09/16 08/09/16 20:11 21:08 22:04 23:09 Pulse 88 86 90 Resp 18 18 20 B/P 159/73 152/80 169/79 Pulse Ox 100 99 97 O2 Delivery Room Air Room Air Room Air Room Air 08/10/16 08/10/16 08/10/16 08/10/16 00:07 00:08 01:04 02:00 Temp 98.9 98.9 Pulse 90 99 82 Resp 20 20 18 B/P 140/73 148/76 160/80 Pulse Ox 100 99 93 O2 Delivery Room Air Room Air Room Air Room Air 08/10/16 08/10/16 08/10/16 08/10/16 03:13 04:00 04:00 05:02 Temp 98.2 98.2 Pulse 90 79 84 Resp 18 20 18 B/P 144/81 152/74 158/70 Pulse Ox 100 97 100 O2 Delivery Room Air Room Air Room Air Room Air 08/10/16 08/10/16 08/10/16 06:06 07:00 08:00 Pulse 90 83 Resp 20 12 B/P 139/64 159/81 Pulse Ox 98 99 O2 Delivery Room Air Room Air Room Air Intake and Output 08/09/16 08/09/16 08/10/16 15:00 23:00 07:00 Intake Total 100 ml 678 ml 1134 ml Output Total 400 ml 210 ml 900 ml Balance -300 ml 468 ml 234 ml Nutrition Consultation Dietary Evaluation: Recommendations by RD: Dietary education by RD Comments: Rec. dysphagia II cardiac/ada diet with thin liquids per [employer] Educated on MNT for TLC diet and provided handouts for reference upon d/c Expected Outcomes/Goals: to meet >75% est nutr needs to identify 2 heart healthy foods Interpretation of weight loss: >10% in 6 months Malnutrition Findings: Body Fat Depletion (Non Severe: Mild Depletion Weight Status: Appropriate LIUDMILA ROUSE MD August 10, 2016 13:43
[2016-08-10] MEDS: ATORVASTATIN CALCIUM 40 MG TABLET. PO SCH (21:08)
[2016-08-10] MEDS: INSULIN DETEMIR 300 UNITS/3 ML INSULN.PEN. SQ SCH (21:12)
[2016-08-11] VITALS (8 sets, daily range): BP systolic 92–142; BP diastolic 48–88
[2016-08-11 03:30] LABS: BASO # 0.1 x10^3/uL (0.0-0.2); BASO % 1 % (0-3); EOS % 1 % (0-3); HEMATOCRIT 34.4 % (39.0-53.0); HEMOGLOBIN 11.6 g/dL (13.0-17.5); LYMPH # 1.5 x10^3/uL (1.0-4.8); LYMPH % 14 % (24-48); MEAN CORPUSCULAR HEMOGLOBIN 32 pg (25-35); MEAN CORPUSCULAR HGB CONC 34 g/dL (31-37); MEAN CORPUSCULAR VOLUME 94 fL (79-100); MONO % 11 % (0-9); NEUT % 73 % (31-73); PLATELET COUNT 166 x10^3/uL (140-400); RED BLOOD COUNT 3.65 x10^6/uL (4.30-5.70); RED CELL DISTRIBUTION WIDTH 15.5 % (11.5-14.5); WHITE BLOOD COUNT 10.6 x10^3/uL (4.0-11.0)
[2016-08-11] MEDS: INSULIN ASPART 300 UNITS/3 ML INSULN.PEN SQ SCH ×3 (08:00→17:00)
[2016-08-11 08:05] LABS: ALBUMIN 2.6 g/dL (3.4-5.0); CALCIUM 8.2 mg/dL (8.5-10.1); CREATININE 1.9 mg/dL (0.7-1.3); GFR 43.5; PHOSPHORUS 3.5 mg/dL (2.6-4.7); POTASSIUM 4.2 mmol/L (3.5-5.1)
[2016-08-11] MEDS: TICAGRELOR 90 MG TABLET. PO SCH ×2 (08:29→20:53)
[2016-08-11] MEDS: ASPIRIN CHEWABLE 81 MG TABLET. PO SCH (08:29)
[2016-08-11] MEDS ORDERED: METOPROLOL SUCC 24HR ER 25 MG TAB.ER.24H. PO SCH (09:00)
--- NOTE | 2016-08-11 09:50 | PDOC ---
SAAD CHUNG PEARL HAND 08/11/16 0950: CARDIO Progress Notes Date and Time Date of Service 08/11/2016 Time of Evaluation 0920 Subjective Subjective: No Chest Pain, No shortness of breath, No Palpitations, No Dizziness, Other (feels better today) Vitals Vitals Vital Signs Date Time Temp Pulse Resp B/P (MAP) Pulse Ox O2 Delivery O2 Flow Rate FiO2 08/11/16 08:00 98.1 89 17 142/88 (106) 100 Room Air 98.1 Weight Weight [ ] Input and Output Intake and Output Intake and Output 08/11/16 07:00 Intake Total 1528.7 ml Output Total 1725 ml Balance -196.3 ml Intake Oral 830 ml IV Total 698.7 ml Output Urine Total 1725 ml Laboratory Labs Laboratory Tests Test 08/10/16 11:54 08/10/16 16:40 08/10/16 20:31 08/11/16 03:08 Glucose (Fingerstick) 223 mg/dL (70-99) 109 mg/dL (70-99) 173 mg/dL (70-99) White Blood Count 10.6 x10^3/uL (4.0-11.0) Red Blood Count 3.65 x10^6/uL (4.30-5.70) Hemoglobin 11.6 g/dL (13.0-17.5) Hematocrit 34.4 % (39.0-53.0) Mean Corpuscular Volume 94 fL (79-100) Mean Corpuscular Hemoglobin 32 pg (25-35) Mean Corpuscular Hemoglobin Concent 34 g/dL (31-37) Red Cell Distribution Width 15.5 % (11.5-14.5) Platelet Count 166 x10^3/uL (140-400) Neutrophils (%) (Auto) 73 % (31-73) Lymphocytes (%) (Auto) 14 % (24-48) Monocytes (%) (Auto) 11 % (0-9) Eosinophils (%) (Auto) 1 % (0-3) Basophils (%) (Auto) 1 % (0-3) Neutrophils # (Auto) 7.7 x10^3uL (1.8-7.7) Lymphocytes # (Auto) 1.5 x10^3/uL (1.0-4.8) Monocytes # (Auto) 1.2 x10^3/uL (0.0-1.1) Eosinophils # (Auto) 0.1 x10^3/uL (0.0-0.7) Basophils # (Auto) 0.1 x10^3/uL (0.0-0.2) Sodium Level 137 mmol/L (136-145) Potassium Level 4.2 mmol/L (3.5-5.1) Chloride Level 104 mmol/L (98-107) Carbon Dioxide Level 23 mmol/L (21-32) Anion Gap 10 (6-14) Blood Urea Nitrogen 23 mg/dL (8-26) Creatinine 1.9 mg/dL (0.7-1.3) Estimated GFR (Cockcroft-Gault) 43.5 Glucose Level 122 mg/dL (70-99) Calcium Level 8.2 mg/dL (8.5-10.1) Phosphorus Level 3.5 mg/dL (2.6-4.7) Magnesium Level 1.8 mg/dL (1.8-2.4) Albumin 2.6 g/dL (3.4-5.0) Physical Exam HEENT: Neck Supple W Full Motion Chest: Symmetric LUNGS: Clear to Auscultation Heart: S1S2, RRR (SR with frequent PVCs) Abdomen: Soft N/T Extremities: No Calf Tenderness Neurology: alert, oriented, follow commands Assessment Assessment 1. Acute CVA: Appears no residuals. Neurology following 2. NSTEMI: Multivessel disease. S/P Impella assisted PTCA to LM, LAD, LCx, and PCI to RCA 3. EMILY: improved. nephrology following 4. Severe ICM/acute on chronic systolic CHF: NYHA 2-3. EF <20%, compensated 5. Known CAD: s/p PCI/YINKA to LM and ostial/proximal LAD on 02/2016. 6. Peripheral Vascular Disease 7. PAFIB: [id number] 6. Currently SR with frequent PVCs and PACs. 8. Hypertension: controlled 9. DM2/HLP 10. Noncompliance Recommendations 1. Off Milrinone. Start on low dose entresto (pt enrolled on support program, 2 wk samples and 30 day coupon provided), lasix, and toprol. 2. Continue with secondary prevention. DAPT with ASA/brillinta. Will transition to plavix in 1 month 3. Arrange for lifevest reevaluate in 3 months via TTE for need of AICD. 4. ASA for stroke prevention. Due to acute CVA would not be able to proceed with OAC/NOAC till cleared by neurology. 5. Reinforced adherence 6. Will need outpt CHF home health. 7. Fluid restrictions 2 L, daily weight and home BP monitoring 8. Anticipate DC tomorrow. Follow up in office in 4 weeks ANGEL ROBLES MD 08/12/16 1402: CARDIO Progress Notes Plan Plan Pt. seen and examined. Late entry for 08/11/2016 No acute events. Tolerating low dose meds. Continue titration. Anticipate dc on monday after 48 hours of oral meds Discussed with patient and family. SAAD CHUNG APRN August 11, 2016 09:50 ANGEL ROBLES MD August 12, 2016 14:02
[2016-08-11] MEDS: METOPROLOL SUCC 24HR ER 25 MG TAB.ER.24H. PO SCH (10:02)
[2016-08-11] MEDS: FUROSEMIDE 20 MG TABLET PO SCH (10:02)
[2016-08-11] MEDS: SACUBITRIL/VALSARTAN 24/26MG TABLET. PO SCH ×2 (10:03→20:53)
--- NOTE | 2016-08-11 10:40 | PDOC ---
SUBJECTIVE ROS EMILY / CKD III doing much better toda CVS: no Orthopnea, no CP RESP: no SOB, no CHING GI: no Nausea, no Vomiting : no Dysuria, no Urgency OBJECTIVE Vital Signs Vital Signs Date Time Temp Pulse Resp B/P (MAP) Pulse Ox O2 Delivery O2 Flow Rate FiO2 08/11/16 10:03 89 142/88 08/11/16 08:00 98.1 17 100 Room Air 98.1 I & 0 Intake and Output 08/11/16 07:00 Intake Total 1528.7 ml Output Total 1725 ml Balance -196.3 ml Intake Oral 830 ml IV Total 698.7 ml Output Urine Total 1725 ml PHYSICAL EXAM Physical Exam General Appearance: AAO x 3 today, In no apparent Distress Eyes: sclera anicteric; Conjunctiva Normal EN: No EN Drainage Mucous Memb. moist Neck: no JVD min JVP Supple no Thyromegaly CVS: S1 S2 + Murmur No Gallop No Rub no Edema Resp: no Rales no Rhonchi no Acc. Muscle use GI: BS hypoactive NO Bruit Non Tender Non Distended : no CVA tenderness; no Suprapubic Tenderness Assessment & Plan EMILY - mostly resolved. D/c French and reval CKD III - baseline creat ~ 1.8 in Feb 2016; Current fluid and E-lyte status does not necessitate emergent need for dialysis. Will re-evaluate for dialysis in the am Proteinruia - 1.1 gms - susepct DM/HTNsive /NS. Restart RAAS Blockade ie Entresto for now NSTEMI with sev CMyopathy now with PCI to LM - clinically appears to have done well. Low Alb - Doubt that its all due to Proteinuria COMMENT/RELEVANT DATA Meds Current Medications Medications (Trade) Dose Ordered Sig/Tom Start Time Stop Time Status Last Admin Dose Admin Alteplase, Recombinant 62 ml @ 62 mls/hr Q1H 08/05/16 12:30 08/05/16 13:29 DC 08/05/16 12:51 62 MLS/HR Amiodarone HCl 150 mg/Dextrose 103 ml @ 618 mls/hr 1X ONCE 08/07/16 16:30 08/07/16 16:39 DC 08/07/16 17:02 618 MLS/HR Amiodarone HCl 900 mg/Dextrose 518 ml @ 0 mls/hr CONT PRN 08/07/16 16:30 08/07/16 17:11 DC 08/07/16 17:03 33.3 MLS/HR Aspirin (Ayad Aspirin) 325 mg 1X ONCE 08/05/16 11:00 08/05/16 11:01 DC 08/05/16 10:48 325 MG Aspirin (Children'S Aspirin) 81 mg [id number] 08/06/16 15:00 08/11/16 08:29 81 MG Atorvastatin Calcium (Lipitor) 40 mg QHS 08/06/16 21:00 08/10/16 21:08 40 MG Calcium Gluconate (Calcium Gluconate) 1,000 mg 1X ONCE 08/05/16 16:15 08/05/16 16:16 DC 08/05/16 16:47 1,000 MG Cefazolin Sodium 1 gm/Sodium Chloride 50 ml @ 100 mls/hr 1X ONCE 08/09/16 13:00 08/09/16 13:29 DC 08/09/16 14:12 100 MLS/HR Dextrose (Dextrose 50%-Water Syringe) 25 gm 1X ONCE 08/05/16 16:15 08/05/16 16:16 DC 08/05/16 16:42 25 GM Fentanyl Citrate (Fentanyl 2ml Vial) 25 mcg PRN Q2HR PRN 08/09/16 13:30 08/09/16 13:35 25 MCG Furosemide (Lasix) 20 mg DAILY 08/11/16 09:30 08/11/16 10:02 20 MG Heparin Sodium (Porcine) (Heparin 5,000 Units/1,000ml NS) 5,000 unit 1X ONCE 08/08/16 09:15 08/08/16 09:16 DC 08/08/16 09:15 5,000 UNIT Heparin Sodium (Porcine) (Heparin Sodium) 7,000 unit 1X ONCE 08/09/16 09:00 08/09/16 09:07 DC 08/09/16 09:49 7,000 UNIT Heparin Sodium/ Dextrose 500 ml @ 0 mls/hr CONT PRN 08/08/16 11:30 08/10/16 09:30 DC 08/08/16 11:00 19.5 MLS/HR Heparin Sodium/ Sodium Chloride 1,000 unit 1X ONCE 08/09/16 09:00 08/09/16 09:07 DC 08/09/16 09:47 1,000 UNIT Info (Anti-Coagulation Monitoring By Pharmacy) 1 each PRN DAILY PRN 08/08/16 14:00 08/10/16 09:30 DC Insulin Aspart (Novolog) 0-7 UNITS TIDWMEALS 08/05/16 17:00 08/10/16 12:13 4 UNITS Insulin Detemir (Levemir) 10 units QHS 08/05/16 21:00 08/10/16 21:12 10 UNITS Insulin Human Regular (Novolin R Vial) 10 unit 1X ONCE 08/05/16 16:15 08/05/16 16:16 DC 08/05/16 16:43 10 UNIT Iodixanol (Visipaque 320) 100 ml 1X ONCE 08/09/16 09:00 08/09/16 09:07 DC 08/09/16 09:48 144 ML Lidocaine HCl 20 ml 1X ONCE 08/09/16 09:00 08/09/16 09:07 DC 08/09/16 09:48 10 ML Magnesium Sulfate/ Dextrose 100 ml @ 100 mls/hr 1X ONCE 08/08/16 11:00 08/08/16 11:59 DC 08/08/16 11:38 100 MLS/HR Metoprolol Succinate (Toprol Xl) 25 mg DAILY 08/11/16 10:30 08/11/16 10:02 25 MG Midazolam HCl (Versed) 2 mg 1X ONCE 08/09/16 09:00 08/09/16 09:07 DC 08/09/16 09:48 2 MG Milrinone Lactate/ Dextrose 100 ml @ 0 mls/hr CONT PRN 08/05/16 18:15 08/10/16 12:42 DC 08/10/16 04:50 2.7 MLS/HR Ondansetron HCl (Zofran) 4 mg PRN Q6HRS PRN 08/05/16 17:15 08/09/16 13:03 4 MG Phenylephrine HCl 1 mg STK-MED ONCE 08/09/16 07:36 08/09/16 07:37 DC Sacubitril/ Valsartan (Entresto 24 Mg-26 Mg) 1 tab BID 08/11/16 09:00 08/11/16 10:03 1 TAB Sodium Bicarbonate 100 meq/Dextrose 600 ml @ 500 mls/hr 1X ONCE 08/05/16 13:15 08/05/16 14:26 DC 08/05/16 13:40 500 MLS/HR Sodium Bicarbonate 100 meq/Sodium Chloride 600 ml @ 500 mls/hr 1X ONCE 08/05/16 13:15 08/05/16 14:26 Cancel Sodium Chloride 1,000 ml @ 50 mls/hr Q20H 08/09/16 16:30 08/10/16 23:45 50 MLS/HR Ticagrelor (Brilinta) 90 mg 1X ONCE 08/09/16 23:00 08/09/16 23:01 DC 08/09/16 23:14 90 MG Lab Laboratory Tests Test 08/10/16 11:54 08/10/16 16:40 08/10/16 20:31 08/11/16 03:08 Glucose (Fingerstick) 223 mg/dL (70-99) 109 mg/dL (70-99) 173 mg/dL (70-99) White Blood Count 10.6 x10^3/uL (4.0-11.0) Red Blood Count 3.65 x10^6/uL (4.30-5.70) Hemoglobin 11.6 g/dL (13.0-17.5) Hematocrit 34.4 % (39.0-53.0) Mean Corpuscular Volume 94 fL (79-100) Mean Corpuscular Hemoglobin 32 pg (25-35) Mean Corpuscular Hemoglobin Concent 34 g/dL (31-37) Red Cell Distribution Width 15.5 % (11.5-14.5) Platelet Count 166 x10^3/uL (140-400) Neutrophils (%) (Auto) 73 % (31-73) Lymphocytes (%) (Auto) 14 % (24-48) Monocytes (%) (Auto) 11 % (0-9) Eosinophils (%) (Auto) 1 % (0-3) Basophils (%) (Auto) 1 % (0-3) Neutrophils # (Auto) 7.7 x10^3uL (1.8-7.7) Lymphocytes # (Auto) 1.5 x10^3/uL (1.0-4.8) Monocytes # (Auto) 1.2 x10^3/uL (0.0-1.1) Eosinophils # (Auto) 0.1 x10^3/uL (0.0-0.7) Basophils # (Auto) 0.1 x10^3/uL (0.0-0.2) Sodium Level 137 mmol/L (136-145) Potassium Level 4.2 mmol/L (3.5-5.1) Chloride Level 104 mmol/L (98-107) Carbon Dioxide Level 23 mmol/L (21-32) Anion Gap 10 (6-14) Blood Urea Nitrogen 23 mg/dL (8-26) Creatinine 1.9 mg/dL (0.7-1.3) Estimated GFR (Cockcroft-Gault) 43.5 Glucose Level 122 mg/dL (70-99) Calcium Level 8.2 mg/dL (8.5-10.1) Phosphorus Level 3.5 mg/dL (2.6-4.7) Magnesium Level 1.8 mg/dL (1.8-2.4) Albumin 2.6 g/dL (3.4-5.0) JONI CRISOSTOMO MD August 11, 2016 10:39
--- NOTE | 2016-08-11 13:20 | PDOC ---
PROGRESS NOTES Chief Complaint Chief Complaint stroke -CVA -NSTEMI -coronary stent -acute renal failure -Systolic heart failure -atrial fibrillation -hypertension -COPD -chronic kidney disease -DM -hyperlipidemia History of Present Illness History of Present Illness sitting up an eating, family visiting s/p stents He no longer c/o chest pain. We discussed care with family member eating better, still weakness will check orthostatics need pT And ot Vitals Vitals Vital Signs Date Time Temp Pulse Resp B/P (MAP) Pulse Ox O2 Delivery O2 Flow Rate FiO2 08/11/16 12:00 98.3 81 18 128/60 (82) 98 Room Air 98.3 Physical Exam General: Alert, Cooperative, No acute distress Heart: Regular rate (SR), No murmurs Lungs: Clear, Other (He had decreased inspiratory effort. ) Abdomen: No tenderness, No masses Extremities: No cyanosis, No edema Skin: No rashes, No breakdown Labs LABS Laboratory Tests Test 08/10/16 16:40 08/10/16 20:31 08/11/16 03:08 08/11/16 07:27 Glucose (Fingerstick) 109 mg/dL (70-99) 173 mg/dL (70-99) 118 mg/dL (70-99) White Blood Count 10.6 x10^3/uL (4.0-11.0) Red Blood Count 3.65 x10^6/uL (4.30-5.70) Hemoglobin 11.6 g/dL (13.0-17.5) Hematocrit 34.4 % (39.0-53.0) Mean Corpuscular Volume 94 fL (79-100) Mean Corpuscular Hemoglobin 32 pg (25-35) Mean Corpuscular Hemoglobin Concent 34 g/dL (31-37) Red Cell Distribution Width 15.5 % (11.5-14.5) Platelet Count 166 x10^3/uL (140-400) Neutrophils (%) (Auto) 73 % (31-73) Lymphocytes (%) (Auto) 14 % (24-48) Monocytes (%) (Auto) 11 % (0-9) Eosinophils (%) (Auto) 1 % (0-3) Basophils (%) (Auto) 1 % (0-3) Neutrophils # (Auto) 7.7 x10^3uL (1.8-7.7) Lymphocytes # (Auto) 1.5 x10^3/uL (1.0-4.8) Monocytes # (Auto) 1.2 x10^3/uL (0.0-1.1) Eosinophils # (Auto) 0.1 x10^3/uL (0.0-0.7) Basophils # (Auto) 0.1 x10^3/uL (0.0-0.2) Sodium Level 137 mmol/L (136-145) Potassium Level 4.2 mmol/L (3.5-5.1) Chloride Level 104 mmol/L (98-107) Carbon Dioxide Level 23 mmol/L (21-32) Anion Gap 10 (6-14) Blood Urea Nitrogen 23 mg/dL (8-26) Creatinine 1.9 mg/dL (0.7-1.3) Estimated GFR (Cockcroft-Gault) 43.5 Glucose Level 122 mg/dL (70-99) Calcium Level 8.2 mg/dL (8.5-10.1) Phosphorus Level 3.5 mg/dL (2.6-4.7) Magnesium Level 1.8 mg/dL (1.8-2.4) Albumin 2.6 g/dL (3.4-5.0) Test 08/11/16 10:52 Glucose (Fingerstick) 184 mg/dL (70-99) Review of Systems Review of Systems no n.v/d Assessment and Plan Assessmemt and Plan Problems Medical Problems: (1) CVA (cerebral vascular accident) Status: Acute Problems: Comment Review of Relevant I have reviewed the following items abdulaziz (where applicable) has been applied. Labs Laboratory Tests Test 08/09/16 17:45 08/09/16 20:56 08/10/16 04:20 08/10/16 08:00 Glucose (Fingerstick) 125 mg/dL (70-99) 173 mg/dL (70-99) 136 mg/dL (70-99) White Blood Count 11.2 x10^3/uL (4.0-11.0) Red Blood Count 3.67 x10^6/uL (4.30-5.70) Hemoglobin 11.4 g/dL (13.0-17.5) Hematocrit 35.2 % (39.0-53.0) Mean Corpuscular Volume 96 fL (79-100) Mean Corpuscular Hemoglobin 31 pg (25-35) Mean Corpuscular Hemoglobin Concent 33 g/dL (31-37) Red Cell Distribution Width 15.6 % (11.5-14.5) Platelet Count 151 x10^3/uL (140-400) Neutrophils (%) (Auto) 78 % (31-73) Lymphocytes (%) (Auto) 11 % (24-48) Monocytes (%) (Auto) 11 % (0-9) Eosinophils (%) (Auto) 1 % (0-3) Basophils (%) (Auto) 0 % (0-3) Neutrophils # (Auto) 8.8 x10^3uL (1.8-7.7) Lymphocytes # (Auto) 1.2 x10^3/uL (1.0-4.8) Monocytes # (Auto) 1.2 x10^3/uL (0.0-1.1) Eosinophils # (Auto) 0.1 x10^3/uL (0.0-0.7) Basophils # (Auto) 0.0 x10^3/uL (0.0-0.2) Sodium Level 134 mmol/L (136-145) Potassium Level 4.1 mmol/L (3.5-5.1) Chloride Level 102 mmol/L (98-107) Carbon Dioxide Level 24 mmol/L (21-32) Anion Gap 8 (6-14) Blood Urea Nitrogen 22 mg/dL (8-26) Creatinine 1.9 mg/dL (0.7-1.3) Estimated GFR (Cockcroft-Gault) 43.5 Glucose Level 123 mg/dL (70-99) Calcium Level 8.3 mg/dL (8.5-10.1) Phosphorus Level 3.9 mg/dL (2.6-4.7) Magnesium Level 1.9 mg/dL (1.8-2.4) Albumin 2.7 g/dL (3.4-5.0) Test 08/10/16 11:54 08/10/16 16:40 08/10/16 20:31 08/11/16 03:08 Glucose (Fingerstick) 223 mg/dL (70-99) 109 mg/dL (70-99) 173 mg/dL (70-99) White Blood Count 10.6 x10^3/uL (4.0-11.0) Red Blood Count 3.65 x10^6/uL (4.30-5.70) Hemoglobin 11.6 g/dL (13.0-17.5) Hematocrit 34.4 % (39.0-53.0) Mean Corpuscular Volume 94 fL (79-100) Mean Corpuscular Hemoglobin 32 pg (25-35) Mean Corpuscular Hemoglobin Concent 34 g/dL (31-37) Red Cell Distribution Width 15.5 % (11.5-14.5) Platelet Count 166 x10^3/uL (140-400) Neutrophils (%) (Auto) 73 % (31-73) Lymphocytes (%) (Auto) 14 % (24-48) Monocytes (%) (Auto) 11 % (0-9) Eosinophils (%) (Auto) 1 % (0-3) Basophils (%) (Auto) 1 % (0-3) Neutrophils # (Auto) 7.7 x10^3uL (1.8-7.7) Lymphocytes # (Auto) 1.5 x10^3/uL (1.0-4.8) Monocytes # (Auto) 1.2 x10^3/uL (0.0-1.1) Eosinophils # (Auto) 0.1 x10^3/uL (0.0-0.7) Basophils # (Auto) 0.1 x10^3/uL (0.0-0.2) Sodium Level 137 mmol/L (136-145) Potassium Level 4.2 mmol/L (3.5-5.1) Chloride Level 104 mmol/L (98-107) Carbon Dioxide Level 23 mmol/L (21-32) Anion Gap 10 (6-14) Blood Urea Nitrogen 23 mg/dL (8-26) Creatinine 1.9 mg/dL (0.7-1.3) Estimated GFR (Cockcroft-Gault) 43.5 Glucose Level 122 mg/dL (70-99) Calcium Level 8.2 mg/dL (8.5-10.1) Phosphorus Level 3.5 mg/dL (2.6-4.7) Magnesium Level 1.8 mg/dL (1.8-2.4) Albumin 2.6 g/dL (3.4-5.0) Test 08/11/16 07:27 08/11/16 10:52 Glucose (Fingerstick) 118 mg/dL (70-99) 184 mg/dL (70-99) Laboratory Tests Test 08/10/16 16:40 08/10/16 20:31 08/11/16 03:08 08/11/16 07:27 Glucose (Fingerstick) 109 mg/dL (70-99) 173 mg/dL (70-99) 118 mg/dL (70-99) White Blood Count 10.6 x10^3/uL (4.0-11.0) Red Blood Count 3.65 x10^6/uL (4.30-5.70) Hemoglobin 11.6 g/dL (13.0-17.5) Hematocrit 34.4 % (39.0-53.0) Mean Corpuscular Volume 94 fL (79-100) Mean Corpuscular Hemoglobin 32 pg (25-35) Mean Corpuscular Hemoglobin Concent 34 g/dL (31-37) Red Cell Distribution Width 15.5 % (11.5-14.5) Platelet Count 166 x10^3/uL (140-400) Neutrophils (%) (Auto) 73 % (31-73) Lymphocytes (%) (Auto) 14 % (24-48) Monocytes (%) (Auto) 11 % (0-9) Eosinophils (%) (Auto) 1 % (0-3) Basophils (%) (Auto) 1 % (0-3) Neutrophils # (Auto) 7.7 x10^3uL (1.8-7.7) Lymphocytes # (Auto) 1.5 x10^3/uL (1.0-4.8) Monocytes # (Auto) 1.2 x10^3/uL (0.0-1.1) Eosinophils # (Auto) 0.1 x10^3/uL (0.0-0.7) Basophils # (Auto) 0.1 x10^3/uL (0.0-0.2) Sodium Level 137 mmol/L (136-145) Potassium Level 4.2 mmol/L (3.5-5.1) Chloride Level 104 mmol/L (98-107) Carbon Dioxide Level 23 mmol/L (21-32) Anion Gap 10 (6-14) Blood Urea Nitrogen 23 mg/dL (8-26) Creatinine 1.9 mg/dL (0.7-1.3) Estimated GFR (Cockcroft-Gault) 43.5 Glucose Level 122 mg/dL (70-99) Calcium Level 8.2 mg/dL (8.5-10.1) Phosphorus Level 3.5 mg/dL (2.6-4.7) Magnesium Level 1.8 mg/dL (1.8-2.4) Albumin 2.6 g/dL (3.4-5.0) Test 08/11/16 10:52 Glucose (Fingerstick) 184 mg/dL (70-99) Medications Current Medications Aspirin (ExaDigm Aspirin) 325 mg 1X ONCE PO Last administered on 08/05/16 10:48 ; Start 08/05/16 at 11:00; Stop 08/05/16 at 11:01; Status DC Alteplase, Recombinant 0 ml @ 0 mls/hr 1X ONCE IV ; Start 08/05/16 at 12:30; Stop 08/05/16 at 12:31; Status Cancel Alteplase, Recombinant 0 ml @ 0 mls/hr Q1H IV ; Start 08/05/16 at 12:40; Stop at 12:41; Status Cancel Alteplase, Recombinant 7 ml @ 420 mls/hr 1X ONCE IV Last administered on 12:50; Start 08/05/16 at 12:30; Stop 08/05/16 at 12:31; Status DC Alteplase, Recombinant 62 ml @ 62 mls/hr Q1H IV Last administered on 08/05/16 12:51; Start 08/05/16 at 12:30; Stop 08/05/16 at 13:29; Status DC Furosemide (Lasix) 40 mg 1X ONCE IVP Last administered on 08/05/16 13:30; Start 08/05/16 at 13:30; Stop 08/05/16 at 13:31; Status DC Sodium Bicarbonate 100 meq/Sodium Chloride 600 ml @ 500 mls/hr 1X ONCE IV ; Start 08/05/16 at 13:15; Stop 08/05/16 at 14:26; Status Cancel Sodium Bicarbonate 100 meq/Dextrose 600 ml @ 500 mls/hr 1X ONCE IV Last administered on 08/05/16 13:40; Start 08/05/16 at 13:15; Stop 08/05/16 at 14:26 ; Status DC Magnesium Sulfate/ Dextrose 50 ml @ 25 mls/hr PRN DAILY PRN IV for Mag < 1.7 on am labs Last administered on 08/08/16 18:09; Start 08/05/16 at 14:30 Sodium Chloride 500 ml @ 0 mls/hr QID PRN IV UO< 30cc/hr over previous 6hrs; Start 08/05/16 at 14:45; Stop 08/07/16 at 07:59; Status DC Insulin Detemir (Levemir) 10 units QHS SQ Last administered on 08/10/16 21:12; Start 08/05/16 at 21:00 Insulin Aspart (Novolog) 0-7 UNITS TIDWMEALS SQ Last administered on 08/11/16 12:29; Start 08/05/16 at 17:00 Dextrose (Dextrose 50%-Water Syringe) 12.5 gm PRN Q15MIN PRN IV SEE COMMENTS; Start 08/05/16 at 16:00 Dextrose (Dextrose 50%-Water Syringe) 25 gm 1X ONCE IV Last administered on 16:42; Start 08/05/16 at 16:15; Stop 08/05/16 at 16:16; Status DC Insulin Human Regular (Novolin R Vial) 10 unit 1X ONCE IV Last administered on 08/05/16 16:43; Start 08/05/16 at 16:15; Stop 08/05/16 at 16:16; Status DC Calcium Gluconate (Calcium Gluconate) 1,000 mg 1X ONCE IVP Last administered on 08/05/16 16:47; Start 08/05/16 at 16:15; Stop 08/05/16 at 16:16; Status DC Ondansetron HCl (Zofran) 4 mg PRN Q6HRS PRN IV NAUSEA/VOMITING Last administered on 08/09/16 13:03; Start 08/05/16 at 17:15 Milrinone Lactate/ Dextrose 100 ml @ 0 mls/hr CONT PRN IV SEE I/O RECORD Last administered on 08/10/16 04:50; Start 08/05/16 at 18:15; Stop 08/10/16 at 12:42; Status DC Aspirin (Children'S Aspirin) 81 mg DAILYWBKFT PO Last administered on 08/11/16 08:29; Start 08/06/16 at 15:00 Atorvastatin Calcium (Lipitor) 40 mg QHS PO Last administered on 08/10/16 21:08 ; Start 08/06/16 at 21:00 Heparin Sodium/ Dextrose 500 ml @ 0 mls/hr CONT PRN IV SEE I/O RECORD Last administered on 08/06/16 15:43; Start 08/06/16 at 14:30; Stop 08/08/16 at 06:59 ; Status DC Heparin Sodium (Porcine) (Heparin Sodium) 1,650 unit PRN Q6HRS PRN IV FOR UFH LEVEL LESS THAN 0.2; Start 08/06/16 at 14:30; Stop 08/07/16 at 00:21; Status DC Furosemide (Lasix) 20 mg DAILY IVP Last administered on 08/07/16 10:01; Start 08/06/16 at 17:00; Stop 08/08/16 at 15:45; Status DC Furosemide (Lasix) 20 mg DAILY IVP ; Start 08/06/16 at 18:00; Stop 08/06/16 at 18:00; Status DC Heparin Sodium (Porcine) (Heparin Sodium) 1,650 unit PRN Q6HRS PRN IV FOR UFH LEVEL LESS THAN 0.2; Start 08/07/16 at 00:00; Status UNV Amiodarone HCl 150 mg/Dextrose 103 ml @ 618 mls/hr 1X ONCE IV Last administered on 08/07/16 17:02; Start 08/07/16 at 16:30; Stop 08/07/16 at 16:39 ; Status DC Amiodarone HCl 900 mg/Dextrose 518 ml @ 0 mls/hr CONT PRN IV SEE I/O RECORD Last administered on 08/07/16 17:03; Start 08/07/16 at 16:30; Stop 08/07/16 at 17:11; Status DC Heparin Sodium/ Sodium Chloride 1,500 ml @ As Directed STK-MED ONCE .ROUTE ; Start 08/08/16 at 07:32; Stop 08/08/16 at 07:33; Status DC Lidocaine HCl 20 ml STK-MED ONCE .ROUTE ; Start 08/08/16 at 07:32; Stop 08/08/16 at 07:33; Status DC Iodixanol (Visipaque 320) 100 ml STK-MED ONCE .ROUTE ; Start 08/08/16 at 07:32; Stop 08/08/16 at 07:33; Status DC Fentanyl Citrate (Fentanyl 2ml Vial) 100 mcg STK-MED ONCE .ROUTE ; Start at 08:02; Stop 08/08/16 at 08:03; Status DC Midazolam HCl (Versed) 2 mg STK-MED ONCE .ROUTE ; Start 08/08/16 at 08:02; Stop 08/08/16 at 08:03; Status DC Heparin Sodium/ Sodium Chloride 1,000 unit 1X ONCE IART Last administered on 08:28; Start 08/08/16 at 08:15; Stop 08/08/16 at 08:16; Status DC Midazolam HCl (Versed) 2 mg 1X ONCE IV Last administered on 08/08/16 08:31; Start 08/08/16 at 08:15; Stop 08/08/16 at 08:16; Status DC Fentanyl Citrate (Fentanyl 2ml Vial) 100 mcg 1X ONCE IV Last administered on 08:31; Start 08/08/16 at 08:15; Stop 08/08/16 at 08:17; Status DC Iodixanol (Visipaque 320) 100 ml 1X ONCE IART Last administered on 08/08/16 09 :50; Start 08/08/16 at 08:15; Stop 08/08/16 at 08:17; Status DC Lidocaine HCl 20 ml 1X ONCE IJ Last administered on 08/08/16 08:29; Start 08/08 at 08:15; Stop 08/08/16 at 08:17; Status DC Heparin Sodium/ Sodium Chloride 500 ml @ As Directed STK-MED ONCE .ROUTE ; Start 08/08/16 at 08:30; Stop 08/08/16 at 08:31; Status DC Heparin Sodium (Porcine) (Heparin Sodium) 10,000 unit STK-MED ONCE .ROUTE ; Start 08/08/16 at 08:34; Stop 08/08/16 at 08:35; Status DC Heparin Sodium (Porcine) (Heparin 5,000 Units/1,000ml NS) 5,000 unit 1X ONCE IV Last administered on 08/08/16 09:15; Start 08/08/16 at 09:15; Stop 08/08/16 at 09:16; Status DC Heparin Sodium (Porcine) (Heparin Sodium) 2,000 unit 1X ONCE IV Last administered on 08/08/16 09:48; Start 08/08/16 at 09:15; Stop 08/08/16 at 09:16; Status DC Magnesium Sulfate/ Dextrose 100 ml @ 100 mls/hr 1X ONCE IV Last administered on 08/08/16 11:38; Start 08/08/16 at 11:00; Stop 08/08/16 at 11:59; Status DC Heparin Sodium/ Dextrose 500 ml @ 0 mls/hr CONT PRN IV SEE I/O RECORD; Start at 10:45; Stop 08/08/16 at 11:29; Status DC Heparin Sodium/ Dextrose 500 ml @ 0 mls/hr CONT PRN IV SEE I/O RECORD Last administered on 08/08/16 11:00; Start 08/08/16 at 11:30; Stop 08/10/16 at 09:30; Status DC Info (Anti-Coagulation Monitoring By Pharmacy) 1 each PRN DAILY PRN MC SEE COMMENTS; Start 08/08/16 at 14:00; Stop 08/10/16 at 09:30; Status DC Heparin Sodium/ Sodium Chloride 1,500 ml @ As Directed STK-MED ONCE .ROUTE ; Start 08/09/16 at 06:41; Stop 08/09/16 at 06:42; Status DC Iodixanol (Visipaque 320) 100 ml STK-MED ONCE .ROUTE ; Start 08/09/16 at 06:41; Stop 08/09/16 at 06:42; Status DC Lidocaine HCl 20 ml STK-MED ONCE .ROUTE ; Start 08/09/16 at 06:41; Stop 08/09/16 at 06:42; Status DC Fentanyl Citrate (Fentanyl 2ml Vial) 100 mcg STK-MED ONCE .ROUTE ; Start at 07:29; Stop 08/09/16 at 07:30; Status DC Midazolam HCl (Versed) 2 mg STK-MED ONCE .ROUTE ; Start 08/09/16 at 07:29; Stop 08/09/16 at 07:30; Status DC Heparin Sodium (Porcine) (Heparin Sodium) 10,000 unit STK-MED ONCE .ROUTE ; Start 08/09/16 at 07:36; Stop 08/09/16 at 07:37; Status DC Phenylephrine HCl 1 mg STK-MED ONCE IV ; Start 08/09/16 at 07:36; Stop 08/09/16 at 07:37; Status DC Heparin Sodium/ Sodium Chloride 500 ml @ As Directed STK-MED ONCE .ROUTE ; Start 08/09/16 at 08:18; Stop 08/09/16 at 08:19; Status DC Heparin Sodium/ Sodium Chloride 1,000 unit 1X ONCE IART Last administered on 09:47; Start 08/09/16 at 09:00; Stop 08/09/16 at 09:07; Status DC Midazolam HCl (Versed) 2 mg 1X ONCE IV Last administered on 08/09/16 09:48; Start 08/09/16 at 09:00; Stop 08/09/16 at 09:07; Status DC Fentanyl Citrate (Fentanyl 2ml Vial) 100 mcg 1X ONCE IV Last administered on 09:49; Start 08/09/16 at 09:00; Stop 08/09/16 at 09:07; Status DC Iodixanol (Visipaque 320) 100 ml 1X ONCE IART Last administered on 08/09/16 09 :48; Start 08/09/16 at 09:00; Stop 08/09/16 at 09:07; Status DC Ticagrelor (Brilinta) 180 mg 1X ONCE PO Last administered on 08/09/16 12:42; Start 08/09/16 at 09:00; Stop 08/09/16 at 09:07; Status DC Heparin Sodium (Porcine) (Heparin Sodium) 7,000 unit 1X ONCE IV Last administered on 08/09/16 09:49; Start 08/09/16 at 09:00; Stop 08/09/16 at 09:07; Status DC Lidocaine HCl 20 ml 1X ONCE IJ Last administered on 08/09/16 09:48; Start 08/09 at 09:00; Stop 08/09/16 at 09:07; Status DC Cefazolin Sodium 50 ml @ 100 mls/hr 1X ONCE IV ; Start 08/09/16 at 09:45; Stop 08/09/16 at 10:14; Status Cancel Sodium Chloride 250 ml @ 50 mls/hr 1X ONCE IV Last administered on 08/09/16 09:49; Start 08/09/16 at 09:45; Stop 08/09/16 at 14:44; Status DC Cefazolin Sodium 1 gm/Sodium Chloride 50 ml @ 100 mls/hr 1X ONCE IV Last administered on 08/09/16 14:12; Start 08/09/16 at 13:00; Stop 08/09/16 at 13:29; Status DC Fentanyl Citrate (Fentanyl 2ml Vial) 25 mcg PRN Q2HR PRN IV PAIN Last administered on 08/09/16 13:35; Start 08/09/16 at 13:30 Sodium Chloride 1,000 ml @ 50 mls/hr Q20H IV Last administered on 08/10/16 23: 45; Start 08/09/16 at 16:30 Ticagrelor (Brilinta) 90 mg BID PO Last administered on 08/11/16 08:29; Start 08/10/16 at 09:00 Ticagrelor (Brilinta) 90 mg 1X ONCE PO Last administered on 08/09/16 23:14; Start 08/09/16 at 23:00; Stop 08/09/16 at 23:01; Status DC Sacubitril/ Valsartan (Entresto 24 Mg-26 Mg) 1 tab BID PO Last administered on 08/11/16 10:03; Start 08/11/16 at 09:00 Metoprolol Succinate (Toprol Xl) 12.5 mg DAILY PO ; Start 08/11/16 at 09:00; Stop 08/11/16 at 09:50; Status DC Furosemide (Lasix) 20 mg DAILY PO Last administered on 08/11/16 10:02; Start at 09:30 Metoprolol Succinate (Toprol Xl) 25 mg DAILY PO Last administered on 08/11/16 10:02; Start 08/11/16 at 10:30 Active Scripts Active Cyclobenzaprine Hcl 10 Mg Tablet 1 Tab PO TID PRN Hydrocodone-Ibuprofen 7.5-200 (Hydrocodone/Ibuprofen) 1 Each Tablet 1 Tab PO PRN Q6HRS PRN Effient (Prasugrel Hcl) 10 Mg Tablet 10 Mg PO DAILYWBKFT SIG: ONE PO DAILY Hydralazine Hcl 50 Mg Tablet 50 Mg PO TID SIG: ONE BY MOUTH EVERY 8 HOURS; REPLACES NIFEDIPINE Carvedilol 12.5 Mg Tablet 12.5 Mg PO BIDWMEALS SIG: ONE P.O. BID; REPLACES CLONIDINE Reported Glimepiride 4 Mg Tablet 1 Tab PO DAILY Januvia (Sitagliptin Phosphate) 100 Mg Tablet 1 Tab PO DAILY Spironolactone 100 Mg Tablet 1 Tab PO DAILY Allopurinol 100 Mg Tablet 1 Tab PO DAILY Atorvastatin Calcium 40 Mg Tablet 1 Tab PO DAILY Aspir 81 (Aspirin) 81 Mg Tablet. 81 Tab PO DAILY Vitals/I & O Vital Sign - Last 24 Hours 08/10/16 08/10/16 08/10/16 08/10/16 16:00 19:40 20:00 23:10 Temp 98.3 98.0 98.3 98.0 Pulse 77 89 87 Resp 12 18 23 B/P (MAP) 99/53 (68) 146/68 (94) 144/82 (102) Pulse Ox 99 98 97 O2 Delivery Room Air Room Air Room Air Room Air 08/10/16 08/11/16 08/11/16 08/11/16 23:50 03:09 07:53 08:00 Temp 97.9 98.1 97.9 98.1 Pulse 80 89 Resp 16 17 B/P (MAP) 126/65 (85) 142/88 (106) Pulse Ox 98 100 O2 Delivery Room Air Room Air Room Air Room Air 08/11/16 08/11/16 08/11/16 10:02 10:03 12:00 Temp 98.3 98.3 Pulse 89 89 81 Resp 18 B/P (MAP) 142/88 142/88 128/60 (82) Pulse Ox 98 O2 Delivery Room Air Intake and Output 08/10/16 08/10/16 08/11/16 15:00 23:00 07:00 Intake Total 390 ml 938.7 ml 200 ml Output Total 325 ml 600 ml 800 ml Balance 65 ml 338.7 ml -600 ml Nutrition Consultation Dietary Evaluation: Recommendations by RD: Dietary education by RD Comments: Rec. dysphagia II cardiac/ada diet with thin liquids per [employer] Educated on MNT for TLC diet and provided handouts for reference upon d/c Expected Outcomes/Goals: to meet >75% est nutr needs to identify 2 heart healthy foods Interpretation of weight loss: >10% in 6 months Malnutrition Findings: Body Fat Depletion (Non Severe: Mild Depletion Weight Status: Appropriate LIUDMILA ROUSE MD August 11, 2016 13:20
--- NOTE | 2016-08-11 15:08 | PDOC ---
PROGRESS NOTES Assessment Problems Medical Problems: (1) CVA (cerebral vascular accident) Status: Acute Acute (subacute also possible on MRI) left frontal cortex infarct, left occipital infarct possible, cerebral ischemia from cardiogenic etiology, s/p TPA in ER. Metabolic encephalopathy. 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 Old right parietal microhemorrhage. S/P balloon pump removal and stent placement 5/2 AM Plan Family wants to take him home with home health Rehabilitation modalities as tolerated No further neurological tests required Discussed with patient, 2 of his sons Subjective No complaints Objective Vital Signs Date Time Temp Pulse Resp B/P (MAP) Pulse Ox O2 Delivery O2 Flow Rate FiO2 08/11/16 12:00 98.3 81 18 128/60 (82) 98 Room Air 98.3 Intake and Output 08/11/16 07:00 Intake Total 1528.7 ml Output Total 1725 ml Balance -196.3 ml Intake Oral 830 ml IV Total 698.7 ml Output Urine Total 1725 ml PHYSICAL EXAM Alert. Oriented to "hospital" and person, not time. PERRL. EOMI. CN: no focal findings. Muscle tone: normal. Muscle strength: 4/5 DTR: 2+ Plantar reflex: flexor Gait: not examined in bed. Sensory exam: no abnormal findings. No cerebellar signs elicited. Review of Relevant I have reviewed the following items abdulaziz (where applicable) has been applied. Labs Laboratory Tests Test 08/09/16 17:45 08/09/16 20:56 08/10/16 04:20 08/10/16 08:00 Glucose (Fingerstick) 125 mg/dL (70-99) 173 mg/dL (70-99) 136 mg/dL (70-99) White Blood Count 11.2 x10^3/uL (4.0-11.0) Red Blood Count 3.67 x10^6/uL (4.30-5.70) Hemoglobin 11.4 g/dL (13.0-17.5) Hematocrit 35.2 % (39.0-53.0) Mean Corpuscular Volume 96 fL (79-100) Mean Corpuscular Hemoglobin 31 pg (25-35) Mean Corpuscular Hemoglobin Concent 33 g/dL (31-37) Red Cell Distribution Width 15.6 % (11.5-14.5) Platelet Count 151 x10^3/uL (140-400) Neutrophils (%) (Auto) 78 % (31-73) Lymphocytes (%) (Auto) 11 % (24-48) Monocytes (%) (Auto) 11 % (0-9) Eosinophils (%) (Auto) 1 % (0-3) Basophils (%) (Auto) 0 % (0-3) Neutrophils # (Auto) 8.8 x10^3uL (1.8-7.7) Lymphocytes # (Auto) 1.2 x10^3/uL (1.0-4.8) Monocytes # (Auto) 1.2 x10^3/uL (0.0-1.1) Eosinophils # (Auto) 0.1 x10^3/uL (0.0-0.7) Basophils # (Auto) 0.0 x10^3/uL (0.0-0.2) Sodium Level 134 mmol/L (136-145) Potassium Level 4.1 mmol/L (3.5-5.1) Chloride Level 102 mmol/L (98-107) Carbon Dioxide Level 24 mmol/L (21-32) Anion Gap 8 (6-14) Blood Urea Nitrogen 22 mg/dL (8-26) Creatinine 1.9 mg/dL (0.7-1.3) Estimated GFR (Cockcroft-Gault) 43.5 Glucose Level 123 mg/dL (70-99) Calcium Level 8.3 mg/dL (8.5-10.1) Phosphorus Level 3.9 mg/dL (2.6-4.7) Magnesium Level 1.9 mg/dL (1.8-2.4) Albumin 2.7 g/dL (3.4-5.0) Test 08/10/16 11:54 08/10/16 16:40 08/10/16 20:31 08/11/16 03:08 Glucose (Fingerstick) 223 mg/dL (70-99) 109 mg/dL (70-99) 173 mg/dL (70-99) White Blood Count 10.6 x10^3/uL (4.0-11.0) Red Blood Count 3.65 x10^6/uL (4.30-5.70) Hemoglobin 11.6 g/dL (13.0-17.5) Hematocrit 34.4 % (39.0-53.0) Mean Corpuscular Volume 94 fL (79-100) Mean Corpuscular Hemoglobin 32 pg (25-35) Mean Corpuscular Hemoglobin Concent 34 g/dL (31-37) Red Cell Distribution Width 15.5 % (11.5-14.5) Platelet Count 166 x10^3/uL (140-400) Neutrophils (%) (Auto) 73 % (31-73) Lymphocytes (%) (Auto) 14 % (24-48) Monocytes (%) (Auto) 11 % (0-9) Eosinophils (%) (Auto) 1 % (0-3) Basophils (%) (Auto) 1 % (0-3) Neutrophils # (Auto) 7.7 x10^3uL (1.8-7.7) Lymphocytes # (Auto) 1.5 x10^3/uL (1.0-4.8) Monocytes # (Auto) 1.2 x10^3/uL (0.0-1.1) Eosinophils # (Auto) 0.1 x10^3/uL (0.0-0.7) Basophils # (Auto) 0.1 x10^3/uL (0.0-0.2) Sodium Level 137 mmol/L (136-145) Potassium Level 4.2 mmol/L (3.5-5.1) Chloride Level 104 mmol/L (98-107) Carbon Dioxide Level 23 mmol/L (21-32) Anion Gap 10 (6-14) Blood Urea Nitrogen 23 mg/dL (8-26) Creatinine 1.9 mg/dL (0.7-1.3) Estimated GFR (Cockcroft-Gault) 43.5 Glucose Level 122 mg/dL (70-99) Calcium Level 8.2 mg/dL (8.5-10.1) Phosphorus Level 3.5 mg/dL (2.6-4.7) Magnesium Level 1.8 mg/dL (1.8-2.4) Albumin 2.6 g/dL (3.4-5.0) Test 08/11/16 07:27 08/11/16 10:52 Glucose (Fingerstick) 118 mg/dL (70-99) 184 mg/dL (70-99) Laboratory Tests Test 08/10/16 16:40 08/10/16 20:31 08/11/16 03:08 08/11/16 07:27 Glucose (Fingerstick) 109 mg/dL (70-99) 173 mg/dL (70-99) 118 mg/dL (70-99) White Blood Count 10.6 x10^3/uL (4.0-11.0) Red Blood Count 3.65 x10^6/uL (4.30-5.70) Hemoglobin 11.6 g/dL (13.0-17.5) Hematocrit 34.4 % (39.0-53.0) Mean Corpuscular Volume 94 fL (79-100) Mean Corpuscular Hemoglobin 32 pg (25-35) Mean Corpuscular Hemoglobin Concent 34 g/dL (31-37) Red Cell Distribution Width 15.5 % (11.5-14.5) Platelet Count 166 x10^3/uL (140-400) Neutrophils (%) (Auto) 73 % (31-73) Lymphocytes (%) (Auto) 14 % (24-48) Monocytes (%) (Auto) 11 % (0-9) Eosinophils (%) (Auto) 1 % (0-3) Basophils (%) (Auto) 1 % (0-3) Neutrophils # (Auto) 7.7 x10^3uL (1.8-7.7) Lymphocytes # (Auto) 1.5 x10^3/uL (1.0-4.8) Monocytes # (Auto) 1.2 x10^3/uL (0.0-1.1) Eosinophils # (Auto) 0.1 x10^3/uL (0.0-0.7) Basophils # (Auto) 0.1 x10^3/uL (0.0-0.2) Sodium Level 137 mmol/L (136-145) Potassium Level 4.2 mmol/L (3.5-5.1) Chloride Level 104 mmol/L (98-107) Carbon Dioxide Level 23 mmol/L (21-32) Anion Gap 10 (6-14) Blood Urea Nitrogen 23 mg/dL (8-26) Creatinine 1.9 mg/dL (0.7-1.3) Estimated GFR (Cockcroft-Gault) 43.5 Glucose Level 122 mg/dL (70-99) Calcium Level 8.2 mg/dL (8.5-10.1) Phosphorus Level 3.5 mg/dL (2.6-4.7) Magnesium Level 1.8 mg/dL (1.8-2.4) Albumin 2.6 g/dL (3.4-5.0) Test 08/11/16 10:52 Glucose (Fingerstick) 184 mg/dL (70-99) Medications Current Medications Aspirin (Ayad Aspirin) 325 mg 1X ONCE PO Last administered on 08/05/16 10:48 ; Start 08/05/16 at 11:00; Stop 08/05/16 at 11:01; Status DC Alteplase, Recombinant 0 ml @ 0 mls/hr 1X ONCE IV ; Start 08/05/16 at 12:30; Stop 08/05/16 at 12:31; Status Cancel Alteplase, Recombinant 0 ml @ 0 mls/hr Q1H IV ; Start 08/05/16 at 12:40; Stop at 12:41; Status Cancel Alteplase, Recombinant 7 ml @ 420 mls/hr 1X ONCE IV Last administered on 12:50; Start 08/05/16 at 12:30; Stop 08/05/16 at 12:31; Status DC Alteplase, Recombinant 62 ml @ 62 mls/hr Q1H IV Last administered on 08/05/16 12:51; Start 08/05/16 at 12:30; Stop 08/05/16 at 13:29; Status DC Furosemide (Lasix) 40 mg 1X ONCE IVP Last administered on 08/05/16 13:30; Start 08/05/16 at 13:30; Stop 08/05/16 at 13:31; Status DC Sodium Bicarbonate 100 meq/Sodium Chloride 600 ml @ 500 mls/hr 1X ONCE IV ; Start 08/05/16 at 13:15; Stop 08/05/16 at 14:26; Status Cancel Sodium Bicarbonate 100 meq/Dextrose 600 ml @ 500 mls/hr 1X ONCE IV Last administered on 08/05/16 13:40; Start 08/05/16 at 13:15; Stop 08/05/16 at 14:26 ; Status DC Magnesium Sulfate/ Dextrose 50 ml @ 25 mls/hr PRN DAILY PRN IV for Mag < 1.7 on am labs Last administered on 08/08/16 18:09; Start 08/05/16 at 14:30 Sodium Chloride 500 ml @ 0 mls/hr QID PRN IV UO< 30cc/hr over previous 6hrs; Start 08/05/16 at 14:45; Stop 08/07/16 at 07:59; Status DC Insulin Detemir (Levemir) 10 units QHS SQ Last administered on 08/10/16 21:12; Start 08/05/16 at 21:00 Insulin Aspart (Novolog) 0-7 UNITS TIDWMEALS SQ Last administered on 08/11/16 12:29; Start 08/05/16 at 17:00 Dextrose (Dextrose 50%-Water Syringe) 12.5 gm PRN Q15MIN PRN IV SEE COMMENTS; Start 08/05/16 at 16:00 Dextrose (Dextrose 50%-Water Syringe) 25 gm 1X ONCE IV Last administered on 16:42; Start 08/05/16 at 16:15; Stop 08/05/16 at 16:16; Status DC Insulin Human Regular (Novolin R Vial) 10 unit 1X ONCE IV Last administered on 08/05/16 16:43; Start 08/05/16 at 16:15; Stop 08/05/16 at 16:16; Status DC Calcium Gluconate (Calcium Gluconate) 1,000 mg 1X ONCE IVP Last administered on 08/05/16 16:47; Start 08/05/16 at 16:15; Stop 08/05/16 at 16:16; Status DC Ondansetron HCl (Zofran) 4 mg PRN Q6HRS PRN IV NAUSEA/VOMITING Last administered on 08/09/16 13:03; Start 08/05/16 at 17:15 Milrinone Lactate/ Dextrose 100 ml @ 0 mls/hr CONT PRN IV SEE I/O RECORD Last administered on 08/10/16 04:50; Start 08/05/16 at 18:15; Stop 08/10/16 at 12:42; Status DC Aspirin (Children'S Aspirin) 81 mg DAILYWBKFT PO Last administered on 08/11/16 08:29; Start 08/06/16 at 15:00 Atorvastatin Calcium (Lipitor) 40 mg QHS PO Last administered on 08/10/16 21:08 ; Start 08/06/16 at 21:00 Heparin Sodium/ Dextrose 500 ml @ 0 mls/hr CONT PRN IV SEE I/O RECORD Last administered on 08/06/16 15:43; Start 08/06/16 at 14:30; Stop 08/08/16 at 06:59 ; Status DC Heparin Sodium (Porcine) (Heparin Sodium) 1,650 unit PRN Q6HRS PRN IV FOR UFH LEVEL LESS THAN 0.2; Start 08/06/16 at 14:30; Stop 08/07/16 at 00:21; Status DC Furosemide (Lasix) 20 mg DAILY IVP Last administered on 08/07/16 10:01; Start 08/06/16 at 17:00; Stop 08/08/16 at 15:45; Status DC Furosemide (Lasix) 20 mg DAILY IVP ; Start 08/06/16 at 18:00; Stop 08/06/16 at 18:00; Status DC Heparin Sodium (Porcine) (Heparin Sodium) 1,650 unit PRN Q6HRS PRN IV FOR UFH LEVEL LESS THAN 0.2; Start 08/07/16 at 00:00; Status UNV Amiodarone HCl 150 mg/Dextrose 103 ml @ 618 mls/hr 1X ONCE IV Last administered on 08/07/16 17:02; Start 08/07/16 at 16:30; Stop 08/07/16 at 16:39 ; Status DC Amiodarone HCl 900 mg/Dextrose 518 ml @ 0 mls/hr CONT PRN IV SEE I/O RECORD Last administered on 08/07/16 17:03; Start 08/07/16 at 16:30; Stop 08/07/16 at 17:11; Status DC Heparin Sodium/ Sodium Chloride 1,500 ml @ As Directed STK-MED ONCE .ROUTE ; Start 08/08/16 at 07:32; Stop 08/08/16 at 07:33; Status DC Lidocaine HCl 20 ml STK-MED ONCE .ROUTE ; Start 08/08/16 at 07:32; Stop 08/08/16 at 07:33; Status DC Iodixanol (Visipaque 320) 100 ml STK-MED ONCE .ROUTE ; Start 08/08/16 at 07:32; Stop 08/08/16 at 07:33; Status DC Fentanyl Citrate (Fentanyl 2ml Vial) 100 mcg STK-MED ONCE .ROUTE ; Start at 08:02; Stop 08/08/16 at 08:03; Status DC Midazolam HCl (Versed) 2 mg STK-MED ONCE .ROUTE ; Start 08/08/16 at 08:02; Stop 08/08/16 at 08:03; Status DC Heparin Sodium/ Sodium Chloride 1,000 unit 1X ONCE IART Last administered on 08:28; Start 08/08/16 at 08:15; Stop 08/08/16 at 08:16; Status DC Midazolam HCl (Versed) 2 mg 1X ONCE IV Last administered on 08/08/16 08:31; Start 08/08/16 at 08:15; Stop 08/08/16 at 08:16; Status DC Fentanyl Citrate (Fentanyl 2ml Vial) 100 mcg 1X ONCE IV Last administered on 08:31; Start 08/08/16 at 08:15; Stop 08/08/16 at 08:17; Status DC Iodixanol (Visipaque 320) 100 ml 1X ONCE IART Last administered on 08/08/16 09 :50; Start 08/08/16 at 08:15; Stop 08/08/16 at 08:17; Status DC Lidocaine HCl 20 ml 1X ONCE IJ Last administered on 08/08/16 08:29; Start 08/08 at 08:15; Stop 08/08/16 at 08:17; Status DC Heparin Sodium/ Sodium Chloride 500 ml @ As Directed STK-MED ONCE .ROUTE ; Start 08/08/16 at 08:30; Stop 08/08/16 at 08:31; Status DC Heparin Sodium (Porcine) (Heparin Sodium) 10,000 unit STK-MED ONCE .ROUTE ; Start 08/08/16 at 08:34; Stop 08/08/16 at 08:35; Status DC Heparin Sodium (Porcine) (Heparin 5,000 Units/1,000ml NS) 5,000 unit 1X ONCE IV Last administered on 08/08/16 09:15; Start 08/08/16 at 09:15; Stop 08/08/16 at 09:16; Status DC Heparin Sodium (Porcine) (Heparin Sodium) 2,000 unit 1X ONCE IV Last administered on 08/08/16 09:48; Start 08/08/16 at 09:15; Stop 08/08/16 at 09:16; Status DC Magnesium Sulfate/ Dextrose 100 ml @ 100 mls/hr 1X ONCE IV Last administered on 08/08/16 11:38; Start 08/08/16 at 11:00; Stop 08/08/16 at 11:59; Status DC Heparin Sodium/ Dextrose 500 ml @ 0 mls/hr CONT PRN IV SEE I/O RECORD; Start at 10:45; Stop 08/08/16 at 11:29; Status DC Heparin Sodium/ Dextrose 500 ml @ 0 mls/hr CONT PRN IV SEE I/O RECORD Last administered on 08/08/16 11:00; Start 08/08/16 at 11:30; Stop 08/10/16 at 09:30; Status DC Info (Anti-Coagulation Monitoring By Pharmacy) 1 each PRN DAILY PRN MC SEE COMMENTS; Start 08/08/16 at 14:00; Stop 08/10/16 at 09:30; Status DC Heparin Sodium/ Sodium Chloride 1,500 ml @ As Directed STK-MED ONCE .ROUTE ; Start 08/09/16 at 06:41; Stop 08/09/16 at 06:42; Status DC Iodixanol (Visipaque 320) 100 ml STK-MED ONCE .ROUTE ; Start 08/09/16 at 06:41; Stop 08/09/16 at 06:42; Status DC Lidocaine HCl 20 ml STK-MED ONCE .ROUTE ; Start 08/09/16 at 06:41; Stop 08/09/16 at 06:42; Status DC Fentanyl Citrate (Fentanyl 2ml Vial) 100 mcg STK-MED ONCE .ROUTE ; Start at 07:29; Stop 08/09/16 at 07:30; Status DC Midazolam HCl (Versed) 2 mg STK-MED ONCE .ROUTE ; Start 08/09/16 at 07:29; Stop 08/09/16 at 07:30; Status DC Heparin Sodium (Porcine) (Heparin Sodium) 10,000 unit STK-MED ONCE .ROUTE ; Start 08/09/16 at 07:36; Stop 08/09/16 at 07:37; Status DC Phenylephrine HCl 1 mg STK-MED ONCE IV ; Start 08/09/16 at 07:36; Stop 08/09/16 at 07:37; Status DC Heparin Sodium/ Sodium Chloride 500 ml @ As Directed STK-MED ONCE .ROUTE ; Start 08/09/16 at 08:18; Stop 08/09/16 at 08:19; Status DC Heparin Sodium/ Sodium Chloride 1,000 unit 1X ONCE IART Last administered on 09:47; Start 08/09/16 at 09:00; Stop 08/09/16 at 09:07; Status DC Midazolam HCl (Versed) 2 mg 1X ONCE IV Last administered on 08/09/16 09:48; Start 08/09/16 at 09:00; Stop 08/09/16 at 09:07; Status DC Fentanyl Citrate (Fentanyl 2ml Vial) 100 mcg 1X ONCE IV Last administered on 09:49; Start 08/09/16 at 09:00; Stop 08/09/16 at 09:07; Status DC Iodixanol (Visipaque 320) 100 ml 1X ONCE IART Last administered on 08/09/16 09 :48; Start 08/09/16 at 09:00; Stop 08/09/16 at 09:07; Status DC Ticagrelor (Brilinta) 180 mg 1X ONCE PO Last administered on 08/09/16 12:42; Start 08/09/16 at 09:00; Stop 08/09/16 at 09:07; Status DC Heparin Sodium (Porcine) (Heparin Sodium) 7,000 unit 1X ONCE IV Last administered on 08/09/16 09:49; Start 08/09/16 at 09:00; Stop 08/09/16 at 09:07; Status DC Lidocaine HCl 20 ml 1X ONCE IJ Last administered on 08/09/16 09:48; Start 08/09 at 09:00; Stop 08/09/16 at 09:07; Status DC Cefazolin Sodium 50 ml @ 100 mls/hr 1X ONCE IV ; Start 08/09/16 at 09:45; Stop 08/09/16 at 10:14; Status Cancel Sodium Chloride 250 ml @ 50 mls/hr 1X ONCE IV Last administered on 08/09/16 09:49; Start 08/09/16 at 09:45; Stop 08/09/16 at 14:44; Status DC Cefazolin Sodium 1 gm/Sodium Chloride 50 ml @ 100 mls/hr 1X ONCE IV Last administered on 08/09/16 14:12; Start 08/09/16 at 13:00; Stop 08/09/16 at 13:29; Status DC Fentanyl Citrate (Fentanyl 2ml Vial) 25 mcg PRN Q2HR PRN IV PAIN Last administered on 08/09/16 13:35; Start 08/09/16 at 13:30 Sodium Chloride 1,000 ml @ 50 mls/hr Q20H IV Last administered on 08/10/16 23: 45; Start 08/09/16 at 16:30 Ticagrelor (Brilinta) 90 mg BID PO Last administered on 08/11/16 08:29; Start 08/10/16 at 09:00 Ticagrelor (Brilinta) 90 mg 1X ONCE PO Last administered on 08/09/16 23:14; Start 08/09/16 at 23:00; Stop 08/09/16 at 23:01; Status DC Sacubitril/ Valsartan (Entresto 24 Mg-26 Mg) 1 tab BID PO Last administered on 08/11/16 10:03; Start 08/11/16 at 09:00 Metoprolol Succinate (Toprol Xl) 12.5 mg DAILY PO ; Start 08/11/16 at 09:00; Stop 08/11/16 at 09:50; Status DC Furosemide (Lasix) 20 mg DAILY PO Last administered on 08/11/16 10:02; Start at 09:30 Metoprolol Succinate (Toprol Xl) 25 mg DAILY PO Last administered on 08/11/16 10:02; Start 08/11/16 at 10:30 Active Scripts Active Cyclobenzaprine Hcl 10 Mg Tablet 1 Tab PO TID PRN Hydrocodone-Ibuprofen 7.5-200 (Hydrocodone/Ibuprofen) 1 Each Tablet 1 Tab PO PRN Q6HRS PRN Effient (Prasugrel Hcl) 10 Mg Tablet 10 Mg PO DAILYWBKFT SIG: ONE PO DAILY Hydralazine Hcl 50 Mg Tablet 50 Mg PO TID SIG: ONE BY MOUTH EVERY 8 HOURS; REPLACES NIFEDIPINE Carvedilol 12.5 Mg Tablet 12.5 Mg PO BIDWMEALS SIG: ONE P.O. BID; REPLACES CLONIDINE Reported Glimepiride 4 Mg Tablet 1 Tab PO DAILY Januvia (Sitagliptin Phosphate) 100 Mg Tablet 1 Tab PO DAILY Spironolactone 100 Mg Tablet 1 Tab PO DAILY Allopurinol 100 Mg Tablet 1 Tab PO DAILY Atorvastatin Calcium 40 Mg Tablet 1 Tab PO DAILY Aspir 81 (Aspirin) 81 Mg Tablet. 81 Tab PO DAILY Vitals/I & O Vital Sign - Last 24 Hours 08/10/16 08/10/16 08/10/16 08/10/16 16:00 19:40 20:00 23:10 Temp 98.3 98.0 98.3 98.0 Pulse 77 89 87 Resp 12 18 23 B/P (MAP) 99/53 (68) 146/68 (94) 144/82 (102) Pulse Ox 99 98 97 O2 Delivery Room Air Room Air Room Air Room Air 08/10/16 08/11/16 08/11/16 08/11/16 23:50 03:09 07:53 08:00 Temp 97.9 98.1 97.9 98.1 Pulse 80 89 Resp 16 17 B/P (MAP) 126/65 (85) 142/88 (106) Pulse Ox 98 100 O2 Delivery Room Air Room Air Room Air Room Air 08/11/16 08/11/16 08/11/16 10:02 10:03 12:00 Temp 98.3 98.3 Pulse 89 89 81 Resp 18 B/P (MAP) 142/88 142/88 128/60 (82) Pulse Ox 98 O2 Delivery Room Air Intake and Output 08/10/16 08/10/16 08/11/16 15:00 23:00 07:00 Intake Total 390 ml 938.7 ml 200 ml Output Total 325 ml 600 ml 800 ml Balance 65 ml 338.7 ml -600 ml DINORAH HERNANDEZ MD August 11, 2016 15:08
[2016-08-11] MEDS: ATORVASTATIN CALCIUM 40 MG TABLET. PO SCH (20:53)
[2016-08-11] MEDS: INSULIN DETEMIR 300 UNITS/3 ML INSULN.PEN. SQ SCH (21:06)
[2016-08-12 03:00] VITALS: BP 97/53
[2016-08-12] MEDS: IV NORMAL SALINE 1000ML BAG 1,000 ML IV SCH (04:30)
[2016-08-12 04:44] LABS: BASO % 0 % (0-3); EOS % 1 % (0-3); HEMATOCRIT 36.4 % (39.0-53.0); HEMOGLOBIN 12.2 g/dL (13.0-17.5); LYMPH # 1.6 x10^3/uL (1.0-4.8); LYMPH % 15 % (24-48); MEAN CORPUSCULAR HEMOGLOBIN 32 pg (25-35); MEAN CORPUSCULAR HGB CONC 33 g/dL (31-37); MEAN CORPUSCULAR VOLUME 95 fL (79-100); MONO % 10 % (0-9); NEUT % 74 % (31-73); PLATELET COUNT 203 x10^3/uL (140-400); RED BLOOD COUNT 3.83 x10^6/uL (4.30-5.70); RED CELL DISTRIBUTION WIDTH 15.5 % (11.5-14.5); WHITE BLOOD COUNT 10.7 x10^3/uL (4.0-11.0)
[2016-08-12 05:11] LABS: ALBUMIN 2.5 g/dL (3.4-5.0); CALCIUM 8.2 mg/dL (8.5-10.1); PHOSPHORUS 3.7 mg/dL (2.6-4.7); POTASSIUM 3.9 mmol/L (3.5-5.1)
[2016-08-12 07:19] VITALS: BP 129/68
[2016-08-12] MEDS: INSULIN ASPART 300 UNITS/3 ML INSULN.PEN SQ SCH ×4 (08:00→17:00)
[2016-08-12] MEDS: ASPIRIN CHEWABLE 81 MG TABLET. PO SCH (08:57)
[2016-08-12] MEDS: TICAGRELOR 90 MG TABLET. PO SCH ×2 (08:57→21:12)
[2016-08-12] MEDS: FUROSEMIDE 20 MG TABLET PO SCH (08:57)
[2016-08-12] MEDS: SACUBITRIL/VALSARTAN 24/26MG TABLET. PO SCH ×2 (08:58→21:13)
[2016-08-12] MEDS: METOPROLOL SUCC 24HR ER 25 MG TAB.ER.24H. PO SCH (08:58)
--- NOTE | 2016-08-12 09:57 | PDOC ---
SAAD CHUNG HIDE DYER 08/12/16 0957: CARDIO Progress Notes Date and Time Date of Service 08/12/2016 Time of Evaluation 0940 Subjective Subjective: No Chest Pain, No shortness of breath, No Palpitations, No Dizziness Vitals Vitals Vital Signs Date Time Temp Pulse Resp B/P (MAP) Pulse Ox O2 Delivery O2 Flow Rate FiO2 08/12/16 08:58 84 129/68 08/12/16 08:00 Room Air 08/12/16 07:19 98.1 18 97 98.1 Weight Weight [ ] Input and Output Intake and Output Intake and Output 08/12/16 07:00 Intake Total 450 ml Output Total 1450 ml Balance -1000 ml Intake Oral 450 ml Output Urine Total 1450 ml # Voids 1 Laboratory Labs Laboratory Tests Test 08/11/16 10:52 08/11/16 16:38 08/11/16 20:56 08/12/16 04:00 Glucose (Fingerstick) 184 mg/dL (70-99) 143 mg/dL (70-99) 226 mg/dL (70-99) White Blood Count 10.7 x10^3/uL (4.0-11.0) Red Blood Count 3.83 x10^6/uL (4.30-5.70) Hemoglobin 12.2 g/dL (13.0-17.5) Hematocrit 36.4 % (39.0-53.0) Mean Corpuscular Volume 95 fL (79-100) Mean Corpuscular Hemoglobin 32 pg (25-35) Mean Corpuscular Hemoglobin Concent 33 g/dL (31-37) Red Cell Distribution Width 15.5 % (11.5-14.5) Platelet Count 203 x10^3/uL (140-400) Neutrophils (%) (Auto) 74 % (31-73) Lymphocytes (%) (Auto) 15 % (24-48) Monocytes (%) (Auto) 10 % (0-9) Eosinophils (%) (Auto) 1 % (0-3) Basophils (%) (Auto) 0 % (0-3) Neutrophils # (Auto) 7.9 x10^3uL (1.8-7.7) Lymphocytes # (Auto) 1.6 x10^3/uL (1.0-4.8) Monocytes # (Auto) 1.0 x10^3/uL (0.0-1.1) Eosinophils # (Auto) 0.1 x10^3/uL (0.0-0.7) Basophils # (Auto) 0.0 x10^3/uL (0.0-0.2) Sodium Level 137 mmol/L (136-145) Potassium Level 3.9 mmol/L (3.5-5.1) Chloride Level 104 mmol/L (98-107) Carbon Dioxide Level 23 mmol/L (21-32) Anion Gap 10 (6-14) Blood Urea Nitrogen 25 mg/dL (8-26) Creatinine 2.0 mg/dL (0.7-1.3) Estimated GFR (Cockcroft-Gault) 41.0 Glucose Level 122 mg/dL (70-99) Calcium Level 8.2 mg/dL (8.5-10.1) Phosphorus Level 3.7 mg/dL (2.6-4.7) Albumin 2.5 g/dL (3.4-5.0) Test 08/12/16 07:23 Glucose (Fingerstick) 136 mg/dL (70-99) Physical Exam HEENT: Neck Supple W Full Motion Chest: Symmetric LUNGS: Clear to Auscultation Heart: S1S2, RRR (SR with no significant ectopies) Abdomen: Soft N/T Extremities: No Edema, No Calf Tenderness Neurology: alert, oriented, follow commands Assessment Assessment 1. Acute CVA: Appears no residuals. Neurology following 2. NSTEMI: Multivessel disease. S/P Impella assisted PTCA to LM, LAD, LCx, and PCI to RCA. Stable 3. EMILY: improved. nephrology following 4. Severe ICM/acute on chronic systolic CHF: NYHA 2-3. EF <20%, compensated 5. Known CAD: s/p PCI/YINKA to LM and ostial/proximal LAD on 02/2016. 6. Peripheral Vascular Disease 7. PAFIB: [id number] 6. Currently SR with frequent PVCs and PACs. 8. Hypertension: remains controlled 9. DM2/HLP 10. Noncompliance 11. Right knee pain: neurovascular status intact. Focal lateral side, no swelling, limited ROM. Defer to PCP Recommendations 1. Continue low dose entresto (pt enrolled on support program, 2 wk samples and 30 day coupon provided), lasix, and toprol. 2. Continue with secondary prevention. DAPT with ASA/brillinta. Will transition to plavix in 1 month 3. Arrange for lifevest prior to DC reevaluate in 3 months via TTE for need of AICD. 4. ASA for stroke prevention. Due to acute CVA would not be able to proceed with OAC/NOAC till cleared by neurology. 5. Reinforced adherence 6. Outpt CHF home health. 7. Fluid restrictions 2 L, daily weight and home BP monitoring 8. Follow up in office in 3-4 weeks ANGEL ROBLES MD 08/12/16 1403: CARDIO Progress Notes Plan Plan Pt. seen and examined. Agree with above [employer] note. PVC's less after toprol. Continue titration to goal toprol of 50mg xl if tolerated Lifevest fitting today. Spoke to family and patient Will f/u next monday in clinic. Thanks SAAD CHUNG APRN August 12, 2016 09:57 ANGEL ROBLES MD August 12, 2016 14:03
--- NOTE | 2016-08-12 11:35 | RAD ---
Right lower extremity venous ultrasound, 08/12/2016 : History: Posterior knee pain Duplex evaluation including grayscale, color flow and spectral Doppler analysis was performed. The femoral and popliteal veins show no filling defects to suggest DVT. The visualized calf veins are unremarkable. IMPRESSION: There is no sonographic evidence of deep vein thrombosis in the right lower extremity
--- NOTE | 2016-08-12 12:06 | PDOC ---
SUBJECTIVE ROS CKD III Doing and feeling OK overall CVS: no Orthopnea, no CP RESP: no SOB, no CHING GI: no Nausea, no Vomiting : no Dysuria, no Urgency OBJECTIVE Vital Signs Vital Signs Date Time Temp Pulse Resp B/P (MAP) Pulse Ox O2 Delivery O2 Flow Rate FiO2 08/12/16 08:58 84 129/68 08/12/16 08:00 Room Air 08/12/16 07:19 98.1 18 97 98.1 I & 0 Intake and Output 08/12/16 07:00 Intake Total 450 ml Output Total 1450 ml Balance -1000 ml Intake Oral 450 ml Output Urine Total 1450 ml # Voids 1 PHYSICAL EXAM Physical Exam General Appearance: AAO x 3 today, In no apparent Distress Eyes: sclera anicteric; Conjunctiva Normal EN: No EN Drainage Mucous Memb. moist Neck: no JVD min JVP Supple no Thyromegaly CVS: S1 S2 + Murmur No Gallop No Rub no Edema Resp: no Rales no Rhonchi no Acc. Muscle use GI: BS hypoactive NO Bruit Non Tender Non Distended : no CVA tenderness; no Suprapubic Tenderness Assessment & Plan EMILY - mostly resolved. UO is good CKD III - baseline creat ~ 1.8 (previously) - 2.0 (now as new baseline) in Feb 2016; Current fluid and E-lyte status does not necessitate emergent need for dialysis. Will re-evaluate for dialysis in the am Proteinruia - 1.1 gms - susepct DM/HTNsive /NS. 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 CHF on Entresto watch trend. Low Alb - Po Intake is improvign. COMMENT/RELEVANT DATA Meds Current Medications Medications (Trade) Dose Ordered Sig/Tom Start Time Stop Time Status Last Admin Dose Admin Alteplase, Recombinant 62 ml @ 62 mls/hr Q1H 08/05/16 12:30 08/05/16 13:29 DC 08/05/16 12:51 62 MLS/HR Amiodarone HCl 150 mg/Dextrose 103 ml @ 618 mls/hr 1X ONCE 08/07/16 16:30 08/07/16 16:39 DC 08/07/16 17:02 618 MLS/HR Amiodarone HCl 900 mg/Dextrose 518 ml @ 0 mls/hr CONT PRN 08/07/16 16:30 08/07/16 17:11 DC 08/07/16 17:03 33.3 MLS/HR Aspirin (Ayad Aspirin) 325 mg 1X ONCE 08/05/16 11:00 08/05/16 11:01 DC 08/05/16 10:48 325 MG Aspirin (Children'S Aspirin) 81 mg [id number] 08/06/16 15:00 08/12/16 08:57 81 MG Atorvastatin Calcium (Lipitor) 40 mg QHS 08/06/16 21:00 08/11/16 20:53 40 MG Baclofen (Lioresal) 10 mg TID 08/12/16 14:00 Calcium Gluconate (Calcium Gluconate) 1,000 mg 1X ONCE 08/05/16 16:15 08/05/16 16:16 DC 08/05/16 16:47 1,000 MG Cefazolin Sodium 1 gm/Sodium Chloride 50 ml @ 100 mls/hr 1X ONCE 08/09/16 13:00 08/09/16 13:29 DC 08/09/16 14:12 100 MLS/HR Dextrose (Dextrose 50%-Water Syringe) 25 gm 1X ONCE 08/05/16 16:15 08/05/16 16:16 DC 08/05/16 16:42 25 GM Fentanyl Citrate (Fentanyl 2ml Vial) 25 mcg PRN Q2HR PRN 08/09/16 13:30 08/09/16 13:35 25 MCG Furosemide (Lasix) 20 mg DAILY 08/11/16 09:30 08/12/16 08:57 20 MG Heparin Sodium (Porcine) (Heparin 5,000 Units/1,000ml NS) 5,000 unit 1X ONCE 08/08/16 09:15 08/08/16 09:16 DC 08/08/16 09:15 5,000 UNIT Heparin Sodium (Porcine) (Heparin Sodium) 7,000 unit 1X ONCE 08/09/16 09:00 08/09/16 09:07 DC 08/09/16 09:49 7,000 UNIT Heparin Sodium/ Dextrose 500 ml @ 0 mls/hr CONT PRN 08/08/16 11:30 08/10/16 09:30 DC 08/08/16 11:00 19.5 MLS/HR Heparin Sodium/ Sodium Chloride 1,000 unit 1X ONCE 08/09/16 09:00 08/09/16 09:07 DC 08/09/16 09:47 1,000 UNIT Info (Anti-Coagulation Monitoring By Pharmacy) 1 each PRN DAILY PRN 08/08/16 14:00 08/10/16 09:30 DC Insulin Aspart (Novolog) 0-7 UNITS TIDWMEALS 08/05/16 17:00 08/11/16 12:29 2 UNITS Insulin Detemir (Levemir) 10 units QHS 08/05/16 21:00 08/11/16 21:06 10 UNITS Insulin Human Regular (Novolin R Vial) 10 unit 1X ONCE 08/05/16 16:15 08/05/16 16:16 DC 08/05/16 16:43 10 UNIT Iodixanol (Visipaque 320) 100 ml 1X ONCE 08/09/16 09:00 08/09/16 09:07 DC 08/09/16 09:48 144 ML Lidocaine HCl 20 ml 1X ONCE 08/09/16 09:00 08/09/16 09:07 DC 08/09/16 09:48 10 ML Magnesium Sulfate/ Dextrose 100 ml @ 100 mls/hr 1X ONCE 08/08/16 11:00 08/08/16 11:59 DC 08/08/16 11:38 100 MLS/HR Metoprolol Succinate (Toprol Xl) 25 mg DAILY 08/11/16 10:30 08/12/16 08:58 25 MG Midazolam HCl (Versed) 2 mg 1X ONCE 08/09/16 09:00 08/09/16 09:07 DC 08/09/16 09:48 2 MG Milrinone Lactate/ Dextrose 100 ml @ 0 mls/hr CONT PRN 08/05/16 18:15 08/10/16 12:42 DC 08/10/16 04:50 2.7 MLS/HR Ondansetron HCl (Zofran) 4 mg PRN Q6HRS PRN 08/05/16 17:15 08/09/16 13:03 4 MG Phenylephrine HCl 1 mg STK-MED ONCE 08/09/16 07:36 08/09/16 07:37 DC Sacubitril/ Valsartan (Entresto 24 Mg-26 Mg) 1 tab BID 08/11/16 09:00 08/12/16 08:58 1 TAB Sodium Bicarbonate 100 meq/Dextrose 600 ml @ 500 mls/hr 1X ONCE 08/05/16 13:15 08/05/16 14:26 DC 08/05/16 13:40 500 MLS/HR Sodium Bicarbonate 100 meq/Sodium Chloride 600 ml @ 500 mls/hr 1X ONCE 08/05/16 13:15 08/05/16 14:26 Cancel Sodium Chloride 1,000 ml @ 50 mls/hr Q20H 08/09/16 16:30 08/10/16 23:45 50 MLS/HR Ticagrelor (Brilinta) 90 mg 1X ONCE 08/09/16 23:00 08/09/16 23:01 DC 08/09/16 23:14 90 MG Lab Laboratory Tests Test 08/11/16 16:38 08/11/16 20:56 08/12/16 04:00 08/12/16 07:23 Glucose (Fingerstick) 143 mg/dL (70-99) 226 mg/dL (70-99) 136 mg/dL (70-99) White Blood Count 10.7 x10^3/uL (4.0-11.0) Red Blood Count 3.83 x10^6/uL (4.30-5.70) Hemoglobin 12.2 g/dL (13.0-17.5) Hematocrit 36.4 % (39.0-53.0) Mean Corpuscular Volume 95 fL (79-100) Mean Corpuscular Hemoglobin 32 pg (25-35) Mean Corpuscular Hemoglobin Concent 33 g/dL (31-37) Red Cell Distribution Width 15.5 % (11.5-14.5) Platelet Count 203 x10^3/uL (140-400) Neutrophils (%) (Auto) 74 % (31-73) Lymphocytes (%) (Auto) 15 % (24-48) Monocytes (%) (Auto) 10 % (0-9) Eosinophils (%) (Auto) 1 % (0-3) Basophils (%) (Auto) 0 % (0-3) Neutrophils # (Auto) 7.9 x10^3uL (1.8-7.7) Lymphocytes # (Auto) 1.6 x10^3/uL (1.0-4.8) Monocytes # (Auto) 1.0 x10^3/uL (0.0-1.1) Eosinophils # (Auto) 0.1 x10^3/uL (0.0-0.7) Basophils # (Auto) 0.0 x10^3/uL (0.0-0.2) Sodium Level 137 mmol/L (136-145) Potassium Level 3.9 mmol/L (3.5-5.1) Chloride Level 104 mmol/L (98-107) Carbon Dioxide Level 23 mmol/L (21-32) Anion Gap 10 (6-14) Blood Urea Nitrogen 25 mg/dL (8-26) Creatinine 2.0 mg/dL (0.7-1.3) Estimated GFR (Cockcroft-Gault) 41.0 Glucose Level 122 mg/dL (70-99) Calcium Level 8.2 mg/dL (8.5-10.1) Phosphorus Level 3.7 mg/dL (2.6-4.7) Albumin 2.5 g/dL (3.4-5.0) JONI CRISOSTOMO MD August 12, 2016 12:06
[2016-08-12] MEDS ORDERED: METOPROLOL SUCC 24HR ER 25 MG TAB.ER.24H. PO ONE ×2 (13:08→21:00)
--- NOTE | 2016-08-12 13:08 | PDOC ---
PROGRESS NOTES Chief Complaint Chief Complaint stroke, thormbotic CVA -NSTEMI -coronary stent -acute renal failure -Systolic heart failure -atrial fibrillation -hypertension -COPD -chronic kidney disease -DM -hyperlipidemia History of Present Illness History of Present Illness sitting up an eating, right knee pain, post. had trouble walking today, was fine yesterday s/p stents He no longer c/o chest pain. We discussed care with family member eating better, still weakness will check orthostatics need pT And ot Vitals Vitals Vital Signs Date Time Temp Pulse Resp B/P (MAP) Pulse Ox O2 Delivery O2 Flow Rate FiO2 08/12/16 08:58 84 129/68 08/12/16 08:00 Room Air 08/12/16 07:19 98.1 18 97 98.1 Physical Exam General: Alert, Cooperative, No acute distress Heart: Regular rate (SR), No murmurs Lungs: Clear, Other (He had decreased inspiratory effort. ) Abdomen: No tenderness, No masses Extremities: No cyanosis, No edema Skin: No rashes, No breakdown Labs LABS Laboratory Tests Test 08/11/16 16:38 08/11/16 20:56 08/12/16 04:00 08/12/16 07:23 Glucose (Fingerstick) 143 mg/dL (70-99) 226 mg/dL (70-99) 136 mg/dL (70-99) White Blood Count 10.7 x10^3/uL (4.0-11.0) Red Blood Count 3.83 x10^6/uL (4.30-5.70) Hemoglobin 12.2 g/dL (13.0-17.5) Hematocrit 36.4 % (39.0-53.0) Mean Corpuscular Volume 95 fL (79-100) Mean Corpuscular Hemoglobin 32 pg (25-35) Mean Corpuscular Hemoglobin Concent 33 g/dL (31-37) Red Cell Distribution Width 15.5 % (11.5-14.5) Platelet Count 203 x10^3/uL (140-400) Neutrophils (%) (Auto) 74 % (31-73) Lymphocytes (%) (Auto) 15 % (24-48) Monocytes (%) (Auto) 10 % (0-9) Eosinophils (%) (Auto) 1 % (0-3) Basophils (%) (Auto) 0 % (0-3) Neutrophils # (Auto) 7.9 x10^3uL (1.8-7.7) Lymphocytes # (Auto) 1.6 x10^3/uL (1.0-4.8) Monocytes # (Auto) 1.0 x10^3/uL (0.0-1.1) Eosinophils # (Auto) 0.1 x10^3/uL (0.0-0.7) Basophils # (Auto) 0.0 x10^3/uL (0.0-0.2) Sodium Level 137 mmol/L (136-145) Potassium Level 3.9 mmol/L (3.5-5.1) Chloride Level 104 mmol/L (98-107) Carbon Dioxide Level 23 mmol/L (21-32) Anion Gap 10 (6-14) Blood Urea Nitrogen 25 mg/dL (8-26) Creatinine 2.0 mg/dL (0.7-1.3) Estimated GFR (Cockcroft-Gault) 41.0 Glucose Level 122 mg/dL (70-99) Calcium Level 8.2 mg/dL (8.5-10.1) Phosphorus Level 3.7 mg/dL (2.6-4.7) Albumin 2.5 g/dL (3.4-5.0) Review of Systems Review of Systems right knee pain, new Assessment and Plan Assessmemt and Plan Problems Medical Problems: (1) CVA (cerebral vascular accident) Status: Acute Problems: Comment Review of Relevant I have reviewed the following items abdulaziz (where applicable) has been applied. Labs Laboratory Tests Test 08/10/16 16:40 08/10/16 20:31 08/11/16 03:08 08/11/16 07:27 Glucose (Fingerstick) 109 mg/dL (70-99) 173 mg/dL (70-99) 118 mg/dL (70-99) White Blood Count 10.6 x10^3/uL (4.0-11.0) Red Blood Count 3.65 x10^6/uL (4.30-5.70) Hemoglobin 11.6 g/dL (13.0-17.5) Hematocrit 34.4 % (39.0-53.0) Mean Corpuscular Volume 94 fL (79-100) Mean Corpuscular Hemoglobin 32 pg (25-35) Mean Corpuscular Hemoglobin Concent 34 g/dL (31-37) Red Cell Distribution Width 15.5 % (11.5-14.5) Platelet Count 166 x10^3/uL (140-400) Neutrophils (%) (Auto) 73 % (31-73) Lymphocytes (%) (Auto) 14 % (24-48) Monocytes (%) (Auto) 11 % (0-9) Eosinophils (%) (Auto) 1 % (0-3) Basophils (%) (Auto) 1 % (0-3) Neutrophils # (Auto) 7.7 x10^3uL (1.8-7.7) Lymphocytes # (Auto) 1.5 x10^3/uL (1.0-4.8) Monocytes # (Auto) 1.2 x10^3/uL (0.0-1.1) Eosinophils # (Auto) 0.1 x10^3/uL (0.0-0.7) Basophils # (Auto) 0.1 x10^3/uL (0.0-0.2) Sodium Level 137 mmol/L (136-145) Potassium Level 4.2 mmol/L (3.5-5.1) Chloride Level 104 mmol/L (98-107) Carbon Dioxide Level 23 mmol/L (21-32) Anion Gap 10 (6-14) Blood Urea Nitrogen 23 mg/dL (8-26) Creatinine 1.9 mg/dL (0.7-1.3) Estimated GFR (Cockcroft-Gault) 43.5 Glucose Level 122 mg/dL (70-99) Calcium Level 8.2 mg/dL (8.5-10.1) Phosphorus Level 3.5 mg/dL (2.6-4.7) Magnesium Level 1.8 mg/dL (1.8-2.4) Albumin 2.6 g/dL (3.4-5.0) Test 08/11/16 10:52 08/11/16 16:38 08/11/16 20:56 08/12/16 04:00 Glucose (Fingerstick) 184 mg/dL (70-99) 143 mg/dL (70-99) 226 mg/dL (70-99) White Blood Count 10.7 x10^3/uL (4.0-11.0) Red Blood Count 3.83 x10^6/uL (4.30-5.70) Hemoglobin 12.2 g/dL (13.0-17.5) Hematocrit 36.4 % (39.0-53.0) Mean Corpuscular Volume 95 fL (79-100) Mean Corpuscular Hemoglobin 32 pg (25-35) Mean Corpuscular Hemoglobin Concent 33 g/dL (31-37) Red Cell Distribution Width 15.5 % (11.5-14.5) Platelet Count 203 x10^3/uL (140-400) Neutrophils (%) (Auto) 74 % (31-73) Lymphocytes (%) (Auto) 15 % (24-48) Monocytes (%) (Auto) 10 % (0-9) Eosinophils (%) (Auto) 1 % (0-3) Basophils (%) (Auto) 0 % (0-3) Neutrophils # (Auto) 7.9 x10^3uL (1.8-7.7) Lymphocytes # (Auto) 1.6 x10^3/uL (1.0-4.8) Monocytes # (Auto) 1.0 x10^3/uL (0.0-1.1) Eosinophils # (Auto) 0.1 x10^3/uL (0.0-0.7) Basophils # (Auto) 0.0 x10^3/uL (0.0-0.2) Sodium Level 137 mmol/L (136-145) Potassium Level 3.9 mmol/L (3.5-5.1) Chloride Level 104 mmol/L (98-107) Carbon Dioxide Level 23 mmol/L (21-32) Anion Gap 10 (6-14) Blood Urea Nitrogen 25 mg/dL (8-26) Creatinine 2.0 mg/dL (0.7-1.3) Estimated GFR (Cockcroft-Gault) 41.0 Glucose Level 122 mg/dL (70-99) Calcium Level 8.2 mg/dL (8.5-10.1) Phosphorus Level 3.7 mg/dL (2.6-4.7) Albumin 2.5 g/dL (3.4-5.0) Test 08/12/16 07:23 Glucose (Fingerstick) 136 mg/dL (70-99) Laboratory Tests Test 08/11/16 16:38 08/11/16 20:56 08/12/16 04:00 08/12/16 07:23 Glucose (Fingerstick) 143 mg/dL (70-99) 226 mg/dL (70-99) 136 mg/dL (70-99) White Blood Count 10.7 x10^3/uL (4.0-11.0) Red Blood Count 3.83 x10^6/uL (4.30-5.70) Hemoglobin 12.2 g/dL (13.0-17.5) Hematocrit 36.4 % (39.0-53.0) Mean Corpuscular Volume 95 fL (79-100) Mean Corpuscular Hemoglobin 32 pg (25-35) Mean Corpuscular Hemoglobin Concent 33 g/dL (31-37) Red Cell Distribution Width 15.5 % (11.5-14.5) Platelet Count 203 x10^3/uL (140-400) Neutrophils (%) (Auto) 74 % (31-73) Lymphocytes (%) (Auto) 15 % (24-48) Monocytes (%) (Auto) 10 % (0-9) Eosinophils (%) (Auto) 1 % (0-3) Basophils (%) (Auto) 0 % (0-3) Neutrophils # (Auto) 7.9 x10^3uL (1.8-7.7) Lymphocytes # (Auto) 1.6 x10^3/uL (1.0-4.8) Monocytes # (Auto) 1.0 x10^3/uL (0.0-1.1) Eosinophils # (Auto) 0.1 x10^3/uL (0.0-0.7) Basophils # (Auto) 0.0 x10^3/uL (0.0-0.2) Sodium Level 137 mmol/L (136-145) Potassium Level 3.9 mmol/L (3.5-5.1) Chloride Level 104 mmol/L (98-107) Carbon Dioxide Level 23 mmol/L (21-32) Anion Gap 10 (6-14) Blood Urea Nitrogen 25 mg/dL (8-26) Creatinine 2.0 mg/dL (0.7-1.3) Estimated GFR (Cockcroft-Gault) 41.0 Glucose Level 122 mg/dL (70-99) Calcium Level 8.2 mg/dL (8.5-10.1) Phosphorus Level 3.7 mg/dL (2.6-4.7) Albumin 2.5 g/dL (3.4-5.0) Medications Current Medications Aspirin (Ayad Aspirin) 325 mg 1X ONCE PO Last administered on 08/05/16 10:48 ; Start 08/05/16 at 11:00; Stop 08/05/16 at 11:01; Status DC Alteplase, Recombinant 0 ml @ 0 mls/hr 1X ONCE IV ; Start 08/05/16 at 12:30; Stop 08/05/16 at 12:31; Status Cancel Alteplase, Recombinant 0 ml @ 0 mls/hr Q1H IV ; Start 08/05/16 at 12:40; Stop at 12:41; Status Cancel Alteplase, Recombinant 7 ml @ 420 mls/hr 1X ONCE IV Last administered on 12:50; Start 08/05/16 at 12:30; Stop 08/05/16 at 12:31; Status DC Alteplase, Recombinant 62 ml @ 62 mls/hr Q1H IV Last administered on 08/05/16 12:51; Start 08/05/16 at 12:30; Stop 08/05/16 at 13:29; Status DC Furosemide (Lasix) 40 mg 1X ONCE IVP Last administered on 08/05/16 13:30; Start 08/05/16 at 13:30; Stop 08/05/16 at 13:31; Status DC Sodium Bicarbonate 100 meq/Sodium Chloride 600 ml @ 500 mls/hr 1X ONCE IV ; Start 08/05/16 at 13:15; Stop 08/05/16 at 14:26; Status Cancel Sodium Bicarbonate 100 meq/Dextrose 600 ml @ 500 mls/hr 1X ONCE IV Last administered on 08/05/16 13:40; Start 08/05/16 at 13:15; Stop 08/05/16 at 14:26 ; Status DC Magnesium Sulfate/ Dextrose 50 ml @ 25 mls/hr PRN DAILY PRN IV for Mag < 1.7 on am labs Last administered on 08/08/16 18:09; Start 08/05/16 at 14:30 Sodium Chloride 500 ml @ 0 mls/hr QID PRN IV UO< 30cc/hr over previous 6hrs; Start 08/05/16 at 14:45; Stop 08/07/16 at 07:59; Status DC Insulin Detemir (Levemir) 10 units QHS SQ Last administered on 08/11/16 21:06; Start 08/05/16 at 21:00 Insulin Aspart (Novolog) 0-7 UNITS TIDWMEALS SQ Last administered on 08/11/16 12:29; Start 08/05/16 at 17:00 Dextrose (Dextrose 50%-Water Syringe) 12.5 gm PRN Q15MIN PRN IV SEE COMMENTS; Start 08/05/16 at 16:00 Dextrose (Dextrose 50%-Water Syringe) 25 gm 1X ONCE IV Last administered on 16:42; Start 08/05/16 at 16:15; Stop 08/05/16 at 16:16; Status DC Insulin Human Regular (Novolin R Vial) 10 unit 1X ONCE IV Last administered on 08/05/16 16:43; Start 08/05/16 at 16:15; Stop 08/05/16 at 16:16; Status DC Calcium Gluconate (Calcium Gluconate) 1,000 mg 1X ONCE IVP Last administered on 08/05/16 16:47; Start 08/05/16 at 16:15; Stop 08/05/16 at 16:16; Status DC Ondansetron HCl (Zofran) 4 mg PRN Q6HRS PRN IV NAUSEA/VOMITING Last administered on 08/09/16 13:03; Start 08/05/16 at 17:15 Milrinone Lactate/ Dextrose 100 ml @ 0 mls/hr CONT PRN IV SEE I/O RECORD Last administered on 08/10/16 04:50; Start 08/05/16 at 18:15; Stop 08/10/16 at 12:42; Status DC Aspirin (Children'S Aspirin) 81 mg DAILYWBKFT PO Last administered on 08/12/16 08:57; Start 08/06/16 at 15:00 Atorvastatin Calcium (Lipitor) 40 mg QHS PO Last administered on 08/11/16 20:53 ; Start 08/06/16 at 21:00 Heparin Sodium/ Dextrose 500 ml @ 0 mls/hr CONT PRN IV SEE I/O RECORD Last administered on 08/06/16 15:43; Start 08/06/16 at 14:30; Stop 08/08/16 at 06:59 ; Status DC Heparin Sodium (Porcine) (Heparin Sodium) 1,650 unit PRN Q6HRS PRN IV FOR UFH LEVEL LESS THAN 0.2; Start 08/06/16 at 14:30; Stop 08/07/16 at 00:21; Status DC Furosemide (Lasix) 20 mg DAILY IVP Last administered on 08/07/16 10:01; Start 08/06/16 at 17:00; Stop 08/08/16 at 15:45; Status DC Furosemide (Lasix) 20 mg DAILY IVP ; Start 08/06/16 at 18:00; Stop 08/06/16 at 18:00; Status DC Heparin Sodium (Porcine) (Heparin Sodium) 1,650 unit PRN Q6HRS PRN IV FOR UFH LEVEL LESS THAN 0.2; Start 08/07/16 at 00:00; Status UNV Amiodarone HCl 150 mg/Dextrose 103 ml @ 618 mls/hr 1X ONCE IV Last administered on 08/07/16 17:02; Start 08/07/16 at 16:30; Stop 08/07/16 at 16:39 ; Status DC Amiodarone HCl 900 mg/Dextrose 518 ml @ 0 mls/hr CONT PRN IV SEE I/O RECORD Last administered on 08/07/16 17:03; Start 08/07/16 at 16:30; Stop 08/07/16 at 17:11; Status DC Heparin Sodium/ Sodium Chloride 1,500 ml @ As Directed STK-MED ONCE .ROUTE ; Start 08/08/16 at 07:32; Stop 08/08/16 at 07:33; Status DC Lidocaine HCl 20 ml STK-MED ONCE .ROUTE ; Start 08/08/16 at 07:32; Stop 08/08/16 at 07:33; Status DC Iodixanol (Visipaque 320) 100 ml STK-MED ONCE .ROUTE ; Start 08/08/16 at 07:32; Stop 08/08/16 at 07:33; Status DC Fentanyl Citrate (Fentanyl 2ml Vial) 100 mcg STK-MED ONCE .ROUTE ; Start at 08:02; Stop 08/08/16 at 08:03; Status DC Midazolam HCl (Versed) 2 mg STK-MED ONCE .ROUTE ; Start 08/08/16 at 08:02; Stop 08/08/16 at 08:03; Status DC Heparin Sodium/ Sodium Chloride 1,000 unit 1X ONCE IART Last administered on 08:28; Start 08/08/16 at 08:15; Stop 08/08/16 at 08:16; Status DC Midazolam HCl (Versed) 2 mg 1X ONCE IV Last administered on 08/08/16 08:31; Start 08/08/16 at 08:15; Stop 08/08/16 at 08:16; Status DC Fentanyl Citrate (Fentanyl 2ml Vial) 100 mcg 1X ONCE IV Last administered on 08:31; Start 08/08/16 at 08:15; Stop 08/08/16 at 08:17; Status DC Iodixanol (Visipaque 320) 100 ml 1X ONCE IART Last administered on 08/08/16 09 :50; Start 08/08/16 at 08:15; Stop 08/08/16 at 08:17; Status DC Lidocaine HCl 20 ml 1X ONCE IJ Last administered on 08/08/16 08:29; Start 08/08 at 08:15; Stop 08/08/16 at 08:17; Status DC Heparin Sodium/ Sodium Chloride 500 ml @ As Directed STK-MED ONCE .ROUTE ; Start 08/08/16 at 08:30; Stop 08/08/16 at 08:31; Status DC Heparin Sodium (Porcine) (Heparin Sodium) 10,000 unit STK-MED ONCE .ROUTE ; Start 08/08/16 at 08:34; Stop 08/08/16 at 08:35; Status DC Heparin Sodium (Porcine) (Heparin 5,000 Units/1,000ml NS) 5,000 unit 1X ONCE IV Last administered on 08/08/16 09:15; Start 08/08/16 at 09:15; Stop 08/08/16 at 09:16; Status DC Heparin Sodium (Porcine) (Heparin Sodium) 2,000 unit 1X ONCE IV Last administered on 08/08/16 09:48; Start 08/08/16 at 09:15; Stop 08/08/16 at 09:16; Status DC Magnesium Sulfate/ Dextrose 100 ml @ 100 mls/hr 1X ONCE IV Last administered on 08/08/16t 11:38; Start 08/08/16 at 11:00; Stop 08/08/16 at 11:59; Status DC Heparin Sodium/ Dextrose 500 ml @ 0 mls/hr CONT PRN IV SEE I/O RECORD; Start at 10:45; Stop 08/08/16 at 11:29; Status DC Heparin Sodium/ Dextrose 500 ml @ 0 mls/hr CONT PRN IV SEE I/O RECORD Last administered on 08/08/16t 11:00; Start 08/08/16 at 11:30; Stop 08/10/16 at 09:30; Status DC Info (Anti-Coagulation Monitoring By Pharmacy) 1 each PRN DAILY PRN MC SEE COMMENTS; Start 08/08/16 at 14:00; Stop 08/10/16 at 09:30; Status DC Heparin Sodium/ Sodium Chloride 1,500 ml @ As Directed STK-MED ONCE .ROUTE ; Start 08/09/16 at 06:41; Stop 08/09/16 at 06:42; Status DC Iodixanol (Visipaque 320) 100 ml STK-MED ONCE .ROUTE ; Start 08/09/16 at 06:41; Stop 08/09/16 at 06:42; Status DC Lidocaine HCl 20 ml STK-MED ONCE .ROUTE ; Start 08/09/16 at 06:41; Stop 08/09/16 at 06:42; Status DC Fentanyl Citrate (Fentanyl 2ml Vial) 100 mcg STK-MED ONCE .ROUTE ; Start at 07:29; Stop 08/09/16 at 07:30; Status DC Midazolam HCl (Versed) 2 mg STK-MED ONCE .ROUTE ; Start 08/09/16 at 07:29; Stop 08/09/16 at 07:30; Status DC Heparin Sodium (Porcine) (Heparin Sodium) 10,000 unit STK-MED ONCE .ROUTE ; Start 08/09/16 at 07:36; Stop 08/09/16 at 07:37; Status DC Phenylephrine HCl 1 mg STK-MED ONCE IV ; Start 08/09/16 at 07:36; Stop 08/09/16 at 07:37; Status DC Heparin Sodium/ Sodium Chloride 500 ml @ As Directed STK-MED ONCE .ROUTE ; Start 08/09/16 at 08:18; Stop 08/09/16 at 08:19; Status DC Heparin Sodium/ Sodium Chloride 1,000 unit 1X ONCE IART Last administered on 09:47; Start 08/09/16 at 09:00; Stop 08/09/16 at 09:07; Status DC Midazolam HCl (Versed) 2 mg 1X ONCE IV Last administered on 08/09/16 09:48; Start 08/09/16 at 09:00; Stop 08/09/16 at 09:07; Status DC Fentanyl Citrate (Fentanyl 2ml Vial) 100 mcg 1X ONCE IV Last administered on 09:49; Start 08/09/16 at 09:00; Stop 08/09/16 at 09:07; Status DC Iodixanol (Visipaque 320) 100 ml 1X ONCE IART Last administered on 08/09/16 09 :48; Start 08/09/16 at 09:00; Stop 08/09/16 at 09:07; Status DC Ticagrelor (Brilinta) 180 mg 1X ONCE PO Last administered on 08/09/16 12:42; Start 08/09/16 at 09:00; Stop 08/09/16 at 09:07; Status DC Heparin Sodium (Porcine) (Heparin Sodium) 7,000 unit 1X ONCE IV Last administered on 08/09/16 09:49; Start 08/09/16 at 09:00; Stop 08/09/16 at 09:07; Status DC Lidocaine HCl 20 ml 1X ONCE IJ Last administered on 08/09/16 09:48; Start 08/09 at 09:00; Stop 08/09/16 at 09:07; Status DC Cefazolin Sodium 50 ml @ 100 mls/hr 1X ONCE IV ; Start 08/09/16 at 09:45; Stop 08/09/16 at 10:14; Status Cancel Sodium Chloride 250 ml @ 50 mls/hr 1X ONCE IV Last administered on 08/09/16 09:49; Start 08/09/16 at 09:45; Stop 08/09/16 at 14:44; Status DC Cefazolin Sodium 1 gm/Sodium Chloride 50 ml @ 100 mls/hr 1X ONCE IV Last administered on 08/09/16 14:12; Start 08/09/16 at 13:00; Stop 08/09/16 at 13:29; Status DC Fentanyl Citrate (Fentanyl 2ml Vial) 25 mcg PRN Q2HR PRN IV PAIN Last administered on 08/09/16 13:35; Start 08/09/16 at 13:30 Sodium Chloride 1,000 ml @ 50 mls/hr Q20H IV Last administered on 08/10/16 23: 45; Start 08/09/16 at 16:30 Ticagrelor (Brilinta) 90 mg BID PO Last administered on 08/12/16 08:57; Start 08/10/16 at 09:00 Ticagrelor (Brilinta) 90 mg 1X ONCE PO Last administered on 08/09/16 23:14; Start 08/09/16 at 23:00; Stop 08/09/16 at 23:01; Status DC Sacubitril/ Valsartan (Entresto 24 Mg-26 Mg) 1 tab BID PO Last administered on 08/12/16 08:58; Start 08/11/16 at 09:00 Metoprolol Succinate (Toprol Xl) 12.5 mg DAILY PO ; Start 08/11/16 at 09:00; Stop 08/11/16 at 09:50; Status DC Furosemide (Lasix) 20 mg DAILY PO Last administered on 08/12/16 08:57; Start at 09:30 Metoprolol Succinate (Toprol Xl) 25 mg DAILY PO Last administered on 08/12/16 08:58; Start 08/11/16 at 10:30 Baclofen (Lioresal) 10 mg TID PO ; Start 08/12/16 at 14:00 Metoprolol Succinate (Toprol Xl) 25 mg 1X ONCE PO ; Start 08/12/16 at 21:00; Stop 08/12/16 at 21:01; Status UNV Active Scripts Active Cyclobenzaprine Hcl 10 Mg Tablet 1 Tab PO TID PRN Hydrocodone-Ibuprofen 7.5-200 (Hydrocodone/Ibuprofen) 1 Each Tablet 1 Tab PO PRN Q6HRS PRN Effient (Prasugrel Hcl) 10 Mg Tablet 10 Mg PO DAILYWBKFT SIG: ONE PO DAILY Hydralazine Hcl 50 Mg Tablet 50 Mg PO TID SIG: ONE BY MOUTH EVERY 8 HOURS; REPLACES NIFEDIPINE Carvedilol 12.5 Mg Tablet 12.5 Mg PO BIDWMEALS SIG: ONE P.O. BID; REPLACES CLONIDINE Reported Glimepiride 4 Mg Tablet 1 Tab PO DAILY Januvia (Sitagliptin Phosphate) 100 Mg Tablet 1 Tab PO DAILY Spironolactone 100 Mg Tablet 1 Tab PO DAILY Allopurinol 100 Mg Tablet 1 Tab PO DAILY Atorvastatin Calcium 40 Mg Tablet 1 Tab PO DAILY Alysia 81 (Aspirin) 81 Mg Tablet. 81 Tab PO DAILY Vitals/I & O Vital Sign - Last 24 Hours 08/11/16 08/11/16 08/11/16 08/11/16 16:00 16:02 16:04 19:45 Temp 98.3 98.2 98.3 98.2 Pulse 82 69 72 83 Resp 18 16 B/P (MAP) 121/65 (83) 92/48 (63) 97/77 (84) 120/65 (83) Pulse Ox 99 100 O2 Delivery Room Air Room Air 08/11/16 08/11/16 08/11/16 08/12/16 20:30 20:53 22:55 03:00 Temp 98.2 98.5 98.2 98.5 Pulse 83 84 72 Resp 18 18 B/P (MAP) 120/65 119/66 (83) 97/53 (68) Pulse Ox 96 95 O2 Delivery Room Air Room Air 08/12/16 08/12/16 08/12/16 08/12/16 07:19 08:00 08:58 08:58 Temp 98.1 98.1 Pulse 85 84 84 Resp 18 B/P (MAP) 129/68 (88) 129/68 129/68 Pulse Ox 97 O2 Delivery Room Air Room Air Intake and Output 08/11/16 08/11/16 08/12/16 15:00 23:00 07:00 Intake Total 450 ml 0 ml Output Total 1300 ml 150 ml Balance -850 ml -150 ml Nutrition Consultation Dietary Evaluation: Recommendations by RD: Dietary education by RD, Increase Calorie Intake, Protein supplementation Comments: Boost glucose control BID - 250kcal and 14g protein per serving Previous visit educated on MNT for TLC diet and provided handouts for reference upon d/c Expected Outcomes/Goals: to meet >75% est nutr needs Interpretation of weight loss: >10% in 6 months Malnutrition Findings: Body Fat Depletion (Non Severe: Mild Depletion 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
--- NOTE | 2016-08-12 13:22 | RAD ---
PROCEDURE MR of the right knee HISTORY Right knee stiffness and pain for 2 days. No known injury. COMPARISON None TECHNIQUE Routine multiplanar sequences are obtained. FINDINGS No evidence of medial meniscal tear. No evidence of lateral meniscal tear. Lateral meniscus is incompletely discoid. Anterior and posterior cruciate ligaments are intact. Medial collateral ligament is intact. Iliotibial band unremarkable. Fibular collateral ligament, biceps femoris tendon and popliteus tendon are intact. Extensor mechanism is intact. No acute retinacular tear. Moderate to severe medial joint compartment chondromalacia. No bone lesion or acute fracture. No acute soft tissue injury. Moderate to severe patellofemoral joint chondromalacia. IMPRESSION 1. No meniscal tear or internal derangement. 2. Primary osteoarthritis. Electronically signed by: Erasmo Ricks MD (August 12, 2016 13:20:35)
[2016-08-12 14:25] VITALS: BP 119/63
[2016-08-12] MEDS: BACLOFEN 10 MG TABLET. PO SCH ×2 (15:59→21:24)
[2016-08-12] MEDS ORDERED: methylPREDNISolone ACETATE 40 MG/ML VIAL. IM ONE (16:30)
[2016-08-12] MEDS ORDERED: BUPIVACAINE MPF 0.25% 10 ML VIAL. IJ ONE (16:30)
--- NOTE | 2016-08-12 18:30 | PDOC4 ---
PROCEDURE Procedure At his request,I have injected his right knee under aseptic skin technique with marcaine and depomedrol solution and he tolerated the procedure satisfactorily without any side effects. He continues to have significant difficulty with right knee flexion post injection. LATHA SEYMOUR MD August 12, 2016 18:30
[2016-08-12 19:00] VITALS: BP 99/62
[2016-08-12] MEDS: ATORVASTATIN CALCIUM 40 MG TABLET. PO SCH (21:07)
[2016-08-12] MEDS: DICLOFENAC SODIUM 1% TOPICAL GEL 100GM TUBE. TP SCH (21:10)
[2016-08-12] MEDS: INSULIN DETEMIR 300 UNITS/3 ML INSULN.PEN. SQ SCH (21:24)
[2016-08-12 22:59] VITALS: BP 120/68
--- NOTE | 2016-08-13 01:47 | CONS ---
DATE OF CONSULTATION: 08/12/2016 ATTENDING PHYSICIAN: Maximino King M.D. REASON FOR CONSULTATION: The patient was seen at the request of Dr. Arreaga for rehab evaluation. 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 The patient with known cardiomyopathy, severe atrial fibrillation, coronary artery disease, was admitted through the Emergency Room on 08/05/2016 with chest pain. He is apparently having the chest pain for about 2 weeks. He did not seek any medical advice secondary to insurance problems. The patient was found in the ER with vomiting. He had cerebrovascular accident like symptoms with slurred speech and expressive, facial droop and received TPA. The patient had radiological studies including CT scan of the brain, which failed to reveal any acute abnormalities. It showed old left thalamic lacunar infarct and chronic microvascular ischemic disease. He had significant diffuse atherosclerotic disease of the right superficial femoral artery, distal left posterior tibial artery and distal left anterior tibial artery. Carotid Doppler studies revealed mild plaque formation is seen within the carotid bifurcations and ICA on both sides, more prominent on the left side, but not hemodynamically significant stenosis was noted. MRI scan of the brain revealed suspected [id number] infarct within the left frontal lobe cortex, subcortical white matter and possibly left occipital lobe white matter, scattered foci of signal change throughout the cerebral white matter likely due to chronic small vessel disease, focus of suspected chronic microhemorrhage within the right parietal lobe, cerebral volume loss, chronic infarct within the bilateral basal ganglia, right external capsule and left thalamus and cerebellar hemispheres. The patient underwent coronary angioplasty for treatment of [id number]-elevated myocardial infarction. The patient did walk 750 feet without any assistive devices with physical therapy yesterday, but this morning, he is having some right knee stiffness with some pain. No apparent fall. The patient denies any back pain. He denies any tingling or numbness sensation in the extremities. The patient apparently is having some difficulty swallowing thin liquids using a straw. PHYSICAL EXAMINATION: Today revealed a middle-aged male. He is alert, oriented to time, place, person and circumstance and follows commands appropriately, moves all 4 extremities voluntarily where he had 4+/5 grade muscle strength. Deep tendon reflexes are brisk bilaterally. He had significant stiffness of his right knee and difficulty to flex his right knee past 160 degrees. He had mild crepitus on range of motion of the left knee joint. He had equal perception of touch and pinprick sensation bilaterally. Good coordination using both upper extremities. He is limping on his right foot while up walking without any assistive devices. He walks better using a roller walker. No obvious visual field cut or facial asymmetry noted. No difficulty with his communication noted. ASSESSMENT: The patient with atrial fibrillation, coronary artery disease, cardiomyopathy, hypertension, hyperlipidemia, old cerebrovascular accident, chronic obstructive pulmonary artery disease, chronic renal insufficiency, diabetes mellitus, status post drug-eluting stent placement in 02/2016 with recent onset multi-infarcts without any significant difficulty except stiffness of his right knee, most probably sprain after he walked for 750 feet yesterday with physical therapy, to rule out associated meniscal tear. He had clinical evidence of degenerative joint disease of left knee. RECOMMENDATIONS: To obtain MRI scan of his right knee to rule out any meniscus lesion. Agree with the plans for home when medically stable, to try baclofen to help ease some of the stiffness of his right knee. Dr. Arreaga, I appreciate asking me to participate in the care of this interesting patient. I will be glad to follow him with you as needed for the rehabilitation. LATHA SEYMOUR MD DR: HYACINTH/tomer JOB#: [id number] / [id number]
[2016-08-13 02:43] VITALS: BP 129/64
[2016-08-13 06:41] LABS: BASO % 0 % (0-3); EOS % 0 % (0-3); HEMATOCRIT 40.7 % (39.0-53.0); HEMOGLOBIN 13.3 g/dL (13.0-17.5); LYMPH # 0.8 x10^3/uL (1.0-4.8); LYMPH % 6 % (24-48); MEAN CORPUSCULAR HEMOGLOBIN 31 pg (25-35); MEAN CORPUSCULAR HGB CONC 33 g/dL (31-37); MEAN CORPUSCULAR VOLUME 95 fL (79-100); MONO % 5 % (0-9); NEUT % 89 % (31-73); PLATELET COUNT 269 x10^3/uL (140-400); RED BLOOD COUNT 4.27 x10^6/uL (4.30-5.70); RED CELL DISTRIBUTION WIDTH 15.8 % (11.5-14.5)
[2016-08-13 06:47] LABS: CALCIUM 8.6 mg/dL (8.5-10.1); CREATININE 2.2 mg/dL (0.7-1.3); GFR 36.8; POTASSIUM 4.4 mmol/L (3.5-5.1)
[2016-08-13 07:00] VITALS: BP 100/46
[2016-08-13 08:00] VITALS: BP 146/73
[2016-08-13] MEDS: ASPIRIN CHEWABLE 81 MG TABLET. PO SCH (08:07)
[2016-08-13] MEDS: TICAGRELOR 90 MG TABLET. PO SCH (08:08)
[2016-08-13] MEDS: SACUBITRIL/VALSARTAN 24/26MG TABLET. PO SCH (08:10)
[2016-08-13] MEDS: BACLOFEN 10 MG TABLET. PO SCH ×2 (08:11→14:00)
[2016-08-13] MEDS: FUROSEMIDE 20 MG TABLET PO SCH (08:11)
[2016-08-13] MEDS: METOPROLOL SUCC 24HR ER 25 MG TAB.ER.24H. PO SCH (08:13)
[2016-08-13] MEDS: INSULIN ASPART 300 UNITS/3 ML INSULN.PEN SQ SCH ×2 (08:30→12:31)
[2016-08-13] MEDS: DICLOFENAC SODIUM 1% TOPICAL GEL 100GM TUBE. TP SCH (08:30)
--- NOTE | 2016-08-13 09:34 | PDOC ---
SUBJECTIVE ROS EMILY/ CK DIII Doing well, no new compliants CVS: no Orthopnea, no CP RESP: no SOB, no CHING GI: no Nausea, no Vomiting : no Dysuria, no Urgency OBJECTIVE Vital Signs Vital Signs Date Time Temp Pulse Resp B/P (MAP) Pulse Ox O2 Delivery O2 Flow Rate FiO2 08/13/16 08:13 93 146/73 08/13/16 07:00 98.2 18 98 Room Air 98.2 I & 0 Intake and Output 08/13/16 07:00 Intake Total 1140 ml Output Total 700 ml Balance 440 ml Intake Oral 1140 ml Output Urine Total 700 ml PHYSICAL EXAM Physical Exam General Appearance: AAO x 3 today, In no apparent Distress Eyes: sclera anicteric; Conjunctiva Normal EN: No EN Drainage Mucous Memb. moist Neck: no JVD min JVP Supple no Thyromegaly CVS: S1 S2 + Murmur No Gallop No Rub no Edema Resp: no Rales no Rhonchi no Acc. Muscle use GI: BS hypoactive NO Bruit Non Tender Non Distended : no CVA tenderness; no Suprapubic Tenderness Assessment & Plan EMILY - mostly resolved. UO is good; UO as recorded is marginal CKD III - baseline creat ~ 1.8 (previously) - 2.2 (now ? as new baseline with lasix ) in Feb 2016; Current fluid and E-lyte status does not necessitate emergent need for dialysis. Will re-evaluate for dialysis in the am Proteinruia - 1.1 gms - susepct DM/HTNsive /NS. Restarted RAAS Blockade as Entresto for now CHF on Entresto watch trend. defer further optimization of CV Meds to cardiology [place] - Po Intake is improvign and I suspect this will improve over time OK to D/c from Renal standpoint. COMMENT/RELEVANT DATA Meds Current Medications Medications (Trade) Dose Ordered Sig/Tom Start Time Stop Time Status Last Admin Dose Admin Alteplase, Recombinant 62 ml @ 62 mls/hr Q1H 08/05/16 12:30 08/05/16 13:29 DC 08/05/16 12:51 62 MLS/HR Amiodarone HCl 150 mg/Dextrose 103 ml @ 618 mls/hr 1X ONCE 08/07/16 16:30 08/07/16 16:39 DC 08/07/16 17:02 618 MLS/HR Amiodarone HCl 900 mg/Dextrose 518 ml @ 0 mls/hr CONT PRN 08/07/16 16:30 08/07/16 17:11 DC 08/07/16 17:03 33.3 MLS/HR Aspirin (Ayad Aspirin) 325 mg 1X ONCE 08/05/16 11:00 08/05/16 11:01 DC 08/05/16 10:48 325 MG Aspirin (Children'S Aspirin) 81 mg [id number] 08/06/16 15:00 08/13/16 08:07 81 MG Atorvastatin Calcium (Lipitor) 40 mg QHS 08/06/16 21:00 08/12/16 21:07 40 MG Baclofen (Lioresal) 10 mg TID 08/12/16 14:00 08/13/16 08:11 10 MG Bupivacaine HCl (Sensorcaine-Mpf 0.25%) 10 ml 1X ONCE 08/12/16 16:30 08/12/16 16:31 DC 08/12/16 16:30 10 ML Calcium Gluconate (Calcium Gluconate) 1,000 mg 1X ONCE 08/05/16 16:15 08/05/16 16:16 DC 08/05/16 16:47 1,000 MG Cefazolin Sodium 1 gm/Sodium Chloride 50 ml @ 100 mls/hr 1X ONCE 08/09/16 13:00 08/09/16 13:29 DC 08/09/16 14:12 100 MLS/HR Dextrose (Dextrose 50%-Water Syringe) 25 gm 1X ONCE 08/05/16 16:15 08/05/16 16:16 DC 08/05/16 16:42 25 GM Diclofenac Sodium (Voltaren) 1 angus BID 08/12/16 21:00 08/13/16 08:30 1 ANGUS Fentanyl Citrate (Fentanyl 2ml Vial) 25 mcg PRN Q2HR PRN 08/09/16 13:30 08/09/16 13:35 25 MCG Furosemide (Lasix) 20 mg DAILY 08/11/16 09:30 08/13/16 08:11 20 MG Heparin Sodium (Porcine) (Heparin 5,000 Units/1,000ml NS) 5,000 unit 1X ONCE 08/08/16 09:15 08/08/16 09:16 DC 08/08/16 09:15 5,000 UNIT Heparin Sodium (Porcine) (Heparin Sodium) 7,000 unit 1X ONCE 08/09/16 09:00 08/09/16 09:07 DC 08/09/16 09:49 7,000 UNIT Heparin Sodium/ Dextrose 500 ml @ 0 mls/hr CONT PRN 08/08/16 11:30 08/10/16 09:30 DC 08/08/16 11:00 19.5 MLS/HR Heparin Sodium/ Sodium Chloride 1,000 unit 1X ONCE 08/09/16 09:00 08/09/16 09:07 DC 08/09/16 09:47 1,000 UNIT Info (Anti-Coagulation Monitoring By Pharmacy) 1 each PRN DAILY PRN 08/08/16 14:00 08/10/16 09:30 DC Insulin Aspart (Novolog) 0-7 UNITS TIDWMEALS 08/05/16 17:00 08/13/16 08:30 4 UNITS Insulin Detemir (Levemir) 10 units QHS 08/05/16 21:00 08/12/16 21:24 10 UNITS Insulin Human Regular (Novolin R Vial) 10 unit 1X ONCE 08/05/16 16:15 08/05/16 16:16 DC 08/05/16 16:43 10 UNIT Iodixanol (Visipaque 320) 100 ml 1X ONCE 08/09/16 09:00 08/09/16 09:07 DC 08/09/16 09:48 144 ML Lidocaine HCl 20 ml 1X ONCE 08/09/16 09:00 08/09/16 09:07 DC 08/09/16 09:48 10 ML Magnesium Sulfate/ Dextrose 100 ml @ 100 mls/hr 1X ONCE 08/08/16 11:00 08/08/16 11:59 DC 08/08/16 11:38 100 MLS/HR Methylprednisolone Acetate (DEPO-Medrol 40MG VIAL) 40 mg 1X ONCE 08/12/16 16:30 08/12/16 16:31 DC 08/12/16 16:30 40 MG Metoprolol Succinate (Toprol Xl) 25 mg 1X ONCE 08/12/16 21:00 08/12/16 21:01 DC 08/12/16 21:09 25 MG Midazolam HCl (Versed) 2 mg 1X ONCE 08/09/16 09:00 08/09/16 09:07 DC 08/09/16 09:48 2 MG Milrinone Lactate/ Dextrose 100 ml @ 0 mls/hr CONT PRN 08/05/16 18:15 08/10/16 12:42 DC 08/10/16 04:50 2.7 MLS/HR Ondansetron HCl (Zofran) 4 mg PRN Q6HRS PRN 08/05/16 17:15 08/09/16 13:03 4 MG Phenylephrine HCl 1 mg STK-MED ONCE 08/09/16 07:36 08/09/16 07:37 DC Sacubitril/ Valsartan (Entresto 24 Mg-26 Mg) 1 tab BID 08/11/16 09:00 08/13/16 08:10 1 TAB Sodium Bicarbonate 100 meq/Dextrose 600 ml @ 500 mls/hr 1X ONCE 08/05/16 13:15 08/05/16 14:26 DC 08/05/16 13:40 500 MLS/HR Sodium Bicarbonate 100 meq/Sodium Chloride 600 ml @ 500 mls/hr 1X ONCE 08/05/16 13:15 08/05/16 14:26 Cancel Sodium Chloride 1,000 ml @ 50 mls/hr Q20H 08/09/16 16:30 08/12/16 19:21 DC 08/10/16 23:45 50 MLS/HR Ticagrelor (Brilinta) 90 mg 1X ONCE 08/09/16 23:00 08/09/16 23:01 DC 08/09/16 23:14 90 MG Lab Laboratory Tests Test 08/12/16 12:59 08/12/16 16:20 08/12/16 21:05 08/13/16 05:53 Glucose (Fingerstick) 192 mg/dL (70-99) 132 mg/dL (70-99) 279 mg/dL (70-99) White Blood Count 14.0 x10^3/uL (4.0-11.0) Red Blood Count 4.27 x10^6/uL (4.30-5.70) Hemoglobin 13.3 g/dL (13.0-17.5) Hematocrit 40.7 % (39.0-53.0) Mean Corpuscular Volume 95 fL (79-100) Mean Corpuscular Hemoglobin 31 pg (25-35) Mean Corpuscular Hemoglobin Concent 33 g/dL (31-37) Red Cell Distribution Width 15.8 % (11.5-14.5) Platelet Count 269 x10^3/uL (140-400) Neutrophils (%) (Auto) 89 % (31-73) Lymphocytes (%) (Auto) 6 % (24-48) Monocytes (%) (Auto) 5 % (0-9) Eosinophils (%) (Auto) 0 % (0-3) Basophils (%) (Auto) 0 % (0-3) Neutrophils # (Auto) 12.4 x10^3uL (1.8-7.7) Lymphocytes # (Auto) 0.8 x10^3/uL (1.0-4.8) Monocytes # (Auto) 0.7 x10^3/uL (0.0-1.1) Eosinophils # (Auto) 0.0 x10^3/uL (0.0-0.7) Basophils # (Auto) 0.0 x10^3/uL (0.0-0.2) Sodium Level 136 mmol/L (136-145) Potassium Level 4.4 mmol/L (3.5-5.1) Chloride Level 103 mmol/L (98-107) Carbon Dioxide Level 21 mmol/L (21-32) Anion Gap 12 (6-14) Blood Urea Nitrogen 33 mg/dL (8-26) Creatinine 2.2 mg/dL (0.7-1.3) Estimated GFR (Cockcroft-Gault) 36.8 Glucose Level 197 mg/dL (70-99) Calcium Level 8.6 mg/dL (8.5-10.1) Test 08/13/16 07:41 Glucose (Fingerstick) 201 mg/dL (70-99) JONI CRISOSTOMO MD August 13, 2016 09:34
[2016-08-13 09:52] LABS: % EOS 2 % (0-5); PLT ESTIMATE ADEQUATE (ADEQUATE)
--- NOTE | 2016-08-13 09:56 | PDOC ---
PROGRESS NOTES Subjective Subjective He feels better with right knee. Objective Objective Vital Signs Date Time Temp Pulse Resp B/P (MAP) Pulse Ox O2 Delivery O2 Flow Rate FiO2 08/13/16 08:13 93 146/73 08/13/16 08:00 Room Air 08/13/16 07:00 98.2 18 98 98.2 08/09/16 09:49 2.0 Intake and Output 08/13/16 07:00 Intake Total 1140 ml Output Total 700 ml Balance 440 ml Intake Oral 1140 ml Output Urine Total 700 ml Physical Exam Physical Exam He continues with difficulty to flex his right knee and no difference with muscle strength in both upper extremities. Assessment Assessment Problems Medical Problems: (1) CVA (cerebral vascular accident) Status: Acute Plan Plan of Care Agree with plans for home with home health follow up. Comment Review of Relevant I have reviewed the following items abdulaziz (where applicable) has been applied. Labs Laboratory Tests Test 08/11/16 10:52 08/11/16 16:38 08/11/16 20:56 08/12/16 04:00 Glucose (Fingerstick) 184 mg/dL (70-99) 143 mg/dL (70-99) 226 mg/dL (70-99) White Blood Count 10.7 x10^3/uL (4.0-11.0) Red Blood Count 3.83 x10^6/uL (4.30-5.70) Hemoglobin 12.2 g/dL (13.0-17.5) Hematocrit 36.4 % (39.0-53.0) Mean Corpuscular Volume 95 fL (79-100) Mean Corpuscular Hemoglobin 32 pg (25-35) Mean Corpuscular Hemoglobin Concent 33 g/dL (31-37) Red Cell Distribution Width 15.5 % (11.5-14.5) Platelet Count 203 x10^3/uL (140-400) Neutrophils (%) (Auto) 74 % (31-73) Lymphocytes (%) (Auto) 15 % (24-48) Monocytes (%) (Auto) 10 % (0-9) Eosinophils (%) (Auto) 1 % (0-3) Basophils (%) (Auto) 0 % (0-3) Neutrophils # (Auto) 7.9 x10^3uL (1.8-7.7) Lymphocytes # (Auto) 1.6 x10^3/uL (1.0-4.8) Monocytes # (Auto) 1.0 x10^3/uL (0.0-1.1) Eosinophils # (Auto) 0.1 x10^3/uL (0.0-0.7) Basophils # (Auto) 0.0 x10^3/uL (0.0-0.2) Sodium Level 137 mmol/L (136-145) Potassium Level 3.9 mmol/L (3.5-5.1) Chloride Level 104 mmol/L (98-107) Carbon Dioxide Level 23 mmol/L (21-32) Anion Gap 10 (6-14) Blood Urea Nitrogen 25 mg/dL (8-26) Creatinine 2.0 mg/dL (0.7-1.3) Estimated GFR (Cockcroft-Gault) 41.0 Glucose Level 122 mg/dL (70-99) Calcium Level 8.2 mg/dL (8.5-10.1) Phosphorus Level 3.7 mg/dL (2.6-4.7) Albumin 2.5 g/dL (3.4-5.0) Test 08/12/16 07:23 08/12/16 12:59 08/12/16 16:20 08/12/16 21:05 Glucose (Fingerstick) 136 mg/dL (70-99) 192 mg/dL (70-99) 132 mg/dL (70-99) 279 mg/dL (70-99) Test 08/13/16 05:53 08/13/16 07:41 White Blood Count 14.0 x10^3/uL (4.0-11.0) Red Blood Count 4.27 x10^6/uL (4.30-5.70) Hemoglobin 13.3 g/dL (13.0-17.5) Hematocrit 40.7 % (39.0-53.0) Mean Corpuscular Volume 95 fL (79-100) Mean Corpuscular Hemoglobin 31 pg (25-35) Mean Corpuscular Hemoglobin Concent 33 g/dL (31-37) Red Cell Distribution Width 15.8 % (11.5-14.5) Platelet Count 269 x10^3/uL (140-400) Neutrophils (%) (Auto) 89 % (31-73) Lymphocytes (%) (Auto) 6 % (24-48) Monocytes (%) (Auto) 5 % (0-9) Eosinophils (%) (Auto) 0 % (0-3) Basophils (%) (Auto) 0 % (0-3) Neutrophils # (Auto) 12.4 x10^3uL (1.8-7.7) Lymphocytes # (Auto) 0.8 x10^3/uL (1.0-4.8) Monocytes # (Auto) 0.7 x10^3/uL (0.0-1.1) Eosinophils # (Auto) 0.0 x10^3/uL (0.0-0.7) Basophils # (Auto) 0.0 x10^3/uL (0.0-0.2) Segmented Neutrophils % 80 % (35-66) Band Neutrophils % 4 % (0-9) Lymphocytes % 8 % (24-48) Monocytes % 6 % (0-10) Eosinophils % 2 % (0-5) Platelet Estimate Adequate (ADEQUATE) Sodium Level 136 mmol/L (136-145) Potassium Level 4.4 mmol/L (3.5-5.1) Chloride Level 103 mmol/L (98-107) Carbon Dioxide Level 21 mmol/L (21-32) Anion Gap 12 (6-14) Blood Urea Nitrogen 33 mg/dL (8-26) Creatinine 2.2 mg/dL (0.7-1.3) Estimated GFR (Cockcroft-Gault) 36.8 Glucose Level 197 mg/dL (70-99) Calcium Level 8.6 mg/dL (8.5-10.1) Glucose (Fingerstick) 201 mg/dL (70-99) Laboratory Tests Test 08/12/16 12:59 08/12/16 16:20 08/12/16 21:05 08/13/16 05:53 Glucose (Fingerstick) 192 mg/dL (70-99) 132 mg/dL (70-99) 279 mg/dL (70-99) White Blood Count 14.0 x10^3/uL (4.0-11.0) Red Blood Count 4.27 x10^6/uL (4.30-5.70) Hemoglobin 13.3 g/dL (13.0-17.5) Hematocrit 40.7 % (39.0-53.0) Mean Corpuscular Volume 95 fL (79-100) Mean Corpuscular Hemoglobin 31 pg (25-35) Mean Corpuscular Hemoglobin Concent 33 g/dL (31-37) Red Cell Distribution Width 15.8 % (11.5-14.5) Platelet Count 269 x10^3/uL (140-400) Neutrophils (%) (Auto) 89 % (31-73) Lymphocytes (%) (Auto) 6 % (24-48) Monocytes (%) (Auto) 5 % (0-9) Eosinophils (%) (Auto) 0 % (0-3) Basophils (%) (Auto) 0 % (0-3) Neutrophils # (Auto) 12.4 x10^3uL (1.8-7.7) Lymphocytes # (Auto) 0.8 x10^3/uL (1.0-4.8) Monocytes # (Auto) 0.7 x10^3/uL (0.0-1.1) Eosinophils # (Auto) 0.0 x10^3/uL (0.0-0.7) Basophils # (Auto) 0.0 x10^3/uL (0.0-0.2) Segmented Neutrophils % 80 % (35-66) Band Neutrophils % 4 % (0-9) Lymphocytes % 8 % (24-48) Monocytes % 6 % (0-10) Eosinophils % 2 % (0-5) Platelet Estimate Adequate (ADEQUATE) Sodium Level 136 mmol/L (136-145) Potassium Level 4.4 mmol/L (3.5-5.1) Chloride Level 103 mmol/L (98-107) Carbon Dioxide Level 21 mmol/L (21-32) Anion Gap 12 (6-14) Blood Urea Nitrogen 33 mg/dL (8-26) Creatinine 2.2 mg/dL (0.7-1.3) Estimated GFR (Cockcroft-Gault) 36.8 Glucose Level 197 mg/dL (70-99) Calcium Level 8.6 mg/dL (8.5-10.1) Test 08/13/16 07:41 Glucose (Fingerstick) 201 mg/dL (70-99) Medications Current Medications Aspirin (Ayad Aspirin) 325 mg 1X ONCE PO Last administered on 08/05/16t 10:48 ; Start 08/05/16 at 11:00; Stop 08/05/16 at 11:01; Status DC Alteplase, Recombinant 0 ml @ 0 mls/hr 1X ONCE IV ; Start 08/05/16 at 12:30; Stop 08/05/16 at 12:31; Status Cancel Alteplase, Recombinant 0 ml @ 0 mls/hr Q1H IV ; Start 08/05/16 at 12:40; Stop at 12:41; Status Cancel Alteplase, Recombinant 7 ml @ 420 mls/hr 1X ONCE IV Last administered on 12:50; Start 08/05/16 at 12:30; Stop 08/05/16 at 12:31; Status DC Alteplase, Recombinant 62 ml @ 62 mls/hr Q1H IV Last administered on 08/05/16 12:51; Start 08/05/16 at 12:30; Stop 08/05/16 at 13:29; Status DC Furosemide (Lasix) 40 mg 1X ONCE IVP Last administered on 08/05/16 13:30; Start 08/05/16 at 13:30; Stop 08/05/16 at 13:31; Status DC Sodium Bicarbonate 100 meq/Sodium Chloride 600 ml @ 500 mls/hr 1X ONCE IV ; Start 08/05/16 at 13:15; Stop 08/05/16 at 14:26; Status Cancel Sodium Bicarbonate 100 meq/Dextrose 600 ml @ 500 mls/hr 1X ONCE IV Last administered on 08/05/16 13:40; Start 08/05/16 at 13:15; Stop 08/05/16 at 14:26 ; Status DC Magnesium Sulfate/ Dextrose 50 ml @ 25 mls/hr PRN DAILY PRN IV for Mag < 1.7 on am labs Last administered on 08/08/16 18:09; Start 08/05/16 at 14:30 Sodium Chloride 500 ml @ 0 mls/hr QID PRN IV UO< 30cc/hr over previous 6hrs; Start 08/05/16 at 14:45; Stop 08/07/16 at 07:59; Status DC Insulin Detemir (Levemir) 10 units QHS SQ Last administered on 08/12/16 21:24; Start 08/05/16 at 21:00 Insulin Aspart (Novolog) 0-7 UNITS TIDWMEALS SQ Last administered on 08/13/16 08:30; Start 08/05/16 at 17:00 Dextrose (Dextrose 50%-Water Syringe) 12.5 gm PRN Q15MIN PRN IV SEE COMMENTS; Start 08/05/16 at 16:00 Dextrose (Dextrose 50%-Water Syringe) 25 gm 1X ONCE IV Last administered on 16:42; Start 08/05/16 at 16:15; Stop 08/05/16 at 16:16; Status DC Insulin Human Regular (Novolin R Vial) 10 unit 1X ONCE IV Last administered on 08/05/16 16:43; Start 08/05/16 at 16:15; Stop 08/05/16 at 16:16; Status DC Calcium Gluconate (Calcium Gluconate) 1,000 mg 1X ONCE IVP Last administered on 08/05/16 16:47; Start 08/05/16 at 16:15; Stop 08/05/16 at 16:16; Status DC Ondansetron HCl (Zofran) 4 mg PRN Q6HRS PRN IV NAUSEA/VOMITING Last administered on 08/09/16 13:03; Start 08/05/16 at 17:15 Milrinone Lactate/ Dextrose 100 ml @ 0 mls/hr CONT PRN IV SEE I/O RECORD Last administered on 08/10/16 04:50; Start 08/05/16 at 18:15; Stop 08/10/16 at 12:42; Status DC Aspirin (Children'S Aspirin) 81 mg DAILYWBKFT PO Last administered on 08/13/16 08:07; Start 08/06/16 at 15:00 Atorvastatin Calcium (Lipitor) 40 mg QHS PO Last administered on 08/12/16 21:07 ; Start 08/06/16 at 21:00 Heparin Sodium/ Dextrose 500 ml @ 0 mls/hr CONT PRN IV SEE I/O RECORD Last administered on 08/06/16 15:43; Start 08/06/16 at 14:30; Stop 08/08/16 at 06:59 ; Status DC Heparin Sodium (Porcine) (Heparin Sodium) 1,650 unit PRN Q6HRS PRN IV FOR UFH LEVEL LESS THAN 0.2; Start 08/06/16 at 14:30; Stop 08/07/16 at 00:21; Status DC Furosemide (Lasix) 20 mg DAILY IVP Last administered on 08/07/16 10:01; Start 08/06/16 at 17:00; Stop 08/08/16 at 15:45; Status DC Furosemide (Lasix) 20 mg DAILY IVP ; Start 08/06/16 at 18:00; Stop 08/06/16 at 18:00; Status DC Heparin Sodium (Porcine) (Heparin Sodium) 1,650 unit PRN Q6HRS PRN IV FOR UFH LEVEL LESS THAN 0.2; Start 08/07/16 at 00:00; Status UNV Amiodarone HCl 150 mg/Dextrose 103 ml @ 618 mls/hr 1X ONCE IV Last administered on 08/07/16 17:02; Start 08/07/16 at 16:30; Stop 08/07/16 at 16:39 ; Status DC Amiodarone HCl 900 mg/Dextrose 518 ml @ 0 mls/hr CONT PRN IV SEE I/O RECORD Last administered on 08/07/16 17:03; Start 08/07/16 at 16:30; Stop 08/07/16 at 17:11; Status DC Heparin Sodium/ Sodium Chloride 1,500 ml @ As Directed STK-MED ONCE .ROUTE ; Start 08/08/16 at 07:32; Stop 08/08/16 at 07:33; Status DC Lidocaine HCl 20 ml STK-MED ONCE .ROUTE ; Start 08/08/16 at 07:32; Stop 08/08/16 at 07:33; Status DC Iodixanol (Visipaque 320) 100 ml STK-MED ONCE .ROUTE ; Start 08/08/16 at 07:32; Stop 08/08/16 at 07:33; Status DC Fentanyl Citrate (Fentanyl 2ml Vial) 100 mcg STK-MED ONCE .ROUTE ; Start at 08:02; Stop 08/08/16 at 08:03; Status DC Midazolam HCl (Versed) 2 mg STK-MED ONCE .ROUTE ; Start 08/08/16 at 08:02; Stop 08/08/16 at 08:03; Status DC Heparin Sodium/ Sodium Chloride 1,000 unit 1X ONCE IART Last administered on 08:28; Start 08/08/16 at 08:15; Stop 08/08/16 at 08:16; Status DC Midazolam HCl (Versed) 2 mg 1X ONCE IV Last administered on 08/08/16 08:31; Start 08/08/16 at 08:15; Stop 08/08/16 at 08:16; Status DC Fentanyl Citrate (Fentanyl 2ml Vial) 100 mcg 1X ONCE IV Last administered on 08:31; Start 08/08/16 at 08:15; Stop 08/08/16 at 08:17; Status DC Iodixanol (Visipaque 320) 100 ml 1X ONCE IART Last administered on 08/08/16 09 :50; Start 08/08/16 at 08:15; Stop 08/08/16 at 08:17; Status DC Lidocaine HCl 20 ml 1X ONCE IJ Last administered on 08/08/16 08:29; Start 08/08 at 08:15; Stop 08/08/16 at 08:17; Status DC Heparin Sodium/ Sodium Chloride 500 ml @ As Directed STK-MED ONCE .ROUTE ; Start 08/08/16 at 08:30; Stop 08/08/16 at 08:31; Status DC Heparin Sodium (Porcine) (Heparin Sodium) 10,000 unit STK-MED ONCE .ROUTE ; Start 08/08/16 at 08:34; Stop 08/08/16 at 08:35; Status DC Heparin Sodium (Porcine) (Heparin 5,000 Units/1,000ml NS) 5,000 unit 1X ONCE IV Last administered on 08/08/16 09:15; Start 08/08/16 at 09:15; Stop 08/08/16 at 09:16; Status DC Heparin Sodium (Porcine) (Heparin Sodium) 2,000 unit 1X ONCE IV Last administered on 08/08/16 09:48; Start 08/08/16 at 09:15; Stop 08/08/16 at 09:16; Status DC Magnesium Sulfate/ Dextrose 100 ml @ 100 mls/hr 1X ONCE IV Last administered on 08/08/16 11:38; Start 08/08/16 at 11:00; Stop 08/08/16 at 11:59; Status DC Heparin Sodium/ Dextrose 500 ml @ 0 mls/hr CONT PRN IV SEE I/O RECORD; Start at 10:45; Stop 08/08/16 at 11:29; Status DC Heparin Sodium/ Dextrose 500 ml @ 0 mls/hr CONT PRN IV SEE I/O RECORD Last administered on 08/08/16t 11:00; Start 08/08/16 at 11:30; Stop 08/10/16 at 09:30; Status DC Info (Anti-Coagulation Monitoring By Pharmacy) 1 each PRN DAILY PRN MC SEE COMMENTS; Start 08/08/16 at 14:00; Stop 08/10/16 at 09:30; Status DC Heparin Sodium/ Sodium Chloride 1,500 ml @ As Directed STK-MED ONCE .ROUTE ; Start 08/09/16 at 06:41; Stop 08/09/16 at 06:42; Status DC Iodixanol (Visipaque 320) 100 ml STK-MED ONCE .ROUTE ; Start 08/09/16 at 06:41; Stop 08/09/16 at 06:42; Status DC Lidocaine HCl 20 ml STK-MED ONCE .ROUTE ; Start 08/09/16 at 06:41; Stop 08/09/16 at 06:42; Status DC Fentanyl Citrate (Fentanyl 2ml Vial) 100 mcg STK-MED ONCE .ROUTE ; Start at 07:29; Stop 08/09/16 at 07:30; Status DC Midazolam HCl (Versed) 2 mg STK-MED ONCE .ROUTE ; Start 08/09/16 at 07:29; Stop 08/09/16 at 07:30; Status DC Heparin Sodium (Porcine) (Heparin Sodium) 10,000 unit STK-MED ONCE .ROUTE ; Start 08/09/16 at 07:36; Stop 08/09/16 at 07:37; Status DC Phenylephrine HCl 1 mg STK-MED ONCE IV ; Start 08/09/16 at 07:36; Stop 08/09/16 at 07:37; Status DC Heparin Sodium/ Sodium Chloride 500 ml @ As Directed STK-MED ONCE .ROUTE ; Start 08/09/16 at 08:18; Stop 08/09/16 at 08:19; Status DC Heparin Sodium/ Sodium Chloride 1,000 unit 1X ONCE IART Last administered on 09:47; Start 08/09/16 at 09:00; Stop 08/09/16 at 09:07; Status DC Midazolam HCl (Versed) 2 mg 1X ONCE IV Last administered on 08/09/16 09:48; Start 08/09/16 at 09:00; Stop 08/09/16 at 09:07; Status DC Fentanyl Citrate (Fentanyl 2ml Vial) 100 mcg 1X ONCE IV Last administered on 09:49; Start 08/09/16 at 09:00; Stop 08/09/16 at 09:07; Status DC Iodixanol (Visipaque 320) 100 ml 1X ONCE IART Last administered on 08/09/16 09 :48; Start 08/09/16 at 09:00; Stop 08/09/16 at 09:07; Status DC Ticagrelor (Brilinta) 180 mg 1X ONCE PO Last administered on 08/09/16 12:42; Start 08/09/16 at 09:00; Stop 08/09/16 at 09:07; Status DC Heparin Sodium (Porcine) (Heparin Sodium) 7,000 unit 1X ONCE IV Last administered on 08/09/16 09:49; Start 08/09/16 at 09:00; Stop 08/09/16 at 09:07; Status DC Lidocaine HCl 20 ml 1X ONCE IJ Last administered on 08/09/16 09:48; Start 08/09 at 09:00; Stop 08/09/16 at 09:07; Status DC Cefazolin Sodium 50 ml @ 100 mls/hr 1X ONCE IV ; Start 08/09/16 at 09:45; Stop 08/09/16 at 10:14; Status Cancel Sodium Chloride 250 ml @ 50 mls/hr 1X ONCE IV Last administered on 08/09/16 09:49; Start 08/09/16 at 09:45; Stop 08/09/16 at 14:44; Status DC Cefazolin Sodium 1 gm/Sodium Chloride 50 ml @ 100 mls/hr 1X ONCE IV Last administered on 08/09/16 14:12; Start 08/09/16 at 13:00; Stop 08/09/16 at 13:29; Status DC Fentanyl Citrate (Fentanyl 2ml Vial) 25 mcg PRN Q2HR PRN IV PAIN Last administered on 08/09/16 13:35; Start 08/09/16 at 13:30 Sodium Chloride 1,000 ml @ 50 mls/hr Q20H IV Last administered on 08/10/16 23: 45; Start 08/09/16 at 16:30; Stop 08/12/16 at 19:21; Status DC Ticagrelor (Brilinta) 90 mg BID PO Last administered on 08/13/16 08:08; Start 08/10/16 at 09:00 Ticagrelor (Brilinta) 90 mg 1X ONCE PO Last administered on 08/09/16 23:14; Start 08/09/16 at 23:00; Stop 08/09/16 at 23:01; Status DC Sacubitril/ Valsartan (Entresto 24 Mg-26 Mg) 1 tab BID PO Last administered on 08/13/16 08:10; Start 08/11/16 at 09:00 Metoprolol Succinate (Toprol Xl) 12.5 mg DAILY PO ; Start 08/11/16 at 09:00; Stop 08/11/16 at 09:50; Status DC Furosemide (Lasix) 20 mg DAILY PO Last administered on 08/13/16 08:11; Start at 09:30 Metoprolol Succinate (Toprol Xl) 25 mg DAILY PO Last administered on 08/13/16 08:13; Start 08/11/16 at 10:30 Baclofen (Lioresal) 10 mg TID PO Last administered on 08/13/16 08:11; Start 08/12/16 at 14:00 Metoprolol Succinate (Toprol Xl) 25 mg 1X ONCE PO ; Start 08/12/16 at 13:08; Stop 08/12/16 at 13:09; Status Cancel Metoprolol Succinate (Toprol Xl) 25 mg 1X ONCE PO Last administered on 21:09; Start 08/12/16 at 21:00; Stop 08/12/16 at 21:01; Status DC Methylprednisolone Acetate (DEPO-Medrol 40MG VIAL) 40 mg 1X ONCE IM Last administered on 08/12/16 16:30; Start 08/12/16 at 16:30; Stop 08/12/16 at 16:31; Status DC Bupivacaine HCl (Sensorcaine-Mpf 0.25%) 10 ml 1X ONCE IJ Last administered on 08/12/16 16:30; Start 08/12/16 at 16:30; Stop 08/12/16 at 16:31; Status DC Diclofenac Sodium (Voltaren) 1 angus BID TP Last administered on 08/13/16t 08:30; Start 08/12/16 at 21:00 Active Scripts Active Cyclobenzaprine Hcl 10 Mg Tablet 1 Tab PO TID PRN Hydrocodone-Ibuprofen 7.5-200 (Hydrocodone/Ibuprofen) 1 Each Tablet 1 Tab PO PRN Q6HRS PRN Effient (Prasugrel Hcl) 10 Mg Tablet 10 Mg PO DAILYWBKFT SIG: ONE PO DAILY Hydralazine Hcl 50 Mg Tablet 50 Mg PO TID SIG: ONE BY MOUTH EVERY 8 HOURS; REPLACES NIFEDIPINE Carvedilol 12.5 Mg Tablet 12.5 Mg PO BIDWMEALS SIG: ONE P.O. BID; REPLACES CLONIDINE Reported Glimepiride 4 Mg Tablet 1 Tab PO DAILY Januvia (Sitagliptin Phosphate) 100 Mg Tablet 1 Tab PO DAILY Spironolactone 100 Mg Tablet 1 Tab PO DAILY Allopurinol 100 Mg Tablet 1 Tab PO DAILY Atorvastatin Calcium 40 Mg Tablet 1 Tab PO DAILY Aspir 81 (Aspirin) 81 Mg Tablet. 81 Tab PO DAILY Vitals/I & O Vital Sign - Last 24 Hours 08/12/16 08/12/16 08/12/16 08/12/16 14:25 19:00 20:00 21:09 Temp 98.2 98.2 98.2 98.2 Pulse 76 110 110 Resp 19 B/P (MAP) 119/63 (81) 99/62 (74) 99/62 Pulse Ox 98 97 O2 Delivery Room Air Room Air Room Air 08/12/16 08/12/16 08/13/16 08/13/16 21:13 22:59 02:43 07:00 Temp 98.2 97.4 98.2 98.2 97.4 98.2 Pulse 110 106 106 123 Resp 18 18 18 B/P (MAP) 99/62 120/68 (85) 129/64 (85) 100/46 (64) Pulse Ox 95 96 98 O2 Delivery Room Air Room Air Room Air 08/13/16 08/13/16 08/13/16 08:00 08:10 08:13 Pulse 93 93 B/P (MAP) 146/73 146/73 O2 Delivery Room Air Intake and Output 08/12/16 08/12/16 08/13/16 15:00 23:00 07:00 Intake Total 1140 ml 0 ml Output Total 600 ml 100 ml Balance 540 ml -100 ml Nutrition Consultation Dietary Evaluation: Recommendations by RD: Dietary education by RD, Increase Calorie Intake, Protein supplementation Comments: Boost glucose control BID - 250kcal and 14g protein per serving Previous visit educated on MNT for TLC diet and provided handouts for reference upon d/c Expected Outcomes/Goals: to meet >75% est nutr needs Interpretation of weight loss: >10% in 6 months Malnutrition Findings: Body Fat Depletion (Non Severe: Mild Depletion Reduced [employer] Strength (Non-Sev: N/A Malnutrition related to morbid: No Weight Status: Appropriate Fluid Accumulation (N/A): N/A LATHA SEYMOUR MD August 13, 2016 09:56
[2016-08-13] MEDS ORDERED: SACU1TAB PO (10:45)
[2016-08-13] MEDS ORDERED: TICA90TA PO (10:45)
[2016-08-13] MEDS ORDERED: METO25TA9 PO (10:45)
[2016-08-13] MEDS ORDERED: FURO20TA3 PO (10:45)
--- NOTE | 2016-08-13 10:49 | PDOC3 ---
Discharge Summary Visit Information Date of Admission: Aug 05, 2016 Date of Discharge: August 13, 2016 Final Diagnosis stroke, thormbotic CVA -NSTEMI -coronary stent -acute renal failure -Systolic heart failure -atrial fibrillation -hypertension -COPD -chronic kidney disease -DM -hyperlipidemia Problems Medical Problems: (1) CVA (cerebral vascular accident) Status: Acute Brief Hospital Course Allergies Allergies Coded Allergies Type Severity Reaction Last Updated Verified No Known Drug Allergies 12/18/15 No Vital Signs Vital Signs Date Time Temp Pulse Resp B/P (MAP) Pulse Ox O2 Delivery O2 Flow Rate FiO2 08/13/16 08:13 93 146/73 08/13/16 08:00 Room Air 08/13/16 07:00 98.2 18 98 98.2 Lab Results Laboratory Tests Test 08/11/16 10:52 08/11/16 16:38 08/11/16 20:56 08/12/16 04:00 Glucose (Fingerstick) 184 mg/dL (70-99) 143 mg/dL (70-99) 226 mg/dL (70-99) White Blood Count 10.7 x10^3/uL (4.0-11.0) Red Blood Count 3.83 x10^6/uL (4.30-5.70) Hemoglobin 12.2 g/dL (13.0-17.5) Hematocrit 36.4 % (39.0-53.0) Mean Corpuscular Volume 95 fL (79-100) Mean Corpuscular Hemoglobin 32 pg (25-35) Mean Corpuscular Hemoglobin Concent 33 g/dL (31-37) Red Cell Distribution Width 15.5 % (11.5-14.5) Platelet Count 203 x10^3/uL (140-400) Neutrophils (%) (Auto) 74 % (31-73) Lymphocytes (%) (Auto) 15 % (24-48) Monocytes (%) (Auto) 10 % (0-9) Eosinophils (%) (Auto) 1 % (0-3) Basophils (%) (Auto) 0 % (0-3) Neutrophils # (Auto) 7.9 x10^3uL (1.8-7.7) Lymphocytes # (Auto) 1.6 x10^3/uL (1.0-4.8) Monocytes # (Auto) 1.0 x10^3/uL (0.0-1.1) Eosinophils # (Auto) 0.1 x10^3/uL (0.0-0.7) Basophils # (Auto) 0.0 x10^3/uL (0.0-0.2) Sodium Level 137 mmol/L (136-145) Potassium Level 3.9 mmol/L (3.5-5.1) Chloride Level 104 mmol/L (98-107) Carbon Dioxide Level 23 mmol/L (21-32) Anion Gap 10 (6-14) Blood Urea Nitrogen 25 mg/dL (8-26) Creatinine 2.0 mg/dL (0.7-1.3) Estimated GFR (Cockcroft-Gault) 41.0 Glucose Level 122 mg/dL (70-99) Calcium Level 8.2 mg/dL (8.5-10.1) Phosphorus Level 3.7 mg/dL (2.6-4.7) Albumin 2.5 g/dL (3.4-5.0) Test 08/12/16 07:23 08/12/16 12:59 08/12/16 16:20 08/12/16 21:05 Glucose (Fingerstick) 136 mg/dL (70-99) 192 mg/dL (70-99) 132 mg/dL (70-99) 279 mg/dL (70-99) Test 08/13/16 05:53 08/13/16 07:41 White Blood Count 14.0 x10^3/uL (4.0-11.0) Red Blood Count 4.27 x10^6/uL (4.30-5.70) Hemoglobin 13.3 g/dL (13.0-17.5) Hematocrit 40.7 % (39.0-53.0) Mean Corpuscular Volume 95 fL (79-100) Mean Corpuscular Hemoglobin 31 pg (25-35) Mean Corpuscular Hemoglobin Concent 33 g/dL (31-37) Red Cell Distribution Width 15.8 % (11.5-14.5) Platelet Count 269 x10^3/uL (140-400) Neutrophils (%) (Auto) 89 % (31-73) Lymphocytes (%) (Auto) 6 % (24-48) Monocytes (%) (Auto) 5 % (0-9) Eosinophils (%) (Auto) 0 % (0-3) Basophils (%) (Auto) 0 % (0-3) Neutrophils # (Auto) 12.4 x10^3uL (1.8-7.7) Lymphocytes # (Auto) 0.8 x10^3/uL (1.0-4.8) Monocytes # (Auto) 0.7 x10^3/uL (0.0-1.1) Eosinophils # (Auto) 0.0 x10^3/uL (0.0-0.7) Basophils # (Auto) 0.0 x10^3/uL (0.0-0.2) Segmented Neutrophils % 80 % (35-66) Band Neutrophils % 4 % (0-9) Lymphocytes % 8 % (24-48) Monocytes % 6 % (0-10) Eosinophils % 2 % (0-5) Platelet Estimate Adequate (ADEQUATE) Sodium Level 136 mmol/L (136-145) Potassium Level 4.4 mmol/L (3.5-5.1) Chloride Level 103 mmol/L (98-107) Carbon Dioxide Level 21 mmol/L (21-32) Anion Gap 12 (6-14) Blood Urea Nitrogen 33 mg/dL (8-26) Creatinine 2.2 mg/dL (0.7-1.3) Estimated GFR (Cockcroft-Gault) 36.8 Glucose Level 197 mg/dL (70-99) Calcium Level 8.6 mg/dL (8.5-10.1) Glucose (Fingerstick) 201 mg/dL (70-99) Laboratory Tests Test 08/12/16 12:59 08/12/16 16:20 08/12/16 21:05 08/13/16 05:53 Glucose (Fingerstick) 192 mg/dL (70-99) 132 mg/dL (70-99) 279 mg/dL (70-99) White Blood Count 14.0 x10^3/uL (4.0-11.0) Red Blood Count 4.27 x10^6/uL (4.30-5.70) Hemoglobin 13.3 g/dL (13.0-17.5) Hematocrit 40.7 % (39.0-53.0) Mean Corpuscular Volume 95 fL (79-100) Mean Corpuscular Hemoglobin 31 pg (25-35) Mean Corpuscular Hemoglobin Concent 33 g/dL (31-37) Red Cell Distribution Width 15.8 % (11.5-14.5) Platelet Count 269 x10^3/uL (140-400) Neutrophils (%) (Auto) 89 % (31-73) Lymphocytes (%) (Auto) 6 % (24-48) Monocytes (%) (Auto) 5 % (0-9) Eosinophils (%) (Auto) 0 % (0-3) Basophils (%) (Auto) 0 % (0-3) Neutrophils # (Auto) 12.4 x10^3uL (1.8-7.7) Lymphocytes # (Auto) 0.8 x10^3/uL (1.0-4.8) Monocytes # (Auto) 0.7 x10^3/uL (0.0-1.1) Eosinophils # (Auto) 0.0 x10^3/uL (0.0-0.7) Basophils # (Auto) 0.0 x10^3/uL (0.0-0.2) Segmented Neutrophils % 80 % (35-66) Band Neutrophils % 4 % (0-9) Lymphocytes % 8 % (24-48) Monocytes % 6 % (0-10) Eosinophils % 2 % (0-5) Platelet Estimate Adequate (ADEQUATE) Sodium Level 136 mmol/L (136-145) Potassium Level 4.4 mmol/L (3.5-5.1) Chloride Level 103 mmol/L (98-107) Carbon Dioxide Level 21 mmol/L (21-32) Anion Gap 12 (6-14) Blood Urea Nitrogen 33 mg/dL (8-26) Creatinine 2.2 mg/dL (0.7-1.3) Estimated GFR (Cockcroft-Gault) 36.8 Glucose Level 197 mg/dL (70-99) Calcium Level 8.6 mg/dL (8.5-10.1) Test 08/13/16 07:41 Glucose (Fingerstick) 201 mg/dL (70-99) Brief Hospital Course Mr. Fernandez is a 65 old admit with CVA and chest pain right knee pain, post. had trouble walking today, was fine yesterday s/p stents He no longer c/o chest pain. We discussed care with family member eating better, still weakness need pT And ot - home health Discharge Information Condition at Discharge: Improved Follow Up: Weeks Disposition/Orders: D/C to Home w/ HH Scheduled Allopurinol (Allopurinol), 1 TAB PO DAILY, (Reported) Aspirin (Aspir 81), 81 TAB PO DAILY, (Reported) Atorvastatin Calcium (Atorvastatin Calcium), 1 TAB PO DAILY, (Reported) Furosemide (Furosemide), 20 MG PO DAILY Glimepiride (Glimepiride), 1 TAB PO DAILY, (Reported) Metoprolol Succinate (Toprol Xl), 1 TAB PO DAILY Sacubitril/Valsartan (Entresto 24 mg-26 mg Tablet), 1 TAB PO BID Sitagliptin Phosphate (Januvia), 1 TAB PO DAILY, (Reported) Spironolactone (Spironolactone), 1 TAB PO DAILY, (Reported) Ticagrelor (Brilinta), 90 MG PO BID Scheduled PRN Cyclobenzaprine Hcl (Cyclobenzaprine Hcl), 1 TAB PO TID PRN for MUSCLE PAIN Hydrocodone/Ibuprofen (Hydrocodone-Ibuprofen 7.5-200 ), 1 TAB PO PRN Q6HRS PRN for PAIN Discontinued Medications Carvedilol (Carvedilol), 12.5 MG PO BIDWMEALS Hydralazine Hcl (Hydralazine Hcl), 50 MG PO TID Prasugrel Hcl (Effient), 10 MG PO [id number] Patient Instructions Patient Instructions time > 30 min DC coreg, start Toprol XL 50 daily DC hydralazine, start entresto 24/26 cont asa and atorvastatin stop effient, start brinlinta 90 Lasix 20 daily PO LIUDMILA ROUSE MD August 13, 2016 10:49
[2016-08-13] MEDS ORDERED: METO-269 PO (10:51)
--- NOTE | 2016-08-13 10:52 | PDOC ---
PROGRESS NOTES Subjective Subjective denies chest pain, dyspnea or palpitations. Objective Objective Vital Signs Date Time Temp Pulse Resp B/P (MAP) Pulse Ox O2 Delivery O2 Flow Rate FiO2 08/13/16 08:13 93 146/73 08/13/16 08:00 Room Air 08/13/16 07:00 98.2 18 98 98.2 08/09/16 09:49 2.0 Intake and Output 08/13/16 06:59 Intake Total 1140 ml Output Total 700 ml Balance 440 ml Intake Oral 1140 ml Output Urine Total 700 ml Physical Exam Abdomen: Normal bowel sounds, Soft, No tenderness Heart: Other (IRR, no gallops, clicks or rubs) Extremities: No cyanosis, No edema, Normal pulses General: Alert, Oriented X3, Cooperative Lungs: Clear to auscultation, Normal air movement Neuro: Other (no acute deficits) Psych/Mental Status: Mental status NL, Mood NL Assessment Assessment Problems Medical Problems: (1) CVA (cerebral vascular accident) Status: Acute 1. Acute CVA: Appears no residuals. Neurology following 2. NSTEMI: Multivessel disease. S/P Impella assisted PTCA to LM, LAD, LCx, and severe ISR. s/p PCI to RCA. Brilinta for 30 days, samples provided then Plavix daily, Rx provided. 3. Severe ICM/acute on chronic systolic CHF: NYHA 2-3. EF <20%, compensated. Life vest fitted yesterday. reevaluate echo in ~90 days for possible AICD. Continue Entresto, Metoprolol, Lasix. 4. PAFIB: [id number] 6. Back in atrial fibrillation at ~110 Tolerated extra 25 metoprolol last pm. Increase daily dose to 50mg. No OAC due to CVA until cleared by Neuro. 5. Hypertension: remains controlled 6. DM2/HLP 7. Noncompliance - reinforced need to comply with medications Comment Review of Relevant I have reviewed the following items abdulaziz (where applicable) has been applied. Labs Laboratory Tests Test 08/11/16 10:52 08/11/16 16:38 08/11/16 20:56 08/12/16 04:00 Glucose (Fingerstick) 184 mg/dL (70-99) 143 mg/dL (70-99) 226 mg/dL (70-99) White Blood Count 10.7 x10^3/uL (4.0-11.0) Red Blood Count 3.83 x10^6/uL (4.30-5.70) Hemoglobin 12.2 g/dL (13.0-17.5) Hematocrit 36.4 % (39.0-53.0) Mean Corpuscular Volume 95 fL (79-100) Mean Corpuscular Hemoglobin 32 pg (25-35) Mean Corpuscular Hemoglobin Concent 33 g/dL (31-37) Red Cell Distribution Width 15.5 % (11.5-14.5) Platelet Count 203 x10^3/uL (140-400) Neutrophils (%) (Auto) 74 % (31-73) Lymphocytes (%) (Auto) 15 % (24-48) Monocytes (%) (Auto) 10 % (0-9) Eosinophils (%) (Auto) 1 % (0-3) Basophils (%) (Auto) 0 % (0-3) Neutrophils # (Auto) 7.9 x10^3uL (1.8-7.7) Lymphocytes # (Auto) 1.6 x10^3/uL (1.0-4.8) Monocytes # (Auto) 1.0 x10^3/uL (0.0-1.1) Eosinophils # (Auto) 0.1 x10^3/uL (0.0-0.7) Basophils # (Auto) 0.0 x10^3/uL (0.0-0.2) Sodium Level 137 mmol/L (136-145) Potassium Level 3.9 mmol/L (3.5-5.1) Chloride Level 104 mmol/L (98-107) Carbon Dioxide Level 23 mmol/L (21-32) Anion Gap 10 (6-14) Blood Urea Nitrogen 25 mg/dL (8-26) Creatinine 2.0 mg/dL (0.7-1.3) Estimated GFR (Cockcroft-Gault) 41.0 Glucose Level 122 mg/dL (70-99) Calcium Level 8.2 mg/dL (8.5-10.1) Phosphorus Level 3.7 mg/dL (2.6-4.7) Albumin 2.5 g/dL (3.4-5.0) Test 08/12/16 07:23 08/12/16 12:59 08/12/16 16:20 08/12/16 21:05 Glucose (Fingerstick) 136 mg/dL (70-99) 192 mg/dL (70-99) 132 mg/dL (70-99) 279 mg/dL (70-99) Test 08/13/16 05:53 08/13/16 07:41 White Blood Count 14.0 x10^3/uL (4.0-11.0) Red Blood Count 4.27 x10^6/uL (4.30-5.70) Hemoglobin 13.3 g/dL (13.0-17.5) Hematocrit 40.7 % (39.0-53.0) Mean Corpuscular Volume 95 fL (79-100) Mean Corpuscular Hemoglobin 31 pg (25-35) Mean Corpuscular Hemoglobin Concent 33 g/dL (31-37) Red Cell Distribution Width 15.8 % (11.5-14.5) Platelet Count 269 x10^3/uL (140-400) Neutrophils (%) (Auto) 89 % (31-73) Lymphocytes (%) (Auto) 6 % (24-48) Monocytes (%) (Auto) 5 % (0-9) Eosinophils (%) (Auto) 0 % (0-3) Basophils (%) (Auto) 0 % (0-3) Neutrophils # (Auto) 12.4 x10^3uL (1.8-7.7) Lymphocytes # (Auto) 0.8 x10^3/uL (1.0-4.8) Monocytes # (Auto) 0.7 x10^3/uL (0.0-1.1) Eosinophils # (Auto) 0.0 x10^3/uL (0.0-0.7) Basophils # (Auto) 0.0 x10^3/uL (0.0-0.2) Segmented Neutrophils % 80 % (35-66) Band Neutrophils % 4 % (0-9) Lymphocytes % 8 % (24-48) Monocytes % 6 % (0-10) Eosinophils % 2 % (0-5) Platelet Estimate Adequate (ADEQUATE) Sodium Level 136 mmol/L (136-145) Potassium Level 4.4 mmol/L (3.5-5.1) Chloride Level 103 mmol/L (98-107) Carbon Dioxide Level 21 mmol/L (21-32) Anion Gap 12 (6-14) Blood Urea Nitrogen 33 mg/dL (8-26) Creatinine 2.2 mg/dL (0.7-1.3) Estimated GFR (Cockcroft-Gault) 36.8 Glucose Level 197 mg/dL (70-99) Calcium Level 8.6 mg/dL (8.5-10.1) Glucose (Fingerstick) 201 mg/dL (70-99) Laboratory Tests Test 08/12/16 12:59 08/12/16 16:20 08/12/16 21:05 08/13/16 05:53 Glucose (Fingerstick) 192 mg/dL (70-99) 132 mg/dL (70-99) 279 mg/dL (70-99) White Blood Count 14.0 x10^3/uL (4.0-11.0) Red Blood Count 4.27 x10^6/uL (4.30-5.70) Hemoglobin 13.3 g/dL (13.0-17.5) Hematocrit 40.7 % (39.0-53.0) Mean Corpuscular Volume 95 fL (79-100) Mean Corpuscular Hemoglobin 31 pg (25-35) Mean Corpuscular Hemoglobin Concent 33 g/dL (31-37) Red Cell Distribution Width 15.8 % (11.5-14.5) Platelet Count 269 x10^3/uL (140-400) Neutrophils (%) (Auto) 89 % (31-73) Lymphocytes (%) (Auto) 6 % (24-48) Monocytes (%) (Auto) 5 % (0-9) Eosinophils (%) (Auto) 0 % (0-3) Basophils (%) (Auto) 0 % (0-3) Neutrophils # (Auto) 12.4 x10^3uL (1.8-7.7) Lymphocytes # (Auto) 0.8 x10^3/uL (1.0-4.8) Monocytes # (Auto) 0.7 x10^3/uL (0.0-1.1) Eosinophils # (Auto) 0.0 x10^3/uL (0.0-0.7) Basophils # (Auto) 0.0 x10^3/uL (0.0-0.2) Segmented Neutrophils % 80 % (35-66) Band Neutrophils % 4 % (0-9) Lymphocytes % 8 % (24-48) Monocytes % 6 % (0-10) Eosinophils % 2 % (0-5) Platelet Estimate Adequate (ADEQUATE) Sodium Level 136 mmol/L (136-145) Potassium Level 4.4 mmol/L (3.5-5.1) Chloride Level 103 mmol/L (98-107) Carbon Dioxide Level 21 mmol/L (21-32) Anion Gap 12 (6-14) Blood Urea Nitrogen 33 mg/dL (8-26) Creatinine 2.2 mg/dL (0.7-1.3) Estimated GFR (Cockcroft-Gault) 36.8 Glucose Level 197 mg/dL (70-99) Calcium Level 8.6 mg/dL (8.5-10.1) Test 08/13/16 07:41 Glucose (Fingerstick) 201 mg/dL (70-99) Medications Current Medications Aspirin ([place] Aspirin) 325 mg 1X ONCE PO Last administered on 08/05/16 10:48 ; Start 08/05/16 at 11:00; Stop 08/05/16 at 11:01; Status DC Alteplase, Recombinant 0 ml @ 0 mls/hr 1X ONCE IV ; Start 08/05/16 at 12:30; Stop 08/05/16 at 12:31; Status Cancel Alteplase, Recombinant 0 ml @ 0 mls/hr Q1H IV ; Start 08/05/16 at 12:40; Stop at 12:41; Status Cancel Alteplase, Recombinant 7 ml @ 420 mls/hr 1X ONCE IV Last administered on 12:50; Start 08/05/16 at 12:30; Stop 08/05/16 at 12:31; Status DC Alteplase, Recombinant 62 ml @ 62 mls/hr Q1H IV Last administered on 08/05/16 12:51; Start 08/05/16 at 12:30; Stop 08/05/16 at 13:29; Status DC Furosemide (Lasix) 40 mg 1X ONCE IVP Last administered on 08/05/16 13:30; Start 08/05/16 at 13:30; Stop 08/05/16 at 13:31; Status DC Sodium Bicarbonate 100 meq/Sodium Chloride 600 ml @ 500 mls/hr 1X ONCE IV ; Start 08/05/16 at 13:15; Stop 08/05/16 at 14:26; Status Cancel Sodium Bicarbonate 100 meq/Dextrose 600 ml @ 500 mls/hr 1X ONCE IV Last administered on 08/05/16 13:40; Start 08/05/16 at 13:15; Stop 08/05/16 at 14:26 ; Status DC Magnesium Sulfate/ Dextrose 50 ml @ 25 mls/hr PRN DAILY PRN IV for Mag < 1.7 on am labs Last administered on 08/08/16 18:09; Start 08/05/16 at 14:30 Sodium Chloride 500 ml @ 0 mls/hr QID PRN IV UO< 30cc/hr over previous 6hrs; Start 08/05/16 at 14:45; Stop 08/07/16 at 07:59; Status DC Insulin Detemir (Levemir) 10 units QHS SQ Last administered on 08/12/16 21:24; Start 08/05/16 at 21:00 Insulin Aspart (Novolog) 0-7 UNITS TIDWMEALS SQ Last administered on 08/13/16 08:30; Start 08/05/16 at 17:00 Dextrose (Dextrose 50%-Water Syringe) 12.5 gm PRN Q15MIN PRN IV SEE COMMENTS; Start 08/05/16 at 16:00 Dextrose (Dextrose 50%-Water Syringe) 25 gm 1X ONCE IV Last administered on 16:42; Start 08/05/16 at 16:15; Stop 08/05/16 at 16:16; Status DC Insulin Human Regular (Novolin R Vial) 10 unit 1X ONCE IV Last administered on 08/05/16 16:43; Start 08/05/16 at 16:15; Stop 08/05/16 at 16:16; Status DC Calcium Gluconate (Calcium Gluconate) 1,000 mg 1X ONCE IVP Last administered on 08/05/16 16:47; Start 08/05/16 at 16:15; Stop 08/05/16 at 16:16; Status DC Ondansetron HCl (Zofran) 4 mg PRN Q6HRS PRN IV NAUSEA/VOMITING Last administered on 08/09/16 13:03; Start 08/05/16 at 17:15 Milrinone Lactate/ Dextrose 100 ml @ 0 mls/hr CONT PRN IV SEE I/O RECORD Last administered on 08/10/16 04:50; Start 08/05/16 at 18:15; Stop 08/10/16 at 12:42; Status DC Aspirin (Children'S Aspirin) 81 mg DAILYWBKFT PO Last administered on 08/13/16 08:07; Start 08/06/16 at 15:00 Atorvastatin Calcium (Lipitor) 40 mg QHS PO Last administered on 08/12/16 21:07 ; Start 08/06/16 at 21:00 Heparin Sodium/ Dextrose 500 ml @ 0 mls/hr CONT PRN IV SEE I/O RECORD Last administered on 08/06/16 15:43; Start 08/06/16 at 14:30; Stop 08/08/16 at 06:59 ; Status DC Heparin Sodium (Porcine) (Heparin Sodium) 1,650 unit PRN Q6HRS PRN IV FOR UFH LEVEL LESS THAN 0.2; Start 08/06/16 at 14:30; Stop 08/07/16 at 00:21; Status DC Furosemide (Lasix) 20 mg DAILY IVP Last administered on 08/07/16 10:01; Start 08/06/16 at 17:00; Stop 08/08/16 at 15:45; Status DC Furosemide (Lasix) 20 mg DAILY IVP ; Start 08/06/16 at 18:00; Stop 08/06/16 at 18:00; Status DC Heparin Sodium (Porcine) (Heparin Sodium) 1,650 unit PRN Q6HRS PRN IV FOR UFH LEVEL LESS THAN 0.2; Start 08/07/16 at 00:00; Status UNV Amiodarone HCl 150 mg/Dextrose 103 ml @ 618 mls/hr 1X ONCE IV Last administered on 08/07/16 17:02; Start 08/07/16 at 16:30; Stop 08/07/16 at 16:39 ; Status DC Amiodarone HCl 900 mg/Dextrose 518 ml @ 0 mls/hr CONT PRN IV SEE I/O RECORD Last administered on 08/07/16 17:03; Start 08/07/16 at 16:30; Stop 08/07/16 at 17:11; Status DC Heparin Sodium/ Sodium Chloride 1,500 ml @ As Directed STK-MED ONCE .ROUTE ; Start 08/08/16 at 07:32; Stop 08/08/16 at 07:33; Status DC Lidocaine HCl 20 ml STK-MED ONCE .ROUTE ; Start 08/08/16 at 07:32; Stop 08/08/16 at 07:33; Status DC Iodixanol (Visipaque 320) 100 ml STK-MED ONCE .ROUTE ; Start 08/08/16 at 07:32; Stop 08/08/16 at 07:33; Status DC Fentanyl Citrate (Fentanyl 2ml Vial) 100 mcg STK-MED ONCE .ROUTE ; Start at 08:02; Stop 08/08/16 at 08:03; Status DC Midazolam HCl (Versed) 2 mg STK-MED ONCE .ROUTE ; Start 08/08/16 at 08:02; Stop 08/08/16 at 08:03; Status DC Heparin Sodium/ Sodium Chloride 1,000 unit 1X ONCE IART Last administered on 08:28; Start 08/08/16 at 08:15; Stop 08/08/16 at 08:16; Status DC Midazolam HCl (Versed) 2 mg 1X ONCE IV Last administered on 08/08/16 08:31; Start 08/08/16 at 08:15; Stop 08/08/16 at 08:16; Status DC Fentanyl Citrate (Fentanyl 2ml Vial) 100 mcg 1X ONCE IV Last administered on 08:31; Start 08/08/16 at 08:15; Stop 08/08/16 at 08:17; Status DC Iodixanol (Visipaque 320) 100 ml 1X ONCE IART Last administered on 08/08/16 09 :50; Start 08/08/16 at 08:15; Stop 08/08/16 at 08:17; Status DC Lidocaine HCl 20 ml 1X ONCE IJ Last administered on 08/08/16 08:29; Start 08/08 at 08:15; Stop 08/08/16 at 08:17; Status DC Heparin Sodium/ Sodium Chloride 500 ml @ As Directed STK-MED ONCE .ROUTE ; Start 08/08/16 at 08:30; Stop 08/08/16 at 08:31; Status DC Heparin Sodium (Porcine) (Heparin Sodium) 10,000 unit STK-MED ONCE .ROUTE ; Start 08/08/16 at 08:34; Stop 08/08/16 at 08:35; Status DC Heparin Sodium (Porcine) (Heparin 5,000 Units/1,000ml NS) 5,000 unit 1X ONCE IV Last administered on 08/08/16 09:15; Start 08/08/16 at 09:15; Stop 08/08/16 at 09:16; Status DC Heparin Sodium (Porcine) (Heparin Sodium) 2,000 unit 1X ONCE IV Last administered on 08/08/16 09:48; Start 08/08/16 at 09:15; Stop 08/08/16 at 09:16; Status DC Magnesium Sulfate/ Dextrose 100 ml @ 100 mls/hr 1X ONCE IV Last administered on 08/08/16 11:38; Start 08/08/16 at 11:00; Stop 08/08/16 at 11:59; Status DC Heparin Sodium/ Dextrose 500 ml @ 0 mls/hr CONT PRN IV SEE I/O RECORD; Start at 10:45; Stop 08/08/16 at 11:29; Status DC Heparin Sodium/ Dextrose 500 ml @ 0 mls/hr CONT PRN IV SEE I/O RECORD Last administered on 08/08/16 11:00; Start 08/08/16 at 11:30; Stop 08/10/16 at 09:30; Status DC Info (Anti-Coagulation Monitoring By Pharmacy) 1 each PRN DAILY PRN MC SEE COMMENTS; Start 08/08/16 at 14:00; Stop 08/10/16 at 09:30; Status DC Heparin Sodium/ Sodium Chloride 1,500 ml @ As Directed STK-MED ONCE .ROUTE ; Start 08/09/16 at 06:41; Stop 08/09/16 at 06:42; Status DC Iodixanol (Visipaque 320) 100 ml STK-MED ONCE .ROUTE ; Start 08/09/16 at 06:41; Stop 08/09/16 at 06:42; Status DC Lidocaine HCl 20 ml STK-MED ONCE .ROUTE ; Start 08/09/16 at 06:41; Stop 08/09/16 at 06:42; Status DC Fentanyl Citrate (Fentanyl 2ml Vial) 100 mcg STK-MED ONCE .ROUTE ; Start at 07:29; Stop 08/09/16 at 07:30; Status DC Midazolam HCl (Versed) 2 mg STK-MED ONCE .ROUTE ; Start 08/09/16 at 07:29; Stop 08/09/16 at 07:30; Status DC Heparin Sodium (Porcine) (Heparin Sodium) 10,000 unit STK-MED ONCE .ROUTE ; Start 08/09/16 at 07:36; Stop 08/09/16 at 07:37; Status DC Phenylephrine HCl 1 mg STK-MED ONCE IV ; Start 08/09/16 at 07:36; Stop 08/09/16 at 07:37; Status DC Heparin Sodium/ Sodium Chloride 500 ml @ As Directed STK-MED ONCE .ROUTE ; Start 08/09/16 at 08:18; Stop 08/09/16 at 08:19; Status DC Heparin Sodium/ Sodium Chloride 1,000 unit 1X ONCE IART Last administered on 09:47; Start 08/09/16 at 09:00; Stop 08/09/16 at 09:07; Status DC Midazolam HCl (Versed) 2 mg 1X ONCE IV Last administered on 08/09/16 09:48; Start 08/09/16 at 09:00; Stop 08/09/16 at 09:07; Status DC Fentanyl Citrate (Fentanyl 2ml Vial) 100 mcg 1X ONCE IV Last administered on 09:49; Start 08/09/16 at 09:00; Stop 08/09/16 at 09:07; Status DC Iodixanol (Visipaque 320) 100 ml 1X ONCE IART Last administered on 08/09/16 09 :48; Start 08/09/16 at 09:00; Stop 08/09/16 at 09:07; Status DC Ticagrelor (Brilinta) 180 mg 1X ONCE PO Last administered on 08/09/16 12:42; Start 08/09/16 at 09:00; Stop 08/09/16 at 09:07; Status DC Heparin Sodium (Porcine) (Heparin Sodium) 7,000 unit 1X ONCE IV Last administered on 08/09/16 09:49; Start 08/09/16 at 09:00; Stop 08/09/16 at 09:07; Status DC Lidocaine HCl 20 ml 1X ONCE IJ Last administered on 08/09/16 09:48; Start 08/09 at 09:00; Stop 08/09/16 at 09:07; Status DC Cefazolin Sodium 50 ml @ 100 mls/hr 1X ONCE IV ; Start 08/09/16 at 09:45; Stop 08/09/16 at 10:14; Status Cancel Sodium Chloride 250 ml @ 50 mls/hr 1X ONCE IV Last administered on 08/09/16 09:49; Start 08/09/16 at 09:45; Stop 08/09/16 at 14:44; Status DC Cefazolin Sodium 1 gm/Sodium Chloride 50 ml @ 100 mls/hr 1X ONCE IV Last administered on 08/09/16 14:12; Start 08/09/16 at 13:00; Stop 08/09/16 at 13:29; Status DC Fentanyl Citrate (Fentanyl 2ml Vial) 25 mcg PRN Q2HR PRN IV PAIN Last administered on 08/09/16 13:35; Start 08/09/16 at 13:30 Sodium Chloride 1,000 ml @ 50 mls/hr Q20H IV Last administered on 08/10/16 23: 45; Start 08/09/16 at 16:30; Stop 08/12/16 at 19:21; Status DC Ticagrelor (Brilinta) 90 mg BID PO Last administered on 08/13/16 08:08; Start 08/10/16 at 09:00 Ticagrelor (Brilinta) 90 mg 1X ONCE PO Last administered on 08/09/16 23:14; Start 08/09/16 at 23:00; Stop 08/09/16 at 23:01; Status DC Sacubitril/ Valsartan (Entresto 24 Mg-26 Mg) 1 tab BID PO Last administered on 08/13/16 08:10; Start 08/11/16 at 09:00 Metoprolol Succinate (Toprol Xl) 12.5 mg DAILY PO ; Start 08/11/16 at 09:00; Stop 08/11/16 at 09:50; Status DC Furosemide (Lasix) 20 mg DAILY PO Last administered on 08/13/16 08:11; Start at 09:30 Metoprolol Succinate (Toprol Xl) 25 mg DAILY PO Last administered on 08/13/16 08:13; Start 08/11/16 at 10:30 Baclofen (Lioresal) 10 mg TID PO Last administered on 08/13/16 08:11; Start 08/12/16 at 14:00 Metoprolol Succinate (Toprol Xl) 25 mg 1X ONCE PO ; Start 08/12/16 at 13:08; Stop 08/12/16 at 13:09; Status Cancel Metoprolol Succinate (Toprol Xl) 25 mg 1X ONCE PO Last administered on 21:09; Start 08/12/16 at 21:00; Stop 08/12/16 at 21:01; Status DC Methylprednisolone Acetate (DEPO-Medrol 40MG VIAL) 40 mg 1X ONCE IM Last administered on 08/12/16 16:30; Start 08/12/16 at 16:30; Stop 08/12/16 at 16:31; Status DC Bupivacaine HCl (Sensorcaine-Mpf 0.25%) 10 ml 1X ONCE IJ Last administered on 08/12/16 16:30; Start 08/12/16 at 16:30; Stop 08/12/16 at 16:31; Status DC Diclofenac Sodium (Voltaren) 1 angus BID TP Last administered on 08/13/16 08:30; Start 08/12/16 at 21:00 Active Scripts Active Cyclobenzaprine Hcl 10 Mg Tablet 1 Tab PO TID PRN Hydrocodone-Ibuprofen 7.5-200 (Hydrocodone/Ibuprofen) 1 Each Tablet 1 Tab PO PRN Q6HRS PRN Effient (Prasugrel Hcl) 10 Mg Tablet 10 Mg PO DAILYWBKFT SIG: ONE PO DAILY Hydralazine Hcl 50 Mg Tablet 50 Mg PO TID SIG: ONE BY MOUTH EVERY 8 HOURS; REPLACES NIFEDIPINE Carvedilol 12.5 Mg Tablet 12.5 Mg PO BIDWMEALS SIG: ONE P.O. BID; REPLACES CLONIDINE Reported Glimepiride 4 Mg Tablet 1 Tab PO DAILY Januvia (Sitagliptin Phosphate) 100 Mg Tablet 1 Tab PO DAILY Spironolactone 100 Mg Tablet 1 Tab PO DAILY Allopurinol 100 Mg Tablet 1 Tab PO DAILY Atorvastatin Calcium 40 Mg Tablet 1 Tab PO DAILY Aspir 81 (Aspirin) 81 Mg Tablet.dr 81 Tab PO DAILY Vitals/I & O Vital Sign - Last 24 Hours 08/12/16 08/12/16 08/12/16 08/12/16 14:25 19:00 20:00 21:09 Temp 98.2 98.2 98.2 98.2 Pulse 76 110 110 Resp 19 B/P (MAP) 119/63 (81) 99/62 (74) 99/62 Pulse Ox 98 97 O2 Delivery Room Air Room Air Room Air 08/12/16 08/12/16 08/13/16 08/13/16 21:13 22:59 02:43 07:00 Temp 98.2 97.4 98.2 98.2 97.4 98.2 Pulse 110 106 106 123 Resp 18 18 18 B/P (MAP) 99/62 120/68 (85) 129/64 (85) 100/46 (64) Pulse Ox 95 96 98 O2 Delivery Room Air Room Air Room Air 08/13/16 08/13/16 08/13/16 08/13/16 08:00 08:00 08:10 08:13 Pulse 93 93 93 B/P (MAP) 146/73 (97) 146/73 146/73 O2 Delivery Room Air Intake and Output 08/12/16 08/12/16 08/13/16 14:59 22:59 06:59 Intake Total 1140 ml 0 ml Output Total 600 ml 100 ml Balance 540 ml -100 ml Nutrition Consultation Dietary Evaluation: Recommendations by RD: Dietary education by RD, Increase Calorie Intake, Protein supplementation Comments: Boost glucose control BID - 250kcal and 14g protein per serving Previous visit educated on MNT for TLC diet and provided handouts for reference upon d/c Expected Outcomes/Goals: to meet >75% est nutr needs Interpretation of weight loss: >10% in 6 months Malnutrition Findings: Body Fat Depletion (Non Severe: Mild Depletion 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
[2016-08-13] MEDS ORDERED: METOPROLOL TART IMMED RELEASE 25 MG TABLET. PO ONE (11:00)
[2016-08-13 11:12] VITALS: BP 117/64
--- NOTE | 2016-08-13 11:33 | PDOC ---
PROGRESS NOTES Assessment Problems Medical Problems: (1) CVA (cerebral vascular accident) Status: Acute Acute (subacute also possible on MRI) left frontal cortex infarct, left occipital infarct possible, cerebral ischemia from cardiogenic etiology, s/p TPA in ER. Metabolic encephalopathy. 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 Old right parietal microhemorrhage. S/P balloon pump removal and stent placement 5/2 AM Plan Home with home health Rehabilitation modalities as tolerated No further neurological tests required Subjective No complaints Objective Vital Signs Date Time Temp Pulse Resp B/P (MAP) Pulse Ox O2 Delivery O2 Flow Rate FiO2 08/13/16 11:12 98.4 107 18 117/64 (81) 96 Room Air 98.4 Intake and Output 08/13/16 07:00 Intake Total 1140 ml Output Total 700 ml Balance 440 ml Intake Oral 1140 ml Output Urine Total 700 ml PHYSICAL EXAM Alert. Oriented to person, place, time. PERRL. EOMI. CN: no focal findings. Muscle tone: normal. Muscle strength: 4/5 DTR: 2+ Plantar reflex: flexor Gait: not examined in bed. Sensory exam: no abnormal findings. Review of Relevant I have reviewed the following items abdulaziz (where applicable) has been applied. Labs Laboratory Tests Test 08/11/16 16:38 08/11/16 20:56 08/12/16 04:00 08/12/16 07:23 Glucose (Fingerstick) 143 mg/dL (70-99) 226 mg/dL (70-99) 136 mg/dL (70-99) White Blood Count 10.7 x10^3/uL (4.0-11.0) Red Blood Count 3.83 x10^6/uL (4.30-5.70) Hemoglobin 12.2 g/dL (13.0-17.5) Hematocrit 36.4 % (39.0-53.0) Mean Corpuscular Volume 95 fL (79-100) Mean Corpuscular Hemoglobin 32 pg (25-35) Mean Corpuscular Hemoglobin Concent 33 g/dL (31-37) Red Cell Distribution Width 15.5 % (11.5-14.5) Platelet Count 203 x10^3/uL (140-400) Neutrophils (%) (Auto) 74 % (31-73) Lymphocytes (%) (Auto) 15 % (24-48) Monocytes (%) (Auto) 10 % (0-9) Eosinophils (%) (Auto) 1 % (0-3) Basophils (%) (Auto) 0 % (0-3) Neutrophils # (Auto) 7.9 x10^3uL (1.8-7.7) Lymphocytes # (Auto) 1.6 x10^3/uL (1.0-4.8) Monocytes # (Auto) 1.0 x10^3/uL (0.0-1.1) Eosinophils # (Auto) 0.1 x10^3/uL (0.0-0.7) Basophils # (Auto) 0.0 x10^3/uL (0.0-0.2) Sodium Level 137 mmol/L (136-145) Potassium Level 3.9 mmol/L (3.5-5.1) Chloride Level 104 mmol/L (98-107) Carbon Dioxide Level 23 mmol/L (21-32) Anion Gap 10 (6-14) Blood Urea Nitrogen 25 mg/dL (8-26) Creatinine 2.0 mg/dL (0.7-1.3) Estimated GFR (Cockcroft-Gault) 41.0 Glucose Level 122 mg/dL (70-99) Calcium Level 8.2 mg/dL (8.5-10.1) Phosphorus Level 3.7 mg/dL (2.6-4.7) Albumin 2.5 g/dL (3.4-5.0) Test 08/12/16 12:59 08/12/16 16:20 08/12/16 21:05 08/13/16 05:53 Glucose (Fingerstick) 192 mg/dL (70-99) 132 mg/dL (70-99) 279 mg/dL (70-99) White Blood Count 14.0 x10^3/uL (4.0-11.0) Red Blood Count 4.27 x10^6/uL (4.30-5.70) Hemoglobin 13.3 g/dL (13.0-17.5) Hematocrit 40.7 % (39.0-53.0) Mean Corpuscular Volume 95 fL (79-100) Mean Corpuscular Hemoglobin 31 pg (25-35) Mean Corpuscular Hemoglobin Concent 33 g/dL (31-37) Red Cell Distribution Width 15.8 % (11.5-14.5) Platelet Count 269 x10^3/uL (140-400) Neutrophils (%) (Auto) 89 % (31-73) Lymphocytes (%) (Auto) 6 % (24-48) Monocytes (%) (Auto) 5 % (0-9) Eosinophils (%) (Auto) 0 % (0-3) Basophils (%) (Auto) 0 % (0-3) Neutrophils # (Auto) 12.4 x10^3uL (1.8-7.7) Lymphocytes # (Auto) 0.8 x10^3/uL (1.0-4.8) Monocytes # (Auto) 0.7 x10^3/uL (0.0-1.1) Eosinophils # (Auto) 0.0 x10^3/uL (0.0-0.7) Basophils # (Auto) 0.0 x10^3/uL (0.0-0.2) Segmented Neutrophils % 80 % (35-66) Band Neutrophils % 4 % (0-9) Lymphocytes % 8 % (24-48) Monocytes % 6 % (0-10) Eosinophils % 2 % (0-5) Platelet Estimate Adequate (ADEQUATE) Sodium Level 136 mmol/L (136-145) Potassium Level 4.4 mmol/L (3.5-5.1) Chloride Level 103 mmol/L (98-107) Carbon Dioxide Level 21 mmol/L (21-32) Anion Gap 12 (6-14) Blood Urea Nitrogen 33 mg/dL (8-26) Creatinine 2.2 mg/dL (0.7-1.3) Estimated GFR (Cockcroft-Gault) 36.8 Glucose Level 197 mg/dL (70-99) Calcium Level 8.6 mg/dL (8.5-10.1) Test 08/13/16 07:41 Glucose (Fingerstick) 201 mg/dL (70-99) Laboratory Tests Test 08/12/16 12:59 08/12/16 16:20 08/12/16 21:05 08/13/16 05:53 Glucose (Fingerstick) 192 mg/dL (70-99) 132 mg/dL (70-99) 279 mg/dL (70-99) White Blood Count 14.0 x10^3/uL (4.0-11.0) Red Blood Count 4.27 x10^6/uL (4.30-5.70) Hemoglobin 13.3 g/dL (13.0-17.5) Hematocrit 40.7 % (39.0-53.0) Mean Corpuscular Volume 95 fL (79-100) Mean Corpuscular Hemoglobin 31 pg (25-35) Mean Corpuscular Hemoglobin Concent 33 g/dL (31-37) Red Cell Distribution Width 15.8 % (11.5-14.5) Platelet Count 269 x10^3/uL (140-400) Neutrophils (%) (Auto) 89 % (31-73) Lymphocytes (%) (Auto) 6 % (24-48) Monocytes (%) (Auto) 5 % (0-9) Eosinophils (%) (Auto) 0 % (0-3) Basophils (%) (Auto) 0 % (0-3) Neutrophils # (Auto) 12.4 x10^3uL (1.8-7.7) Lymphocytes # (Auto) 0.8 x10^3/uL (1.0-4.8) Monocytes # (Auto) 0.7 x10^3/uL (0.0-1.1) Eosinophils # (Auto) 0.0 x10^3/uL (0.0-0.7) Basophils # (Auto) 0.0 x10^3/uL (0.0-0.2) Segmented Neutrophils % 80 % (35-66) Band Neutrophils % 4 % (0-9) Lymphocytes % 8 % (24-48) Monocytes % 6 % (0-10) Eosinophils % 2 % (0-5) Platelet Estimate Adequate (ADEQUATE) Sodium Level 136 mmol/L (136-145) Potassium Level 4.4 mmol/L (3.5-5.1) Chloride Level 103 mmol/L (98-107) Carbon Dioxide Level 21 mmol/L (21-32) Anion Gap 12 (6-14) Blood Urea Nitrogen 33 mg/dL (8-26) Creatinine 2.2 mg/dL (0.7-1.3) Estimated GFR (Cockcroft-Gault) 36.8 Glucose Level 197 mg/dL (70-99) Calcium Level 8.6 mg/dL (8.5-10.1) Test 08/13/16 07:41 Glucose (Fingerstick) 201 mg/dL (70-99) Medications Current Medications Aspirin (Ayad Aspirin) 325 mg 1X ONCE PO Last administered on 08/05/16 10:48 ; Start 08/05/16 at 11:00; Stop 08/05/16 at 11:01; Status DC Alteplase, Recombinant 0 ml @ 0 mls/hr 1X ONCE IV ; Start 08/05/16 at 12:30; Stop 08/05/16 at 12:31; Status Cancel Alteplase, Recombinant 0 ml @ 0 mls/hr Q1H IV ; Start 08/05/16 at 12:40; Stop at 12:41; Status Cancel Alteplase, Recombinant 7 ml @ 420 mls/hr 1X ONCE IV Last administered on 12:50; Start 08/05/16 at 12:30; Stop 08/05/16 at 12:31; Status DC Alteplase, Recombinant 62 ml @ 62 mls/hr Q1H IV Last administered on 08/05/16 12:51; Start 08/05/16 at 12:30; Stop 08/05/16 at 13:29; Status DC Furosemide (Lasix) 40 mg 1X ONCE IVP Last administered on 08/05/16 13:30; Start 08/05/16 at 13:30; Stop 08/05/16 at 13:31; Status DC Sodium Bicarbonate 100 meq/Sodium Chloride 600 ml @ 500 mls/hr 1X ONCE IV ; Start 08/05/16 at 13:15; Stop 08/05/16 at 14:26; Status Cancel Sodium Bicarbonate 100 meq/Dextrose 600 ml @ 500 mls/hr 1X ONCE IV Last administered on 08/05/16 13:40; Start 08/05/16 at 13:15; Stop 08/05/16 at 14:26 ; Status DC Magnesium Sulfate/ Dextrose 50 ml @ 25 mls/hr PRN DAILY PRN IV for Mag < 1.7 on am labs Last administered on 08/08/16 18:09; Start 08/05/16 at 14:30 Sodium Chloride 500 ml @ 0 mls/hr QID PRN IV UO< 30cc/hr over previous 6hrs; Start 08/05/16 at 14:45; Stop 08/07/16 at 07:59; Status DC Insulin Detemir (Levemir) 10 units QHS SQ Last administered on 08/12/16 21:24; Start 08/05/16 at 21:00 Insulin Aspart (Novolog) 0-7 UNITS TIDWMEALS SQ Last administered on 08/13/16 08:30; Start 08/05/16 at 17:00 Dextrose (Dextrose 50%-Water Syringe) 12.5 gm PRN Q15MIN PRN IV SEE COMMENTS; Start 08/05/16 at 16:00 Dextrose (Dextrose 50%-Water Syringe) 25 gm 1X ONCE IV Last administered on 16:42; Start 08/05/16 at 16:15; Stop 08/05/16 at 16:16; Status DC Insulin Human Regular (Novolin R Vial) 10 unit 1X ONCE IV Last administered on 08/05/16 16:43; Start 08/05/16 at 16:15; Stop 08/05/16 at 16:16; Status DC Calcium Gluconate (Calcium Gluconate) 1,000 mg 1X ONCE IVP Last administered on 08/05/16 16:47; Start 08/05/16 at 16:15; Stop 08/05/16 at 16:16; Status DC Ondansetron HCl (Zofran) 4 mg PRN Q6HRS PRN IV NAUSEA/VOMITING Last administered on 08/09/16 13:03; Start 08/05/16 at 17:15 Milrinone Lactate/ Dextrose 100 ml @ 0 mls/hr CONT PRN IV SEE I/O RECORD Last administered on 08/10/16 04:50; Start 08/05/16 at 18:15; Stop 08/10/16 at 12:42; Status DC Aspirin (Children'S Aspirin) 81 mg DAILYWBKFT PO Last administered on 08/13/16 08:07; Start 08/06/16 at 15:00 Atorvastatin Calcium (Lipitor) 40 mg QHS PO Last administered on 08/12/16 21:07 ; Start 08/06/16 at 21:00 Heparin Sodium/ Dextrose 500 ml @ 0 mls/hr CONT PRN IV SEE I/O RECORD Last administered on 08/06/16 15:43; Start 08/06/16 at 14:30; Stop 08/08/16 at 06:59 ; Status DC Heparin Sodium (Porcine) (Heparin Sodium) 1,650 unit PRN Q6HRS PRN IV FOR UFH LEVEL LESS THAN 0.2; Start 08/06/16 at 14:30; Stop 08/07/16 at 00:21; Status DC Furosemide (Lasix) 20 mg DAILY IVP Last administered on 08/07/16 10:01; Start 08/06/16 at 17:00; Stop 08/08/16 at 15:45; Status DC Furosemide (Lasix) 20 mg DAILY IVP ; Start 08/06/16 at 18:00; Stop 08/06/16 at 18:00; Status DC Heparin Sodium (Porcine) (Heparin Sodium) 1,650 unit PRN Q6HRS PRN IV FOR UFH LEVEL LESS THAN 0.2; Start 08/07/16 at 00:00; Status UNV Amiodarone HCl 150 mg/Dextrose 103 ml @ 618 mls/hr 1X ONCE IV Last administered on 08/07/16 17:02; Start 08/07/16 at 16:30; Stop 08/07/16 at 16:39 ; Status DC Amiodarone HCl 900 mg/Dextrose 518 ml @ 0 mls/hr CONT PRN IV SEE I/O RECORD Last administered on 08/07/16 17:03; Start 08/07/16 at 16:30; Stop 08/07/16 at 17:11; Status DC Heparin Sodium/ Sodium Chloride 1,500 ml @ As Directed STK-MED ONCE .ROUTE ; Start 08/08/16 at 07:32; Stop 08/08/16 at 07:33; Status DC Lidocaine HCl 20 ml STK-MED ONCE .ROUTE ; Start 08/08/16 at 07:32; Stop 08/08/16 at 07:33; Status DC Iodixanol (Visipaque 320) 100 ml STK-MED ONCE .ROUTE ; Start 08/08/16 at 07:32; Stop 08/08/16 at 07:33; Status DC Fentanyl Citrate (Fentanyl 2ml Vial) 100 mcg STK-MED ONCE .ROUTE ; Start at 08:02; Stop 08/08/16 at 08:03; Status DC Midazolam HCl (Versed) 2 mg STK-MED ONCE .ROUTE ; Start 08/08/16 at 08:02; Stop 08/08/16 at 08:03; Status DC Heparin Sodium/ Sodium Chloride 1,000 unit 1X ONCE IART Last administered on 08:28; Start 08/08/16 at 08:15; Stop 08/08/16 at 08:16; Status DC Midazolam HCl (Versed) 2 mg 1X ONCE IV Last administered on 08/08/16 08:31; Start 08/08/16 at 08:15; Stop 08/08/16 at 08:16; Status DC Fentanyl Citrate (Fentanyl 2ml Vial) 100 mcg 1X ONCE IV Last administered on 08:31; Start 08/08/16 at 08:15; Stop 08/08/16 at 08:17; Status DC Iodixanol (Visipaque 320) 100 ml 1X ONCE IART Last administered on 08/08/16 09 :50; Start 08/08/16 at 08:15; Stop 08/08/16 at 08:17; Status DC Lidocaine HCl 20 ml 1X ONCE IJ Last administered on 08/08/16 08:29; Start 08/08 at 08:15; Stop 08/08/16 at 08:17; Status DC Heparin Sodium/ Sodium Chloride 500 ml @ As Directed STK-MED ONCE .ROUTE ; Start 08/08/16 at 08:30; Stop 08/08/16 at 08:31; Status DC Heparin Sodium (Porcine) (Heparin Sodium) 10,000 unit STK-MED ONCE .ROUTE ; Start 08/08/16 at 08:34; Stop 08/08/16 at 08:35; Status DC Heparin Sodium (Porcine) (Heparin 5,000 Units/1,000ml NS) 5,000 unit 1X ONCE IV Last administered on 08/08/16 09:15; Start 08/08/16 at 09:15; Stop 08/08/16 at 09:16; Status DC Heparin Sodium (Porcine) (Heparin Sodium) 2,000 unit 1X ONCE IV Last administered on 08/08/16 09:48; Start 08/08/16 at 09:15; Stop 08/08/16 at 09:16; Status DC Magnesium Sulfate/ Dextrose 100 ml @ 100 mls/hr 1X ONCE IV Last administered on 08/08/16t 11:38; Start 08/08/16 at 11:00; Stop 08/08/16 at 11:59; Status DC Heparin Sodium/ Dextrose 500 ml @ 0 mls/hr CONT PRN IV SEE I/O RECORD; Start at 10:45; Stop 08/08/16 at 11:29; Status DC Heparin Sodium/ Dextrose 500 ml @ 0 mls/hr CONT PRN IV SEE I/O RECORD Last administered on 08/08/16t 11:00; Start 08/08/16 at 11:30; Stop 08/10/16 at 09:30; Status DC Info (Anti-Coagulation Monitoring By Pharmacy) 1 each PRN DAILY PRN MC SEE COMMENTS; Start 08/08/16 at 14:00; Stop 08/10/16 at 09:30; Status DC Heparin Sodium/ Sodium Chloride 1,500 ml @ As Directed STK-MED ONCE .ROUTE ; Start 08/09/16 at 06:41; Stop 08/09/16 at 06:42; Status DC Iodixanol (Visipaque 320) 100 ml STK-MED ONCE .ROUTE ; Start 08/09/16 at 06:41; Stop 08/09/16 at 06:42; Status DC Lidocaine HCl 20 ml STK-MED ONCE .ROUTE ; Start 08/09/16 at 06:41; Stop 08/09/16 at 06:42; Status DC Fentanyl Citrate (Fentanyl 2ml Vial) 100 mcg STK-MED ONCE .ROUTE ; Start at 07:29; Stop 08/09/16 at 07:30; Status DC Midazolam HCl (Versed) 2 mg STK-MED ONCE .ROUTE ; Start 08/09/16 at 07:29; Stop 08/09/16 at 07:30; Status DC Heparin Sodium (Porcine) (Heparin Sodium) 10,000 unit STK-MED ONCE .ROUTE ; Start 08/09/16 at 07:36; Stop 08/09/16 at 07:37; Status DC Phenylephrine HCl 1 mg STK-MED ONCE IV ; Start 08/09/16 at 07:36; Stop 08/09/16 at 07:37; Status DC Heparin Sodium/ Sodium Chloride 500 ml @ As Directed STK-MED ONCE .ROUTE ; Start 08/09/16 at 08:18; Stop 08/09/16 at 08:19; Status DC Heparin Sodium/ Sodium Chloride 1,000 unit 1X ONCE IART Last administered on 09:47; Start 08/09/16 at 09:00; Stop 08/09/16 at 09:07; Status DC Midazolam HCl (Versed) 2 mg 1X ONCE IV Last administered on 08/09/16 09:48; Start 08/09/16 at 09:00; Stop 08/09/16 at 09:07; Status DC Fentanyl Citrate (Fentanyl 2ml Vial) 100 mcg 1X ONCE IV Last administered on 09:49; Start 08/09/16 at 09:00; Stop 08/09/16 at 09:07; Status DC Iodixanol (Visipaque 320) 100 ml 1X ONCE IART Last administered on 08/09/16 09 :48; Start 08/09/16 at 09:00; Stop 08/09/16 at 09:07; Status DC Ticagrelor (Brilinta) 180 mg 1X ONCE PO Last administered on 08/09/16 12:42; Start 08/09/16 at 09:00; Stop 08/09/16 at 09:07; Status DC Heparin Sodium (Porcine) (Heparin Sodium) 7,000 unit 1X ONCE IV Last administered on 08/09/16 09:49; Start 08/09/16 at 09:00; Stop 08/09/16 at 09:07; Status DC Lidocaine HCl 20 ml 1X ONCE IJ Last administered on 08/09/16 09:48; Start 08/09 at 09:00; Stop 08/09/16 at 09:07; Status DC Cefazolin Sodium 50 ml @ 100 mls/hr 1X ONCE IV ; Start 08/09/16 at 09:45; Stop 08/09/16 at 10:14; Status Cancel Sodium Chloride 250 ml @ 50 mls/hr 1X ONCE IV Last administered on 08/09/16 09:49; Start 08/09/16 at 09:45; Stop 08/09/16 at 14:44; Status DC Cefazolin Sodium 1 gm/Sodium Chloride 50 ml @ 100 mls/hr 1X ONCE IV Last administered on 08/09/16 14:12; Start 08/09/16 at 13:00; Stop 08/09/16 at 13:29; Status DC Fentanyl Citrate (Fentanyl 2ml Vial) 25 mcg PRN Q2HR PRN IV PAIN Last administered on 08/09/16 13:35; Start 08/09/16 at 13:30 Sodium Chloride 1,000 ml @ 50 mls/hr Q20H IV Last administered on 08/10/16 23: 45; Start 08/09/16 at 16:30; Stop 08/12/16 at 19:21; Status DC Ticagrelor (Brilinta) 90 mg BID PO Last administered on 08/13/16 08:08; Start 08/10/16 at 09:00 Ticagrelor (Brilinta) 90 mg 1X ONCE PO Last administered on 08/09/16 23:14; Start 08/09/16 at 23:00; Stop 08/09/16 at 23:01; Status DC Sacubitril/ Valsartan (Entresto 24 Mg-26 Mg) 1 tab BID PO Last administered on 08/13/16 08:10; Start 08/11/16 at 09:00 Metoprolol Succinate (Toprol Xl) 12.5 mg DAILY PO ; Start 08/11/16 at 09:00; Stop 08/11/16 at 09:50; Status DC Furosemide (Lasix) 20 mg DAILY PO Last administered on 08/13/16 08:11; Start at 09:30 Metoprolol Succinate (Toprol Xl) 25 mg DAILY PO Last administered on 08/13/16 08:13; Start 08/11/16 at 10:30; Stop 08/13/16 at 10:44; Status DC Baclofen (Lioresal) 10 mg TID PO Last administered on 08/13/16 08:11; Start 08/12/16 at 14:00 Metoprolol Succinate (Toprol Xl) 25 mg 1X ONCE PO ; Start 08/12/16 at 13:08; Stop 08/12/16 at 13:09; Status Cancel Metoprolol Succinate (Toprol Xl) 25 mg 1X ONCE PO Last administered on 21:09; Start 08/12/16 at 21:00; Stop 08/12/16 at 21:01; Status DC Methylprednisolone Acetate (DEPO-Medrol 40MG VIAL) 40 mg 1X ONCE IM Last administered on 08/12/16 16:30; Start 08/12/16 at 16:30; Stop 08/12/16 at 16:31; Status DC Bupivacaine HCl (Sensorcaine-Mpf 0.25%) 10 ml 1X ONCE IJ Last administered on 08/12/16 16:30; Start 08/12/16 at 16:30; Stop 08/12/16 at 16:31; Status DC Diclofenac Sodium (Voltaren) 1 angus BID TP Last administered on 08/13/16 08:30; Start 08/12/16 at 21:00 Metoprolol Succinate (Toprol Xl) 50 mg DAILY PO ; Start 08/14/16 at 09:00 Metoprolol Tartrate (Lopressor) 25 mg 1X ONCE PO ; Start 08/13/16 at 11:00; Stop 08/13/16 at 11:01; Status DC Active Scripts Active Toprol Xl (Metoprolol Succinate) 50 Mg Tab.er.24h 1 Tab PO DAILY Furosemide 20 Mg Tablet 20 Mg PO DAILY Entresto 24 mg-26 mg Tablet (Sacubitril/Valsartan) 1 Each Tablet 1 Tab PO BID Brilinta (Ticagrelor) 90 Mg Tablet 90 Mg PO BID Cyclobenzaprine Hcl 10 Mg Tablet 1 Tab PO TID PRN Hydrocodone-Ibuprofen 7.5-200 (Hydrocodone/Ibuprofen) 1 Each Tablet 1 Tab PO PRN Q6HRS PRN Reported Glimepiride 4 Mg Tablet 1 Tab PO DAILY Januvia (Sitagliptin Phosphate) 100 Mg Tablet 1 Tab PO DAILY Spironolactone 100 Mg Tablet 1 Tab PO DAILY Allopurinol 100 Mg Tablet 1 Tab PO DAILY Atorvastatin Calcium 40 Mg Tablet 1 Tab PO DAILY Aspir 81 (Aspirin) 81 Mg Tablet. 81 Tab PO DAILY Vitals/I & O Vital Sign - Last 24 Hours 08/12/16 08/12/16 08/12/16 08/12/16 14:25 19:00 20:00 21:09 Temp 98.2 98.2 98.2 98.2 Pulse 76 110 110 Resp 19 B/P (MAP) 119/63 (81) 99/62 (74) 99/62 Pulse Ox 98 97 O2 Delivery Room Air Room Air Room Air 08/12/16 08/12/16 08/13/16 08/13/16 21:13 22:59 02:43 07:00 Temp 98.2 97.4 98.2 98.2 97.4 98.2 Pulse 110 106 106 123 Resp 18 18 18 B/P (MAP) 99/62 120/68 (85) 129/64 (85) 100/46 (64) Pulse Ox 95 96 98 O2 Delivery Room Air Room Air Room Air 08/13/16 08/13/16 08/13/16 08/13/16 08:00 08:00 08:10 08:13 Pulse 93 93 93 B/P (MAP) 146/73 (97) 146/73 146/73 O2 Delivery Room Air 08/13/16 11:12 Temp 98.4 98.4 Pulse 107 Resp 18 B/P (MAP) 117/64 (81) Pulse Ox 96 O2 Delivery Room Air Intake and Output 08/12/16 08/12/16 08/13/16 15:00 23:00 07:00 Intake Total 1140 ml 0 ml Output Total 600 ml 100 ml Balance 540 ml -100 ml DINORAH HERNANDEZ MD August 13, 2016 11:33
[2016-08-13 12:23] VITALS: BP 117/64
[2016-08-14] MEDS ORDERED: METOPROLOL SUCC 24HR ER 25 MG TAB.ER.24H. PO SCH (09:00)
== END 2016-08-13 14:00 | disposition short-term general hospital (02) | DRG 216 ==
LOC: ER 09:57 → 1 WEST ICU 13:19 → 2 NORTH 08-07 19:35 → 1 WEST ICU 08-08 09:22 → 2 SOUTH 08-10 19:45
PROVIDERS: ADMIT Internal Medicine; ATTEND Internal Medicine
PROC: 3E0U33Z Introduction of Anti-inflammatory into Joints, Percutaneous Approach (ICD-10-PCS; 2016-08-05)
PROC: 3E0U3BZ Introduction of Anesthetic Agent into Joints, Percutaneous Approach (ICD-10-PCS; 2016-08-05)
PROC: 3E03317 Introduction of Other Thrombolytic into Peripheral Vein, Percutaneous Approach (ICD-10-PCS; 2016-08-05)
PROC: 4A023N7 Measurement of Cardiac Sampling and Pressure, Left Heart, Percutaneous Approach (ICD-10-PCS; principal; 2016-08-08)
PROC: B2111ZZ Fluoroscopy of Multiple Coronary Arteries using Low Osmolar Contrast (ICD-10-PCS; 2016-08-09)
PROC: 02723ZZ Dilation of Coronary Artery, Three Arteries, Percutaneous Approach (ICD-10-PCS; 2016-08-09)
PROC: 5A0221D Assistance with Cardiac Output using Impeller Pump, Continuous (ICD-10-PCS; 2016-08-09)
PROC: 027034Z Dilation of Coronary Artery, One Artery with Drug-eluting Intraluminal Device, Percutaneous Approach (ICD-10-PCS; 2016-08-09)
DX: I21.4 Non-ST elevation (NSTEMI) myocardial infarction (principal); I63.9 Cerebral infarction, unspecified; G93.41 Metabolic encephalopathy; I50.23 Acute on chronic systolic (congestive) heart failure; K72.00 Acute and subacute hepatic failure without coma; R57.0 Cardiogenic shock; I13.0 Hypertensive heart and chronic kidney disease with heart failure and stage 1 through stage 4 chronic kidney disease, or unspecified chronic kidney disease; N17.9 Acute kidney failure, unspecified; N18.4 Chronic kidney disease, stage 4 (severe); R47.01 Aphasia; T82.855A Stenosis of coronary artery stent, initial encounter; E11.22 Type 2 diabetes mellitus with diabetic chronic kidney disease; E11.65 Type 2 diabetes mellitus with hyperglycemia; E78.00 Pure hypercholesterolemia, unspecified; E78.5 Hyperlipidemia, unspecified; E87.5 Hyperkalemia; I25.119 Atherosclerotic heart disease of native coronary artery with unspecified angina pectoris; I27.2 Other secondary pulmonary hypertension; I25.5 Ischemic cardiomyopathy; I35.1 Nonrheumatic aortic (valve) insufficiency; I28.9 Disease of pulmonary vessels, unspecified; R29.810 Facial weakness; I49.3 Ventricular premature depolarization; I48.0 Paroxysmal atrial fibrillation; J44.9 Chronic obstructive pulmonary disease, unspecified; M10.9 Gout, unspecified; M17.12 Unilateral primary osteoarthritis, left knee; E11.51 Type 2 diabetes mellitus with diabetic peripheral angiopathy without gangrene; R13.10 Dysphagia, unspecified; Z91.19 Patient's noncompliance with other medical treatment and regimen; Z79.01 Long term (current) use of anticoagulants; Z79.1 Long term (current) use of non-steroidal anti-inflammatories (NSAID); Z79.899 Other long term (current) drug therapy; Z79.82 Long term (current) use of aspirin; Z86.73 Personal history of transient ischemic attack (TIA), and cerebral infarction without residual deficits; Z87.891 Personal history of nicotine dependence
CPT/HCPCS: 33967; 33968; 36415; 36600; 37195; 70450; 70551; 71010; 73721; 76770; 80047; 80048; 80053; 80061; 80069; 81001; 82550; 82570; 82607; 82805; 82962; 83036; 83605; 83735; 83880; 84132; 84156; 84300; 84443; 84484; 84550; 85007; 85018; 85027; 85347; 85520; 85610; 87641; 92920; 92928; 93005; 93306; 93458; 93571; 93880; 93925; 93926; 93971; 96374; 96375; 99292; A4314; C1725; C1769; C1771; C1874; C1887; C1892; G0269; G0481; J0282; J0610; J0690; J1030; J1815; J1940; J2250; J2260; J2405; J2997; J3010; J3475; J3490; J7030; J7042; J7050; J7060; 92526; 92610; 97110; 99291-25

== ENCOUNTER 2016-08-13 20:13 | Inpatient (IN) | payer OTHER ==
[~2016-08-13] VITALS: Ht 170.2 cm; Wt 64.9 kg
[~2016-08-13 20:13] MED LIST changes: +FURO20TA3 PO; +METO-269 PO; +METO25TA9 PO; +SACU1TAB PO; +TICA90TA PO
[2016-08-13 21:46] LABS: BILIRUBIN,URINE NEGATIVE (NEG); GLUCOSE,URINE NEGATIVE (NEG); NITRITE,URINE NEGATIVE (NEG); PROTEIN,URINE NEGATIVE (NEG-TRACE); UROBILINOGEN,URINE 0.2 mg/dL (0.2 mg/dL)
[2016-08-13 21:53] LABS: BACTERIA,URINE 0 /HPF (0-FEW); RBC,URINE 0 /HPF (0-2); WBC,URINE RARE /HPF (0-4)
[2016-08-13 22:01] LABS: BASO # 0.1 x10^3/uL (0.0-0.2); BASO % 0 % (0-3); EOS % 0 % (0-3); HEMATOCRIT 38.3 % (39.0-53.0); HEMOGLOBIN 12.4 g/dL (13.0-17.5); LYMPH # 0.8 x10^3/uL (1.0-4.8); LYMPH % 4 % (24-48); MEAN CORPUSCULAR HEMOGLOBIN 31 pg (25-35); MEAN CORPUSCULAR HGB CONC 32 g/dL (31-37); MEAN CORPUSCULAR VOLUME 96 fL (79-100); MONO % 6 % (0-9); NEUT % 90 % (31-73); PLATELET COUNT 281 x10^3/uL (140-400); RED BLOOD COUNT 4.01 x10^6/uL (4.30-5.70); RED CELL DISTRIBUTION WIDTH 15.9 % (11.5-14.5); WHITE BLOOD COUNT 18.5 x10^3/uL (4.0-11.0)
[2016-08-13 22:14] LABS: CALCIUM 8.8 mg/dL (8.5-10.1); CREATININE 2.5 mg/dL (0.7-1.3); GFR 31.7; POTASSIUM 4.4 mmol/L (3.5-5.1)
[2016-08-13 22:20] LABS: ALBUMIN/GLOBULIN RATIO 0.6 (1.0-1.7); TOTAL BILIRUBIN 0.9 mg/dL (0.2-1.0); TOTAL PROTEIN 7.8 g/dL (6.4-8.2)
--- NOTE | 2016-08-13 22:26 | RAD ---
PROCEDURE CT of the head without contrast HISTORY Altered mental status. TECHNIQUE Standard noncontrast images are obtained. Exposure: One or more of the following individualized dose reduction techniques were utilized for this exam: 1. Automated exposure control. 2. Adjustment of the mA and/or kV according to patient size. 3. Use of iterative reconstruction technique. COMPARISON None FINDINGS No evidence of acute intracranial hemorrhage or abnormal extra-axial fluid collection. Generalized atrophy with prominence of ventricles and sulci. White matter low density bilaterally, is typically due to chronic small vessel ischemic disease in this age group. Partially visualized orbits are unremarkable. The partially included sinuses are clear. No acute skull abnormality. IMPRESSION 1. No evidence of acute intracranial pathology. 2. White matter low-density, typically the result of chronic small vessel ischemic disease. 3. Mild atrophy. Electronically signed by: Erasmo Ricks MD (August 13, 2016 22:25:32)
[2016-08-13 22:29] LABS: PLT ESTIMATE ADEQUATE (ADEQUATE); POLYCHROMASIA SLIGHT; TOXIC GRANULATION SLIGHT
[2016-08-13] MEDS ORDERED: IV NORMAL SALINE 1000ML BAG 1,000 ML IV ONE (23:00)
[2016-08-13] MEDS ORDERED: ONDANSETRON PF 4 MG/2 ML VIAL. IV PRN (23:00)
[2016-08-13] MEDS ORDERED: ACETAMINOPHEN 325 MG TABLET. PO PRN (23:00)
[2016-08-14] VITALS (7 sets, daily range): BP systolic 85–153; BP diastolic 60–78
[2016-08-14] MEDS: IV NORMAL SALINE 1000ML BAG 1,000 ML IV SCH ×3 (00:47→13:19)
--- NOTE | 2016-08-14 03:12 | PHYS DOC ---
Past Medical History Past Medical History: CAD, CVA, Diabetes-Type II, High Cholesterol, Hypertension, [place] Past Surgical History: Other Additional Past Surgical Histo: cardiac stent Alcohol Use: None Drug Use: None Adult General Chief Complaint Chief Complaint: ALTERED MENTAL STATUS HPI HPI Patient is a 65 year old gentleman who presents to the ER today secondary to altered mental status is noted by the family. Family reports that prior to being discharged from the hospital they thought that he seemed a little confused and was not eating well. Today the patient's cousin went to see him and tried to walk around to the bathroom. The family reports that they tried to walk to the bathroom when the patient stood up and started taking off his pants and almost urinated in his room. They came back to find him try to put his shirt on his feet. This apparently is a very different from his baseline mental status. Family reports that he was recently admitted for stroke and [place]. They report that he had 2 stents placed in February and had to go back in on Monday and had to place stents back in an open up some of the stents that were placed before. Family denies any fevers shakes chills. They report decreased by mouth intake. No vomiting or diarrhea. No dysuria frequency or urgency. Patient's physical exam is significant for tachycardia of unclear etiology. Patient's heart lung abdominal exam was benign. Patient has no rebound or guarding. Patient has normal active bowel sounds. Patient is alert awake oriented to person place but not year. He recognizes family members. He recognizes other situational issues. A/P #1 altered mental status. Etiology unclear. Patient with an elevated white count of 18.5. Patient is in A. fib with RVR. Patient has remained tachycardic throughout his stay in the ED. Etiology the patient's altered mental status is unclear. Cultures were obtained. His white count. Patient will need to be monitored in the ER and the hospital for further evaluation of his altered mental status. Review of Systems Review of Systems Constitutional: Denies fever or chills [] Eyes: Denies change in visual acuity, redness, or eye pain [] All other review systems are negative except as documented in the history of present illness portion. Allergies Allergies Allergies Coded Allergies Type Severity Reaction Last Updated Verified No Known Drug Allergies 12/18/15 No Physical Exam Physical Exam Constitutional: Well developed, well nourished, no acute distress, non-toxic appearance. [] HENT: Normocephalic, atraumatic, Eyes: PERRLA, EOMI, conjunctiva normal, no discharge. [] Neck: Normal range of motion, no tenderness, supple, no stridor. [] Cardiovascular: Tachycardic irregularly irregular rhythm. Lungs & Thorax: Bilateral breath sounds clear to auscultation [] Abdomen: Bowel sounds normal, soft, no tenderness, no masses, no pulsatile masses. [] Skin: Warm, dry, no erythema, no rash. [] Back: No tenderness, no CVA tenderness. [] Extremities: No tenderness, no cyanosis, no clubbing, ROM intact, no edema. [] Neurologic: Alert and oriented X 3, Psychologic: Affect normal, Current Patient Data Vital Signs Vital Signs Date Time Temp Pulse Resp B/P (MAP) Pulse Ox O2 Delivery O2 Flow Rate FiO2 08/13/16 22:30 108 160/62 (94) 99 Room Air 08/13/16 20:30 22 08/13/16 20:28 98.2 98.2 Lab Values Laboratory Tests Test 08/13/16 21:13 08/13/16 21:37 08/13/16 22:00 White Blood Count 18.5 x10^3/uL (4.0-11.0) H Red Blood Count 4.01 x10^6/uL (4.30-5.70) L Hemoglobin 12.4 g/dL (13.0-17.5) L Hematocrit 38.3 % (39.0-53.0) L Mean Corpuscular Volume 96 fL (79-100) Mean Corpuscular Hemoglobin 31 pg (25-35) Mean Corpuscular Hemoglobin Concent 32 g/dL (31-37) Red Cell Distribution Width 15.9 % (11.5-14.5) H Platelet Count 281 x10^3/uL (140-400) Neutrophils (%) (Auto) 90 % (31-73) H Lymphocytes (%) (Auto) 4 % (24-48) L Monocytes (%) (Auto) 6 % (0-9) Eosinophils (%) (Auto) 0 % (0-3) Basophils (%) (Auto) 0 % (0-3) Neutrophils # (Auto) 16.6 x10^3uL (1.8-7.7) H Lymphocytes # (Auto) 0.8 x10^3/uL (1.0-4.8) L Monocytes # (Auto) 1.0 x10^3/uL (0.0-1.1) Eosinophils # (Auto) 0.0 x10^3/uL (0.0-0.7) Basophils # (Auto) 0.1 x10^3/uL (0.0-0.2) Segmented Neutrophils % 89 % (35-66) H Band Neutrophils % 1 % (0-9) Lymphocytes % 5 % (24-48) L Monocytes % 5 % (0-10) Toxic Granulation Slight Platelet Estimate Adequate (ADEQUATE) Polychromasia Slight Sodium Level 134 mmol/L (136-145) L Potassium Level 4.4 mmol/L (3.5-5.1) Chloride Level 101 mmol/L (98-107) Carbon Dioxide Level 22 mmol/L (21-32) Anion Gap 11 (6-14) Blood Urea Nitrogen 41 mg/dL (8-26) H Creatinine 2.5 mg/dL (0.7-1.3) H Estimated GFR (Cockcroft-Gault) 31.7 BUN/Creatinine Ratio 16 (6-20) Glucose Level 223 mg/dL (70-99) H Calcium Level 8.8 mg/dL (8.5-10.1) Total Bilirubin 0.9 mg/dL (0.2-1.0) Aspartate Amino Transferase (AST) 24 U/L (15-37) Alanine Aminotransferase (ALT) 97 U/L (16-63) H Alkaline Phosphatase 66 U/L (46-116) Total Protein 7.8 g/dL (6.4-8.2) Albumin 3.0 g/dL (3.4-5.0) L Albumin/Globulin Ratio 0.6 (1.0-1.7) L Urine Collection Type Unknown Urine Color Yellow Urine Clarity Clear Urine pH 5.0 Urine Specific [place] 1.015 Urine Protein Negative mg/dL (NEG-TRACE) Urine Glucose (UA) Negative mg/dL (NEG) Urine Ketones (Stick) Negative mg/dL (NEG) Urine Blood Negative (NEG) Urine Nitrite Negative (NEG) Urine Bilirubin Negative (NEG) Urine Urobilinogen Dipstick 0.2 mg/dL (0.2 mg/dL) Urine Leukocyte Esterase Negative (NEG) Urine RBC 0 /HPF (0-2) Urine WBC Rare /HPF (0-4) Urine Squamous Epithelial Cells None /LPF Urine Bacteria 0 /HPF (0-FEW) Urine Hyaline Casts Many /HPF Urine Mucus Marked /LPF Lactic Acid Level 1.3 mmol/L (0.4-2.0) Laboratory Tests 08/13/16 21:13 Laboratory Tests 08/13/16 21:13 Microbiology 08/13/16 Blood Culture - Preliminary, Resulted NO GROWTH AFTER 1 DAY EKG EKG A. fib with RVR at 120. Nonspecific ST-T wave abnormalities. No ST elevation [place]. Interpreted by Doctor Ma. [] Radiology/Procedures Radiology/Procedures [] Course & Med Decision Making Course & Med Decision Making Pertinent Labs and Imaging studies reviewed. (See chart for details) [] Dragon Disclaimer Dragon Disclaimer This electronic medical record was generated, in whole or in part, using a voice recognition dictation system. Departure Departure Impression: Primary Impression: Atrial fibrillation Additional Impressions: Altered mental status, unspecified Leukocytosis Disposition: ADMITTED INPATIENT Admitting Physician: Deepti Castellanos Condition: STABLE Referrals: THEA DELACRUZ PA-C (PCP) Problem Qualifiers Primary Impression: Atrial fibrillation Atrial fibrillation type: chronic Qualified Codes: I48.2 - Chronic atrial fibrillation Additional Impressions: Leukocytosis Leukocytosis type: unspecified Qualified Codes: D72.829 - Elevated white blood cell count, unspecified HARRIS MA MD August 14, 2016 03:12
--- NOTE | 2016-08-14 03:44 | ACF ---
Admission Forms Criteria MENTAL STATUS CHANGE Clinical Indications for Inpatient Care (Place 'X' for any and all applicable criteria): Ongoing inpatient care may be needed for 1 or more of the following(1)(2)(3)(5)( 6): [X]I. Suspected serious etiology (eg, medical disorder, SOURCING SPECIALIST event) of altered mental status [ ]II. Danger to self or others not manageable at lower level of care [ ]III. Grave disability (eg, inability to perform self care necessary at lower level of care) [ ]IV. Agitation or inappropriate behavior interfering with care for primary condition (eg, attempting to discontinue lines or drains prematurely, unable to cooperate with respiratory care) [ ]V. Delirium [A] [D][E] as described by 1 or more of the following(26): [ ]a) Delirium due to alcohol or sedative [F] withdrawal [ ]b) Delirium of uncertain etiology that has not responded to appropriate empiric treatment [ ]c) Delirium that prevents performance of a life-sustaining function (eg, feeding or hydrating oneself) [ ]. General contraindications and/or Inappropriate clinical situations for Observational Care in patients with Mental Status Change, when ANY ONE of the following is required: [ ]a) Prediction of prolongation of LOS based on ANY ONE of the following may be considered as a contraindication for observational care 2, 3, 4, 5, 6, 7, 8, 9, 10, 11 [ ]i) Age > 65 yrs. [ ]ii) Patient arriving by ambulance [ ]iii) Patient with high acuity [ ]iv) Patient requiring vital sign monitoring [ ]v) Patient on IV medication [ ]b) Systolic blood pressures greater than or equal to 180mmHg 3, 12 [ ]c) Patient with altered mental status including delirium and other alteration of consciousness, (3) [ ]d) Patient whose discharge disposition will be to a assisted home or rehabilitation home should not be managed in Emergency Department Observation Unit. CMS rule requires 3 days hospital stay before such placement.3,13 [ ]e) Patient with failure to thrive due to broad array of etiologies 3,16,17 [ ]f) Inability to ambulate 3,14 Extended stay beyond goal length of stay for the primary condition may be needed until ALL of the following are present(3)(5): [ ]a) Underlying medical etiology of mental status change is absent, or has been established and adequately treated [ ]b) Danger to self or others is absent or manageable at lower level of care. [ ]c) Behavior crisis management, including physical or chemical restraints, is not required or available at lower level of car [ ]d) Substance or alcohol withdrawal is absent or manageable at lower level of care. [ ]e) Behavioral symptoms (eg, agitation, somnolence, inappropriate behavior) are absent, or are manageable at lower level of care. The original [facility] [employer] content created by [facility] [employer] has been revised. The portions of the content which have been revised are identified through the use of italic text or in bold, and [facility] has neither reviewed nor approved the modified material. All other unmodified content is copyright [facility]. Please see references footnoted in the original [facility] edition 2016 Admission Criteria Met?: Yes MARTI NOGUERA August 14, 2016 03:44
--- NOTE | 2016-08-14 08:20 | RAD ---
Indication change in mental status. Suspect CVA. Protocol exam. A single view of the chest was obtained and is compared to an examination 08/05/2016. There is mild unchanged cardiomegaly. There is no congestive heart failure focal infiltrate significant pleural fluid collection or pneumothorax. There has not been a significant change in the appearance of the chest compared to the previous exam. IMPRESSION: No acute or focal process in the chest. No significant change
[2016-08-14] MEDS ORDERED: METOPROLOL TART IMMED RELEASE 25 MG TABLET. PO ONE (08:45)
[2016-08-14] MEDS ORDERED: CYCLOBENZAPRINE 10 MG TABLET. PO PRN (08:45)
--- NOTE | 2016-08-14 08:47 | PDOC1 ---
History and Physical Date of Admission Date of Admission DATE: 08/14/16 TIME: 08:34 Identification/Chief Complaint Chief Complaint confusion Problems: Source Source: Chart review, Patient History of Present Illness History of Present Illness pt just discharged yesterday, was admitted 8 days, had CVA, NSTEMI, had improved after discharge, he has been more confused, and less coherent. Past Medical History Cardiovascular: AFIB, CAD, CHF, HTN, Hyperlipidemia Pulmonary: COPD CENTRAL NERVOUS SYSTEM: CVA Heme/Onc: Other Psych: No pertinent hx Musculoskeletal: Osteoarthritis Rheumatologic: Gout Infectious disease: No pertinent hx Renal/: Chronic renal insuff Endocrine: Diabetes Past Surgical History Past Surgical History: Other Family History Family History: Family History Unknown Social History Smoke: No ALCOHOL: none Drugs: None Current Problem List Problem List Problems Medical Problems: (1) Altered mental status, unspecified Status: Acute (2) Atrial fibrillation Status: Acute (3) Leukocytosis Status: Acute Problems: Current Medications Current Medications Current Medications Sodium Chloride 1,000 ml @ 1,000 mls/hr 1X ONCE IV Last administered on 22:59; Start 08/13/16 at 23:00; Stop 08/13/16 at 23:59; Status DC Ondansetron HCl (Zofran) 4 mg PRN Q8HRS PRN IV NAUSEA/VOMITING; Start 08/13/16 at 23:00; Stop 08/14/16 at 22:59 Sodium Chloride 1,000 ml @ 100 mls/hr Q10H IV Last administered on 08/14/16 05 :19; Start 08/13/16 at 23:00; Stop 08/14/16 at 22:59 Acetaminophen (Tylenol) 650 mg PRN Q4HRS PRN PO FEVER; Start 08/13/16 at 23:00; Stop 08/14/16 at 22:59 Active Scripts Active Toprol Xl (Metoprolol Succinate) 50 Mg Tab.er.24h 1 Tab PO DAILY Furosemide 20 Mg Tablet 20 Mg PO DAILY Entresto 24 mg-26 mg Tablet (Sacubitril/Valsartan) 1 Each Tablet 1 Tab PO BID Brilinta (Ticagrelor) 90 Mg Tablet 90 Mg PO BID Cyclobenzaprine Hcl 10 Mg Tablet 1 Tab PO TID PRN Reported Glimepiride 4 Mg Tablet 1 Tab PO DAILY Allopurinol 100 Mg Tablet 1 Tab PO DAILY Atorvastatin Calcium 40 Mg Tablet 1 Tab PO DAILY Aspir 81 (Aspirin) 81 Mg Tablet. 81 Tab PO DAILY Allergies Allergies: Coded Allergies: No Known Drug Allergies (Unverified , 12/18/15) ROS General: No: Chills, Night Sweats, Fatigue, Malaise, Appetite, Other PSYCHOLOGICAL ROS: YES: Concentration difficultie, Memory difficulties, Sleep disturbances, Other, No: Anxiety, Behavioral Disorder, Decreased libido, Depression, Disorientation, Hallucinations, Irritablity, Mood Swings, Obsessive thoughts Eyes: No Blurry vision, No Decreased vision, No Double vision, No Dry eyes, No Excessive tearing, No Eye Pain, No Itchy Eyes, No Loss of vision, No Photophobia , No Scotomata, No Uses contacts, No Uses glasses, No Other HEENT: YES: Heacaches, No: Visual Changes, Hearing change, Nasal congestion, Nasal discharge, Oral lesions, Sinus pain, Sore Throat, Epistaxis, Sneezing, Snoring, Tinnitus, Vertigo, Vocal changes, Other Respiratory: No: Cough, Hemoptysis, Orthopnea, Pleuritic Pain, Shortness of breath, SOB with excertion, Sputum Changes, Stridor, Tachypnea, Wheezing, Other Cardiovascular: No Chest Pain, No Palpitations, No Orthopnea, No Paroxysmal Noc. Dyspnea, No Edema, No Lt Headedness, No Other Gastrointestinal: No Nausea, No Vomiting, No Abdominal Pain, No Diarrhea, No Constipation, No Melena, No Hematochezia, No Other Genitourinary: No Dysuria, No Frequency, No Incontinence, No Hematuria, No Retention, No Discharge, No Urgency, No Pain, No Flank Pain, No Other, No , No , No , No , No , No , No Musculoskeletal: Yes Joint Pain (rght knee), Yes Muscular Weakness, No Gait Disturbance, No Joint Stiffness, No Joint Swelling, No Muscle Pain, No Pain In:, No Swelling In:, No Other Neurological: No Behavorial Changes, No Bowel/Bladder ControlChng, No Confusion , No Dizziness, No Gait Disturbance, No Headaches, No Impaired Coord/balance, No Memory Loss, No Numbness/Tingling, No Seizures, No Speech Problems, No Tremors, No Visual Changes, No Weakness, No Other Skin: No Dry Skin, No Eczema, No Hair Changes, No Lumps, No Mole Changes, No Mottling, No Nail Changes, No Pruritus, No Rash, No Skin Lesion Changes, No Other, No Acne Physical Exam General: Alert, Oriented X3, Cooperative, No acute distress HEENT: Atraumatic, PERRLA, EOMI, Mucous membr. moist/pink (dry) Lungs: Clear to auscultation, Normal air movement Heart: no gallops, no murmurs, irregularly irregular (rate 105) Abdomen: Normal bowel sounds, Soft Rectal Exam: not examined Extremities: No clubbing, No cyanosis, No edema, Normal pulses, Other (right knee post ternder to palp) Skin: No rashes, No significant lesion Neuro: Normal speech, Normal tone Psych/Mental Status: Mood NL Vitals Vitals Vital Signs Date Time Temp Pulse Resp B/P (MAP) Pulse Ox O2 Delivery O2 Flow Rate FiO2 08/14/16 07:36 Room Air 08/14/16 07:00 98.8 111 18 140/78 (98) 97 98.8 Labs Labs Laboratory Tests Test 08/13/16 21:13 08/13/16 21:37 08/13/16 22:00 08/14/16 00:26 White Blood Count 18.5 x10^3/uL (4.0-11.0) Red Blood Count 4.01 x10^6/uL (4.30-5.70) Hemoglobin 12.4 g/dL (13.0-17.5) Hematocrit 38.3 % (39.0-53.0) Mean Corpuscular Volume 96 fL (79-100) Mean Corpuscular Hemoglobin 31 pg (25-35) Mean Corpuscular Hemoglobin Concent 32 g/dL (31-37) Red Cell Distribution Width 15.9 % (11.5-14.5) Platelet Count 281 x10^3/uL (140-400) Neutrophils (%) (Auto) 90 % (31-73) Lymphocytes (%) (Auto) 4 % (24-48) Monocytes (%) (Auto) 6 % (0-9) Eosinophils (%) (Auto) 0 % (0-3) Basophils (%) (Auto) 0 % (0-3) Neutrophils # (Auto) 16.6 x10^3uL (1.8-7.7) Lymphocytes # (Auto) 0.8 x10^3/uL (1.0-4.8) Monocytes # (Auto) 1.0 x10^3/uL (0.0-1.1) Eosinophils # (Auto) 0.0 x10^3/uL (0.0-0.7) Basophils # (Auto) 0.1 x10^3/uL (0.0-0.2) Segmented Neutrophils % 89 % (35-66) Band Neutrophils % 1 % (0-9) Lymphocytes % 5 % (24-48) Monocytes % 5 % (0-10) Toxic Granulation Slight Platelet Estimate Adequate (ADEQUATE) Polychromasia Slight Sodium Level 134 mmol/L (136-145) Potassium Level 4.4 mmol/L (3.5-5.1) Chloride Level 101 mmol/L (98-107) Carbon Dioxide Level 22 mmol/L (21-32) Anion Gap 11 (6-14) Blood Urea Nitrogen 41 mg/dL (8-26) Creatinine 2.5 mg/dL (0.7-1.3) Estimated GFR (Cockcroft-Gault) 31.7 BUN/Creatinine Ratio 16 (6-20) Glucose Level 223 mg/dL (70-99) Calcium Level 8.8 mg/dL (8.5-10.1) Total Bilirubin 0.9 mg/dL (0.2-1.0) Aspartate Amino Transf (AST/SGOT) 24 U/L (15-37) Alanine Aminotransferase (ALT/SGPT) 97 U/L (16-63) Alkaline Phosphatase 66 U/L (46-116) Total Protein 7.8 g/dL (6.4-8.2) Albumin 3.0 g/dL (3.4-5.0) Albumin/Globulin Ratio 0.6 (1.0-1.7) Urine Collection Type Unknown Urine Color Yellow Urine Clarity Clear Urine pH 5.0 Urine Specific [place] 1.015 Urine Protein Negative mg/dL (NEG-TRACE) Urine Glucose (UA) Negative mg/dL (NEG) Urine Ketones (Stick) Negative mg/dL (NEG) Urine Blood Negative (NEG) Urine Nitrite Negative (NEG) Urine Bilirubin Negative (NEG) Urine Urobilinogen Dipstick 0.2 mg/dL (0.2 mg/dL) Urine Leukocyte Esterase Negative (NEG) Urine RBC 0 /HPF (0-2) Urine WBC Rare /HPF (0-4) Urine Squamous Epithelial Cells None /LPF Urine Bacteria 0 /HPF (0-FEW) Urine Hyaline Casts Many /HPF Urine Mucus Marked /LPF Lactic Acid Level 1.3 mmol/L (0.4-2.0) Glucose (Fingerstick) 181 mg/dL (70-99) Test 08/14/16 08:12 Glucose (Fingerstick) 206 mg/dL (70-99) Laboratory Tests Test 08/13/16 21:13 08/13/16 21:37 08/13/16 22:00 08/14/16 00:26 White Blood Count 18.5 x10^3/uL (4.0-11.0) Red Blood Count 4.01 x10^6/uL (4.30-5.70) Hemoglobin 12.4 g/dL (13.0-17.5) Hematocrit 38.3 % (39.0-53.0) Mean Corpuscular Volume 96 fL (79-100) Mean Corpuscular Hemoglobin 31 pg (25-35) Mean Corpuscular Hemoglobin Concent 32 g/dL (31-37) Red Cell Distribution Width 15.9 % (11.5-14.5) Platelet Count 281 x10^3/uL (140-400) Neutrophils (%) (Auto) 90 % (31-73) Lymphocytes (%) (Auto) 4 % (24-48) Monocytes (%) (Auto) 6 % (0-9) Eosinophils (%) (Auto) 0 % (0-3) Basophils (%) (Auto) 0 % (0-3) Neutrophils # (Auto) 16.6 x10^3uL (1.8-7.7) Lymphocytes # (Auto) 0.8 x10^3/uL (1.0-4.8) Monocytes # (Auto) 1.0 x10^3/uL (0.0-1.1) Eosinophils # (Auto) 0.0 x10^3/uL (0.0-0.7) Basophils # (Auto) 0.1 x10^3/uL (0.0-0.2) Segmented Neutrophils % 89 % (35-66) Band Neutrophils % 1 % (0-9) Lymphocytes % 5 % (24-48) Monocytes % 5 % (0-10) Toxic Granulation Slight Platelet Estimate Adequate (ADEQUATE) Polychromasia Slight Sodium Level 134 mmol/L (136-145) Potassium Level 4.4 mmol/L (3.5-5.1) Chloride Level 101 mmol/L (98-107) Carbon Dioxide Level 22 mmol/L (21-32) Anion Gap 11 (6-14) Blood Urea Nitrogen 41 mg/dL (8-26) Creatinine 2.5 mg/dL (0.7-1.3) Estimated GFR (Cockcroft-Gault) 31.7 BUN/Creatinine Ratio 16 (6-20) Glucose Level 223 mg/dL (70-99) Calcium Level 8.8 mg/dL (8.5-10.1) Total Bilirubin 0.9 mg/dL (0.2-1.0) Aspartate Amino Transf (AST/SGOT) 24 U/L (15-37) Alanine Aminotransferase (ALT/SGPT) 97 U/L (16-63) Alkaline Phosphatase 66 U/L (46-116) Total Protein 7.8 g/dL (6.4-8.2) Albumin 3.0 g/dL (3.4-5.0) Albumin/Globulin Ratio 0.6 (1.0-1.7) Urine Collection Type Unknown Urine Color Yellow Urine Clarity Clear Urine pH 5.0 Urine Specific [place] 1.015 Urine Protein Negative mg/dL (NEG-TRACE) Urine Glucose (UA) Negative mg/dL (NEG) Urine Ketones (Stick) Negative mg/dL (NEG) Urine Blood Negative (NEG) Urine Nitrite Negative (NEG) Urine Bilirubin Negative (NEG) Urine Urobilinogen Dipstick 0.2 mg/dL (0.2 mg/dL) Urine Leukocyte Esterase Negative (NEG) Urine RBC 0 /HPF (0-2) Urine WBC Rare /HPF (0-4) Urine Squamous Epithelial Cells None /LPF Urine Bacteria 0 /HPF (0-FEW) Urine Hyaline Casts Many /HPF Urine Mucus Marked /LPF Lactic Acid Level 1.3 mmol/L (0.4-2.0) Glucose (Fingerstick) 181 mg/dL (70-99) Test 08/14/16 08:12 Glucose (Fingerstick) 206 mg/dL (70-99) VTE Prophylaxis Ordered VTE Prophylaxis Devices: Yes VTE Pharmacological Prophylaxi: Contraindicated Assessment/Plan Assessment/Plan worsening confusion at home, leukocytosis, SIRS, no source, consult ID Acute left frontal cortex infarct, CVA, now with post-CVA syndrome, confusion, consult Neuro RECENT cerebral ischemia from cardiogenic etiology, s/p TPA in ER last week Metabolic encephalopathy. Prior CVA, left thalamus lacunar, embolic recent NSTEMI S/P balloon pump removal and stent placement 5/2 right knee pain, DrGia, Conner piña 2 days ago, MRI LIUDMILA BOWEN MD August 14, 2016 08:47
[2016-08-14] MEDS ORDERED: METOPROLOL TARTRATE 5 MG/5 ML VIAL. IVP ONE (09:15)
[2016-08-14] MEDS: ASPIRIN ENTERIC COATED 81 MG TABLET.DR. PO SCH (09:21)
[2016-08-14] MEDS: ALLOPURINOL 100 MG TABLET. PO SCH (09:21)
[2016-08-14] MEDS: SACUBITRIL/VALSARTAN 24/26MG TABLET. PO SCH ×2 (09:21→20:33)
[2016-08-14] MEDS: TICAGRELOR 90 MG TABLET. PO SCH ×2 (09:21→20:33)
[2016-08-14] MEDS: GLIMEPIRIDE 2 MG TABLET. PO SCH (09:21)
[2016-08-14] MEDS: FUROSEMIDE 20 MG TABLET PO SCH (09:21)
[2016-08-14] MEDS: METOPROLOL SUCC 24HR ER 50 MG TAB.ER.24H. PO SCH (09:22)
[2016-08-14] MEDS ORDERED: METOPROLOL TARTRATE 5 MG/5 ML VIAL. IVP SCH (12:00)
--- NOTE | 2016-08-14 12:00 | EKG ---
[facility] [address] [place] [address] Test Date: 2016-08-13 Test Time: 20:31:38 Pat Name: ERASTO HERNANDEZ Department: Room: 201 1 Gender: M Brass Pourer: : 1950 Requested By: LIUDMILA ROUSE Order Number: [id number] Reading MD: Jacinta Hernadez Measurements Intervals [place] Rate: 101 P: ME: QRS: 33 QRSD: 106 T: -119 QT: 352 QTc: 457 Interpretive Statements ATRIAL FIBRILLATION VENTRICULAR PREMATURE COMPLEX(ES) INVERTED T WAVES SUGGESTIVE OF MYOCARDIAL ISCHEMIA ABNORMAL ECG Electronically Signed On 08-14-2016 18:21:11 CDT by Jacinta Hernadez
--- NOTE | 2016-08-14 12:02 | PDOC ---
Infectious Disease Note ROS ROS Vital Sign Vital Signs Vital Signs Date Time Temp Pulse Resp B/P (MAP) Pulse Ox O2 Delivery O2 Flow Rate FiO2 08/14/16 11:00 98.9 113 19 129/63 (85) 94 Room Air 98.9 Labs Lab Laboratory Tests Test 08/13/16 21:13 08/13/16 21:37 08/13/16 22:00 08/14/16 00:26 White Blood Count 18.5 x10^3/uL (4.0-11.0) Red Blood Count 4.01 x10^6/uL (4.30-5.70) Hemoglobin 12.4 g/dL (13.0-17.5) Hematocrit 38.3 % (39.0-53.0) Mean Corpuscular Volume 96 fL (79-100) Mean Corpuscular Hemoglobin 31 pg (25-35) Mean Corpuscular Hemoglobin Concent 32 g/dL (31-37) Red Cell Distribution Width 15.9 % (11.5-14.5) Platelet Count 281 x10^3/uL (140-400) Neutrophils (%) (Auto) 90 % (31-73) Lymphocytes (%) (Auto) 4 % (24-48) Monocytes (%) (Auto) 6 % (0-9) Eosinophils (%) (Auto) 0 % (0-3) Basophils (%) (Auto) 0 % (0-3) Neutrophils # (Auto) 16.6 x10^3uL (1.8-7.7) Lymphocytes # (Auto) 0.8 x10^3/uL (1.0-4.8) Monocytes # (Auto) 1.0 x10^3/uL (0.0-1.1) Eosinophils # (Auto) 0.0 x10^3/uL (0.0-0.7) Basophils # (Auto) 0.1 x10^3/uL (0.0-0.2) Segmented Neutrophils % 89 % (35-66) Band Neutrophils % 1 % (0-9) Lymphocytes % 5 % (24-48) Monocytes % 5 % (0-10) Toxic Granulation Slight Platelet Estimate Adequate (ADEQUATE) Polychromasia Slight Sodium Level 134 mmol/L (136-145) Potassium Level 4.4 mmol/L (3.5-5.1) Chloride Level 101 mmol/L (98-107) Carbon Dioxide Level 22 mmol/L (21-32) Anion Gap 11 (6-14) Blood Urea Nitrogen 41 mg/dL (8-26) Creatinine 2.5 mg/dL (0.7-1.3) Estimated GFR (Cockcroft-Gault) 31.7 BUN/Creatinine Ratio 16 (6-20) Glucose Level 223 mg/dL (70-99) Calcium Level 8.8 mg/dL (8.5-10.1) Total Bilirubin 0.9 mg/dL (0.2-1.0) Aspartate Amino Transf (AST/SGOT) 24 U/L (15-37) Alanine Aminotransferase (ALT/SGPT) 97 U/L (16-63) Alkaline Phosphatase 66 U/L (46-116) Total Protein 7.8 g/dL (6.4-8.2) Albumin 3.0 g/dL (3.4-5.0) Albumin/Globulin Ratio 0.6 (1.0-1.7) Urine Collection Type Unknown Urine Color Yellow Urine Clarity Clear Urine pH 5.0 Urine Specific [place] 1.015 Urine Protein Negative mg/dL (NEG-TRACE) Urine Glucose (UA) Negative mg/dL (NEG) Urine Ketones (Stick) Negative mg/dL (NEG) Urine Blood Negative (NEG) Urine Nitrite Negative (NEG) Urine Bilirubin Negative (NEG) Urine Urobilinogen Dipstick 0.2 mg/dL (0.2 mg/dL) Urine Leukocyte Esterase Negative (NEG) Urine RBC 0 /HPF (0-2) Urine WBC Rare /HPF (0-4) Urine Squamous Epithelial Cells None /LPF Urine Bacteria 0 /HPF (0-FEW) Urine Hyaline Casts Many /HPF Urine Mucus Marked /LPF Lactic Acid Level 1.3 mmol/L (0.4-2.0) Glucose (Fingerstick) 181 mg/dL (70-99) Test 08/14/16 08:12 Glucose (Fingerstick) 206 mg/dL (70-99) Objective Assessment Leukocytosis s/p Depo-Medrol 08/12 - SIRS Acute encephalopathy CKD Recent NSTEMI s/p stent Recent CVA Chronic A-fib DM Plan Plan of Care Hold antibiotics If condition worsens will start abx f/u BC Monitor WBC and temp Check procalcitonin Thank you [id number] Attending Co-Sign Attending Co-Sign The patient was seen and interviewed as well as examined at the bedside. The chart was reviewed. The case was discussed. Agree with the plan of care. REN SUMNER APRN August 14, 2016 12:02 TERRY PERRY MD August 14, 2016 15:24
--- NOTE | 2016-08-14 13:12 | PDOC2 ---
CONSULT Date of Consult Date of Consult DATE: 08/14/16 TIME: 13:05 Reason for Consult Reason for Consult: Ischemic cardiomyopathy, multi-vessel coronary artery disease with recent PCI Referring Physician Referring Physician: Dr. Castellanos Identification/Chief Complaint Chief Complaint Confusion Source Source: Chart review History of Present Illness Reason for Visit: The patient is a 65-year-old male who was discharged yesterday after an extended hospitalization for CVA, acute systolic heart failure secondary to ischemic cardiomyopathy and multivessel coronary interventions on August 09 using a left ventricular assist device with a PTCA to the left main, LAD and left circumflex vessels and a stent placements to the right coronary artery. Patient was discharged and when seen yesterday was alert and oriented. He became confused last night and was returned to the emergency room. Patient has a main somewhat confused overnight. CT scan of the head has shown no acute changes. Rhythm and hemodynamics have remained stable. Past Medical History Cardiovascular: AFIB, CAD, CHF, HTN, Hyperlipidemia Pulmonary: COPD CENTRAL NERVOUS SYSTEM: CVA Heme/Onc: Other Psych: No pertinent hx Musculoskeletal: Osteoarthritis Rheumatologic: Gout Infectious disease: No pertinent hx Renal/: No pertinent hx, Chronic renal insuff Endocrine: Diabetes Past Surgical History Past Surgical History: Other (recent coronary intervention as noted above.) Family History Family History: Family History Unknown Social History No ALCOHOL: none Drugs: None Lives: Alone Current Problem List Problem List Problems Medical Problems: (1) Altered mental status, unspecified Status: Acute (2) Atrial fibrillation Status: Acute (3) Leukocytosis Status: Acute Current Medications Current Medications Current Medications Sodium Chloride 1,000 ml @ 1,000 mls/hr 1X ONCE IV Last administered on 22:59; Admin Dose 1,000 MLS/HR; Start 08/13/16 at 23:00; Stop 08/13/16 at 23: 59; Status DC Ondansetron HCl (Zofran) 4 mg PRN Q8HRS PRN IV NAUSEA/VOMITING; Start 08/13/16 at 23:00; Stop 08/14/16 at 22:59 Sodium Chloride 1,000 ml @ 100 mls/hr Q10H IV Last administered on 08/14/16 05 :19; Admin Dose 100 MLS/HR; Start 08/13/16 at 23:00; Stop 08/14/16 at 22:59 Acetaminophen (Tylenol) 650 mg PRN Q4HRS PRN PO FEVER; Start 08/13/16 at 23:00; Stop 08/14/16 at 22:59 Allopurinol (Zyloprim) 100 mg DAILY PO Last administered on 08/14/16 09:21; Admin Dose 100 MG; Start 08/14/16 at 09:00 Aspirin (Ecotrin) 81 mg DAILY PO Last administered on 08/14/16 09:21; Admin Dose 81 MG; Start 08/14/16 at 09:00 Atorvastatin Calcium (Lipitor) 40 mg QHS PO ; Start 08/14/16 at 21:00 Cyclobenzaprine HCl (Flexeril) 10 mg PRN TID PRN PO MUSCLE PAIN; Start 08/14/16 at 08:45 Furosemide (Lasix) 20 mg DAILY PO Last administered on 08/14/16 09:21; Admin Dose 20 MG; Start 08/14/16 at 09:00 Sacubitril/ Valsartan (Entresto 24 Mg-26 Mg) 1 tab BID PO Last administered on 08/14/16 09:21; Admin Dose 1 TAB; Start 08/14/16 at 09:00 Ticagrelor (Brilinta) 90 mg BID PO Last administered on 08/14/16 09:21; Admin Dose 90 MG; Start 08/14/16 at 09:00 Glimepiride (Amaryl) 4 mg DAILY PO Last administered on 08/14/16 09:21; Admin Dose 4 MG; Start 08/14/16 at 09:00 Metoprolol Succinate (Toprol Xl) 50 mg DAILY PO Last administered on 08/14/16 09:22; Admin Dose 50 MG; Start 08/14/16 at 09:00 Metoprolol Tartrate (Lopressor) 25 mg 1X ONCE PO Last administered on 09:22; Admin Dose 25 MG; Start 08/14/16 at 08:45; Stop 08/14/16 at 08:53; Status DC Metoprolol Tartrate (Lopressor) 5 mg 1X ONCE IVP Last administered on 09:19; Admin Dose 5 MG; Start 08/14/16 at 09:15; Stop 08/14/16 at 09:16; Status DC Metoprolol Tartrate (Lopressor) 5 mg Q6HRS IVP ; Start 08/14/16 at 12:00; Stop at 12:00; Status DC Tamsulosin HCl (Flomax) 0.4 mg DAILY PO ; Start 08/14/16 at 13:00 Active Scripts Active Toprol Xl (Metoprolol Succinate) 50 Mg Tab.er.24h 1 Tab PO DAILY Furosemide 20 Mg Tablet 20 Mg PO DAILY Entresto 24 mg-26 mg Tablet (Sacubitril/Valsartan) 1 Each Tablet 1 Tab PO BID Brilinta (Ticagrelor) 90 Mg Tablet 90 Mg PO BID Cyclobenzaprine Hcl 10 Mg Tablet 1 Tab PO TID PRN Reported Glimepiride 4 Mg Tablet 1 Tab PO DAILY Allopurinol 100 Mg Tablet 1 Tab PO DAILY Atorvastatin Calcium 40 Mg Tablet 1 Tab PO DAILY Aspir 81 (Aspirin) 81 Mg Tablet. 81 Tab PO DAILY Allergies Allergies: Coded Allergies: No Known Drug Allergies (Unverified , 12/18/15) ROS General: YES: Malaise Respiratory: YES: Shortness of breath, SOB with excertion Neurological: Yes Confusion Physical Exam General: No acute distress HEENT: Atraumatic Lungs: Clear to auscultation Heart: Other (irregularly irregular) Abdomen: Normal bowel sounds Vitals VITALS Vital Signs Date Time Temp Pulse Resp B/P (MAP) Pulse Ox O2 Delivery O2 Flow Rate FiO2 08/14/16 11:00 98.9 113 19 129/63 (85) 94 Room Air 98.9 Labs Labs Laboratory Tests Test 08/13/16 21:13 08/13/16 21:37 08/13/16 22:00 08/14/16 00:26 White Blood Count 18.5 x10^3/uL (4.0-11.0) Red Blood Count 4.01 x10^6/uL (4.30-5.70) Hemoglobin 12.4 g/dL (13.0-17.5) Hematocrit 38.3 % (39.0-53.0) Mean Corpuscular Volume 96 fL (79-100) Mean Corpuscular Hemoglobin 31 pg (25-35) Mean Corpuscular Hemoglobin Concent 32 g/dL (31-37) Red Cell Distribution Width 15.9 % (11.5-14.5) Platelet Count 281 x10^3/uL (140-400) Neutrophils (%) (Auto) 90 % (31-73) Lymphocytes (%) (Auto) 4 % (24-48) Monocytes (%) (Auto) 6 % (0-9) Eosinophils (%) (Auto) 0 % (0-3) Basophils (%) (Auto) 0 % (0-3) Neutrophils # (Auto) 16.6 x10^3uL (1.8-7.7) Lymphocytes # (Auto) 0.8 x10^3/uL (1.0-4.8) Monocytes # (Auto) 1.0 x10^3/uL (0.0-1.1) Eosinophils # (Auto) 0.0 x10^3/uL (0.0-0.7) Basophils # (Auto) 0.1 x10^3/uL (0.0-0.2) Segmented Neutrophils % 89 % (35-66) Band Neutrophils % 1 % (0-9) Lymphocytes % 5 % (24-48) Monocytes % 5 % (0-10) Toxic Granulation Slight Platelet Estimate Adequate (ADEQUATE) Polychromasia Slight Sodium Level 134 mmol/L (136-145) Potassium Level 4.4 mmol/L (3.5-5.1) Chloride Level 101 mmol/L (98-107) Carbon Dioxide Level 22 mmol/L (21-32) Anion Gap 11 (6-14) Blood Urea Nitrogen 41 mg/dL (8-26) Creatinine 2.5 mg/dL (0.7-1.3) Estimated GFR (Cockcroft-Gault) 31.7 BUN/Creatinine Ratio 16 (6-20) Glucose Level 223 mg/dL (70-99) Calcium Level 8.8 mg/dL (8.5-10.1) Total Bilirubin 0.9 mg/dL (0.2-1.0) Aspartate Amino Transf (AST/SGOT) 24 U/L (15-37) Alanine Aminotransferase (ALT/SGPT) 97 U/L (16-63) Alkaline Phosphatase 66 U/L (46-116) Total Protein 7.8 g/dL (6.4-8.2) Albumin 3.0 g/dL (3.4-5.0) Albumin/Globulin Ratio 0.6 (1.0-1.7) Urine Collection Type Unknown Urine Color Yellow Urine Clarity Clear Urine pH 5.0 Urine Specific [place] 1.015 Urine Protein Negative mg/dL (NEG-TRACE) Urine Glucose (UA) Negative mg/dL (NEG) Urine Ketones (Stick) Negative mg/dL (NEG) Urine Blood Negative (NEG) Urine Nitrite Negative (NEG) Urine Bilirubin Negative (NEG) Urine Urobilinogen Dipstick 0.2 mg/dL (0.2 mg/dL) Urine Leukocyte Esterase Negative (NEG) Urine RBC 0 /HPF (0-2) Urine WBC Rare /HPF (0-4) Urine Squamous Epithelial Cells None /LPF Urine Bacteria 0 /HPF (0-FEW) Urine Hyaline Casts Many /HPF Urine Mucus Marked /LPF Lactic Acid Level 1.3 mmol/L (0.4-2.0) Glucose (Fingerstick) 181 mg/dL (70-99) Test 08/14/16 08:12 08/14/16 11:47 Glucose (Fingerstick) 206 mg/dL (70-99) 282 mg/dL (70-99) Laboratory Tests Test 08/13/16 21:13 08/13/16 21:37 08/13/16 22:00 08/14/16 00:26 White Blood Count 18.5 x10^3/uL (4.0-11.0) Red Blood Count 4.01 x10^6/uL (4.30-5.70) Hemoglobin 12.4 g/dL (13.0-17.5) Hematocrit 38.3 % (39.0-53.0) Mean Corpuscular Volume 96 fL (79-100) Mean Corpuscular Hemoglobin 31 pg (25-35) Mean Corpuscular Hemoglobin Concent 32 g/dL (31-37) Red Cell Distribution Width 15.9 % (11.5-14.5) Platelet Count 281 x10^3/uL (140-400) Neutrophils (%) (Auto) 90 % (31-73) Lymphocytes (%) (Auto) 4 % (24-48) Monocytes (%) (Auto) 6 % (0-9) Eosinophils (%) (Auto) 0 % (0-3) Basophils (%) (Auto) 0 % (0-3) Neutrophils # (Auto) 16.6 x10^3uL (1.8-7.7) Lymphocytes # (Auto) 0.8 x10^3/uL (1.0-4.8) Monocytes # (Auto) 1.0 x10^3/uL (0.0-1.1) Eosinophils # (Auto) 0.0 x10^3/uL (0.0-0.7) Basophils # (Auto) 0.1 x10^3/uL (0.0-0.2) Segmented Neutrophils % 89 % (35-66) Band Neutrophils % 1 % (0-9) Lymphocytes % 5 % (24-48) Monocytes % 5 % (0-10) Toxic Granulation Slight Platelet Estimate Adequate (ADEQUATE) Polychromasia Slight Sodium Level 134 mmol/L (136-145) Potassium Level 4.4 mmol/L (3.5-5.1) Chloride Level 101 mmol/L (98-107) Carbon Dioxide Level 22 mmol/L (21-32) Anion Gap 11 (6-14) Blood Urea Nitrogen 41 mg/dL (8-26) Creatinine 2.5 mg/dL (0.7-1.3) Estimated GFR (Cockcroft-Gault) 31.7 BUN/Creatinine Ratio 16 (6-20) Glucose Level 223 mg/dL (70-99) Calcium Level 8.8 mg/dL (8.5-10.1) Total Bilirubin 0.9 mg/dL (0.2-1.0) Aspartate Amino Transf (AST/SGOT) 24 U/L (15-37) Alanine Aminotransferase (ALT/SGPT) 97 U/L (16-63) Alkaline Phosphatase 66 U/L (46-116) Total Protein 7.8 g/dL (6.4-8.2) Albumin 3.0 g/dL (3.4-5.0) Albumin/Globulin Ratio 0.6 (1.0-1.7) Urine Collection Type Unknown Urine Color Yellow Urine Clarity Clear Urine pH 5.0 Urine Specific [place] 1.015 Urine Protein Negative mg/dL (NEG-TRACE) Urine Glucose (UA) Negative mg/dL (NEG) Urine Ketones (Stick) Negative mg/dL (NEG) Urine Blood Negative (NEG) Urine Nitrite Negative (NEG) Urine Bilirubin Negative (NEG) Urine Urobilinogen Dipstick 0.2 mg/dL (0.2 mg/dL) Urine Leukocyte Esterase Negative (NEG) Urine RBC 0 /HPF (0-2) Urine WBC Rare /HPF (0-4) Urine Squamous Epithelial Cells None /LPF Urine Bacteria 0 /HPF (0-FEW) Urine Hyaline Casts Many /HPF Urine Mucus Marked /LPF Lactic Acid Level 1.3 mmol/L (0.4-2.0) Glucose (Fingerstick) 181 mg/dL (70-99) Test 08/14/16 08:12 08/14/16 11:47 Glucose (Fingerstick) 206 mg/dL (70-99) 282 mg/dL (70-99) Images Images CT scan of the head shows no acute changes. Chest x-ray shows no acute changes. Assessment/Plan Assessment/Plan 1. Decreased mental status and confusion. Patient is status post a CVA approximately 10 days ago. He is improved this morning. He is being evaluated by the neurology service. 2. Chronic systolic heart failure secondary to severe ischemic cardiomyopathy. Ejection fraction is less than 20%. The patient had been placed on lifevest at this chart. Rhythms stable overnight. Continue baseline medications at this time. 3. Multivessel coronary disease. [place] assisted P PTCA of the left main, LAD and left circumflex as well as a stent placement to the right coronary artery on August 2. No acute EKG changes. No reported chest pain. Continue medications. 4. Rapid atrial fibrillation. Rate now is approximately 110 on beta blockers. We may need to add digoxin if the patient's rate does not improve. We'll continue to closely monitor. Thank you for allowing us to participate in the care of your patient. SUJATHA ANGELES MD August 14, 2016 13:12
[2016-08-14] MEDS: TAMSULOSIN 0.4 MG CAP.ER.24H. PO SCH (13:19)
--- NOTE | 2016-08-14 15:19 | PDOC2 ---
NEUROLOGY CONSULT Date of Admission Date of Admission DATE: 08/14/16 TIME: 15:14 Reason for Consult Reason for Consult: Altered mental status Referring Physician Referring Physician: Dr. Castellanos PCP: Ms. Ewing Source Source: Chart review, Patient History of Present Illness History of Present Illness The patient is a 65-year-old right-handed male just discharged yesterday from admission for acute left frontal cortex infarct, possible left occipital infarct , who underwent tissue plasminogen activator in the emergency department on . He also has a severe ischemic cardiomyopathy with ejection fraction less than 20%. 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 Also during the hospital stay last week he NSTEMI and had a cardiac catheterization with stent placement and required a balloon pump. He went home yesterday but was more confused. According to the nurse, the patient is often bright and alert but at other times stares off into space and is less responsive. No seizure activity is observed. He gets diaphoretic when his heart rate goes up. There is no history of head injury. Again there is no history of seizure. Past Medical History Cardiovascular: AFIB, CAD, CHF, HTN, IA, Syncope, Hyperlipidemia CENTRAL NERVOUS SYSTEM: CVA Rheumatologic: Gout Endocrine: Diabetes Past Surgical History Past Surgical History: Other (coronary stent) Family History Family History: CAD Social History Social History , does not use alcohol or tobacco Current Medications Current Medications Current Medications Sodium Chloride 1,000 ml @ 1,000 mls/hr 1X ONCE IV Last administered on 22:59; Start 08/13/16 at 23:00; Stop 08/13/16 at 23:59; Status DC Ondansetron HCl (Zofran) 4 mg PRN Q8HRS PRN IV NAUSEA/VOMITING; Start 08/13/16 at 23:00; Stop 08/14/16 at 22:59 Sodium Chloride 1,000 ml @ 100 mls/hr Q10H IV Last administered on 08/14/16 13 :19; Start 08/13/16 at 23:00; Stop 08/14/16 at 22:59 Acetaminophen (Tylenol) 650 mg PRN Q4HRS PRN PO FEVER; Start 08/13/16 at 23:00; Stop 08/14/16 at 22:59 Allopurinol (Zyloprim) 100 mg DAILY PO Last administered on 08/14/16 09:21; Start 08/14/16 at 09:00 Aspirin (Ecotrin) 81 mg DAILY PO Last administered on 08/14/16 09:21; Start 08/14/16 at 09:00 Atorvastatin Calcium (Lipitor) 40 mg QHS PO ; Start 08/14/16 at 21:00 Cyclobenzaprine HCl (Flexeril) 10 mg PRN TID PRN PO MUSCLE PAIN; Start 08/14/16 at 08:45 Furosemide (Lasix) 20 mg DAILY PO Last administered on 08/14/16 09:21; Start at 09:00 Sacubitril/ Valsartan (Entresto 24 Mg-26 Mg) 1 tab BID PO Last administered on 08/14/16 09:21; Start 08/14/16 at 09:00 Ticagrelor (Brilinta) 90 mg BID PO Last administered on 08/14/16 09:21; Start 08/14/16 at 09:00 Glimepiride (Amaryl) 4 mg DAILY PO Last administered on 08/14/16 09:21; Start 08/14/16 at 09:00 Metoprolol Succinate (Toprol Xl) 50 mg DAILY PO Last administered on 08/14/16 09:22; Start 08/14/16 at 09:00 Metoprolol Tartrate (Lopressor) 25 mg 1X ONCE PO Last administered on 09:22; Start 08/14/16 at 08:45; Stop 08/14/16 at 08:53; Status DC Metoprolol Tartrate (Lopressor) 5 mg 1X ONCE IVP Last administered on 09:19; Start 08/14/16 at 09:15; Stop 08/14/16 at 09:16; Status DC Metoprolol Tartrate (Lopressor) 5 mg Q6HRS IVP ; Start 08/14/16 at 12:00; Stop at 12:00; Status DC Tamsulosin HCl (Flomax) 0.4 mg DAILY PO Last administered on 08/14/16 13:19; Start 08/14/16 at 13:00 Active Scripts Active Toprol Xl (Metoprolol Succinate) 50 Mg Tab.er.24h 1 Tab PO DAILY Furosemide 20 Mg Tablet 20 Mg PO DAILY Entresto 24 mg-26 mg Tablet (Sacubitril/Valsartan) 1 Each Tablet 1 Tab PO BID Brilinta (Ticagrelor) 90 Mg Tablet 90 Mg PO BID Cyclobenzaprine Hcl 10 Mg Tablet 1 Tab PO TID PRN Reported Glimepiride 4 Mg Tablet 1 Tab PO DAILY Allopurinol 100 Mg Tablet 1 Tab PO DAILY Atorvastatin Calcium 40 Mg Tablet 1 Tab PO DAILY Aspir 81 (Aspirin) 81 Mg Tablet.dr 81 Tab PO DAILY Allergies Allergies: Coded Allergies: No Known Drug Allergies (Unverified , 12/18/15) ROS Review of System Patient denies fevers, chills, weight loss, dyspnea, angina, abdominal pain, change in bowels, or dysuria. 14 point review of systems is negative. Physical Exam Physical Examination PHYSICAL EXAMINATION: Vital signs: see above. General appearance is normal and in no acute distress. HEENT: Normocephalic and nontraumatic. Eyes, nose, ears, and throat are unremarkable. Neck is supple. No lymphadenopathy. No bruits are heard over the carotid artery. No crepitus. NEUROLOGICAL EXAMINATION: Mental Status Examination: Alert. Oriented to time, place, and person. Answers questions and follows commends. He names, repeats, comprehends well, speech is fluent. Pupils are equal round and reactive to light and accommodation. Funduscopic exam: No papilledema. Extraocular movements are intact. Visual field exam shows no defect on the direct confrontation. No motor or sensory deficits on the facial exam. Uvula in the midline and the soft palate elevated symmetrically. No deviation of the tongue to any direction. Gross hearing is normal. Shoulder shrug normal. Muscle tone is normal. Muscle strength is 4/ 5. Deep tendon reflexes are 2+ all around. Plantar reflex is with flexion response bilaterally. [id number] test performance is accurate. Alternative movements are accurate. Gait not tested. Sensory exam shows no deficits. No cerebellar signs are elicited. Vitals VITALS Vital Signs Date Time Temp Pulse Resp B/P (MAP) Pulse Ox O2 Delivery O2 Flow Rate FiO2 08/14/16 11:00 98.9 113 19 129/63 (85) 94 Room Air 98.9 Labs Labs Laboratory Tests Test 08/13/16 21:13 08/13/16 21:37 08/13/16 22:00 08/14/16 00:26 White Blood Count 18.5 x10^3/uL (4.0-11.0) Red Blood Count 4.01 x10^6/uL (4.30-5.70) Hemoglobin 12.4 g/dL (13.0-17.5) Hematocrit 38.3 % (39.0-53.0) Mean Corpuscular Volume 96 fL (79-100) Mean Corpuscular Hemoglobin 31 pg (25-35) Mean Corpuscular Hemoglobin Concent 32 g/dL (31-37) Red Cell Distribution Width 15.9 % (11.5-14.5) Platelet Count 281 x10^3/uL (140-400) Neutrophils (%) (Auto) 90 % (31-73) Lymphocytes (%) (Auto) 4 % (24-48) Monocytes (%) (Auto) 6 % (0-9) Eosinophils (%) (Auto) 0 % (0-3) Basophils (%) (Auto) 0 % (0-3) Neutrophils # (Auto) 16.6 x10^3uL (1.8-7.7) Lymphocytes # (Auto) 0.8 x10^3/uL (1.0-4.8) Monocytes # (Auto) 1.0 x10^3/uL (0.0-1.1) Eosinophils # (Auto) 0.0 x10^3/uL (0.0-0.7) Basophils # (Auto) 0.1 x10^3/uL (0.0-0.2) Segmented Neutrophils % 89 % (35-66) Band Neutrophils % 1 % (0-9) Lymphocytes % 5 % (24-48) Monocytes % 5 % (0-10) Toxic Granulation Slight Platelet Estimate Adequate (ADEQUATE) Polychromasia Slight Sodium Level 134 mmol/L (136-145) Potassium Level 4.4 mmol/L (3.5-5.1) Chloride Level 101 mmol/L (98-107) Carbon Dioxide Level 22 mmol/L (21-32) Anion Gap 11 (6-14) Blood Urea Nitrogen 41 mg/dL (8-26) Creatinine 2.5 mg/dL (0.7-1.3) Estimated GFR (Cockcroft-Gault) 31.7 BUN/Creatinine Ratio 16 (6-20) Glucose Level 223 mg/dL (70-99) Calcium Level 8.8 mg/dL (8.5-10.1) Total Bilirubin 0.9 mg/dL (0.2-1.0) Aspartate Amino Transf (AST/SGOT) 24 U/L (15-37) Alanine Aminotransferase (ALT/SGPT) 97 U/L (16-63) Alkaline Phosphatase 66 U/L (46-116) Total Protein 7.8 g/dL (6.4-8.2) Albumin 3.0 g/dL (3.4-5.0) Albumin/Globulin Ratio 0.6 (1.0-1.7) Urine Collection Type Unknown Urine Color Yellow Urine Clarity Clear Urine pH 5.0 Urine Specific [place] 1.015 Urine Protein Negative mg/dL (NEG-TRACE) Urine Glucose (UA) Negative mg/dL (NEG) Urine Ketones (Stick) Negative mg/dL (NEG) Urine Blood Negative (NEG) Urine Nitrite Negative (NEG) Urine Bilirubin Negative (NEG) Urine Urobilinogen Dipstick 0.2 mg/dL (0.2 mg/dL) Urine Leukocyte Esterase Negative (NEG) Urine RBC 0 /HPF (0-2) Urine WBC Rare /HPF (0-4) Urine Squamous Epithelial Cells None /LPF Urine Bacteria 0 /HPF (0-FEW) Urine Hyaline Casts Many /HPF Urine Mucus Marked /LPF Lactic Acid Level 1.3 mmol/L (0.4-2.0) Glucose (Fingerstick) 181 mg/dL (70-99) Test 08/14/16 08:12 08/14/16 11:47 Glucose (Fingerstick) 206 mg/dL (70-99) 282 mg/dL (70-99) Laboratory Tests Test 08/13/16 21:13 08/13/16 21:37 08/13/16 22:00 08/14/16 00:26 White Blood Count 18.5 x10^3/uL (4.0-11.0) Red Blood Count 4.01 x10^6/uL (4.30-5.70) Hemoglobin 12.4 g/dL (13.0-17.5) Hematocrit 38.3 % (39.0-53.0) Mean Corpuscular Volume 96 fL (79-100) Mean Corpuscular Hemoglobin 31 pg (25-35) Mean Corpuscular Hemoglobin Concent 32 g/dL (31-37) Red Cell Distribution Width 15.9 % (11.5-14.5) Platelet Count 281 x10^3/uL (140-400) Neutrophils (%) (Auto) 90 % (31-73) Lymphocytes (%) (Auto) 4 % (24-48) Monocytes (%) (Auto) 6 % (0-9) Eosinophils (%) (Auto) 0 % (0-3) Basophils (%) (Auto) 0 % (0-3) Neutrophils # (Auto) 16.6 x10^3uL (1.8-7.7) Lymphocytes # (Auto) 0.8 x10^3/uL (1.0-4.8) Monocytes # (Auto) 1.0 x10^3/uL (0.0-1.1) Eosinophils # (Auto) 0.0 x10^3/uL (0.0-0.7) Basophils # (Auto) 0.1 x10^3/uL (0.0-0.2) Segmented Neutrophils % 89 % (35-66) Band Neutrophils % 1 % (0-9) Lymphocytes % 5 % (24-48) Monocytes % 5 % (0-10) Toxic Granulation Slight Platelet Estimate Adequate (ADEQUATE) Polychromasia Slight Sodium Level 134 mmol/L (136-145) Potassium Level 4.4 mmol/L (3.5-5.1) Chloride Level 101 mmol/L (98-107) Carbon Dioxide Level 22 mmol/L (21-32) Anion Gap 11 (6-14) Blood Urea Nitrogen 41 mg/dL (8-26) Creatinine 2.5 mg/dL (0.7-1.3) Estimated GFR (Cockcroft-Gault) 31.7 BUN/Creatinine Ratio 16 (6-20) Glucose Level 223 mg/dL (70-99) Calcium Level 8.8 mg/dL (8.5-10.1) Total Bilirubin 0.9 mg/dL (0.2-1.0) Aspartate Amino Transf (AST/SGOT) 24 U/L (15-37) Alanine Aminotransferase (ALT/SGPT) 97 U/L (16-63) Alkaline Phosphatase 66 U/L (46-116) Total Protein 7.8 g/dL (6.4-8.2) Albumin 3.0 g/dL (3.4-5.0) Albumin/Globulin Ratio 0.6 (1.0-1.7) Urine Collection Type Unknown Urine Color Yellow Urine Clarity Clear Urine pH 5.0 Urine Specific [place] 1.015 Urine Protein Negative mg/dL (NEG-TRACE) Urine Glucose (UA) Negative mg/dL (NEG) Urine Ketones (Stick) Negative mg/dL (NEG) Urine Blood Negative (NEG) Urine Nitrite Negative (NEG) Urine Bilirubin Negative (NEG) Urine Urobilinogen Dipstick 0.2 mg/dL (0.2 mg/dL) Urine Leukocyte Esterase Negative (NEG) Urine RBC 0 /HPF (0-2) Urine WBC Rare /HPF (0-4) Urine Squamous Epithelial Cells None /LPF Urine Bacteria 0 /HPF (0-FEW) Urine Hyaline Casts Many /HPF Urine Mucus Marked /LPF Lactic Acid Level 1.3 mmol/L (0.4-2.0) Glucose (Fingerstick) 181 mg/dL (70-99) Test 08/14/16 08:12 08/14/16 11:47 Glucose (Fingerstick) 206 mg/dL (70-99) 282 mg/dL (70-99) Images Images CT head: FINDINGS No evidence of acute intracranial hemorrhage or abnormal extra-axial fluid collection. Generalized atrophy with prominence of ventricles and sulci. White matter low density bilaterally, is typically due to chronic small vessel ischemic disease in this age group. Partially visualized orbits are unremarkable. The partially included sinuses are clear. No acute skull abnormality. IMPRESSION 1. No evidence of acute intracranial pathology. 2. White matter low-density, typically the result of chronic small vessel ischemic disease. 3. Mild atrophy. Assessment/Plan Assessment/Plan Impression: I find no evidence of acute stroke, and cerebrovascular disease would not cause of fluctuating global symptoms which are most likely related to some sort of metabolic disturbance. In this case, that would be his severe car myopathy with poor cardiac output. There are concerns about sepsis, but I agree with infectious disease that the diaphoresis is most likely related to tachycardia although I fully realize that the tachycardia could also be a sign of sepsis.. Unlikely is the possibility of epileptic seizures, partial complex. Recommendations: Reasonable to check an electroencephalogram I see no need for repeat imaging studies. Family not available. Thank you for letting me help with the patient's care. DINORAH HERNANDEZ MD August 14, 2016 15:19
[2016-08-14] MEDS: ATORVASTATIN CALCIUM 40 MG TABLET. PO SCH (20:33)
--- NOTE | 2016-08-15 00:49 | CONS ---
DATE OF CONSULTATION: 08/14/2016 Stone Ruiz, nurse practitioner, dictating for Dr. Terry Perry, Infectious Disease. REFERRING PHYSICIAN: Dr. Castellanos. REASON FOR CONSULTATION: Leukocytosis. HISTORY OF PRESENT ILLNESS: This patient is a 65-year-old -[place] gentleman with a history of coronary artery disease, paroxysmal atrial fibrillation and diabetes mellitus, who was discharged home yesterday after 8 day hospital stay for non-ST ID, status post cardiac stent and acute cerebrovascular accident. The patient is confused, unable to provide history of present illness. According to the RN, the patient was alert, oriented, independent at ADLs and ambulatory on day of discharge. After returning home he became increasingly confused and required assistance with care. A repeat CT scan of head showed no evidence of acute intracranial pathology. He has elevated white blood cell count of 18,500 with segs 89% and bands 1%. In review of the medical record, he received a Depo-Medrol injection on 08/12/2016 for right knee pain. Blood cultures have been ordered. ID has been asked to consult for further evaluation and antibiotic management. PAST MEDICAL HISTORY: Coronary artery disease, recent non-ST ID, status post cardiac stent, cerebrovascular accident, severe cardiomyopathy with ejection fraction less than 20%, chronic systolic congestive heart failure, diabetes mellitus type 2, hyperlipidemia, hypertension, paroxysmal atrial fibrillation, osteoarthritis, gout, chronic kidney disease, peripheral vascular disease. PAST SURGICAL HISTORY: Cardiac stent placements. FAMILY HISTORY: Unknown. SOCIAL HISTORY: Lives at home alone. Nonsmoker. No history of drug or alcohol abuse reported. ALLERGIES: No known drug allergies. CURRENT MEDICATIONS: Reviewed. Currently, not on any antibiotics. REVIEW OF SYSTEMS: The patient is able to state his name correctly; however, he is confused on where he is at and time. He is unable to recall recent events regarding readmission. He denies headaches and dizziness. Denies sore throat or difficulty swallowing. Denies chest pain, palpitations or swelling. Denies shortness of air or cough. Denies nausea, vomiting, diarrhea or constipation. Denies dysuria. Denies muscle aches or joint pains. Denies chills. PHYSICAL EXAMINATION: GENERAL: A pleasant -[place] male in no apparent distress. VITAL SIGNS: Afebrile, blood pressure 129/63, heart rate 113, respiratory rate 19, pulse oximetry 94% on room air. Weight is 138.06 pounds. HEENT: Pupils dilated, but reactive to light. Normal conjunctivae. Oral mucosa is pink and moist. ____. NECK: Supple. LUNGS: Clear to auscultation. HEART: Normal S1 and S2. Irregularly irregular. ABDOMEN: Nondistended. Bowel sounds are present, soft, nontender. EXTREMITIES: No gross edema or cyanosis. SKIN: Without rash. Warm to touch. NEUROLOGIC: Alert, oriented to self. Follows commands. LABORATORY DATA: Today's WBC 18.5 from 14.0 on 08/13/2016, hemoglobin 12.4, platelet count 281,000. Sodium 134, potassium 4.4, creatinine 2.5, BUN 41, glucose 223. Lactic acid 1.3, total bilirubin 0.9, AST 24, ALT 97, albumin 3.0. Urinalysis unremarkable for infection. MRSA screen from 08/05/2016 negative. Blood cultures pending. IMAGING: Per HPI. IMPRESSION: 1. Leukocytosis, possibly reactive to steroids. 2. Acute encephalopathy. 3. Chronic kidney disease. 4. Recent non-ST elevation myocardial infarction, status post stent placement on 08/09/2016. 5. Recent cerebrovascular accident. 6. Paroxysmal atrial fibrillation. 7. Diabetes mellitus. PLAN: Hold antibiotics. If condition worsens, we will initiate. We will follow up on blood cultures. Monitor WBC count and temperature. Supportive care. Thank you, Dr. Castellanos for asking us to participate in this patient's care. Should you have further questions or concerns, please call. TERRY PERRY MD DR: AMANDA/tomer JOB#: [id number] / [id number]
[2016-08-15 03:07] VITALS: BP 116/67
[2016-08-15 04:05] LABS: BASO # 0.1 x10^3/uL (0.0-0.2); BASO % 0 % (0-3); EOS % 0 % (0-3); HEMATOCRIT 33.2 % (39.0-53.0); HEMOGLOBIN 10.8 g/dL (13.0-17.5); LYMPH # 1.5 x10^3/uL (1.0-4.8); LYMPH % 8 % (24-48); MEAN CORPUSCULAR HEMOGLOBIN 31 pg (25-35); MEAN CORPUSCULAR HGB CONC 32 g/dL (31-37); MEAN CORPUSCULAR VOLUME 96 fL (79-100); MONO % 7 % (0-9); NEUT % 84 % (31-73); PLATELET COUNT 281 x10^3/uL (140-400); RED BLOOD COUNT 3.46 x10^6/uL (4.30-5.70); RED CELL DISTRIBUTION WIDTH 15.7 % (11.5-14.5); WHITE BLOOD COUNT 17.6 x10^3/uL (4.0-11.0)
--- NOTE | 2016-08-15 08:16 | PDOC ---
Infectious Disease Note Subjective Subjective Doing ok but has some knee pain ROS ROS GEN: Denies fevers, chills, sweats HEENT: Denies blurred vision, sore throat CV: Denies chest pain RESP: Denies shortness of air, cough GI: Denies n/v/d NEURO: Denies confusion, dizziness MSK: Denies weakness Vital Sign Vital Signs Vital Signs Date Time Temp Pulse Resp B/P (MAP) Pulse Ox O2 Delivery O2 Flow Rate FiO2 08/15/16 03:07 97.9 102 16 116/67 (83) 96 Room Air 97.9 Physical Exam PHYSICAL EXAM GENERAL: NAD, Alert HEENT: PERRL, OC/OP - clear NECK: Supple, no JVD, no LN LUNGS: Clear HEART: S1S2, no gallop, no murmur ABD: Soft, NT, no organomegaly, no rebound EXT: No edema, no cyanosis. Right knee without inflammation/erythema/edema/ warmth DATABASE SECURITY ADMINISTRATOR: Alert, oriented, no focal neurologic deficit. follows commands SKIN: No rash IV: ok Labs Lab Laboratory Tests Test 08/14/16 11:47 08/14/16 16:55 08/14/16 20:32 08/15/16 02:52 Glucose (Fingerstick) 282 mg/dL (70-99) 154 mg/dL (70-99) 203 mg/dL (70-99) White Blood Count 17.6 x10^3/uL (4.0-11.0) Red Blood Count 3.46 x10^6/uL (4.30-5.70) Hemoglobin 10.8 g/dL (13.0-17.5) Hematocrit 33.2 % (39.0-53.0) Mean Corpuscular Volume 96 fL (79-100) Mean Corpuscular Hemoglobin 31 pg (25-35) Mean Corpuscular Hemoglobin Concent 32 g/dL (31-37) Red Cell Distribution Width 15.7 % (11.5-14.5) Platelet Count 281 x10^3/uL (140-400) Neutrophils (%) (Auto) 84 % (31-73) Lymphocytes (%) (Auto) 8 % (24-48) Monocytes (%) (Auto) 7 % (0-9) Eosinophils (%) (Auto) 0 % (0-3) Basophils (%) (Auto) 0 % (0-3) Neutrophils # (Auto) 14.9 x10^3uL (1.8-7.7) Lymphocytes # (Auto) 1.5 x10^3/uL (1.0-4.8) Monocytes # (Auto) 1.2 x10^3/uL (0.0-1.1) Eosinophils # (Auto) 0.0 x10^3/uL (0.0-0.7) Basophils # (Auto) 0.1 x10^3/uL (0.0-0.2) Procalcitonin < 0.10 ng/mL (0.00-0.10) Objective Assessment Leukocytosis s/p Depo-Medrol 5/5 - SIRS. normal procalcitonin Acute encephalopathy - improving. ? post CVA CKD Recent NSTEMI s/p stent Recent CVA Chronic A-fib DM Plan Plan of Care Hold antibiotics If condition worsens will start abx f/u BC Monitor WBC and temp TERRY PERRY MD August 15, 2016 08:16
[2016-08-15] MEDS: FUROSEMIDE 20 MG TABLET PO SCH (08:25)
[2016-08-15] MEDS: ASPIRIN ENTERIC COATED 81 MG TABLET.DR. PO SCH (08:25)
[2016-08-15] MEDS: TAMSULOSIN 0.4 MG CAP.ER.24H. PO SCH (08:25)
[2016-08-15] MEDS: METOPROLOL SUCC 24HR ER 50 MG TAB.ER.24H. PO SCH (08:26)
[2016-08-15] MEDS: ALLOPURINOL 100 MG TABLET. PO SCH (08:26)
[2016-08-15] MEDS: GLIMEPIRIDE 2 MG TABLET. PO SCH (08:26)
[2016-08-15] MEDS: TICAGRELOR 90 MG TABLET. PO SCH ×2 (08:26→20:51)
[2016-08-15] MEDS: SACUBITRIL/VALSARTAN 24/26MG TABLET. PO SCH ×2 (08:26→20:52)
[2016-08-15] MEDS ORDERED: DIGOXIN IV 500 MCG/2 ML AMPUL. IV ONE (09:30)
[2016-08-15 09:42] LABS: CALCIUM 8.3 mg/dL (8.5-10.1); CREATININE 2.1 mg/dL (0.7-1.3); GFR 38.8; MAGNESIUM 1.8 mg/dL (1.8-2.4); POTASSIUM 4.3 mmol/L (3.5-5.1)
[2016-08-15 10:42] VITALS: BP 106/50
--- NOTE | 2016-08-15 12:07 | PDOC ---
CARDIO Progress Notes Date and Time Date of Service 08/15/2016 Time of Evaluation 0900 Subjective Subjective: No Chest Pain, No shortness of breath, No Palpitations, No Dizziness Vitals Vitals Vital Signs Date Time Temp Pulse Resp B/P (MAP) Pulse Ox O2 Delivery O2 Flow Rate FiO2 08/15/16 10:42 98.1 88 17 106/50 (68) 100 Room Air 98.1 Weight Weight [ ] Input and Output Intake and Output Intake and Output 08/15/16 07:00 Intake Total 1900 ml Output Total 1395 ml Balance 505 ml Intake Oral 700 ml IV Total 1200 ml Output Urine Total 1395 ml # Voids 1 Laboratory Labs Laboratory Tests Test 08/14/16 16:55 08/14/16 20:32 08/15/16 02:52 08/15/16 08:35 Glucose (Fingerstick) 154 mg/dL (70-99) 203 mg/dL (70-99) 146 mg/dL (70-99) White Blood Count 17.6 x10^3/uL (4.0-11.0) Red Blood Count 3.46 x10^6/uL (4.30-5.70) Hemoglobin 10.8 g/dL (13.0-17.5) Hematocrit 33.2 % (39.0-53.0) Mean Corpuscular Volume 96 fL (79-100) Mean Corpuscular Hemoglobin 31 pg (25-35) Mean Corpuscular Hemoglobin Concent 32 g/dL (31-37) Red Cell Distribution Width 15.7 % (11.5-14.5) Platelet Count 281 x10^3/uL (140-400) Neutrophils (%) (Auto) 84 % (31-73) Lymphocytes (%) (Auto) 8 % (24-48) Monocytes (%) (Auto) 7 % (0-9) Eosinophils (%) (Auto) 0 % (0-3) Basophils (%) (Auto) 0 % (0-3) Neutrophils # (Auto) 14.9 x10^3uL (1.8-7.7) Lymphocytes # (Auto) 1.5 x10^3/uL (1.0-4.8) Monocytes # (Auto) 1.2 x10^3/uL (0.0-1.1) Eosinophils # (Auto) 0.0 x10^3/uL (0.0-0.7) Basophils # (Auto) 0.1 x10^3/uL (0.0-0.2) Sodium Level 139 mmol/L (136-145) Potassium Level 4.3 mmol/L (3.5-5.1) Chloride Level 106 mmol/L (98-107) Carbon Dioxide Level 21 mmol/L (21-32) Anion Gap 12 (6-14) Blood Urea Nitrogen 40 mg/dL (8-26) Creatinine 2.1 mg/dL (0.7-1.3) Estimated GFR (Cockcroft-Gault) 38.8 Glucose Level 163 mg/dL (70-99) Calcium Level 8.3 mg/dL (8.5-10.1) Magnesium Level 1.8 mg/dL (1.8-2.4) Procalcitonin < 0.10 ng/mL (0.00-0.10) Test 08/15/16 11:41 Glucose (Fingerstick) 247 mg/dL (70-99) Microbiology Micro Microbiology 08/13/16 Blood Culture - Preliminary, Resulted NO GROWTH AFTER 1 DAY Physical Exam HEENT: Neck Supple W Full Motion Chest: Symmetric LUNGS: Clear to Auscultation Heart: S1S2, irregularly irregular (Atrial flutter) Extremities: No Edema, No Calf Tenderness Neurology: alert, oriented, follow commands Assessment Assessment 1. Atrial flutter with RVR: variable conduction with known PAFIB 2. Metabolic encephalopathy: recent acute CVA concurrent with recent AK. Mentation back to baseline. Neurology following 3. Leukocytosis: Reactive? afebrile, ID following 4. Multivessel CAD: S/P PTCA to LM/LAD/LCx and notable PCI/YINKA to RCA on 2016 5. ICM/NICM with chronic systolic CHF: compensated. NYHA 2-3. EF 20% 6. HTN: controlled 7. DM2/CKD3: avoid strict BG control. Recommendations 1. Pt discharged with home health 08/13/2016 amd readmitted 08/14/2016. Will likely need SNU this time. Left lifevest at home 2. Not a triple therapy candidate with anticoagulation due to recent acute CVA. Continue on ASA/brilinta. 3. Tolerating toprol XL at 50 mg and entresto as well. Continue. 4. Dig IV x1. Will consider for amiodarone po to start. Will check with primary bench worker hollow handle. ASA for stroke prevention 5. Continue with secondary prevention SAAD CHUNG APRN August 15, 2016 12:07
--- NOTE | 2016-08-15 12:11 | PDOC ---
PROGRESS NOTES Chief Complaint Chief Complaint Encephalopathy ASSESSMENT AND PLAN: 1. CVA acute: left frontal cortex, with post-CVA syndrome (confusion). Neuro service input appreciated. resolved 2. Hx CVA: left thalamus lacunar, embolic 3. Recent cerebral ischemia concurrently with [place]. s/p TPA in ER last week 4. CAD: recent NSTEMI s/p PTCA to LM/LAD/LCx and notable PCI/YINKA to RCA on . on Asp/brilanta. BB 5. CHF: chronic systolic (EF 20%), compensated, NYHA 2-3. has life vest 6. Atrial flutter/fib w/ RVR: not rate controlled, s/p dig x1, now on BB. amiodarone as per cards 6. Pulm HTN 7. DM2: fair control currently. on Amayl 4 mg max. switch to trajenta, start low dose, titrate 8. HTN, HLD: well controlled on current meds 9. CKD3: at baseline 10. Leukocytosis: appears reactive. no infectious source appreciated 11. R knee pain: Conner Bell , MRI ok 12. Elevated uric acid: on allopurinol, renal dose 13. Dispo: SNF when bed available; cardiac rehab History of Present Illness History of Present Illness feels well, except for R knee pain. able to move joint. no HERRON or dizziness. no CP, SOB Vitals Vitals Vital Signs Date Time Temp Pulse Resp B/P (MAP) Pulse Ox O2 Delivery O2 Flow Rate FiO2 08/15/16 10:42 98.1 88 17 106/50 (68) 100 Room Air 98.1 Physical Exam General: Alert, Cooperative, No acute distress Heart: Other (irregularly irregular, sl tachy) Lungs: Clear, Other Abdomen: Normal bowel sounds Extremities: No clubbing, No cyanosis, No edema, Normal pulses, Other (right knee post ternder to palp) Skin: No rashes, No significant lesion Labs LABS Laboratory Tests Test 08/14/16 16:55 08/14/16 20:32 08/15/16 02:52 08/15/16 08:35 Glucose (Fingerstick) 154 mg/dL (70-99) 203 mg/dL (70-99) 146 mg/dL (70-99) White Blood Count 17.6 x10^3/uL (4.0-11.0) Red Blood Count 3.46 x10^6/uL (4.30-5.70) Hemoglobin 10.8 g/dL (13.0-17.5) Hematocrit 33.2 % (39.0-53.0) Mean Corpuscular Volume 96 fL (79-100) Mean Corpuscular Hemoglobin 31 pg (25-35) Mean Corpuscular Hemoglobin Concent 32 g/dL (31-37) Red Cell Distribution Width 15.7 % (11.5-14.5) Platelet Count 281 x10^3/uL (140-400) Neutrophils (%) (Auto) 84 % (31-73) Lymphocytes (%) (Auto) 8 % (24-48) Monocytes (%) (Auto) 7 % (0-9) Eosinophils (%) (Auto) 0 % (0-3) Basophils (%) (Auto) 0 % (0-3) Neutrophils # (Auto) 14.9 x10^3uL (1.8-7.7) Lymphocytes # (Auto) 1.5 x10^3/uL (1.0-4.8) Monocytes # (Auto) 1.2 x10^3/uL (0.0-1.1) Eosinophils # (Auto) 0.0 x10^3/uL (0.0-0.7) Basophils # (Auto) 0.1 x10^3/uL (0.0-0.2) Sodium Level 139 mmol/L (136-145) Potassium Level 4.3 mmol/L (3.5-5.1) Chloride Level 106 mmol/L (98-107) Carbon Dioxide Level 21 mmol/L (21-32) Anion Gap 12 (6-14) Blood Urea Nitrogen 40 mg/dL (8-26) Creatinine 2.1 mg/dL (0.7-1.3) Estimated GFR (Cockcroft-Gault) 38.8 Glucose Level 163 mg/dL (70-99) Calcium Level 8.3 mg/dL (8.5-10.1) Magnesium Level 1.8 mg/dL (1.8-2.4) Procalcitonin < 0.10 ng/mL (0.00-0.10) Test 08/15/16 11:41 Glucose (Fingerstick) 247 mg/dL (70-99) ELLEN PEDRAZA MD August 15, 2016 12:11
--- NOTE | 2016-08-15 14:53 | PDOC ---
PROGRESS NOTES Assessment Assessment Confusion. Hypoxia. Metabolic encephalopathy. Recent left frontal cortex infarct, left occipital infarct possible, cerebral ischemia from cardiogenic etiology, s/p TPA in ER on CAD, s/p stents placement. CHF, EF < 20%. Pulmonary A hypertension DM Renal failure CKD HTN HLD Atrial flutter with RVR. Elevated troponin. 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 Old right parietal microhemorrhage. RECOMMENDATIONS/PLAN: Continue ASA 81 mg daily. Continue Lipitor HS. Anticoagulant per cardiology. Treat medical and cardiac diseases. PAST MEDICAL HISTORY: Please see above. PAST SURGERY HISTORY: Cardiac stents placement. ALLERGY: Reviewed. MEDICATIONS: Refer to [facility] FAMILY HISTORY: Non contributory. SOCIAL HISTORY: Lives alone. He . Denies current smoking, drinking, and illicit drug use. He smoked in the past but quit years ago. He drank in the past then quit. He used drugs in the past, but denied current use. REVIEW OF SYSTEMS: Constitutional: No cachexia. Head: No traumatic brain or head injury. Skin: No edema, or rash. Ear: No infection, tinnitus. Eyes: No vision loss or color blindness. Nose: No bleeding or purulent discharges. Hearing: Mild hearing decrease. Neck: No acute injury. Cardiac: CAD, s/p stents placement, AFib, CHF, HTN, HLD, SOB, PAD, PVD Pulmonary: SOB GI: No GI ulcer, GI bleeding. Urinary/genital: UTI. Endocrinologic: Diabetes Mellitus. Skeletomuscular: Generalized weakness. Neurological: see HP. Psychiatric: Denies drug use/abuse. Otherwise, not [id number] review of systems. PHYSICAL EXAMINATION: General appearance is in acute distress. HEENT: Normocephalic and nontraumatic. Eyes, nose, ears, and throat are unremarkable. Neck is supple. No lymphadenopathy. No crepitus. Cardiovascular: S1, S2, seemed regular rate and rhythm. Pulmonary: Clear to auscultation bilaterally. Abdomen: Bowel sounds are positive. Extremities: No rash, lesions, or edema. No restriction of range of motion NEUROLOGICAL EXAMINATION: Awake. Not fully oriented to time, but knows lace and person. PERRL. EOMI. CN: no acute focal findings. Muscle tone: within normal. Muscle strength: 4 DTR: 2 UE, brisk at knee. Plantar reflex: Flexor response bilaterally Gait: not examined in bed. Sensory exam: no acute abnormal findings. No obvious cerebellar signs elicited. F-T-N test fine. Objective Objective Vital Signs Date Time Temp Pulse Resp B/P (MAP) Pulse Ox O2 Delivery O2 Flow Rate FiO2 08/15/16 10:42 98.1 88 17 106/50 (68) 100 Room Air 98.1 Intake and Output 08/15/16 07:00 Intake Total 1900 ml Output Total 1395 ml Balance 505 ml Intake Oral 700 ml IV Total 1200 ml Output Urine Total 1395 ml # Voids 1 Vitals Signs Vitals VS - Last 72 Hours, by Label Date Time Temp Pulse Resp B/P (MAP) Pulse Ox O2 Delivery O2 Flow Rate FiO2 08/15/16 10:42 98.1 88 17 106/50 (68) 100 Room Air 98.1 08/15/16 10:03 102 116/67 08/15/16 08:26 102 116/67 08/15/16 08:26 102 116/67 08/15/16 07:20 Room Air 08/15/16 03:07 97.9 102 16 116/67 (83) 96 Room Air 97.9 08/14/16 22:55 98.7 105 18 85/66 (72) 97 Room Air 98.7 08/14/16 20:33 122 137/70 08/14/16 19:00 Room Air 08/14/16 19:00 98.2 106 18 137/70 (92) 96 Room Air 98.2 08/14/16 15:00 98.2 88 17 119/60 (79) 95 Room Air 98.2 08/14/16 11:00 98.9 113 19 129/63 (85) 94 Room Air 98.9 08/14/16 09:22 133 135/81 08/14/16 09:22 133 135/81 08/14/16 09:21 112 135/81 08/14/16 09:19 133 135/81 08/14/16 07:36 Room Air 08/14/16 07:00 98.8 111 18 140/78 (98) 97 Room Air 98.8 Laboratory Laboratory Laboratory Tests Test 08/14/16 16:55 08/14/16 20:32 08/15/16 02:52 08/15/16 08:35 Glucose (Fingerstick) 154 mg/dL (70-99) 203 mg/dL (70-99) 146 mg/dL (70-99) White Blood Count 17.6 x10^3/uL (4.0-11.0) Red Blood Count 3.46 x10^6/uL (4.30-5.70) Hemoglobin 10.8 g/dL (13.0-17.5) Hematocrit 33.2 % (39.0-53.0) Mean Corpuscular Volume 96 fL (79-100) Mean Corpuscular Hemoglobin 31 pg (25-35) Mean Corpuscular Hemoglobin Concent 32 g/dL (31-37) Red Cell Distribution Width 15.7 % (11.5-14.5) Platelet Count 281 x10^3/uL (140-400) Neutrophils (%) (Auto) 84 % (31-73) Lymphocytes (%) (Auto) 8 % (24-48) Monocytes (%) (Auto) 7 % (0-9) Eosinophils (%) (Auto) 0 % (0-3) Basophils (%) (Auto) 0 % (0-3) Neutrophils # (Auto) 14.9 x10^3uL (1.8-7.7) Lymphocytes # (Auto) 1.5 x10^3/uL (1.0-4.8) Monocytes # (Auto) 1.2 x10^3/uL (0.0-1.1) Eosinophils # (Auto) 0.0 x10^3/uL (0.0-0.7) Basophils # (Auto) 0.1 x10^3/uL (0.0-0.2) Sodium Level 139 mmol/L (136-145) Potassium Level 4.3 mmol/L (3.5-5.1) Chloride Level 106 mmol/L (98-107) Carbon Dioxide Level 21 mmol/L (21-32) Anion Gap 12 (6-14) Blood Urea Nitrogen 40 mg/dL (8-26) Creatinine 2.1 mg/dL (0.7-1.3) Estimated GFR (Cockcroft-Gault) 38.8 Glucose Level 163 mg/dL (70-99) Calcium Level 8.3 mg/dL (8.5-10.1) Magnesium Level 1.8 mg/dL (1.8-2.4) Procalcitonin < 0.10 ng/mL (0.00-0.10) Test 08/15/16 11:41 Glucose (Fingerstick) 247 mg/dL (70-99) Microbiology 08/13/16 Blood Culture - Preliminary, Resulted NO GROWTH AFTER 1 DAY Medication Medications Current Medications Atorvastatin Calcium (Lipitor) 40 mg QHS PO Last administered on 08/14/16 20:33 ; Start 08/14/16 at 21:00 Digoxin (Lanoxin) 500 mcg 1X ONCE IV Last administered on 08/15/16 10:03; Start 08/15/16 at 09:30; Stop 08/15/16 at 09:31; Status DC Comment Review of Relevant I have reviewed the following items abdulaziz (where applicable) has been applied. OLIVIA MALIK MD August 15, 2016 14:53
[2016-08-15 19:00] VITALS: BP 134/74
[2016-08-15] MEDS: ATORVASTATIN CALCIUM 40 MG TABLET. PO SCH (20:52)
[2016-08-15 23:12] VITALS: BP 119/70
[2016-08-16 03:41] VITALS: BP 122/60
--- NOTE | 2016-08-16 07:44 | PDOC ---
Infectious Disease Note Subjective Subjective Doing ok. Occ cough ROS ROS GEN: Denies fevers, chills, sweats HEENT: Denies blurred vision, sore throat CV: Denies chest pain RESP: Denies shortness of air GI: Denies n/v/d NEURO: Denies confusion, dizziness MSK: Denies weakness, joint swelling Vital Sign Vital Signs Vital Signs Date Time Temp Pulse Resp B/P (MAP) Pulse Ox O2 Delivery O2 Flow Rate FiO2 08/16/16 03:41 98.7 64 14 122/60 (80) 100 Room Air 98.7 Physical Exam PHYSICAL EXAM GENERAL: NAD, Alert HEENT: PERRL, OC/OP - clear NECK: Supple, no JVD, no LN LUNGS: Clear HEART: S1S2, no gallop, no murmur ABD: Soft, NT, no organomegaly, no rebound EXT: No edema, no cyanosis. 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 follows commands SKIN: No rash IV: ok Labs Lab Laboratory Tests Test 08/15/16 08:35 08/15/16 11:41 08/15/16 16:52 08/15/16 20:52 Glucose (Fingerstick) 146 mg/dL (70-99) 247 mg/dL (70-99) 210 mg/dL (70-99) 224 mg/dL (70-99) Objective Assessment Leukocytosis s/p Depo-Medrol 5/5 - SIRS. normal procalcitonin Acute encephalopathy - improving. ? post CVA CKD Recent NSTEMI s/p stent Recent CVA Chronic A-fib DM Plan Plan of Care Hold antibiotics ID to sign off TERRY PERRY MD August 16, 2016 07:44
[2016-08-16 07:56] VITALS: BP 135/68
[2016-08-16] MEDS: TAMSULOSIN 0.4 MG CAP.ER.24H. PO SCH (08:33)
[2016-08-16] MEDS: ALLOPURINOL 100 MG TABLET. PO SCH (08:33)
[2016-08-16] MEDS: SACUBITRIL/VALSARTAN 24/26MG TABLET. PO SCH ×2 (08:34→21:09)
[2016-08-16] MEDS: METOPROLOL SUCC 24HR ER 50 MG TAB.ER.24H. PO SCH (08:34)
[2016-08-16] MEDS: TICAGRELOR 90 MG TABLET. PO SCH ×2 (08:34→21:08)
[2016-08-16] MEDS: GLIMEPIRIDE 2 MG TABLET. PO SCH (08:34)
[2016-08-16] MEDS: ASPIRIN ENTERIC COATED 81 MG TABLET.DR. PO SCH (08:34)
[2016-08-16] MEDS: FUROSEMIDE 20 MG TABLET PO SCH (08:35)
--- NOTE | 2016-08-16 09:00 | PDOC ---
PROGRESS NOTES Chief Complaint Chief Complaint Encephalopathy ASSESSMENT AND PLAN: 1. CVA acute: left frontal cortex, with post-CVA syndrome (confusion). Neuro service input appreciated. resolved 2. Hx CVA: left thalamus lacunar, embolic 3. Recent cerebral ischemia concurrently with [place]. s/p TPA in ER last week 4. CAD: recent NSTEMI s/p PTCA to LM/LAD/LCx and notable PCI/YINKA to RCA on . on Asp/brilanta. BB 5. CHF: chronic systolic (EF 20%), compensated, NYHA 2-3. has life vest 6. Atrial flutter/fib w/ RVR: not rate controlled, s/p dig x2, now on BB. amiodarone vs dig as per cards (PO plz!) 6. Pulm HTN 7. DM2: fair control currently. on Amayl 4 mg max. switch to trajenta, start low dose, titrate 8. HTN, HLD: well controlled on current meds 9. CKD3: at baseline 10. Leukocytosis: appears reactive. no infectious source appreciated 11. R knee pain: , Conner piña , MRI ok 12. Elevated uric acid: on allopurinol, renal dose 13. Bacteremia: BC x3 from 08/[address] Xiong notified, starting IV vanco 14. Dispo: bed at [facility]; delay D/C until infectious issues resolved History of Present Illness History of Present Illness knee is only point of c/o. no CP or palp. appetite good Vitals Vitals Vital Signs Date Time Temp Pulse Resp B/P (MAP) Pulse Ox O2 Delivery O2 Flow Rate FiO2 08/16/16 08:34 105 135/68 08/16/16 08:00 Room Air 08/16/16 07:56 97.9 20 100 97.9 Physical Exam General: Alert, Cooperative, No acute distress Heart: Other (irregularly irregular, sl tachy) Lungs: Clear, Other Abdomen: Normal bowel sounds Extremities: No clubbing, No cyanosis, No edema, Normal pulses, Other (right knee post ternder to palp) Skin: No rashes, No significant lesion Labs LABS Laboratory Tests Test 08/15/16 11:41 08/15/16 16:52 08/15/16 20:52 08/16/16 07:21 Glucose (Fingerstick) 247 mg/dL (70-99) 210 mg/dL (70-99) 224 mg/dL (70-99) 137 mg/dL (70-99) ELLEN PEDRAZA MD August 16, 2016 09:00
--- NOTE | 2016-08-16 09:13 | PDOC ---
SAAD CHUNG RN PALLIATIVE 08/16/16 0913: CARDIO Progress Notes Date and Time Date of Service 08/16/2016 Time of Evaluation 0900 Subjective Subjective: No Chest Pain, No shortness of breath, No Palpitations, No Dizziness Vitals Vitals Vital Signs Date Time Temp Pulse Resp B/P (MAP) Pulse Ox O2 Delivery O2 Flow Rate FiO2 08/16/16 08:34 105 135/68 08/16/16 08:00 Room Air 08/16/16 07:56 97.9 20 100 97.9 Weight Weight [ ] Input and Output Intake and Output Intake and Output 08/16/16 06:59 Intake Total 700 ml Output Total 1775 ml Balance -1075 ml Intake Oral 700 ml Output Urine Total 1775 ml # Bowel Movements 1 Laboratory Labs Laboratory Tests Test 08/15/16 11:41 08/15/16 16:52 08/15/16 20:52 08/16/16 07:21 Glucose (Fingerstick) 247 mg/dL (70-99) 210 mg/dL (70-99) 224 mg/dL (70-99) 137 mg/dL (70-99) Microbiology Micro Microbiology 08/13/16 Blood Culture - Preliminary, Resulted NO GROWTH AFTER 2 DAYS Physical Exam HEENT: Neck Supple W Full Motion Chest: Symmetric LUNGS: Clear to Auscultation Heart: S1S2, irregularly irregular (Atrial flutter) Extremities: No Edema, No Calf Tenderness Neurology: alert, oriented, follow commands Assessment Assessment 1. Atrial flutter with RVR: Responded well with Dig bolus yesterday. Currently still erratic at 80-120 HR 2. Metabolic encephalopathy: mentation back to baseline 3. Multivessel CAD: S/P PTCA to LM/LAD/LCx and notable PCI/YINKA to RCA on 2016 4. ICM/NICM with chronic systolic CHF: compensated. NYHA 2-3. EF 20% 6. HTN: controlled 7. DM2/CKD3 8. Leukocytosis/bacteremia: G+ cocci BC, ID following Recommendations 1. Prefer SNU this time 2. Continue with ASA/brilinta. ASA for stroke prevention. Concern of embolic component with recent CVA but also predisposition to hemorrhagic transformation if placed on OAC/NOAC 3. As noted above regarding anticoagulation low dose eliquis would be ideal if NOAC is initiated but will need to discuss significantly with pt and family regarding risks and benefits prior to initiation of triple therapy. 3. Increase toprol XL to 75 mg and will provide Dig IV today. Discussed with primary product craftsman and will start on amiodarone. 4. Entresto. Continue with secondary prevention 5. Possible candidate for watchman procedure, would refer as an outpt for further evaluation ANGEL ROBLES MD 08/16/16 1544: CARDIO Progress Notes Plan Plan Pt. seen and examined. Agree with above. No acute events overnight. Noted to have positive blood cultures. No significant edema. Labs reviewed. May need RHETT, will discuss with Dr. Osorio. SAAD CHUNG APRN August 16, 2016 09:13 ANGEL ROBLES MD August 16, 2016 15:44
[2016-08-16] MEDS ORDERED: METOPROLOL SUCC 24HR ER 25 MG TAB.ER.24H. PO ONE (09:30)
[2016-08-16] MEDS ORDERED: DIGOXIN IV 500 MCG/2 ML AMPUL. IV ONE (09:30)
[2016-08-16 10:28] VITALS: BP 98/69
[2016-08-16] MEDS ORDERED: VANCOMYCIN 1.5 GM in IV NORMAL SALINE 500ML BAG 500 ML IV ONE (12:00)
[2016-08-16] MEDS: VANCOMYCIN PER PHARMACY MC PRN (12:35)
--- NOTE | 2016-08-16 13:03 | PDOC ---
PROGRESS NOTES Assessment Assessment Confusion. Hypoxia. Metabolic encephalopathy. Recent left frontal cortex infarct, left occipital infarct possible, cerebral ischemia from cardiogenic etiology, s/p TPA in ER on CAD, s/p stents placement. CHF, EF < 20%. Pulmonary A hypertension DM Renal failure CKD HTN HLD Atrial flutter with RVR. PVD Old left thalamus lacunar infarct, bilateral BG and right external capsule, bilateral cerebellar infarcts, embolic etiology. Old right parietal microhemorrhage. RECOMMENDATIONS/PLAN: Continue ASA 81 mg and Brilinta daily. Continue Lipitor HS. Anticoagulant per Cardiology. Treat medical and cardiac diseases. PAST MEDICAL HISTORY: Please see above. PAST SURGERY HISTORY: Cardiac stents placement. ALLERGY: Reviewed. MEDICATIONS: Refer to [facility] FAMILY HISTORY: Non contributory. SOCIAL HISTORY: Lives alone. He . Denies current smoking, drinking, and illicit drug use. He smoked in the past but quit years ago. He drank in the past then quit. He used drugs in the past, but denied current use. REVIEW OF SYSTEMS: Constitutional: No cachexia. Head: No traumatic brain or head injury. Skin: No edema, or rash. Ear: No infection, tinnitus. Eyes: No vision loss or color blindness. Nose: No bleeding or purulent discharges. Hearing: Mild hearing decrease. Neck: No acute injury. Cardiac: CAD, s/p stents placement, AFib, CHF, HTN, HLD, SOB, PAD, PVD Pulmonary: SOB GI: No GI ulcer, GI bleeding. Urinary/genital: UTI. Endocrinologic: Diabetes Mellitus. Skeletomuscular: Generalized weakness. Neurological: see HP. Psychiatric: Denies drug use/abuse. Otherwise, not [id number] review of systems. PHYSICAL EXAMINATION: General appearance is in subacute distress. HEENT: Normocephalic and nontraumatic. Eyes, nose, ears, and throat are unremarkable. Neck is supple. No lymphadenopathy. No crepitus. Cardiovascular: S1, S2, seemed regular rate and rhythm. Pulmonary: Clear to auscultation bilaterally. Abdomen: Bowel sounds are positive. Extremities: No rash, lesions, or edema. No restriction of range of motion NEUROLOGICAL EXAMINATION: Awake. Sitting in chair. Not fully oriented to time, but knows place and person. PERRL. EOMI. CN: no acute focal findings. Muscle tone: within normal. Muscle strength: 4 DTR: 2 UE, brisk at knee. Plantar reflex: Flexor response bilaterally Gait: not examined in bed. Sensory exam: no acute abnormal findings. No obvious cerebellar signs elicited. F-T-N test fine. Objective Objective Vital Signs Date Time Temp Pulse Resp B/P (MAP) Pulse Ox O2 Delivery O2 Flow Rate FiO2 08/16/16 11:07 105 98/60 08/16/16 10:28 97.6 18 97 Room Air 97.6 Intake and Output 08/16/16 07:00 Intake Total 700 ml Output Total 1775 ml Balance -1075 ml Intake Oral 700 ml Output Urine Total 1775 ml # Bowel Movements 1 Vitals Signs Vitals VS - Last 72 Hours, by Label Date Time Temp Pulse Resp B/P (MAP) Pulse Ox O2 Delivery O2 Flow Rate FiO2 08/16/16 11:07 105 98/60 08/16/16 10:28 97.6 95 18 98/69 (79) 97 Room Air 97.6 08/16/16 08:34 105 135/68 08/16/16 08:34 105 135/68 08/16/16 08:00 Room Air 08/16/16 07:56 97.9 86 20 135/68 (90) 100 Room Air 97.9 08/16/16 03:41 98.7 64 14 122/60 (80) 100 Room Air 98.7 08/15/16 23:12 98.6 107 18 119/70 (86) 96 Room Air 98.6 08/15/16 20:52 104 134/74 08/15/16 19:00 Room Air 08/15/16 19:00 97.9 87 18 134/74 (94) 99 Room Air 97.9 08/15/16 14:51 97.3 124 20 100 Room Air 97.3 08/15/16 10:42 98.1 88 17 106/50 (68) 100 Room Air 98.1 08/15/16 10:03 102 116/67 08/15/16 08:26 102 116/67 08/15/16 08:26 102 116/67 08/15/16 07:20 Room Air Laboratory Laboratory Laboratory Tests Test 08/15/16 16:52 08/15/16 20:52 08/16/16 07:21 08/16/16 11:33 Glucose (Fingerstick) 210 mg/dL (70-99) 224 mg/dL (70-99) 137 mg/dL (70-99) 235 mg/dL (70-99) Microbiology 08/13/16 Blood Culture - Final, Complete Medication Medications Current Medications Digoxin (Lanoxin) 250 mcg 1X ONCE IV Last administered on 08/16/16 11:07; Start 08/16/16 at 09:30; Stop 08/16/16 at 09:31; Status DC Linagliptin (Tradjenta) 2.5 mg DAILY PO ; Start 08/17/16 at 09:00 Metoprolol Succinate (Toprol Xl) 25 mg 1X ONCE PO ; Start 08/16/16 at 09:30; Stop 08/16/16 at 09:31; Status DC Vancomycin HCl 1 each 1X ONCE MC ; Start 08/18/16 at 12:30; Stop 08/18/16 at 12 :31 Vancomycin HCl (Vanco Per Pharmacy) 1 each PRN DAILY PRN MC SEE COMMENTS Last administered on 08/16/16 12:35; Start 08/16/16 at 11:45 Vancomycin HCl 1.5 gm/Sodium Chloride 500 ml @ 250 mls/hr 1X ONCE IV Last administered on 08/16/16 11:58; Start 08/16/16 at 12:00; Stop 08/16/16 at 13:59 Vancomycin HCl 1 gm/Sodium Chloride 250 ml @ 250 mls/hr Q24H IV ; Start at 13:00 Comment Review of Relevant I have reviewed the following items abdulaziz (where applicable) has been applied. OLIVIA MALIK MD August 16, 2016 13:03
[2016-08-16] MEDS: IBUPROFEN 400 MG TABLET. PO PRN (14:33)
[2016-08-16] MEDS: AMIODARONE HCL 200 MG TABLET. PO SCH (14:36)
[2016-08-16 15:23] VITALS: BP 104/63
[2016-08-16 19:21] VITALS: BP 110/54
[2016-08-16] MEDS: ATORVASTATIN CALCIUM 40 MG TABLET. PO SCH (21:08)
[2016-08-16 22:07] VITALS: BP 111/68
[2016-08-17 03:15] VITALS: BP 106/53
[2016-08-17 06:37] LABS: CALCIUM 8.5 mg/dL (8.5-10.1); CREATININE 2.1 mg/dL (0.7-1.3); GFR 38.8
--- NOTE | 2016-08-17 07:40 | PDOC ---
Infectious Disease Note Subjective Subjective Doing ok. Occ cough ROS ROS GEN: Denies fevers, chills, sweats HEENT: Denies blurred vision, sore throat CV: Denies chest pain RESP: Denies shortness of air GI: Denies n/v/d NEURO: Denies confusion, dizziness MSK: Denies weakness, joint pain/swelling Vital Sign Vital Signs Vital Signs Date Time Temp Pulse Resp B/P (MAP) Pulse Ox O2 Delivery O2 Flow Rate FiO2 08/17/16 03:15 97.8 56 16 106/53 (70) 100 Room Air 97.8 Physical Exam PHYSICAL EXAM GENERAL: NAD, Alert HEENT: PERRL, nml conj, OC/OP - cleanr NECK: Supple, no JVD, no LN LUNGS: Clear HEART: S1S2, no gallop, no murmur ABD: Soft, NT, no organomegaly, no rebound EXT: No edema, no cyanosis 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, 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, no focal neurologic deficit SKIN: No rash IV: ok Labs Lab Laboratory Tests Test 08/16/16 11:33 08/16/16 16:38 08/16/16 21:05 08/17/16 06:05 Glucose (Fingerstick) 235 mg/dL (70-99) 139 mg/dL (70-99) 139 mg/dL (70-99) Sodium Level 138 mmol/L (136-145) Potassium Level 4.0 mmol/L (3.5-5.1) Chloride Level 106 mmol/L (98-107) Carbon Dioxide Level 25 mmol/L (21-32) Anion Gap 7 (6-14) Blood Urea Nitrogen 39 mg/dL (8-26) Creatinine 2.1 mg/dL (0.7-1.3) Estimated GFR (Cockcroft-Gault) 38.8 Glucose Level 124 mg/dL (70-99) Calcium Level 8.5 mg/dL (8.5-10.1) Objective Assessment GPC bacteremia / reported 08/16 and Vanc started. ? true vs contamination Leukocytosis s/p Depo-Medrol 08/12 - SIRS. normal procalcitonin Acute encephalopathy - improving. ? post CVA CKD Recent NSTEMI s/p stent Recent CVA Chronic A-fib DM Plan Plan of Care Cont Vanc CBC this am F/u cults TERRY PERRY MD August 17, 2016 07:40
[2016-08-17 07:41] VITALS: BP 96/54
[2016-08-17] MEDS: VANCOMYCIN PER PHARMACY MC PRN (08:00)
[2016-08-17 08:26] LABS: BASO % 0 % (0-3); EOS % 2 % (0-3); HEMATOCRIT 35.6 % (39.0-53.0); LYMPH # 1.9 x10^3/uL (1.0-4.8); LYMPH % 22 % (24-48); MEAN CORPUSCULAR HEMOGLOBIN 32 pg (25-35); MEAN CORPUSCULAR HGB CONC 34 g/dL (31-37); MEAN CORPUSCULAR VOLUME 95 fL (79-100); MONO % 7 % (0-9); NEUT % 70 % (31-73); PLATELET COUNT 345 x10^3/uL (140-400); RED BLOOD COUNT 3.77 x10^6/uL (4.30-5.70); RED CELL DISTRIBUTION WIDTH 15.3 % (11.5-14.5); WHITE BLOOD COUNT 8.8 x10^3/uL (4.0-11.0)
[2016-08-17] MEDS: TAMSULOSIN 0.4 MG CAP.ER.24H. PO SCH (10:03)
[2016-08-17] MEDS: AMIODARONE HCL 200 MG TABLET. PO SCH (10:07)
[2016-08-17] MEDS: TICAGRELOR 90 MG TABLET. PO SCH ×2 (10:08→20:44)
[2016-08-17] MEDS: METOPROLOL SUCC 24HR ER 50 MG TAB.ER.24H. PO SCH (10:08)
[2016-08-17] MEDS: ASPIRIN ENTERIC COATED 81 MG TABLET.DR. PO SCH (10:09)
[2016-08-17] MEDS: FUROSEMIDE 20 MG TABLET PO SCH (10:09)
[2016-08-17] MEDS: SACUBITRIL/VALSARTAN 24/26MG TABLET. PO SCH ×2 (10:09→20:44)
[2016-08-17] MEDS: LINAGLIPTIN 5 MG TABLET PO SCH (10:09)
[2016-08-17] MEDS: ALLOPURINOL 100 MG TABLET. PO SCH (10:09)
[2016-08-17 10:57] VITALS: BP 126/74
--- NOTE | 2016-08-17 11:29 | PDOC ---
SAAD CHUNG [employer] 08/17/16 1129: CARDIO Progress Notes Date and Time Date of Service 08/17/2016 Time of Evaluation 1100 Subjective Subjective: No Chest Pain, No shortness of breath, No Palpitations, No Dizziness, Other (working with rehab currently) Vitals Vitals Vital Signs Date Time Temp Pulse Resp B/P (MAP) Pulse Ox O2 Delivery O2 Flow Rate FiO2 08/17/16 10:57 97.9 75 18 126/74 (91) 99 Room Air 97.9 Weight Weight [ ] Input and Output Intake and Output Intake and Output 08/17/16 06:59 Intake Total 1000 ml Output Total 1525 ml Balance -525 ml Intake Oral 1000 ml Output Urine Total 1525 ml # Voids 2 Laboratory Labs Laboratory Tests Test 08/16/16 11:33 08/16/16 16:38 08/16/16 21:05 08/17/16 06:05 Glucose (Fingerstick) 235 mg/dL (70-99) 139 mg/dL (70-99) 139 mg/dL (70-99) White Blood Count 8.8 x10^3/uL (4.0-11.0) Red Blood Count 3.77 x10^6/uL (4.30-5.70) Hemoglobin 12.0 g/dL (13.0-17.5) Hematocrit 35.6 % (39.0-53.0) Mean Corpuscular Volume 95 fL (79-100) Mean Corpuscular Hemoglobin 32 pg (25-35) Mean Corpuscular Hemoglobin Concent 34 g/dL (31-37) Red Cell Distribution Width 15.3 % (11.5-14.5) Platelet Count 345 x10^3/uL (140-400) Neutrophils (%) (Auto) 70 % (31-73) Lymphocytes (%) (Auto) 22 % (24-48) Monocytes (%) (Auto) 7 % (0-9) Eosinophils (%) (Auto) 2 % (0-3) Basophils (%) (Auto) 0 % (0-3) Neutrophils # (Auto) 6.1 x10^3uL (1.8-7.7) Lymphocytes # (Auto) 1.9 x10^3/uL (1.0-4.8) Monocytes # (Auto) 0.6 x10^3/uL (0.0-1.1) Eosinophils # (Auto) 0.1 x10^3/uL (0.0-0.7) Basophils # (Auto) 0.0 x10^3/uL (0.0-0.2) Sodium Level 138 mmol/L (136-145) Potassium Level 4.0 mmol/L (3.5-5.1) Chloride Level 106 mmol/L (98-107) Carbon Dioxide Level 25 mmol/L (21-32) Anion Gap 7 (6-14) Blood Urea Nitrogen 39 mg/dL (8-26) Creatinine 2.1 mg/dL (0.7-1.3) Estimated GFR (Cockcroft-Gault) 38.8 Glucose Level 124 mg/dL (70-99) Calcium Level 8.5 mg/dL (8.5-10.1) Test 08/17/16 07:10 Glucose (Fingerstick) 140 mg/dL (70-99) Microbiology Micro Microbiology 08/13/16 Blood Culture - Preliminary, Resulted 08/13/16 Blood Culture Result 1 (BELLA) - Preliminary, Resulted Physical Exam HEENT: Neck Supple W Full Motion Chest: Symmetric LUNGS: Clear to Auscultation Heart: S1S2, irregularly irregular (Atrial flutter) Extremities: No Edema, No Calf Tenderness Neurology: alert, oriented, follow commands Assessment Assessment 1. Atrial flutter with RVR: now rate controlled 2. Metabolic encephalopathy: resolved 3. Multivessel CAD: S/P PTCA to LM/LAD/LCx and notable PCI/YINKA to RCA on 2016. Stable 4. ICM/NICM with chronic systolic CHF: remains compensated. NYHA 2-3. EF 20% 6. HTN: controlled 7. DM2/CKD3: stable 8. Leukocytosis/bacteremia: G+ cocci BC, ID following Recommendations 1. SNU when discharge 2. Continue with ASA/brilinta. ASA for stroke prevention. Further discussion in regards to OAC/NOAC with pt and family prior to DC and RHETT result 3. Tentatively schedule for RHETT guided CV tomorrow at 11 AM. 4. Responded well with x1 bolus of dig and increased toprol. Will continue and amiodarone started. 5. Entresto. Continue with secondary prevention 6. Possible candidate for watchman procedure, would refer as an outpt for further evaluation ANGEL ROBLES MD 08/17/16 1354: CARDIO Progress Notes Plan Plan Pt. seen and examined. Agree with above CUTTER V GROOVE note No acute events overnight. Attempted to call his family (angelo) but unable to get a hold of them. Denies any chest pain. No dyspnea. Walked approximately 100 feet with PT Mentation stable Meds reviewed ID notes reviewed. Will tenatively plan for RHETT/CVN after initiation of eliquis elizabeth Discussed case with Dr. Varela from neurology, she reports low risk for hemorrhagic conversion, so therefore, might do well with ASA, Plavix, Eliquis for 2 weeks and then transition to Plavix and eliquis. SAAD CHUNG APRN August 17, 2016 11:29 ANGEL ROBLES MD August 17, 2016 13:54
--- NOTE | 2016-08-17 12:49 | PDOC ---
PROGRESS NOTES Chief Complaint Chief Complaint Encephalopathy ASSESSMENT AND PLAN: 1. CVA acute: left frontal cortex, with post-CVA syndrome (confusion). Neuro service input appreciated. resolved 2. Hx CVA: left thalamus lacunar, embolic 3. Recent cerebral ischemia concurrently with [place]. s/p TPA in ER last week 4. CAD: recent NSTEMI s/p PTCA to LM/LAD/LCx and notable PCI/YINKA to RCA on . on Asp/brilanta. BB 5. CHF: chronic systolic (EF 20%), compensated, NYHA 2-3. has life vest 6. Atrial flutter/fib w/ RVR: not rate controlled, s/p dig x2, now on BB. amiodarone vs dig as per cards (PO plz!) 6. Pulm HTN 7. DM2: fair control currently. Amaryl switched to trajenta, 1/2 dose. monitor, increase as indicated 8. HTN, HLD: well controlled on current meds 9. CKD3: at baseline 10. R knee pain: Conner Bell , MRI ok 11. Elevated uric acid: on allopurinol, renal dose 12. Leukocytosis: 2/2 bacterremia; now resolved post start of Abx. 13. Bacteremia: BC x3 from 08/13 positive for GPC. on vanco. ?does knee need to be eval.ed for septic joint, although not "hot"? 14. Dispo: bed at [facility]; delay D/C until infectious issues resolved History of Present Illness History of Present Illness knee is only point of c/o. no CP or palp. appetite good Vitals Vitals Vital Signs Date Time Temp Pulse Resp B/P (MAP) Pulse Ox O2 Delivery O2 Flow Rate FiO2 08/17/16 10:57 97.9 75 18 126/74 (91) 99 Room Air 97.9 Physical Exam General: Alert, Cooperative, No acute distress Heart: Regular rate Lungs: Clear, Other Abdomen: Normal bowel sounds Extremities: No clubbing, No cyanosis, No edema, Other (right knee post ternder to palp, sl swollen) Skin: No rashes, No significant lesion Labs LABS Laboratory Tests Test 08/16/16 16:38 08/16/16 21:05 08/17/16 06:05 08/17/16 07:10 Glucose (Fingerstick) 139 mg/dL (70-99) 139 mg/dL (70-99) 140 mg/dL (70-99) White Blood Count 8.8 x10^3/uL (4.0-11.0) Red Blood Count 3.77 x10^6/uL (4.30-5.70) Hemoglobin 12.0 g/dL (13.0-17.5) Hematocrit 35.6 % (39.0-53.0) Mean Corpuscular Volume 95 fL (79-100) Mean Corpuscular Hemoglobin 32 pg (25-35) Mean Corpuscular Hemoglobin Concent 34 g/dL (31-37) Red Cell Distribution Width 15.3 % (11.5-14.5) Platelet Count 345 x10^3/uL (140-400) Neutrophils (%) (Auto) 70 % (31-73) Lymphocytes (%) (Auto) 22 % (24-48) Monocytes (%) (Auto) 7 % (0-9) Eosinophils (%) (Auto) 2 % (0-3) Basophils (%) (Auto) 0 % (0-3) Neutrophils # (Auto) 6.1 x10^3uL (1.8-7.7) Lymphocytes # (Auto) 1.9 x10^3/uL (1.0-4.8) Monocytes # (Auto) 0.6 x10^3/uL (0.0-1.1) Eosinophils # (Auto) 0.1 x10^3/uL (0.0-0.7) Basophils # (Auto) 0.0 x10^3/uL (0.0-0.2) Sodium Level 138 mmol/L (136-145) Potassium Level 4.0 mmol/L (3.5-5.1) Chloride Level 106 mmol/L (98-107) Carbon Dioxide Level 25 mmol/L (21-32) Anion Gap 7 (6-14) Blood Urea Nitrogen 39 mg/dL (8-26) Creatinine 2.1 mg/dL (0.7-1.3) Estimated GFR (Cockcroft-Gault) 38.8 Glucose Level 124 mg/dL (70-99) Calcium Level 8.5 mg/dL (8.5-10.1) Test 08/17/16 11:48 Glucose (Fingerstick) 186 mg/dL (70-99) ELLEN PEDRAZA MD August 17, 2016 12:49
[2016-08-17] MEDS ORDERED: VANCOMYCIN 1 GM in IV NORMAL SALINE 250ML 250 ML IV SCH (13:00)
--- NOTE | 2016-08-17 14:32 | PDOC ---
PROGRESS NOTES Assessment Assessment Metabolic encephalopathy. Confusion. Hypoxia. Recent left frontal cortex infarct, left occipital infarct possible, cerebral ischemia from cardiogenic etiology, s/p TPA in ER on CAD, s/p stents placement. CHF, EF < 20%. Pulmonary A hypertension DM Renal failure CKD HTN HLD Atrial flutter with RVR. PVD Old left thalamus lacunar infarct, bilateral BG and right external capsule, bilateral cerebellar infarcts, embolic etiology. Old right parietal microhemorrhage. RECOMMENDATIONS/PLAN: Continue ASA 81 mg and Brilinta daily. Continue Lipitor HS. Treat medical and cardiac diseases. OT/PT. PAST MEDICAL HISTORY: Please see above. PAST SURGERY HISTORY: Cardiac stents placement. ALLERGY: Reviewed. MEDICATIONS: Refer to [facility] FAMILY HISTORY: Non contributory. SOCIAL HISTORY: Lives alone. He . Denies current smoking, drinking, and illicit drug use. He smoked in the past but quit years ago. He drank in the past then quit. He used drugs in the past, but denied current use. REVIEW OF SYSTEMS: Constitutional: No cachexia. Head: No traumatic brain or head injury. Skin: No edema, or rash. Ear: No infection, tinnitus. Eyes: No vision loss or color blindness. Nose: No bleeding or purulent discharges. Hearing: Mild hearing decrease. Neck: No acute injury. Cardiac: CAD, s/p stents placement, AFib, CHF, HTN, HLD, SOB, PAD, PVD Pulmonary: SOB GI: No GI ulcer, GI bleeding. Urinary/genital: UTI. Endocrinologic: Diabetes Mellitus. Skeletomuscular: Generalized weakness. Neurological: see HP. Psychiatric: Denies drug use/abuse. Otherwise, not [id number] review of systems. PHYSICAL EXAMINATION: General appearance is in subacute distress. HEENT: Normocephalic and nontraumatic. Eyes, nose, ears, and throat are unremarkable. Neck is supple. No lymphadenopathy. No crepitus. Cardiovascular: S1, S2, seemed regular rate and rhythm. Pulmonary: Clear to auscultation bilaterally. Abdomen: Bowel sounds are positive. Extremities: No rash, lesions, or edema. No restriction of range of motion NEUROLOGICAL EXAMINATION: Awake. Sitting in chair. Not fully oriented to time, but knows place and person. PERRL. EOMI. CN: no acute focal findings. Muscle tone: within normal. Muscle strength: 4 DTR: 2 UE, brisk at knee. Plantar reflex: Flexor response bilaterally Gait: able to walk short distance. Sensory exam: no acute abnormal findings. No obvious cerebellar signs elicited. F-T-N test fine. Objective Objective Vital Signs Date Time Temp Pulse Resp B/P (MAP) Pulse Ox O2 Delivery O2 Flow Rate FiO2 08/17/16 10:57 97.9 75 18 126/74 (91) 99 Room Air 97.9 Intake and Output 08/17/16 07:00 Intake Total 1000 ml Output Total 1525 ml Balance -525 ml Intake Oral 1000 ml Output Urine Total 1525 ml # Voids 2 Vitals Signs Vitals VS - Last 72 Hours, by Label Date Time Temp Pulse Resp B/P (MAP) Pulse Ox O2 Delivery O2 Flow Rate FiO2 08/17/16 10:57 97.9 75 18 126/74 (91) 99 Room Air 97.9 08/17/16 10:09 81 126/74 08/17/16 10:08 86 126/74 08/17/16 10:07 87 126/74 08/17/16 08:20 Room Air 08/17/16 07:41 98.1 93 18 96/54 (68) 100 Room Air 98.1 08/17/16 03:15 97.8 56 16 106/53 (70) 100 Room Air 97.8 08/16/16 22:07 98.8 57 18 111/68 (82) 100 Room Air 98.8 08/16/16 21:09 68 110/54 08/16/16 19:21 97.9 56 16 110/54 (72) 100 Room Air 97.9 08/16/16 19:15 Room Air 08/16/16 15:23 98.4 91 18 104/63 (77) 100 Room Air 98.4 08/16/16 14:47 89 104/63 08/16/16 14:36 93 110/63 08/16/16 11:07 105 98/60 08/16/16 10:28 97.6 95 18 98/69 (79) 97 Room Air 97.6 08/16/16 08:34 105 135/68 08/16/16 08:34 105 135/68 08/16/16 08:00 Room Air 08/16/16 07:56 97.9 86 20 135/68 (90) 100 Room Air 97.9 Laboratory Laboratory Laboratory Tests Test 08/16/16 16:38 08/16/16 21:05 08/17/16 06:05 08/17/16 07:10 Glucose (Fingerstick) 139 mg/dL (70-99) 139 mg/dL (70-99) 140 mg/dL (70-99) White Blood Count 8.8 x10^3/uL (4.0-11.0) Red Blood Count 3.77 x10^6/uL (4.30-5.70) Hemoglobin 12.0 g/dL (13.0-17.5) Hematocrit 35.6 % (39.0-53.0) Mean Corpuscular Volume 95 fL (79-100) Mean Corpuscular Hemoglobin 32 pg (25-35) Mean Corpuscular Hemoglobin Concent 34 g/dL (31-37) Red Cell Distribution Width 15.3 % (11.5-14.5) Platelet Count 345 x10^3/uL (140-400) Neutrophils (%) (Auto) 70 % (31-73) Lymphocytes (%) (Auto) 22 % (24-48) Monocytes (%) (Auto) 7 % (0-9) Eosinophils (%) (Auto) 2 % (0-3) Basophils (%) (Auto) 0 % (0-3) Neutrophils # (Auto) 6.1 x10^3uL (1.8-7.7) Lymphocytes # (Auto) 1.9 x10^3/uL (1.0-4.8) Monocytes # (Auto) 0.6 x10^3/uL (0.0-1.1) Eosinophils # (Auto) 0.1 x10^3/uL (0.0-0.7) Basophils # (Auto) 0.0 x10^3/uL (0.0-0.2) Sodium Level 138 mmol/L (136-145) Potassium Level 4.0 mmol/L (3.5-5.1) Chloride Level 106 mmol/L (98-107) Carbon Dioxide Level 25 mmol/L (21-32) Anion Gap 7 (6-14) Blood Urea Nitrogen 39 mg/dL (8-26) Creatinine 2.1 mg/dL (0.7-1.3) Estimated GFR (Cockcroft-Gault) 38.8 Glucose Level 124 mg/dL (70-99) Calcium Level 8.5 mg/dL (8.5-10.1) Test 08/17/16 11:48 Glucose (Fingerstick) 186 mg/dL (70-99) Microbiology 08/13/16 Blood Culture - Preliminary, Resulted 08/13/16 Blood Culture Result 1 (BELLA) - Preliminary, Resulted Medication Medications Current Medications Amiodarone HCl (Cordarone) 200 mg DAILY PO Last administered on 08/17/16 10:07 ; Start 08/16/16 at 15:00 Linagliptin (Tradjenta) 2.5 mg DAILY PO Last administered on 08/17/16 10:09; Start 08/17/16 at 09:00 Vancomycin HCl 1 each 1X ONCE MC ; Start 08/18/16 at 12:30; Stop 08/18/16 at 12 :31 Vancomycin HCl 1 gm/Sodium Chloride 250 ml @ 250 mls/hr Q24H IV Last administered on 08/17/16 13:04; Start 08/17/16 at 13:00 Comment Review of Relevant I have reviewed the following items abdulaziz (where applicable) has been applied. OLIVIA MALIK MD August 17, 2016 14:32
[2016-08-17 15:23] VITALS: BP 107/84
[2016-08-17 19:05] VITALS: BP 103/50
[2016-08-17] MEDS: IBUPROFEN 400 MG TABLET. PO PRN (20:44)
[2016-08-17] MEDS: ATORVASTATIN CALCIUM 40 MG TABLET. PO SCH (20:44)
[2016-08-17 23:05] VITALS: BP 125/70
[2016-08-18 03:05] VITALS: BP 101/60
[2016-08-18] MEDS ORDERED: HYDROmorphone 2 MG/ML VIAL IV PRN (07:00)
[2016-08-18] MEDS ORDERED: fentaNYL PF VIAL 100 MCG/2 ML VIAL IV PRN ×2 (07:00)
[2016-08-18] MEDS ORDERED: MORPHINE SULFATE 2 MG/ML DISP.SYRIN. IV PRN (07:00)
[2016-08-18] MEDS ORDERED: ONDANSETRON PF 4 MG/2 ML VIAL. IV PRN (07:00)
[2016-08-18] MEDS ORDERED: LIDOCAINE 1% 1 ML SYRINGE. ID PRN (07:00)
[2016-08-18] MEDS ORDERED: PROCHLORPERAZINE 10 MG/2 ML VIAL. IV PRN (07:00)
[2016-08-18] MEDS ORDERED: IV RINGERS,LACTATED 1000ML 1,000 ML IV SCH (07:00)
[2016-08-18 07:15] VITALS: BP 90/64
--- NOTE | 2016-08-18 07:49 | PDOC ---
Infectious Disease Note Subjective Subjective Doing ok. ROS ROS GEN: Denies fevers, chills, sweats HEENT: Denies blurred vision, sore throat CV: Denies chest pain RESP: Denies shortness of air, cough GI: Denies n/v/d NEURO: Denies confusion, dizziness MSK: Denies weakness, joint pain/swelling Vital Sign Vital Signs Vital Signs Date Time Temp Pulse Resp B/P (MAP) Pulse Ox O2 Delivery O2 Flow Rate FiO2 08/18/16 03:05 98.0 74 16 101/60 (74) 97 Room Air 98.0 Physical Exam PHYSICAL EXAM GENERAL: NAD, Alert HEENT: PERRL, nml conj, OC/OP - clear NECK: Supple, no JVD, no LN LUNGS: Clear HEART: S1S2, no gallop, no murmur ABD: Soft, NT, no organomegaly, no rebound EXT: No edema, no cyanosis WILD ANIMAL CARETAKER: Alert, oriented, no focal neurologic deficit SKIN: No rash IV: ok Labs Lab Laboratory Tests Test 08/17/16 11:48 08/17/16 16:39 08/17/16 20:46 Glucose (Fingerstick) 186 mg/dL (70-99) 91 mg/dL (70-99) 154 mg/dL (70-99) Objective Assessment GPC bacteremia /6 reported 08/16 and Vanc started. C/w contamination as multiple species - Alpha strep and ? aero or micrococcus - d/w micro Leukocytosis s/p Depo-Medrol 08/12 - SIRS. normal procalcitonin - nml Acute encephalopathy - improving. ? post CVA CKD Recent NSTEMI s/p stent Recent CVA Chronic A-fib DM Plan Plan of Care Discont [facility] Awaiting cardioversion TERRY PERRY MD August 18, 2016 07:49
[2016-08-18] MEDS: LINAGLIPTIN 5 MG TABLET PO SCH (09:28)
[2016-08-18] MEDS: TICAGRELOR 90 MG TABLET. PO SCH (09:28)
[2016-08-18] MEDS: TAMSULOSIN 0.4 MG CAP.ER.24H. PO SCH (09:28)
[2016-08-18] MEDS: ASPIRIN ENTERIC COATED 81 MG TABLET.DR. PO SCH (09:28)
[2016-08-18] MEDS: ALLOPURINOL 100 MG TABLET. PO SCH (09:28)
[2016-08-18] MEDS: FUROSEMIDE 20 MG TABLET PO SCH (09:29)
[2016-08-18] MEDS: AMIODARONE HCL 200 MG TABLET. PO SCH (09:29)
[2016-08-18] MEDS: SACUBITRIL/VALSARTAN 24/26MG TABLET. PO SCH (09:32)
--- NOTE | 2016-08-18 09:56 | PDOC ---
CARDIO Progress Notes Date and Time Date of Service 08/18/2016 Time of Evaluation 0966 Subjective Subjective: No Chest Pain, No shortness of breath, No Palpitations, No Dizziness Vitals Vitals Vital Signs Date Time Temp Pulse Resp B/P (MAP) Pulse Ox O2 Delivery O2 Flow Rate FiO2 08/18/16 09:32 73 98/49 08/18/16 08:10 Room Air 08/18/16 07:15 98.6 16 97 98.6 Weight Weight [ ] Input and Output Intake and Output Intake and Output 08/18/16 07:00 Intake Total 1400 ml Output Total 1945 ml Balance -545 ml Intake Oral 1400 ml Output Urine Total 1945 ml Laboratory Labs Laboratory Tests Test 08/17/16 11:48 08/17/16 16:39 08/17/16 20:46 08/18/16 07:43 Glucose (Fingerstick) 186 mg/dL (70-99) 91 mg/dL (70-99) 154 mg/dL (70-99) 103 mg/dL (70-99) Microbiology Micro Microbiology 08/13/16 Blood Culture - Final, Complete 08/13/16 Blood Culture Result 1 (BELLA) - Final, Complete 08/13/16 Blood Culture Result 2 (BELLA) - Final, Complete Physical Exam HEENT: Neck Supple W Full Motion Chest: Symmetric LUNGS: Clear to Auscultation Heart: S1S2, RRR (SR with PACs) Abdomen: Soft N/T Extremities: No Edema, No Calf Tenderness Neurology: alert, oriented, follow commands Assessment Assessment 1. Atrial flutter with RVR: converted to SR overnight 2. Metabolic encephalopathy: resolved 3. Multivessel CAD: S/P PTCA to LM/LAD/LCx and notable PCI/YINKA to RCA on 2016. Stable 4. ICM/NICM with chronic systolic CHF: remains compensated. NYHA 2-3. EF 20% 6. HTN: low end but controlled 7. DM2/CKD3: stable 8. Leukocytosis/bacteremia: G+ cocci BC, ID following Recommendations 1. Possible SNU today. Follow up in our office as scheduled 2. Continue with ASA/brilinta. ASA for stroke prevention. Significant discussion in regards to OAC/NOAC with pt and elects not to be on it at this time. Will reevaluate as an outpt 3. Continue with toprol and amiodarone 4. Entresto. Continue with secondary prevention 5. Possible candidate for watchman procedure, would refer as an outpt for further evaluation 6. Informed staff in regards to making sure entresto/brilinta coverage at the facility otherwise pt will need home supply as well as lifevest prior to DC SAAD CHUNG APRN August 18, 2016 09:56
--- NOTE | 2016-08-18 10:35 | PDOC ---
PROGRESS NOTES Chief Complaint Chief Complaint Encephalopathy ASSESSMENT AND PLAN: 1. CVA acute: left frontal cortex, with post-CVA syndrome (confusion). Neuro service input appreciated. resolved 2. Hx CVA: left thalamus lacunar, embolic 3. Recent cerebral ischemia concurrently with [place]. s/p TPA in ER last week 4. CAD: recent NSTEMI s/p PTCA to LM/LAD/LCx and notable PCI/YINKA to RCA on . on Asp/brilanta. BB 5. CHF: chronic systolic (EF 20%), compensated, NYHA 2-3. has life vest (at home) 6. Atrial flutter/fib w/ RVR: good rate control on amiodarone. planned for cardioversion today declined by pt 6. Pulm HTN 7. DM2: good control currently. low dose tradjenta. monitor, increase as indicated 8. HTN, HLD: well controlled on current meds 9. CKD3: at baseline 10. R knee pain: resolved. MRI ok 11. Elevated uric acid: on allopurinol, renal dose 12. Leukocytosis: now resolved 13. Bacteremia: BC x3 from 08/13 positive for GPC, mult morphotypes??? - contamination? vanco stopped. d/w Dr Xiong 14. Dispo: to [facility] today. History of Present Illness History of Present Illness no more knee pain, feels good Vitals Vitals Vital Signs Date Time Temp Pulse Resp B/P (MAP) Pulse Ox O2 Delivery O2 Flow Rate FiO2 08/18/16 09:32 73 98/49 08/18/16 08:10 Room Air 08/18/16 07:15 98.6 16 97 98.6 Physical Exam General: Alert, Cooperative, No acute distress Heart: Regular rate Lungs: Clear, Other Abdomen: Normal bowel sounds Extremities: No clubbing, No cyanosis, No edema, Other (right knee post ternder to palp, sl swollen) Skin: No rashes, No significant lesion Labs LABS Laboratory Tests Test 08/17/16 11:48 08/17/16 16:39 08/17/16 20:46 08/18/16 07:43 Glucose (Fingerstick) 186 mg/dL (70-99) 91 mg/dL (70-99) 154 mg/dL (70-99) 103 mg/dL (70-99) ELLEN PEDRAZA MD August 18, 2016 10:35
[2016-08-18] MEDS ORDERED: TAMS0.4C97 PO (11:01)
[2016-08-18] MEDS ORDERED: AMIO200T2 PO (11:01)
[2016-08-18] MEDS ORDERED: LINA5TAB4 PO (11:01)
[2016-08-18 11:21] VITALS: BP 105/63
[2016-08-18 12:25] VITALS: BP 105/63
[2016-08-18] MEDS: METOPROLOL SUCC 24HR ER 50 MG TAB.ER.24H. PO SCH (12:25)
--- NOTE | 2016-08-18 13:38 | PDOC ---
PROGRESS NOTES Assessment Assessment Confusion. Hypoxia. Recent left frontal cortex infarct, left occipital infarct possible, cerebral ischemia from cardiogenic etiology, s/p TPA in ER on CAD, s/p stents placement. CHF, EF < 20%. Pulmonary A hypertension DM Renal failure CKD HTN HLD Atrial flutter with RVR. PVD Old left thalamus lacunar infarct, bilateral BG and right external capsule, bilateral cerebellar infarcts, embolic etiology. Old right parietal microhemorrhage. RECOMMENDATIONS/PLAN: Agree with cardiology and continue ASA 81 mg and Brilinta daily. Continue Lipitor HS. Treat medical and cardiac diseases. OT/PT. PAST MEDICAL HISTORY: Please see above. PAST SURGERY HISTORY: Cardiac stents placement. ALLERGY: Reviewed. MEDICATIONS: Refer to [facility] FAMILY HISTORY: Non contributory. SOCIAL HISTORY: Lives alone. He . Denies current smoking, drinking, and illicit drug use. He smoked in the past but quit years ago. He drank in the past then quit. He used drugs in the past, but denied current use. REVIEW OF SYSTEMS: Constitutional: No cachexia. Head: No traumatic brain or head injury. Skin: No edema, or rash. Ear: No infection, tinnitus. Eyes: No vision loss or color blindness. Nose: No bleeding or purulent discharges. Hearing: Mild hearing decrease. Neck: No acute injury. Cardiac: CAD, s/p stents placement, AFib, CHF, HTN, HLD, SOB, PAD, PVD Pulmonary: SOB GI: No GI ulcer, GI bleeding. Urinary/genital: UTI. Endocrinologic: Diabetes Mellitus. Skeletomuscular: Generalized weakness. Neurological: see HP. Psychiatric: Denies drug use/abuse. Otherwise, not [id number] review of systems. PHYSICAL EXAMINATION: General appearance is in no acute distress. HEENT: Normocephalic and nontraumatic. Eyes, nose, ears, and throat are unremarkable. Neck is supple. No lymphadenopathy. No crepitus. Cardiovascular: S1, S2, seemed regular rate and rhythm. Pulmonary: Clear to auscultation bilaterally. Abdomen: Bowel sounds are positive. Extremities: No rash, lesions, or edema. No restriction of range of motion NEUROLOGICAL EXAMINATION: Awake. Not fully oriented to time, but knows place and person. PERRL. EOMI. CN: no acute focal findings. Muscle tone: within normal. Muscle strength: 4+ DTR: 2 UE, brisk at knee. Plantar reflex: Flexor response bilaterally Gait: able to walk short distance. Sensory exam: no acute abnormal findings. No obvious cerebellar signs elicited. F-T-N test fine. Objective Objective Vital Signs Date Time Temp Pulse Resp B/P (MAP) Pulse Ox O2 Delivery O2 Flow Rate FiO2 08/18/16 12:25 105/63 08/18/16 11:21 98.5 67 18 100 Room Air 98.5 Intake and Output 08/18/16 07:00 Intake Total 1400 ml Output Total 1945 ml Balance -545 ml Intake Oral 1400 ml Output Urine Total 1945 ml Vitals Signs Vitals VS - Last 72 Hours, by Label Date Time Temp Pulse Resp B/P (MAP) Pulse Ox O2 Delivery O2 Flow Rate FiO2 08/18/16 12:25 105/63 08/18/16 11:21 98.5 67 18 105/63 (77) 100 Room Air 98.5 08/18/16 09:32 73 98/49 08/18/16 09:29 72 98/49 08/18/16 08:10 Room Air 08/18/16 07:15 98.6 71 16 90/64 (73) 97 Room Air 98.6 08/18/16 03:05 98.0 74 16 101/60 (74) 97 Room Air 98.0 08/17/16 23:05 98.7 86 14 125/70 (88) 98 Room Air 98.7 08/17/16 20:44 84 103/50 08/17/16 19:40 Room Air 08/17/16 19:05 98.1 79 16 103/50 (67) 98 Room Air 98.1 08/17/16 15:23 97.6 72 18 107/84 (92) 100 Room Air 97.6 08/17/16 10:57 97.9 75 18 126/74 (91) 99 Room Air 97.9 08/17/16 10:09 81 126/74 08/17/16 10:08 86 126/74 08/17/16 10:07 87 126/74 08/17/16 08:20 Room Air 08/17/16 07:41 98.1 93 18 96/54 (68) 100 Room Air 98.1 Laboratory Laboratory Laboratory Tests Test 08/17/16 16:39 08/17/16 20:46 08/18/16 07:43 08/18/16 11:12 Glucose (Fingerstick) 91 mg/dL (70-99) 154 mg/dL (70-99) 103 mg/dL (70-99) 179 mg/dL (70-99) Microbiology 08/13/16 Blood Culture - Final, Complete 08/13/16 Blood Culture Result 1 (BELLA) - Final, Complete 08/13/16 Blood Culture Result 2 (BELLA) - Final, Complete Medication Medications Current Medications Fentanyl Citrate (Fentanyl 2ml Vial) 25 mcg PRN Q5MIN PRN IV MILD PAIN; Start 08/18/16 at 07:00; Stop 08/19/16 at 06:59 Fentanyl Citrate (Fentanyl 2ml Vial) 50 mcg PRN Q5MIN PRN IV MODERATE PAIN; Start 08/18/16 at 07:00; Stop 08/19/16 at 06:59 Hydromorphone HCl (Dilaudid) 0.5 mg PRN Q10MIN PRN IV SEV PAIN, Second choice; Start 08/18/16 at 07:00; Stop 08/19/16 at 06:59 Lidocaine HCl 2 ml PRN 1X PRN ID PRIOR TO IV START; Start 08/18/16 at 07:00; Stop 08/19/16 at 06:59 Morphine Sulfate 1 mg PRN Q10MIN PRN IV SEVERE PAIN; Start 08/18/16 at 07:00; Stop 08/19/16 at 06:59 Ondansetron HCl (Zofran) 4 mg PRN Q6HRS PRN IV NAUSEA/VOMITING; Start 08/18/16 at 07:00; Stop 08/19/16 at 06:59 Prochlorperazine Edisylate (Compazine) 5 mg PACU PRN PRN IV NAUSEA, MRX1; Start 08/18/16 at 07:00; Stop 08/19/16 at 06:59 Ringer's Solution 1,000 ml @ 30 mls/hr Q24H IV ; Start 08/18/16 at 07:00; Stop 08/18/16 at 18:59 Vancomycin HCl 1 each 1X ONCE MC ; Start 08/18/16 at 12:30; Stop 08/18/16 at 12 :30; Status DC Comment Review of Relevant I have reviewed the following items abdulaziz (where applicable) has been applied. OLIVIA MALIK MD August 18, 2016 13:38
--- NOTE | 2016-08-20 02:10 | DS ---
DATE OF DISCHARGE: 08/18/2016 CHIEF COMPLAINT: Encephalopathy. HOSPITAL COURSE: The patient is a 65-year-old -[place] gentleman who presented to the hospital shortly after a discharge for NSTEMI with associated ischemic encephalopathy. 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 Neurology service helped to guide further treatment and he essentially recovered uneventfully. His cardiac status remained completely stable. For his systolic CHF with an EF of 20%, his home medications were continued. He had atrial fib/atrial flutter, which was rate controlled initially with digoxin as well as amiodarone. He was offered cardioversion, but declined. A 2-day holdup was experienced secondary to blood cultures that became positive for gram-positive cocci. However, when final cultures were resulted, these were deemed to be contaminants of multiple gram-positive cocci. Antibiotic treatment was, therefore, stopped and he was deemed appropriate for rehab placement. DISCHARGE PHYSICAL EXAMINATION: Please refer to note from 08/18/2016. DISCHARGE DISPOSITION: To rehab. DISCHARGE CONDITION: Improved. DISCHARGE MEDICATIONS: Please refer to the transfer sheet. DISCHARGE INSTRUCTIONS: The patient will receive rehabilitation. He will follow up with his PCP on an outpatient basis. ELLEN PEDRAZA MD DR: CHARAN/nts JOB#: [id number] / [id number] THEA Caceres PA-C
== END 2016-08-18 12:55 | DRG 64 ==
LOC: ER 20:13 → 2 NORTH 22:50
PROVIDERS: ADMIT Internal Medicine; ATTEND Internal Medicine
DX: I63.9 Cerebral infarction, unspecified (principal); G93.41 Metabolic encephalopathy; I21.4 Non-ST elevation (NSTEMI) myocardial infarction; R65.10 Systemic inflammatory response syndrome (SIRS) of non-infectious origin without acute organ dysfunction; I13.0 Hypertensive heart and chronic kidney disease with heart failure and stage 1 through stage 4 chronic kidney disease, or unspecified chronic kidney disease; I50.22 Chronic systolic (congestive) heart failure; I48.92 Unspecified atrial flutter; E11.22 Type 2 diabetes mellitus with diabetic chronic kidney disease; E78.00 Pure hypercholesterolemia, unspecified; E78.5 Hyperlipidemia, unspecified; R09.02 Hypoxemia; I27.2 Other secondary pulmonary hypertension; I48.0 Paroxysmal atrial fibrillation; J44.9 Chronic obstructive pulmonary disease, unspecified; M10.9 Gout, unspecified; N18.3 Chronic kidney disease, stage 3 (moderate); I25.5 Ischemic cardiomyopathy; I25.10 Atherosclerotic heart disease of native coronary artery without angina pectoris; E11.51 Type 2 diabetes mellitus with diabetic peripheral angiopathy without gangrene; M19.90 Unspecified osteoarthritis, unspecified site; I25.2 Old myocardial infarction; Z79.82 Long term (current) use of aspirin; Z86.73 Personal history of transient ischemic attack (TIA), and cerebral infarction without residual deficits; Z82.49 Family history of ischemic heart disease and other diseases of the circulatory system; Z95.5 Presence of coronary angioplasty implant and graft; Z87.891 Personal history of nicotine dependence; Z79.1 Long term (current) use of non-steroidal anti-inflammatories (NSAID); Z79.899 Other long term (current) drug therapy
CPT/HCPCS: 36415; 70450; 71010; 80048; 80053; 81001; 82947; 83605; 83735; 84145; 85007; 85027; 87040; 87205; 93005; 95816; 96360; J1160; J3370; J3490; J7030; J7040; J7050; 97110; 97116; 97530; 97535; 99285-25

== ENCOUNTER → 2016-11-16 | Outpatient (CLI) | payer OTHER ==
[~2016-11-16] MED LIST changes: +AMIO200T2 PO; +LINA5TAB4 PO; +TAMS0.4C97 PO
--- NOTE | 2016-11-16 11:52 | CARD ---
APPROVED REPORT EXAM: Two-dimensional and M-mode echocardiogram with Doppler and color Doppler. Other Information Quality : GoodHR: 69bpm Rhythm : NSR INDICATION Ischemic cardiomyopathy 2D DIMENSIONS RVDd2.5 (2.9-3.5cm)Left Atrium(2D)5.1 (1.6-4.0cm) IVSd0.9 (0.7-1.1cm)Aortic Root(2D)2.8 (2.0-3.7cm) LVDd6.1 (3.9-5.9cm)LVOT Diameter2.3 (1.8-2.4cm) PWd1.0 (0.7-1.1cm)LVDs5.7 (2.5-4.0cm) FS (%) 6.9 %SV27.8 ml LVEF(%)15.0 (>50%) M-Mode DIMENSIONS LVDd6.21 (4.0-5.6cm)FS (%) 17 % LVDs5.17 (2.0-3.8cm)ESV(Teich)127.9 ml LVEF(%)34 (>50%) Aortic Valve AoV Peak Alejandro.126.0cm/sAoV VTI24.8cm AO Peak GR.6.3mmHgLVOT Peak Alejandro.94.8cm/s AO Mean GR.4mmHgAVA (VMAX)3.06cm2 AI P 1/2 [id number] Mitral Valve MV E Fnrjvrdg023.1cm/sMV E Peak Gr.5mmHg MV DECEL [id number] A Kjwtfbhj36.4cm/s MV E Mean Gr.1mmHgE/A Ratio2.7 MV A [id number] Pulmonary Valve PV Peak Qklzistl31.5cm/s Tricuspid Valve TR P. Yrehmblm070ee/sTR Peak Gr.35mmHg Pulmonary Vein S1 Nkldsvct22.5cm/sD2 Jljlzmlh58.4cm/s PVa [id number] LEFT VENTRICLE The Left Ventricle is mildly dilated. There is normal left ventricular wall thickness. Left ventricle systolic function is severely impaired. The Ejection Fraction is 20-25%. There is severe global hypo kinesis of the left ventricle. Transmitral Doppler flow pattern is Grade IV-fixed restrictive diastol ic dysfunction. No left ventricle thrombus noted on this study. RIGHT VENTRICLE The right ventricle is normal size. There is normal right ventricular wall thickness. Systolic functi on is mildly reduced. ATRIA The left atrium is severely dilated. The right atrium is moderately dilated. The interatrial septum i s intact with no evidence for an atrial septal defect or patent foramen ovale as noted on 2-D or Dopp ler imaging. AORTIC VALVE The aortic valve is mildly sclerotic. The aortic valve is trileaflet. Doppler and Color Flow revealed mild to moderate aortic regurgitation. There is no significant aortic valvular stenosis. MITRAL VALVE The mitral valve leaflets are mildly thickened. There is no evidence of mitral valve prolapse. There is no mitral valve stenosis. Doppler and Color Flow revealed mild mitral regurgitation. TRICUSPID VALVE Doppler and Color Flow revealed trace to mild tricuspid regurgitation. The pulmonary artery systolic pressure is estimated at 38 mmHg. There is mild pulmonary hypertension. PULMONIC VALVE The pulmonary valve is not well visualized but appears to opens well. Doppler and Color Flow revealed no pulmonic valvular regurgitation. There is no pulmonic valvular stenosis by spectral Doppler. GREAT VESSELS The aortic root is normal in size. The ascending aorta is normal in size. The IVC is normal in size a nd collapses >50% with inspiration. PERICARDIAL EFFUSION There is no evidence of significant pericardial effusion. Critical Notification Critical Value: No <Conclusion> Left ventricle systolic function is severely impaired. The Ejection Fraction is 20-25%. There is severe global hypokinesis of the left ventricle. Transmitral Doppler flow pattern is Grade IV-fixed restrictive diastolic dysfunction. Doppler and Color Flow revealed mild to moderate aortic regurgitation.
== END | disposition home or self-care (01) ==
LOC: ECHO 10:48
PROVIDERS: ATTEND Internal Medicine Cardiovascular Disease
DX: I25.5 Ischemic cardiomyopathy (principal); I08.0 Rheumatic disorders of both mitral and aortic valves; I27.2 Other secondary pulmonary hypertension
CPT/HCPCS: 93306

== ENCOUNTER → 2017-02-22 | Outpatient (CLI) | payer MEDICARE ==
[~2017-02-22] MED LIST changes: +METO-239 PO; -METO25TA9 PO
[2017-02-22 11:53] LABS: ALBUMIN 3.4 g/dL (3.4-5.0); CALCIUM 8.8 mg/dL (8.5-10.1); CREATININE 2.6 mg/dL (0.7-1.3); DIRECT BILIRUBIN 0.2 mg/dL (0.0-0.2); GFR 30.2; POTASSIUM 4.4 mmol/L (3.5-5.1); TOTAL BILIRUBIN 0.7 mg/dL (0.2-1.0); TOTAL PROTEIN 7.9 g/dL (6.4-8.2)
--- NOTE | 2017-02-22 12:59 | RAD ---
Chest, 2 views, 02/22/2017: History: Atrial fibrillation Comparison is made to a study from 08/13/2016. The heart is mildly enlarged. Coronary artery calcifications are evident. There is mild tortuosity of the thoracic aorta. The pulmonary vascularity is normal. No pulmonary infiltrates are seen. There is no evidence of pleural fluid. Mild spurring is present in the spine. IMPRESSION: 1. Mild cardiomegaly. 2. Coronary artery disease. 3. No acute abnormality is detected.
== END | disposition home or self-care (01) ==
LOC: RAD 10:44
PROVIDERS: ATTEND Nurse Practitioner
DX: I48.91 Unspecified atrial fibrillation (principal); I25.10 Atherosclerotic heart disease of native coronary artery without angina pectoris; I51.7 Cardiomegaly
CPT/HCPCS: 36415; 71020; 80048; 80076; 84436; 84443